=== PATIENT | male | born 1960 | race African-American/Black ===

== ENCOUNTER 2018-03-20 10:19 | Inpatient (IN) | payer OTHER ==
[2018-03-20] VITALS (7 sets, daily range): BP systolic 88–130; BP diastolic 46–95
[~2018-03-20] VITALS: Ht 170.2 cm; Wt 65.3 kg
[2018-03-20] MEDS ORDERED: NS 250 ML IV ONE (10:22)
[2018-03-20] MEDS ORDERED: ALLOPURINOL100 M1 ORAL (10:29)
[2018-03-20] MEDS ORDERED: OMEPRAZOLE10 M1 ORAL (10:29)
[2018-03-20] MEDS ORDERED: LISINOPRIL2.5 MG ORAL (10:29)
[2018-03-20] MEDS ORDERED: NORVASC2.5 MG ORAL (10:29)
[2018-03-20] MEDS ORDERED: TAMSULOSIN HCL0.4 MG ORAL (10:29)
[2018-03-20] MEDS ORDERED: CATAPRES0.1 MG ORAL (10:29)
[2018-03-20] MEDS ORDERED: FOLIC ACID1 MG ORAL (10:29)
[2018-03-20 10:51] LABS: BASOPHILS % (AUTO) 3.2 % (0.0-2.0); EOSINOPHILS % (AUTO) 6.9 % (0.0-3.0); HEMATOCRIT 28.5 % (42.0-52.0); HEMOGLOBIN 9.7 G/DL (14.2-18.0); LYMPHOCYTES % (AUTO) 22.6 % (20.0-45.0); MEAN CORPUSCULAR VOLUME 95 FL (80-99); MONOCYTES % (AUTO) 17.1 % (1.0-10.0); NEUTROPHILS % (AUTO) 50.3 % (45.0-75.0); PLATELET COUNT 391 K/UL (150-450); WHITE BLOOD COUNT 4.8 K/UL (4.8-10.8)
[2018-03-20 10:59] LABS: ANION GAP 12 mmol/L (5-15); BLOOD UREA NITROGEN 14 mg/dL (7-18); CALCIUM 9.1 MG/DL (8.5-10.1); CARBON DIOXIDE 27 MMOL/L (21-32); CHLORIDE 99 MMOL/L (98-107); CREATININE 4.5 MG/DL (0.55-1.30); POTASSIUM 3.4 MMOL/L (3.5-5.1); SODIUM 138 MMOL/L (136-145)
--- NOTE | 2018-03-20 11:02 | Emergency Room Report ---
History of Present Illness General Chief Complaint: Dyspnea/Respdistress Source: Patient Present Illness HPI 57-year-old male presents ED presenting with shortness of breath. Patient coming from dialysis center today. Completed dialysis session and developed shortness of breath. Hypotensive per EMS. Patient has history of ESRD and states he is compliant with his dialysis. States that when he feels short of breath like this is usually because he is anemic and needs a blood transfusion. Denies chest pain. Denies fevers or chills. No other aggravating or relieving factors. Denies any other associated symptoms Allergies: Coded Allergies: No Known Allergies (Unverified , 03/20/18) Patient History Past Medical History: CHF, renal disease, dialysis Past Surgical History: none Pertinent Family History: none Social History: Denies: smoking, alcohol use, drug use Immunizations: UTD Reviewed Nursing Documentation: PMH: Agreed; PSxH: Agreed Nursing Documentation-PMH Past Medical History: No History, Except For Hx Cardiac Problems: Yes - heart failure Hx Hypertension: Yes - low Hgb Hx Dialysis: Yes - last dialysis 03/20/2018 Review of Systems All Other Systems: negative except mentioned in HPI Physical Exam Vital Signs Date Time Temp Pulse Resp B/P (MAP) Pulse Ox O2 Delivery O2 Flow Rate FiO2 03/20/18 10:19 96.1 138 35 89/46 94 Non-Rebreather 96.1 03/20/18 10:33 15.0 Sp02 EP Interpretation: reviewed, normal General Appearance: no apparent distress, alert, GCS 15, non-toxic Head: normocephalic, atraumatic Eyes: bilateral eye normal inspection, bilateral eye PERRL ENT: hearing grossly normal, normal pharynx, no angioedema, normal voice Neck: full range of motion, supple/symm/no masses Respiratory: chest non-tender, normal breath sounds, crackles, speaking full sentences Cardiovascular #1: no edema, tachycardia Cardiovascular #2: 2+ carotid (R), 2+ carotid (L), 2+ radial (R), 2+ radial (L) , 2+ dorsalis pedis (R), 2+ dorsalis pedis (L) Gastrointestinal: normal bowel sounds, non tender, soft, non-distended, no guarding, no rebound Rectal: deferred Genitourinary: normal inspection, no CVA tenderness Musculoskeletal: back normal, gait/station normal, normal range of motion, non- tender Neurologic: alert, oriented x3, responsive, motor strength/tone normal, sensory intact, speech normal Psychiatric: judgement/insight normal, memory normal, mood/affect normal, no suicidal/homicidal ideation Reflexes: 3+ bicep (R), 3+ bicep (L), 3+ tricep (R), 3+ tricep (L), 3+ knee (R) , 3+ knee (L) Skin: normal color, no rash, warm/dry, well hydrated Lymphatic: no adenopathy Procedures Critical Care Time Critical Care Time i. I feel this is a highly complex case requiring extensive working including EKG/Rhythm strip, Xray/CT/US, Blood/urine lab work, repeat exams while in ED, and administration of strong opiates/narcotics for pain control, admission to hospital or close patient follow up. Total time: 30 min bedside evaluation and treatment excludes procedures (EKG). Reason for critical care: Shortness of breath, hypotensive Possible complications: hypotension, hypertension, [place], shock, arrhythmias, metabolic acidosis, end organ damage, respiratory failure. Interventions: Labs, EKG, chest x-ray, IV bolus, antibiotics Course: Patient presenting with shortness of breath after dialysis. Hypotensive after removing 4 L of fluid. Blood pressure slowly improving after IV boluses. Chest x-ray shows pneumonia on the right side. Blood pressure slowly improving with IV hydration. Antibiotics given. Consultations: nursing staff, EMS, family Performed by: Dr Duuqe Tolerated well condition = serious j. because of unstable vital signs this patient had a condition that could potentially threaten life or limb. I feel this is a critical patient who required my full attention while patient was considered critical. Total Critical Care Time excluding procedures was greater than 35 minutes Medical Decision Making Diagnostic Impression: Primary Impression: Respiratory distress Additional Impressions: ESRD (end stage renal disease) on dialysis Pneumonia Qualified Codes: J18.1 - Lobar pneumonia, unspecified organism ER Course Hospital Course 57 yo M presents to ED c/o SOB, hypotensive after dialysis Differential diagnoses include: Pneumonia, CHF exacerbation, sepsis, fluid depletion Clinical course Patient placed on stretcher. On panel monitor with tachycardia, hypotension. After initial history and physical, I ordered labs, IV fluids, EKG, chest x- ray, blood cultures, ABG. Labs -no leukocytosis noted, hemoglobin/hematocrit stable, BUN/Cr elevated, trop negative, BNP elevated CXR - R middle lobe infiltrate, bilateral pulmonary congestion EKG - sinus tachycardia, no acute ischemic changes interpreted by me Blood pressure, tachycardia slowly improving with small fluid boluses. Antibiotics given. Case discussed with Dr. Wilson and he agreed to the patient to his service for further care and support I feel this is a highly complex case requiring extensive working including EKG/ Rhythm strip, Xray/CT/US, Blood/urine lab work, repeat exams while in ED, and administration of strong opiates/narcotics for pain control, admission to hospital or close patient follow up. Diagnosis - pneumonia, respiratory distress, ESRD on dialysis Patient admitted to SDU in serious conditon Labs Test 03/20/18 10:20 03/20/18 10:35 03/20/18 11:44 White Blood Count 4.8 K/UL (4.8-10.8) Red Blood Count 3.00 M/UL (4.70-6.10) Hemoglobin 9.7 G/DL (14.2-18.0) Hematocrit 28.5 % (42.0-52.0) Mean Corpuscular Volume 95 FL (80-99) Mean Corpuscular Hemoglobin 32.2 PG (27.0-31.0) Mean Corpuscular Hemoglobin Concent 33.9 G/DL (32.0-36.0) Red Cell Distribution Width 16.0 % (11.6-14.8) Platelet Count 391 K/UL (150-450) Mean Platelet Volume 5.1 FL (6.5-10.1) Neutrophils (%) (Auto) 50.3 % (45.0-75.0) Lymphocytes (%) (Auto) 22.6 % (20.0-45.0) Monocytes (%) (Auto) 17.1 % (1.0-10.0) Eosinophils (%) (Auto) 6.9 % (0.0-3.0) Basophils (%) (Auto) 3.2 % (0.0-2.0) Prothrombin Time 10.9 SEC (9.30-11.50) Prothromb Time International Ratio 1.0 (0.9-1.1) Activated Partial Thromboplast Time 37 SEC (23-33) Sodium Level 138 MMOL/L (136-145) Potassium Level 3.4 MMOL/L (3.5-5.1) Chloride Level 99 MMOL/L (98-107) Carbon Dioxide Level 27 MMOL/L (21-32) Anion Gap 12 mmol/L (5-15) Blood Urea Nitrogen 14 mg/dL (7-18) Creatinine 4.5 MG/DL (0.55-1.30) Estimat Glomerular Filtration Rate 13.5 mL/min (>60) Glucose Level 121 MG/DL (74-106) Calcium Level 9.1 MG/DL (8.5-10.1) Total Bilirubin 0.4 MG/DL (0.2-1.0) Aspartate Amino Transf (AST/SGOT) 25 U/L (15-37) Alanine Aminotransferase (ALT/SGPT) 11 U/L (12-78) Alkaline Phosphatase 115 U/L (46-116) Total Creatine Kinase 228 U/L (26-308) Creatine Kinase MB 1.3 NG/ML (0.0-3.6) Creatine Kinase MB Relative Index 0.5 Troponin I 0.014 ng/mL (0.000-0.056) Pro-B-Type Natriuretic Peptide > 54651 pg/mL (0-125) Total Protein 8.4 G/DL (6.4-8.2) Albumin 3.0 G/DL (3.4-5.0) Globulin 5.4 g/dL Albumin/Globulin Ratio 0.6 (1.0-2.7) Arterial Blood pH 7.700 (7.350-7.450) Arterial Blood Partial Pressure CO2 20.8 mmHg (35.0-45.0) Arterial Blood Partial Pressure O2 185.7 mmHg (75.0-100.0) Arterial Blood HCO3 25.7 mmol/L (22.0-26.0) Arterial Blood Oxygen Saturation 99.0 % (92.0-98.0) Arterial Blood Base Excess 6.4 Xavier Test Positive Lactic Acid Level 1.40 mmol/L (0.4-2.0) EKG Diagnostic Results Rate: tachycardiac Rhythm: NSR ST Segments: no acute changes ASA given to the pt in ED: No Rhythm Strip Diag. Results EP Interpretation: yes Rhythm: NSR, no PVC's, no ectopy Chest X-Ray Diagnostic Results Chest X-Ray Diagnostic Results : Chest X-Ray Ordered: Yes # of Views/Limited/Complete: 1 View Indication: Shortness of Breath EP Interpretation: Yes Interpretation: no pneumothorax, other - bilateral pulmonary congestion, R sided pneumonia Impression: Other - CHF/PNA Electronically Signed by: Electronically signed by Angus Duque MD Last Vital Signs Date Time Temp Pulse Resp B/P (MAP) Pulse Ox O2 Delivery O2 Flow Rate FiO2 03/20/18 10:33 96.1 35 89/46 94 Non-Rebreather 96.1 03/20/18 10:33 138 15.0 Status: improved Disposition: ADMITTED INPATIENT Condition: Serious Angus Duque MD Mar 20, 2018 11:02
[2018-03-20 11:15] LABS: ALANINE AMINOTRANSFERASE 11 U/L (12-78); ALBUMIN/GLOBULIN RATIO 0.6 (1.0-2.7); ALKALINE PHOSPHATASE 115 U/L (46-116); ASPARTATE AMINO TRANSFERASE 25 U/L (15-37); BILIRUBIN,TOTAL 0.4 MG/DL (0.2-1.0); CKMB 1.3 NG/ML (0.0-3.6); CREATINE KINASE 228 U/L (26-308)
[2018-03-20] MEDS ORDERED: NS 250 ML IVPB ONE (11:15)
--- NOTE | 2018-03-20 11:22 | Diagnostic Imaging Report ---
EXAM: XR Chest, 1 View CLINICAL HISTORY: SOB TECHNIQUE: Frontal view of the chest. COMPARISON: No relevant prior studies available. FINDINGS: Lungs: Vascular and interstitial prominence. Right perihilar opacity. Pleural space: Unremarkable. No pneumothorax. Heart: Cardiomegaly. Mediastinum: Unremarkable. Bones/joints: Unremarkable. IMPRESSION: Vascular and interstitial prominence. Right perihilar opacity. Query congestive heart failure versus pneumonia.
[2018-03-20] MEDS ORDERED: Azithromycin 500 MG in D5W 275 ML IVPB ONE (11:30)
[2018-03-20] MEDS ORDERED: Piperacillin/Tazobactam 3.375 GM in NS 110 ML IVPB ONE (11:30)
[2018-03-20] MEDS ORDERED: LORazepam Inj 2mg/ml 1ml ONE (12:05)
[2018-03-20] MEDS ORDERED: LORazepam Inj 2mg/ml 1ml IV ONE (12:15)
[2018-03-20] MEDS ORDERED: Albuterol/Ipratropium 3ml neb HHN PRN (12:45)
[2018-03-20] MEDS ORDERED: Miralax 17gm pkt ORAL PRN (12:45)
--- NOTE | 2018-03-20 14:40 | Consultation ---
Consult Note Consult Note asked to eval for dialysis management been on HD for 18 years has dialysis access left thigh HPI 57-year-old male presents ED presenting with shortness of breath. Patient coming from dialysis center today. Completed dialysis session and developed shortness of breath. Hypotensive per EMS. Patient has history of ESRD and states he is compliant with his dialysis. States that when he feels short of breath like this is usually because he is anemic and needs a blood transfusion. Denies chest pain. Denies fevers or chills. No other aggravating or relieving factors. Denies any other associated symptoms Past Medical History: CHF, renal disease, dialysis Past Medical History: No History, Except For Hx Cardiac Problems: Yes - heart failure Hx Hypertension: Yes - low Hgb Hx Dialysis: Yes - last dialysis 03/20/2018 Assessment/Plan Respiratory distress- Pneumonia & or CHF ESRD- Anemia Hypotension IV Bollouses- Pulmonary support- antibiotics HD as needed Gastric support Yobany Mohr MD Mar 20, 2018 14:40
--- NOTE | 2018-03-20 14:55 | History & Physical ---
History and Physical History & Physicial Dictated for Int Med-Dr Wilson no. [id number]. Maxim Vinson MD Mar 20, 2018 14:55
--- NOTE | 2018-03-20 15:00 | Consultation ---
History of Present Illness General Date patient seen: Mar 20, 2018 Chief Complaint: Dyspnea/Respdistress Present Illness HPI 57 y/o M with hx of CHF, ESRD on HD, Anemia, HTN presents to ED on 03/20 with SOB. Per EMS, patient hypotensive Denies CP, f/c. Allergies: Coded Allergies: No Known Allergies (Unverified , 03/20/18) Medication History Scheduled Allopurinol* (Allopurinol*), Unknown Dose ORAL DAILY, (Reported) Amlodipine Besylate (Norvasc), Unknown Dose ORAL DAILY, (Reported) Clonidine Hcl* (Catapres*), 0.1 MG ORAL EVERY 6 HOURS, (Reported) Folic Acid* (Folic Acid*), 1 MG ORAL DAILY, (Reported) Lisinopril* (Lisinopril*), 2.5 MG ORAL DAILY, (Reported) Omeprazole (Omeprazole), Unknown Dose ORAL DAILY, (Reported) Tamsulosin Hcl (Tamsulosin Hcl*), Unknown Dose ORAL BEDTIME, (Reported) Patient History Healthcare decision maker Resuscitation status Advanced Directive on File Patient History Narrative Pmhx: as above Shx: Denies: smoking, alcohol use, drug use Fhx: non contributory Review of Systems All Other Systems: negative except mentioned in HPI Physical Exam Physical Exam Narrative General Appearance: no apparent distress, alert, GCS 15, non-toxic Head: normocephalic, atraumatic Eyes: bilateral eye normal inspection, bilateral eye PERRL ENT: hearing grossly normal, normal pharynx, no angioedema, normal voice Neck: full range of motion, supple/symm/no masses Respiratory: chest non-tender, normal breath sounds, crackles, speaking full sentences Cardiovascular #1: no edema, tachycardia Gastrointestinal: normal bowel sounds, non tender, soft, non-distended, no guarding, no rebound Genitourinary: normal inspection, no CVA tenderness Musculoskeletal: back normal, gait/station normal, normal range of motion, non- tender Skin: normal color, no rash, warm/dry, well hydrated Last 24 Hour Vital Signs Date Time Temp Pulse Resp B/P (MAP) Pulse Ox O2 Delivery O2 Flow Rate FiO2 03/20/18 14:15 97.4 87 15 119/62 100 Non-Rebreather 15.0 97.4 03/20/18 13:24 97.4 87 15 119/62 100 Non-Rebreather 15.0 97.4 03/20/18 12:57 97.2 85 15 114/66 100 Non-Rebreather 15.0 97.2 03/20/18 12:46 97.0 88 15 101/66 100 Non-Rebreather 15.0 97.0 03/20/18 12:33 97.0 82 14 97/61 100 Non-Rebreather 15.0 97.0 03/20/18 11:57 96.1 123 23 88/47 100 Non-Rebreather 15.0 96.1 03/20/18 10:33 96.1 35 89/46 94 Non-Rebreather 96.1 03/20/18 10:33 138 35 15.0 03/20/18 10:19 96.1 138 35 89/46 94 Non-Rebreather 96.1 Laboratory Tests Test 03/20/18 10:20 03/20/18 10:35 03/20/18 11:44 White Blood Count 4.8 K/UL (4.8-10.8) Red Blood Count 3.00 M/UL (4.70-6.10) L Hemoglobin 9.7 G/DL (14.2-18.0) L Hematocrit 28.5 % (42.0-52.0) L Mean Corpuscular Volume 95 FL (80-99) Mean Corpuscular Hemoglobin 32.2 PG (27.0-31.0) H Mean Corpuscular Hemoglobin Concent 33.9 G/DL (32.0-36.0) Red Cell Distribution Width 16.0 % (11.6-14.8) H Platelet Count 391 K/UL (150-450) Mean Platelet Volume 5.1 FL (6.5-10.1) L Neutrophils (%) (Auto) 50.3 % (45.0-75.0) Lymphocytes (%) (Auto) 22.6 % (20.0-45.0) Monocytes (%) (Auto) 17.1 % (1.0-10.0) H Eosinophils (%) (Auto) 6.9 % (0.0-3.0) H Basophils (%) (Auto) 3.2 % (0.0-2.0) H Prothrombin Time 10.9 SEC (9.30-11.50) Prothromb Time International Ratio 1.0 (0.9-1.1) Activated Partial Thromboplast Time 37 SEC (23-33) H Sodium Level 138 MMOL/L (136-145) Potassium Level 3.4 MMOL/L (3.5-5.1) L Chloride Level 99 MMOL/L (98-107) Carbon Dioxide Level 27 MMOL/L (21-32) Anion Gap 12 mmol/L (5-15) Blood Urea Nitrogen 14 mg/dL (7-18) Creatinine 4.5 MG/DL (0.55-1.30) H Estimat Glomerular Filtration Rate 13.5 mL/min (>60) Glucose Level 121 MG/DL (74-106) H Calcium Level 9.1 MG/DL (8.5-10.1) Total Bilirubin 0.4 MG/DL (0.2-1.0) Aspartate Amino Transf (AST/SGOT) 25 U/L (15-37) Alanine Aminotransferase (ALT/SGPT) 11 U/L (12-78) L Alkaline Phosphatase 115 U/L (46-116) Total Creatine Kinase 228 U/L (26-308) Creatine Kinase MB 1.3 NG/ML (0.0-3.6) Creatine Kinase MB Relative Index 0.5 Troponin I 0.014 ng/mL (0.000-0.056) C-Reactive Protein, Quantitative Pending Pro-B-Type Natriuretic Peptide > 67996 pg/mL (0-125) H Total Protein 8.4 G/DL (6.4-8.2) H Albumin 3.0 G/DL (3.4-5.0) L Globulin 5.4 g/dL Albumin/Globulin Ratio 0.6 (1.0-2.7) L Arterial Blood pH 7.700 (7.350-7.450) Arterial Blood Partial Pressure CO2 20.8 mmHg (35.0-45.0) *L Arterial Blood Partial Pressure O2 185.7 mmHg (75.0-100.0) H Arterial Blood HCO3 25.7 mmol/L (22.0-26.0) Arterial Blood Oxygen Saturation 99.0 % (92.0-98.0) H Arterial Blood Base Excess 6.4 Xavier Test Positive Lactic Acid Level 1.40 mmol/L (0.4-2.0) Height (Feet): 5 Height (Inches): 7.00 Weight (Pounds): 150 Medications Current Medications Medications (Trade) Dose Ordered Sig/Letty Route PRN Reason Start Time Stop Time Status Last Admin Dose Admin Acetaminophen (Tylenol) 650 mg Q4H PRN ORAL Fever (T>100.5F) 03/20/18 12:45 04/19/18 12:44 Albuterol/ Ipratropium (Albuterol/ Ipratropium) 3 ml Q4H PRN HHN Shortness of Breath 03/20/18 12:45 03/25/18 12:44 Amlodipine Besylate (Norvasc) 2.5 mg BID ORAL 03/21/18 09:00 04/20/18 08:59 Clonidine HCl (Catapres Tab) 0.1 mg Q6H PRN ORAL SBP>160 03/20/18 13:30 04/19/18 13:29 Dextrose (Dextrose 50%) 25 ml STAT PRN IV Hypoglycemia 03/20/18 13:30 04/19/18 13:29 Dextrose (Dextrose 50%) 50 ml STAT PRN IV Hypoglycemia 03/20/18 12:45 04/19/18 12:44 Heparin Sodium (Porcine) (Heparin 5000 units/ml) 5,000 units EVERY 12 HOURS SUBQ 03/20/18 21:00 04/19/18 20:59 Ondansetron HCl (Zofran) 4 mg Q6H PRN IVP Nausea & Vomiting 03/20/18 12:45 04/19/18 12:44 Pantoprazole (Protonix) 40 mg EVERY 12 HOURS ORAL 03/20/18 21:00 04/19/18 20:59 Piperacillin Sod/ Tazobactam Sod 3.375 gm/Sodium Chloride 110 ml @ 27.5 mls/hr EVERY 8 HOURS IVPB 03/20/18 22:00 03/25/18 21:59 UNV Polyethylene Glycol (Miralax) 17 gm DAILYPRN PRN ORAL Constipation 03/20/18 12:45 04/19/18 12:44 Tamsulosin HCl (Flomax) 0.4 mg QHS ORAL 03/20/18 21:00 04/19/18 20:59 Temazepam (Restoril) 15 mg HSPRN PRN ORAL Insomnia 03/20/18 12:45 03/27/18 12:44 Assessment/Plan Assessment/Plan Abx: Azithromycin x1 03/20 Zosyn 03/20- Assessment: Probable PNA vs CHF -CXR: Vascular and interstitial prominence. Right perihilar opacity. Query congestive heart failure versus pneumonia. Afebrile, no leukocytosis CHF ESRD on HD Anemia HTN Plan: -Continue empiric Zosyn and and IV Vancomycin pending sp cx -sp cx -f/u cx -Monitor CBC/CMP, temperatures -aspiration precautions Thank you for this consultation. Will continue to follow along with you. Discussed with RN and Dr Vinson. Jessica Hopper M.D. Mar 20, 2018 14:59
[2018-03-20] MEDS ORDERED: Sodium Chloride 3% 4ml Nebul Soln INH ONE (17:00)
[2018-03-20] MEDS ORDERED: Vancomycin 1250mg/D5W 250ml IVPB ONE (17:00)
--- NOTE | 2018-03-20 20:45 | History and Physical Report ---
DATE OF ADMISSION: 03/20/2018 CHIEF COMPLAINT: The patient is a 57-year-old male, who presents with chief complaint of shortness of breath. HISTORY OF PRESENT ILLNESS: The patient has a history of end-stage renal disease. The patient is currently on dialysis every Thursday, , and Thursday. The patient apparently went to dialysis today, 03/20/2018. The patient then returned home. The patient presented to [place] emergency room stating that he had become increasingly short of breath. The patient denies fevers or chills. The patient denies cough. The patient is admitted with shortness of breath to rule out congestive heart failure versus pneumonia. PAST MEDICAL HISTORY: Significant for 1. End-stage renal disease, on hemodialysis every Thursday, , and Thursday. 2. Hypertension. 3. Congestive heart failure. PAST SURGICAL HISTORY: Significant for 1. Sebaceous cyst, incision and drainage of left buttock in 01/2018. 2. Arteriovenous graft on the right arm. 3. Arteriovenous graft placement in the left arm. 4. Arteriovenous graft placement in the left leg. CURRENT MEDICATIONS: 1. Allopurinol 100 mg p.o. daily. 2. Amlodipine 2.5 mg p.o. daily. 3. Clonidine 0.1 mg p.o. q.6 h. p.r.n. 4. Folic acid 1 mg p.o. daily. 5. Lisinopril 2.5 mg p.o. daily. 6. Omeprazole 20 mg p.o. daily. 7. Flomax 0.4 mg p.o. at bedtime. ALLERGIES: No known drug allergies. SOCIAL HISTORY: The patient is single. The patient lives with his mother. The patient denies tobacco use, having quit in 2016. The patient admits to alcohol use of 2 beers daily. REVIEW OF SYSTEMS: CONSTITUTIONAL: The patient denies weight loss or weight gain. The patient denies fevers or chills. HEENT: The patient denies ear or throat pain. CARDIOVASCULAR: The patient denies palpitations or chest pain. CHEST: The patient denies wheezes. The patient complains of shortness of breath as above. ABDOMEN: The patient denies nausea, vomiting, diarrhea, or constipation. GENITOURINARY: The patient denies dysuria or increased frequency of urination. NEUROMUSCULAR: The patient denies seizures or generalized weakness. PHYSICAL EXAMINATION: GENERAL: The patient is thin-appearing male, in no apparent distress. The patient is currently on a non-rebreather mask. VITAL SIGNS: Temperature 96.1 degrees, respirations 23 to 35, blood pressure 88 to 101/46 to 66. HEENT: Eyes, pupils equal and responsive to light and accommodation. Extraocular movements are intact. NECK: Supple without lymphadenopathy. CHEST: Decreased breath sounds bilateral bases. Otherwise, clear to auscultation without wheezes or rales. CARDIOVASCULAR: Regular rate. S1 and S2 are normal without murmurs, rubs, or gallops. ABDOMEN: Soft, nontender, nondistended. Positive bowel sounds. No evidence of hepatosplenomegaly. Currently, no rebound or guarding noted. EXTREMITIES: Negative for clubbing, cyanosis, or edema. RECTAL: Refused. GENITAL: Refused. NEUROLOGIC: Cranial nerves II through XII are grossly intact without focal deficits. Motor strength is 5/5 bilaterally. Deep tendon reflexes are 2+ plantar. LABORATORY AND DIAGNOSTIC DATA: WBC 4.8, hemoglobin 9.7, hematocrit 28.5 and platelets 391,000. Sodium 138, potassium 3.4, chloride 99, CO2 27, BUN 14, creatinine 4.5, and glucose 121. Troponin 0.014. BNP elevated greater than 35,000. Chest x-ray revealed right perihilar opacity. ASSESSMENT: This is a 57-year-old male 1. Shortness of breath. 2. Pneumonia. 3. Congestive heart failure. 4. End-stage renal disease. 5. Hypertension. TREATMENT: 1. Shortness of breath/pneumonia. A Pulmonary consultation has been obtained with Dr. Maureen Montano. The patient has been started empirically on Zosyn and azithromycin. Continue Zosyn as above. 2. Congestive heart failure. A Cardiology consultation has been obtained with Dr. Nicholson. Congestive heart failure may be secondary to volume overload. Serial troponin levels will be performed. 3. End-stage renal disease. A Nephrology consultation has been obtained with Dr. Mohr. The patient received dialysis today, 03/20/2018. We will follow recommendations of Nephrology. 4. Hypertension. Continue amlodipine and clonidine as above. Maxim Vinson M.D. DR: THAIS JOB#: [id number] CC:
[2018-03-20] MEDS: Heparin 5000 units/ml inj SUBQ SCH (21:00)
[2018-03-20] MEDS: Tamsulosin 0.4mg cap ORAL SCH (21:11)
[2018-03-20] MEDS: Zosyn 2.25 gm in D5W 55ml IV SCH (21:12)
[2018-03-20] MEDS ORDERED: Piperacillin/Tazobactam 3.375 GM in NS 110 ML IVPB SCH (22:00)
[2018-03-21] VITALS (7 sets, daily range): BP systolic 130–176; BP diastolic 63–97
[2018-03-21] MEDS: Zosyn 2.25 gm in D5W 55ml IV SCH ×3 (05:33→22:00)
[2018-03-21 08:51] LABS: HEMATOCRIT 24.4 % (42.0-52.0); HEMOGLOBIN 7.6 G/DL (14.2-18.0); MEAN CORPUSCULAR VOLUME 96 FL (80-99); PLATELET COUNT 286 K/UL (150-450); RED BLOOD COUNT 2.54 M/UL (4.70-6.10); RED CELL DISTRIBUTION WIDTH 16.9 % (11.6-14.8); WHITE BLOOD COUNT 5.4 K/UL (4.8-10.8)
[2018-03-21] MEDS: Heparin 5000 units/ml inj SUBQ SCH ×2 (09:23→21:00)
[2018-03-21 09:31] LABS: ALANINE AMINOTRANSFERASE 9 U/L (12-78); ALBUMIN 2.7 G/DL (3.4-5.0); ALBUMIN/GLOBULIN RATIO 0.6 (1.0-2.7); ALKALINE PHOSPHATASE 94 U/L (46-116); ANION GAP 11 mmol/L (5-15); ASPARTATE AMINO TRANSFERASE 17 U/L (15-37); BILIRUBIN,TOTAL 0.4 MG/DL (0.2-1.0); BLOOD UREA NITROGEN 25 mg/dL (7-18); CALCIUM 8.2 MG/DL (8.5-10.1); CARBON DIOXIDE 27 MMOL/L (21-32); CHLORIDE 100 MMOL/L (98-107); CHOLESTEROL 155 MG/DL (< 200); CREATINE KINASE 119 U/L (26-308); CREATININE 6.8 MG/DL (0.55-1.30); GAMMA GLUTAMYL TRANSPEPTIDASE 42 U/L (5-85); HDL CHOLESTEROL 71 MG/DL (40-60); PHOSPHORUS 4.9 MG/DL (2.5-4.9); POTASSIUM 4.2 MMOL/L (3.5-5.1); SODIUM 138 MMOL/L (136-145); TRIGLYCERIDES 47 MG/DL (30-150)
[2018-03-21 10:00] LABS: % IRON SATURATION 37 % (15-50); IRON 45 ug/dL (50-175); TOTAL IRON BINDING CAPACITY 123 ug/dL (250-450)
[2018-03-21 10:01] LABS: FERRITIN 1215 NG/ML (8-388)
[2018-03-21] MEDS ORDERED: Vancomycin 1gm/D5W 275ml IVPB SCH ×2 (12:45)
--- NOTE | 2018-03-21 12:48 | Nephrology Progress Note ---
Assessment/Plan Problem List: (1) ESRD (end stage renal disease) on dialysis (2) Pneumonia (3) CHF (congestive heart failure) (4) Hypotension Assessment: on presentation (5) Anemia in chronic kidney disease Assessment Respiratory distress- Pneumonia & or CHF ESRD- Anemia Hypotension Plan IV Bollouses as needed Pulmonary support- antibiotics HD in am Gastric support EPO Subjective ROS Limited/Unobtainable: No Constitutional: Reports: malaise Objective Objective Last 24 Hour Vital Signs Date Time Temp Pulse Resp B/P (MAP) Pulse Ox O2 Delivery O2 Flow Rate FiO2 03/21/18 09:30 99 Nasal Cannula 2.0 03/21/18 09:30 Nasal Cannula 2.0 03/21/18 09:17 78 132/65 03/21/18 08:00 82 03/21/18 08:00 Nasal Cannula 3.0 03/21/18 08:00 97.7 78 18 132/65 (87) 99 97.7 03/21/18 04:00 Nasal Cannula 3.0 03/21/18 03:35 80 03/21/18 00:00 98.0 86 20 130/63 (85) 98 98.0 03/21/18 00:00 Nasal Cannula 3.0 03/20/18 23:54 83 03/20/18 20:00 Nasal Cannula 3.0 03/20/18 20:00 97.5 80 20 130/95 (107) 100 97.5 03/20/18 19:55 74 03/20/18 19:30 Nasal Cannula 2.0 03/20/18 19:30 93 Nasal Cannula 2.0 03/20/18 16:00 68 03/20/18 16:00 Nasal Cannula 3.0 03/20/18 14:20 Nasal Cannula 3.0 03/20/18 14:15 97.4 87 15 119/62 100 Non-Rebreather 15.0 97.4 03/20/18 13:24 97.4 87 15 119/62 100 Non-Rebreather 15.0 97.4 03/20/18 12:57 97.2 85 15 114/66 100 Non-Rebreather 15.0 97.2 03/20/18 12:46 97.0 88 15 101/66 100 Non-Rebreather 15.0 97.0 Intake and Output 03/20/18 03/21/18 19:00 07:00 Intake Total 150 ml 160 ml Output Total 0 ml Balance 150 ml 160 ml Intake Oral 150 ml 50 ml IV Total 110 ml Output Urine Total 0 ml Laboratory Tests 03/21/18 07:00: Urine Opiates Screen Negative, Urine Barbiturates Screen Negative, Phencyclidine (PCP) Screen Negative, Urine Amphetamines Screen Negative, Urine Benzodiazepines Screen Negative, Urine Cocaine Screen Negative, Urine Marijuana (THC) Screen Negative 03/21/18 08:30: White Blood Count 5.4, Red Blood Count 2.54L, Hemoglobin 7.6L, Hematocrit 24.4L , Mean Corpuscular Volume 96, Mean Corpuscular Hemoglobin 30.0, Mean Corpuscular Hemoglobin Concent 31.3L, Red Cell Distribution Width 16.9H, Platelet Count 286, Mean Platelet Volume 5.2L, Neutrophils (%) (Auto) , Lymphocytes (%) (Auto) , Monocytes (%) (Auto) , Eosinophils (%) (Auto) , Basophils (%) (Auto) , Differential Total Cells Counted 100, Neutrophils % ( Manual) 80H, Lymphocytes % (Manual) 5L, Monocytes % (Manual) 9, Eosinophils % ( Manual) 6H, Basophils % (Manual) 0, Band Neutrophils 0, Platelet Estimate Adequate, Platelet Morphology Normal, Polychromasia 1+, Hypochromasia 1+, Anisocytosis 1+, Sodium Level 138, Potassium Level 4.2, Chloride Level 100, Carbon Dioxide Level 27, Anion Gap 11, Blood Urea Nitrogen 25H, Creatinine 6.8#H , Estimat Glomerular Filtration Rate 10.2, Glucose Level 129H, Hemoglobin A1c 5.1, Uric Acid 3.5, Calcium Level 8.2L, Phosphorus Level 4.9, Magnesium Level 1.7L, Iron Level 45L, Total Iron Binding Capacity 123L, Percent Iron Saturation 37, Unsaturated Iron Binding 78L, Ferritin 1215H, Total Bilirubin 0.4, Gamma Glutamyl Transpeptidase 42, Aspartate Amino Transf (AST/SGOT) 17, Alanine Aminotransferase (ALT/SGPT) 9L, Alkaline Phosphatase 94, Total Creatine Kinase 119, Troponin I 0.000, C-Reactive Protein, Quantitative 5.5H, Pro-B-Type Natriuretic Peptide 97405E, Total Protein 7.1, Albumin 2.7L, Globulin 4.4, Albumin/Globulin Ratio 0.6L, Triglycerides Level 47, Cholesterol Level 155, LDL Cholesterol 79, HDL Cholesterol 71H, Cholesterol/HDL Ratio 2.2L, Vitamin B12 Level 896, Folate 58.3, Thyroid Stimulating Hormone (TSH) 1.437, Random Vancomycin Level 19.0 Height (Feet): 5 Height (Inches): 7.00 Weight (Pounds): 141 General Appearance: no apparent distress Cardiovascular: normal rate Respiratory/Chest: decreased breath sounds Abdomen: soft Yobany Mohr MD Mar 21, 2018 12:48
[2018-03-21] MEDS: Docusate 100mg cap ORAL SCH ×2 (13:00→18:19)
--- NOTE | 2018-03-21 14:22 | Cardiology Report ---
APPROVED REPORT EXAM: Two-dimensional and M-mode echocardiogram with Doppler and color Doppler. INDICATION LV FUNCTION M-Mode DIMENSIONS IVSd1.0 (0.7-1.1cm)Left Atrium (MM)4.6 (1.6-4.0cm) LVDd5.3 (3.5-5.6cm)Aortic Root4.0 (2.0-3.7cm) PWd1.7 (0.7-1.1cm)Aortic Cusp Exc.1.9 (1.5-2.0cm) IVSs1.4 cm LVDs3.5 (2.5-4.0cm) PWs2.1 cm Technically difficult study due to combative patient . Normal left ventricular chamber size, systolic function and wall motion to extent visualized. Left ventricular ejection fraction estimated to be 55-60 %. Moderate-severe left ventricular hypertrophy by 2-D Moderate anterior and posterio pericardial effusion. Mild bi-atrial enlargements . Right ventricular chamber sizes are within normal limits. Focal aortic valve sclerosis with adequate cusp excursion. Thickened mitral valve leaflets with normal excursion. Mitral annulus and aortic root calcification. Pulmonic valve not well visualized. Normal tricuspid valve structure. IVC dilated at size 2.2 cm without physiologic collapse, suggestive of increased RA pressure. A color flow and spectral Doppler study was performed and revealed: No aortic regurgitation. Moderate mitral regurgitation. Mitral diastolic velocities suggest reduced left ventricular relaxation c/w mild LV diastolic dysfunction (Grade I ). Moderate tricuspid regurgitation. Tricuspid systolic velocities suggests peak right ventricular systolic pressure of 52 mmHg, consistent with moderate pulmonary hypertension.
[2018-03-21] MEDS ORDERED: Vancomycin 1gm/D5W 275ml IVPB ONE ×2 (15:00)
--- NOTE | 2018-03-21 15:22 | Internal Med Progress Note ---
Subjective Date of Service: Mar 21, 2018 Physician Name Maxim Vinson Attending Physician Percy Wilson MD Current Medications Medications (Trade) Dose Ordered Sig/Letty Route PRN Reason Start Time Stop Time Status Last Admin Dose Admin Acetaminophen (Tylenol) 650 mg Q4H PRN ORAL Fever (T>100.5F) 03/20/18 12:45 04/19/18 12:44 Albuterol/ Ipratropium (Albuterol/ Ipratropium) 3 ml Q4H PRN HHN Shortness of Breath 03/20/18 12:45 03/25/18 12:44 Amlodipine Besylate (Norvasc) 2.5 mg BID ORAL 03/21/18 09:00 04/20/18 08:59 03/21/18 09:17 Clonidine HCl (Catapres Tab) 0.1 mg Q6H PRN ORAL SBP>160 03/20/18 13:30 04/19/18 13:29 Docusate Sodium (Colace) 100 mg THREE TIMES A DAY ORAL 03/21/18 13:00 04/20/18 12:59 Epoetin Kimo (Procrit (for ESRD on dialysis)) 10,000 units THU-THU-THU SUBQ 03/22/18 21:00 04/21/18 20:59 Heparin Sodium (Porcine) (Heparin 5000 units/ml) 5,000 units EVERY 12 HOURS SUBQ 03/20/18 21:00 04/19/18 20:59 03/21/18 09:23 Ondansetron HCl (Zofran) 4 mg Q6H PRN IVP Nausea & Vomiting 03/20/18 12:45 04/19/18 12:44 Pantoprazole (Protonix) 40 mg EVERY 12 HOURS ORAL 03/20/18 21:00 04/19/18 20:59 03/21/18 09:17 Piperacillin Sod/ Tazobactam Sod 2.25 gm/Dextrose 55 ml @ 110 mls/hr Q8HR IV 03/20/18 22:00 03/25/18 21:59 03/21/18 13:30 Polyethylene Glycol (Miralax) 17 gm DAILYPRN PRN ORAL Constipation 03/20/18 12:45 04/19/18 12:44 Tamsulosin HCl (Flomax) 0.4 mg QHS ORAL 03/20/18 21:00 04/19/18 20:59 03/20/18 21:11 Temazepam (Restoril) 15 mg HSPRN PRN ORAL Insomnia 03/20/18 12:45 03/27/18 12:44 Vancomycin HCl (Vanco rx to dose) 1 ea DAILY PRN MISC Per rx protocol 03/20/18 15:00 04/19/18 14:59 Vancomycin HCl 1 gm/Dextrose 275 ml @ 183.708 mls/hr ONCE ONCE IVPB 03/21/18 15:00 03/21/18 16:29 Allergies: Coded Allergies: No Known Allergies (Unverified , 03/20/18) ROS Limited/Unobtainable: No Constitutional: Reports: no symptoms HEENT: Reports: no symptoms Cardiovascular: Reports: no symptoms Respiratory: Reports: shortness of breath Gastrointestinal/Abdominal: Reports: no symptoms Genitourinary: Reports: no symptoms Neurologic/Psychiatric: Reports: no symptoms Subjective 57 YO M admitted with shortness of breath, now pneumonia. Cover for Int Med-Dr Wilson. Refused blood draw. Objective Last Vital Signs Date Time Temp Pulse Resp B/P (MAP) Pulse Ox O2 Delivery O2 Flow Rate FiO2 03/21/18 09:30 99 Nasal Cannula 2.0 28 03/21/18 09:17 78 132/65 03/21/18 08:00 97.7 18 97.7 General Appearance: no apparent distress, alert, thin EENT: PERRL/EOMI, normal ENT inspection Neck: non-tender, normal alignment, supple, normal inspection Cardiovascular: normal peripheral pulses, normal rate, regular rhythm, no gallop/murmur, no JVD Respiratory/Chest: chest wall non-tender, decreased breath sounds, crackles/ rales, rhonchi - bilaterally, expiratory wheezing Abdomen: normal bowel sounds, non tender, soft, no organomegaly, no mass Extremities: normal range of motion, non-tender 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 grossly normal, no motor/sensory deficits Skin: normal pigmentation, warm/dry Laboratory Tests Test 03/21/18 07:00 03/21/18 08:30 Urine Opiates Screen Negative (NEGATIVE) Urine Barbiturates Screen Negative (NEGATIVE) Phencyclidine (PCP) Screen Negative (NEGATIVE) Urine Amphetamines Screen Negative (NEGATIVE) Urine Benzodiazepines Screen Negative (NEGATIVE) Urine Cocaine Screen Negative (NEGATIVE) Urine Marijuana (THC) Screen Negative (NEGATIVE) White Blood Count 5.4 K/UL (4.8-10.8) Red Blood Count 2.54 M/UL (4.70-6.10) L Hemoglobin 7.6 G/DL (14.2-18.0) L Hematocrit 24.4 % (42.0-52.0) L Mean Corpuscular Volume 96 FL (80-99) Mean Corpuscular Hemoglobin 30.0 PG (27.0-31.0) Mean Corpuscular Hemoglobin Concent 31.3 G/DL (32.0-36.0) L Red Cell Distribution Width 16.9 % (11.6-14.8) H Platelet Count 286 K/UL (150-450) Mean Platelet Volume 5.2 FL (6.5-10.1) L Neutrophils (%) (Auto) % (45.0-75.0) Lymphocytes (%) (Auto) % (20.0-45.0) Monocytes (%) (Auto) % (1.0-10.0) Eosinophils (%) (Auto) % (0.0-3.0) Basophils (%) (Auto) % (0.0-2.0) Differential Total Cells Counted 100 Neutrophils % (Manual) 80 % (45-75) H Lymphocytes % (Manual) 5 % (20-45) L Monocytes % (Manual) 9 % (1-10) Eosinophils % (Manual) 6 % (0-3) H Basophils % (Manual) 0 % (0-2) Band Neutrophils 0 % (0-8) Platelet Estimate Adequate Platelet Morphology Normal Polychromasia 1+ Hypochromasia 1+ Anisocytosis 1+ Sodium Level 138 MMOL/L (136-145) Potassium Level 4.2 MMOL/L (3.5-5.1) Chloride Level 100 MMOL/L (98-107) Carbon Dioxide Level 27 MMOL/L (21-32) Anion Gap 11 mmol/L (5-15) Blood Urea Nitrogen 25 mg/dL (7-18) H Creatinine 6.8 MG/DL (0.55-1.30) #H Estimat Glomerular Filtration Rate 10.2 mL/min (>60) Glucose Level 129 MG/DL (74-106) H Hemoglobin A1c 5.1 % (4.3-6.0) Uric Acid 3.5 MG/DL (2.6-7.2) Calcium Level 8.2 MG/DL (8.5-10.1) L Phosphorus Level 4.9 MG/DL (2.5-4.9) Magnesium Level 1.7 MG/DL (1.8-2.4) L Iron Level 45 ug/dL (50-175) L Total Iron Binding Capacity 123 ug/dL (250-450) L Percent Iron Saturation 37 % (15-50) Unsaturated Iron Binding 78 ug/dL (112-346) L Ferritin 1215 NG/ML (8-388) H Total Bilirubin 0.4 MG/DL (0.2-1.0) Gamma Glutamyl Transpeptidase 42 U/L (5-85) Aspartate Amino Transf (AST/SGOT) 17 U/L (15-37) Alanine Aminotransferase (ALT/SGPT) 9 U/L (12-78) L Alkaline Phosphatase 94 U/L (46-116) Total Creatine Kinase 119 U/L (26-308) Troponin I 0.000 ng/mL (0.000-0.056) C-Reactive Protein, Quantitative 5.5 mg/dL (0.00-0.90) H Pro-B-Type Natriuretic Peptide 97771 pg/mL (0-125) H Total Protein 7.1 G/DL (6.4-8.2) Albumin 2.7 G/DL (3.4-5.0) L Globulin 4.4 g/dL Albumin/Globulin Ratio 0.6 (1.0-2.7) L Triglycerides Level 47 MG/DL (30-150) Cholesterol Level 155 MG/DL (< 200) LDL Cholesterol 79 mg/dL (<100) HDL Cholesterol 71 MG/DL (40-60) H Cholesterol/HDL Ratio 2.2 (3.3-4.4) L Vitamin B12 Level 896 PG/ML (193-986) Folate 58.3 NG/ML (8.6-58.9) Thyroid Stimulating Hormone (TSH) 1.437 uiU/mL (0.358-3.740) Random Vancomycin Level 19.0 ug/mL Intake and Output 03/20/18 03/21/18 19:00 07:00 Intake Total 150 ml 160 ml Output Total 0 ml Balance 150 ml 160 ml Intake Oral 150 ml 50 ml IV Total 110 ml Output Urine Total 0 ml Assessment/Plan Problem List: (1) Respiratory distress (2) Pneumonia Assessment & Plan: Continue vanco and zosyn per ID (3) Hypotension (4) ESRD (end stage renal disease) on dialysis Assessment & Plan: See nephrology note. Hemodialysis 03/22/18. (5) HTN (hypertension) Assessment & Plan: Continue amlodipine and clonidine (6) Homeless (7) CHF (congestive heart failure) Assessment & Plan: ?volume overload? See cardiology note. Status: not improved Maxim Vinson MD Mar 21, 2018 15:22
[2018-03-21] MEDS ORDERED: NS 275ml ONE (15:58)
[2018-03-21] MEDS ORDERED: Tubing IV Secondary IV ONE (15:58)
--- NOTE | 2018-03-21 18:13 | Consultation ---
History of Present Illness General Date patient seen: Mar 21, 2018 Time patient seen: 18:06 Chief Complaint: Dyspnea/Respdistress Present Illness HPI BIBA to ER with 15L of oxygen via gurney. Pt. seems to be anxious and restless.He has ESRD on HD for 18 years and is compliant. He was hypotensive on arrival. He denies CP and fever or chills. He feels he needs a blood transfusion. Troponin negative, BNP elevated, anemia 7.6 CXR: Vascular and interstitial prominence. Right perihilar opacity. Query congestive heart failure versus pneumonia. visualized. Left ventricular ejection fraction estimated to be 55-60 %. Moderate-severe left ventricular hypertrophy by 2-D Moderate anterior and posterio pericardial effusion. Mild bi-atrial enlargements . Right ventricular chamber sizes are within normal limits. Focal aortic valve sclerosis with adequate cusp excursion. Thickened mitral valve leaflets with normal excursion. Mitral annulus and aortic root calcification. Pulmonic valve not well visualized. Normal tricuspid valve structure. IVC dilated at size 2.2 cm without physiologic collapse, suggestive of increased RA pressure. A color flow and spectral Doppler study was performed and revealed: No aortic regurgitation. Moderate mitral regurgitation. Mitral diastolic velocities suggest reduced left ventricular relaxation c/w mild LV diastolic dysfunction (Grade I ). Moderate tricuspid regurgitation. Tricuspid systolic velocities suggests peak right ventricular systolic pressure of 52 mmHg, consistent with moderate pulmonary hypertension. Allergies: Coded Allergies: No Known Allergies (Unverified , 03/20/18) Medication History Scheduled Allopurinol* (Allopurinol*), Unknown Dose ORAL DAILY, (Reported) Amlodipine Besylate (Norvasc), Unknown Dose ORAL DAILY, (Reported) Clonidine Hcl* (Catapres*), 0.1 MG ORAL EVERY 6 HOURS, (Reported) Folic Acid* (Folic Acid*), 1 MG ORAL DAILY, (Reported) Lisinopril* (Lisinopril*), 2.5 MG ORAL DAILY, (Reported) Omeprazole (Omeprazole), Unknown Dose ORAL DAILY, (Reported) Tamsulosin Hcl (Tamsulosin Hcl*), Unknown Dose ORAL BEDTIME, (Reported) Patient History Healthcare decision maker Resuscitation status Full Code Advanced Directive on File Physical Exam Last 24 Hour Vital Signs Date Time Temp Pulse Resp B/P (MAP) Pulse Ox O2 Delivery O2 Flow Rate FiO2 7/29/18 16:00 100 03/21/18 16:00 Nasal Cannula 3.0 03/21/18 16:00 97.7 71 20 154/76 (102) 99 97.7 03/21/18 12:00 97.8 74 20 147/84 (105) 99 97.8 03/21/18 12:00 Nasal Cannula 3.0 03/21/18 09:30 99 Nasal Cannula 2.0 28 03/21/18 09:30 Nasal Cannula 2.0 28 03/21/18 09:17 78 132/65 03/21/18 08:00 82 03/21/18 08:00 Nasal Cannula 3.0 03/21/18 08:00 97.7 78 18 132/65 (87) 99 97.7 03/21/18 04:00 Nasal Cannula 3.0 03/21/18 03:35 80 03/21/18 00:00 98.0 86 20 130/63 (85) 98 98.0 03/21/18 00:00 Nasal Cannula 3.0 03/20/18 23:54 83 03/20/18 20:00 Nasal Cannula 3.0 03/20/18 20:00 97.5 80 20 130/95 (107) 100 97.5 03/20/18 19:55 74 03/20/18 19:30 Nasal Cannula 2.0 28 03/20/18 19:30 93 Nasal Cannula 2.0 28 Intake and Output 03/20/18 03/21/18 19:00 07:00 Intake Total 150 ml 160 ml Output Total 0 ml Balance 150 ml 160 ml Intake Oral 150 ml 50 ml IV Total 110 ml Output Urine Total 0 ml Laboratory Tests Test 03/21/18 07:00 03/21/18 08:30 Urine Opiates Screen Negative (NEGATIVE) Urine Barbiturates Screen Negative (NEGATIVE) Phencyclidine (PCP) Screen Negative (NEGATIVE) Urine Amphetamines Screen Negative (NEGATIVE) Urine Benzodiazepines Screen Negative (NEGATIVE) Urine Cocaine Screen Negative (NEGATIVE) Urine Marijuana (THC) Screen Negative (NEGATIVE) White Blood Count 5.4 K/UL (4.8-10.8) Red Blood Count 2.54 M/UL (4.70-6.10) L Hemoglobin 7.6 G/DL (14.2-18.0) L Hematocrit 24.4 % (42.0-52.0) L Mean Corpuscular Volume 96 FL (80-99) Mean Corpuscular Hemoglobin 30.0 PG (27.0-31.0) Mean Corpuscular Hemoglobin Concent 31.3 G/DL (32.0-36.0) L Red Cell Distribution Width 16.9 % (11.6-14.8) H Platelet Count 286 K/UL (150-450) Mean Platelet Volume 5.2 FL (6.5-10.1) L Neutrophils (%) (Auto) % (45.0-75.0) Lymphocytes (%) (Auto) % (20.0-45.0) Monocytes (%) (Auto) % (1.0-10.0) Eosinophils (%) (Auto) % (0.0-3.0) Basophils (%) (Auto) % (0.0-2.0) Differential Total Cells Counted 100 Neutrophils % (Manual) 80 % (45-75) H Lymphocytes % (Manual) 5 % (20-45) L Monocytes % (Manual) 9 % (1-10) Eosinophils % (Manual) 6 % (0-3) H Basophils % (Manual) 0 % (0-2) Band Neutrophils 0 % (0-8) Platelet Estimate Adequate Platelet Morphology Normal Polychromasia 1+ Hypochromasia 1+ Anisocytosis 1+ Sodium Level 138 MMOL/L (136-145) Potassium Level 4.2 MMOL/L (3.5-5.1) Chloride Level 100 MMOL/L (98-107) Carbon Dioxide Level 27 MMOL/L (21-32) Anion Gap 11 mmol/L (5-15) Blood Urea Nitrogen 25 mg/dL (7-18) H Creatinine 6.8 MG/DL (0.55-1.30) #H Estimat Glomerular Filtration Rate 10.2 mL/min (>60) Glucose Level 129 MG/DL (74-106) H Hemoglobin A1c 5.1 % (4.3-6.0) Uric Acid 3.5 MG/DL (2.6-7.2) Calcium Level 8.2 MG/DL (8.5-10.1) L Phosphorus Level 4.9 MG/DL (2.5-4.9) Magnesium Level 1.7 MG/DL (1.8-2.4) L Iron Level 45 ug/dL (50-175) L Total Iron Binding Capacity 123 ug/dL (250-450) L Percent Iron Saturation 37 % (15-50) Unsaturated Iron Binding 78 ug/dL (112-346) L Ferritin 1215 NG/ML (8-388) H Total Bilirubin 0.4 MG/DL (0.2-1.0) Gamma Glutamyl Transpeptidase 42 U/L (5-85) Aspartate Amino Transf (AST/SGOT) 17 U/L (15-37) Alanine Aminotransferase (ALT/SGPT) 9 U/L (12-78) L Alkaline Phosphatase 94 U/L (46-116) Total Creatine Kinase 119 U/L (26-308) Troponin I 0.000 ng/mL (0.000-0.056) C-Reactive Protein, Quantitative 5.5 mg/dL (0.00-0.90) H Pro-B-Type Natriuretic Peptide 48735 pg/mL (0-125) H Total Protein 7.1 G/DL (6.4-8.2) Albumin 2.7 G/DL (3.4-5.0) L Globulin 4.4 g/dL Albumin/Globulin Ratio 0.6 (1.0-2.7) L Triglycerides Level 47 MG/DL (30-150) Cholesterol Level 155 MG/DL (< 200) LDL Cholesterol 79 mg/dL (<100) HDL Cholesterol 71 MG/DL (40-60) H Cholesterol/HDL Ratio 2.2 (3.3-4.4) L Vitamin B12 Level 896 PG/ML (193-986) Folate 58.3 NG/ML (8.6-58.9) Thyroid Stimulating Hormone (TSH) 1.437 uiU/mL (0.358-3.740) Random Vancomycin Level 19.0 ug/mL Height (Feet): 5 Height (Inches): 7.00 Weight (Pounds): 141 Medications Current Medications Medications (Trade) Dose Ordered Sig/Letty Route PRN Reason Start Time Stop Time Status Last Admin Dose Admin Acetaminophen (Tylenol) 650 mg Q4H PRN ORAL Fever (T>100.5F) 03/20/18 12:45 04/19/18 12:44 Albuterol/ Ipratropium (Albuterol/ Ipratropium) 3 ml Q4H PRN HHN Shortness of Breath 03/20/18 12:45 03/25/18 12:44 Amlodipine Besylate (Norvasc) 2.5 mg BID ORAL 03/21/18 09:00 04/20/18 08:59 03/21/18 09:17 Clonidine HCl (Catapres Tab) 0.1 mg Q6H PRN ORAL SBP>160 03/20/18 13:30 04/19/18 13:29 Docusate Sodium (Colace) 100 mg THREE TIMES A DAY ORAL 03/21/18 13:00 04/20/18 12:59 Epoetin Kimo (Procrit (for ESRD on dialysis)) 10,000 units THU-THU-THU SUBQ 03/22/18 21:00 04/21/18 20:59 Heparin Sodium (Porcine) (Heparin 5000 units/ml) 5,000 units EVERY 12 HOURS SUBQ 03/20/18 21:00 04/19/18 20:59 03/21/18 09:23 Ondansetron HCl (Zofran) 4 mg Q6H PRN IVP Nausea & Vomiting 03/20/18 12:45 04/19/18 12:44 Pantoprazole (Protonix) 40 mg EVERY 12 HOURS ORAL 03/20/18 21:00 04/19/18 20:59 03/21/18 09:17 Piperacillin Sod/ Tazobactam Sod 2.25 gm/Dextrose 55 ml @ 110 mls/hr Q8HR IV 03/20/18 22:00 03/25/18 21:59 03/21/18 13:30 Polyethylene Glycol (Miralax) 17 gm DAILYPRN PRN ORAL Constipation 03/20/18 12:45 04/19/18 12:44 Tamsulosin HCl (Flomax) 0.4 mg QHS ORAL 03/20/18 21:00 04/19/18 20:59 03/20/18 21:11 Temazepam (Restoril) 15 mg HSPRN PRN ORAL Insomnia 03/20/18 12:45 03/27/18 12:44 Vancomycin HCl (Vanco rx to dose) 1 ea DAILY PRN MISC Per rx protocol 03/20/18 15:00 04/19/18 14:59 Assessment/Plan Status: stable Assessment/Plan Assessment 1. End-stage renal disease, on hemodialysis every Thursday, , and Saturday. 2. Hypertension. 3. Congestive heart failure. 4. Anemia chronic disease 5. Respiratory distress, volume overload Plan Maintain HD Troponin negative Transfuse PRN Epogen Echocardiogram - preserved LV function with LVH, moderate effusion, no tamponade but specificity is reduced with LVH, moderate MR and TR and moderate PAH. Maintain antihypertensive therapy, hold during dialysis Ambulate Phil Nicholson M.D. Mar 21, 2018 18:13
[2018-03-21] MEDS: Tamsulosin 0.4mg cap ORAL SCH (21:11)
[2018-03-22] MEDS: Zosyn 2.25 gm in D5W 55ml IV SCH (05:39)
[2018-03-22 08:00] VITALS: BP 182/85
[2018-03-22 08:27] VITALS: BP 182/85
[2018-03-22] MEDS: Docusate 100mg cap ORAL SCH (08:27)
[2018-03-22] MEDS: Heparin 5000 units/ml inj SUBQ SCH (08:31)
--- NOTE | 2018-03-22 09:04 | Infectious Diseases Prog Note ---
Assessment/Plan Assessment/Plan Assessment/Plan Abx: Azithromycin x1 03/20 Zosyn 03/20--> Assessment: Probable PNA vs CHF -CXR: Vascular and interstitial prominence. Right perihilar opacity. Query congestive heart failure versus pneumonia. Afebrile, no leukocytosis CHF ESRD on HD Anemia HTN Plan: -Continue empiric Zosyn and and IV Vancomycin pending sp cx -sp cx - still pending collection -f/u cx -Monitor CBC/CMP, temperatures -aspiration precautions Thank you for this consultation. Will continue to follow along with you. Subjective Allergies: Coded Allergies: No Known Allergies (Unverified , 03/20/18) Subjective Patient Left AMA Objective Vital Signs Last 24 Hour Vital Signs Date Time Temp Pulse Resp B/P (MAP) Pulse Ox O2 Delivery O2 Flow Rate FiO2 03/22/18 08:27 68 182/85 03/22/18 08:00 98.6 68 21 182/85 (117) 97 98.6 03/22/18 06:20 182/87 03/22/18 00:00 03/22/18 00:00 Nasal Cannula 3.0 03/21/18 21:25 97.9 67 175/79 (111) 97.9 03/21/18 20:00 98.7 75 20 173/80 (111) 97 98.7 03/21/18 20:00 97 Nasal Cannula 2.0 03/21/18 20:00 Nasal Cannula 2.0 03/21/18 20:00 Nasal Cannula 3.0 03/21/18 20:00 77 03/21/18 18:22 68 176/97 03/21/18 18:19 176/97 03/21/18 17:30 98.4 68 21 176/97 (123) 99 98.4 03/21/18 16:00 100 03/21/18 16:00 Nasal Cannula 3.0 03/21/18 16:00 97.7 71 20 154/76 (102) 99 97.7 03/21/18 12:00 97.8 74 20 147/84 (105) 99 97.8 03/21/18 12:00 Nasal Cannula 3.0 03/21/18 09:30 99 Nasal Cannula 2.0 28 03/21/18 09:30 Nasal Cannula 2.0 03/21/18 09:17 78 132/65 Height (Feet): 5 Height (Inches): 7.00 Weight (Pounds): 144 Objective Patient left AMA before being examined Microbiology Date/Time Source Procedure Growth Status 03/20/18 12:25 Blood Blood Culture - Preliminary NO GROWTH AFTER 24 HOURS Resulted 03/20/18 12:15 Blood Blood Culture - Preliminary NO GROWTH AFTER 24 HOURS Resulted 03/20/18 14:19 Nasal Nares MRSA Culture - Final NO METHICILLIN RESISTANT STAPH AUREUS... Complete Current Medications Medications (Trade) Dose Ordered Sig/Letty Route PRN Reason Start Time Stop Time Status Last Admin Dose Admin Acetaminophen (Tylenol) 650 mg Q4H PRN ORAL Fever (T>100.5F) 03/20/18 12:45 04/19/18 12:44 Albuterol/ Ipratropium (Albuterol/ Ipratropium) 3 ml Q4H PRN HHN Shortness of Breath 03/20/18 12:45 03/25/18 12:44 Amlodipine Besylate (Norvasc) 2.5 mg BID ORAL 03/21/18 09:00 04/20/18 08:59 03/22/18 08:27 Clonidine HCl (Catapres Tab) 0.1 mg Q6H PRN ORAL SBP>160 03/20/18 13:30 04/19/18 13:29 03/22/18 06:20 Docusate Sodium (Colace) 100 mg THREE TIMES A DAY ORAL 03/21/18 13:00 04/20/18 12:59 03/22/18 08:27 Epoetin Kimo (Procrit (for ESRD on dialysis)) 10,000 units THU-THU-THU SUBQ 03/22/18 21:00 04/21/18 20:59 Heparin Sodium (Porcine) (Heparin 5000 units/ml) 5,000 units EVERY 12 HOURS SUBQ 03/20/18 21:00 04/19/18 20:59 03/22/18 08:31 Ondansetron HCl (Zofran) 4 mg Q6H PRN IVP Nausea & Vomiting 03/20/18 12:45 04/19/18 12:44 Pantoprazole (Protonix) 40 mg EVERY 12 HOURS ORAL 03/20/18 21:00 04/19/18 20:59 03/22/18 08:27 Piperacillin Sod/ Tazobactam Sod 2.25 gm/Dextrose 55 ml @ 110 mls/hr Q8HR IV 03/20/18 22:00 03/25/18 21:59 03/22/18 05:39 Polyethylene Glycol (Miralax) 17 gm DAILYPRN PRN ORAL Constipation 03/20/18 12:45 04/19/18 12:44 Tamsulosin HCl (Flomax) 0.4 mg QHS ORAL 03/20/18 21:00 04/19/18 20:59 03/21/18 21:11 Temazepam (Restoril) 15 mg HSPRN PRN ORAL Insomnia 03/20/18 12:45 03/27/18 12:44 Vancomycin HCl (Vanco rx to dose) 1 ea DAILY PRN MISC Per rx protocol 03/20/18 15:00 04/19/18 14:59 Phil Glynn M.D. Mar 22, 2018 09:04
--- NOTE | 2018-03-22 09:37 | Nephrology Progress Note ---
Assessment/Plan Problem List: (1) ESRD (end stage renal disease) on dialysis (2) Pneumonia (3) CHF (congestive heart failure) (4) Hypotension Assessment: on presentation (5) Anemia in chronic kidney disease Assessment transfused- refusing blood work today- refusing meds- refusing vital checks wants to leave ! Plan due schedule HD in am- but patient wants to leave AMA he is uncoaporative I explained to the patient the risks of not comliance Subjective ROS Limited/Unobtainable: No Objective Objective Last 24 Hour Vital Signs Date Time Temp Pulse Resp B/P (MAP) Pulse Ox O2 Delivery O2 Flow Rate FiO2 03/22/18 08:27 68 182/85 03/22/18 08:00 98.6 68 21 182/85 (117) 97 98.6 03/22/18 06:20 182/87 03/22/18 00:00 03/22/18 00:00 Nasal Cannula 3.0 03/21/18 21:25 97.9 67 175/79 (111) 97.9 03/21/18 20:00 98.7 75 20 173/80 (111) 97 98.7 03/21/18 20:00 97 Nasal Cannula 2.0 28 03/21/18 20:00 Nasal Cannula 2.0 28 03/21/18 20:00 Nasal Cannula 3.0 03/21/18 20:00 77 03/21/18 18:22 68 176/97 03/21/18 18:19 176/97 03/21/18 17:30 98.4 68 21 176/97 (123) 99 98.4 03/21/18 16:00 100 03/21/18 16:00 Nasal Cannula 3.0 03/21/18 16:00 97.7 71 20 154/76 (102) 99 97.7 03/21/18 12:00 97.8 74 20 147/84 (105) 99 97.8 03/21/18 12:00 Nasal Cannula 3.0 Intake and Output 03/21/18 03/22/18 19:00 07:00 Intake Total 550 ml 665 ml Balance 550 ml 665 ml Intake Oral 550 ml 360 ml IV Total 55 ml Blood Product 250 ml # Voids 3 Height (Feet): 5 Height (Inches): 7.00 Weight (Pounds): 144 General Appearance: no apparent distress, other - uncoaporative Cardiovascular: normal rate Respiratory/Chest: decreased breath sounds Abdomen: soft Yobany Mohr MD Mar 22, 2018 09:36
[2018-03-22] MEDS ORDERED: NS 275ml ONE (10:49)
[2018-03-22] MEDS ORDERED: Tubing IV Blood Pump IV ONE (10:49)
--- NOTE | 2018-03-22 11:08 | Consultation ---
History of Present Illness General Date patient seen: Mar 22, 2018 Chief Complaint: Dyspnea/Respdistress Present Illness Allergies: Coded Allergies: No Known Allergies (Unverified , 03/20/18) Medication History Scheduled Allopurinol* (Allopurinol*), Unknown Dose ORAL DAILY, (Reported) Amlodipine Besylate (Norvasc), Unknown Dose ORAL DAILY, (Reported) Clonidine Hcl* (Catapres*), 0.1 MG ORAL EVERY 6 HOURS, (Reported) Folic Acid* (Folic Acid*), 1 MG ORAL DAILY, (Reported) Lisinopril* (Lisinopril*), 2.5 MG ORAL DAILY, (Reported) Omeprazole (Omeprazole), Unknown Dose ORAL DAILY, (Reported) Tamsulosin Hcl (Tamsulosin Hcl*), Unknown Dose ORAL BEDTIME, (Reported) Patient History Healthcare decision maker Resuscitation status Full Code Advanced Directive on File Physical Exam Last 24 Hour Vital Signs Date Time Temp Pulse Resp B/P (MAP) Pulse Ox O2 Delivery O2 Flow Rate FiO2 03/22/18 09:32 98 Nasal Cannula 2.0 03/22/18 09:32 Nasal Cannula 2.0 28 03/22/18 09:00 Nasal Cannula 3.0 03/22/18 08:27 68 182/85 03/22/18 08:00 98.6 68 21 182/85 (117) 97 98.6 03/22/18 06:20 182/87 03/22/18 00:00 03/22/18 00:00 Nasal Cannula 3.0 03/21/18 21:25 97.9 67 175/79 (111) 97.9 03/21/18 20:00 98.7 75 20 173/80 (111) 97 98.7 03/21/18 20:00 97 Nasal Cannula 2.0 28 03/21/18 20:00 Nasal Cannula 2.0 28 03/21/18 20:00 Nasal Cannula 3.0 03/21/18 20:00 77 03/21/18 18:22 68 176/97 03/21/18 18:19 176/97 03/21/18 17:30 98.4 68 21 176/97 (123) 99 98.4 03/21/18 16:00 100 03/21/18 16:00 Nasal Cannula 3.0 03/21/18 16:00 97.7 71 20 154/76 (102) 99 97.7 03/21/18 12:00 97.8 74 20 147/84 (105) 99 97.8 03/21/18 12:00 Nasal Cannula 3.0 Intake and Output 03/21/18 03/22/18 19:00 07:00 Intake Total 550 ml 665 ml Balance 550 ml 665 ml Intake Oral 550 ml 360 ml IV Total 55 ml Blood Product 250 ml # Voids 3 Height (Feet): 5 Height (Inches): 7.00 Weight (Pounds): 144 Medications Current Medications Medications (Trade) Dose Ordered Sig/Letty Route PRN Reason Start Time Stop Time Status Last Admin Dose Admin Acetaminophen (Tylenol) 650 mg Q4H PRN ORAL Fever (T>100.5F) 03/20/18 12:45 04/19/18 12:44 Albuterol/ Ipratropium (Albuterol/ Ipratropium) 3 ml Q4H PRN HHN Shortness of Breath 03/20/18 12:45 03/25/18 12:44 Amlodipine Besylate (Norvasc) 2.5 mg BID ORAL 03/21/18 09:00 04/20/18 08:59 03/22/18 08:27 Clonidine HCl (Catapres Tab) 0.1 mg Q6H PRN ORAL SBP>160 03/20/18 13:30 04/19/18 13:29 03/22/18 06:20 Docusate Sodium (Colace) 100 mg THREE TIMES A DAY ORAL 03/21/18 13:00 04/20/18 12:59 03/22/18 08:27 Epoetin Kimo (Procrit (for ESRD on dialysis)) 10,000 units THU-THU-THU SUBQ 03/22/18 21:00 04/21/18 20:59 Heparin Sodium (Porcine) (Heparin 5000 units/ml) 5,000 units EVERY 12 HOURS SUBQ 03/20/18 21:00 04/19/18 20:59 03/22/18 08:31 Ondansetron HCl (Zofran) 4 mg Q6H PRN IVP Nausea & Vomiting 03/20/18 12:45 04/19/18 12:44 Pantoprazole (Protonix) 40 mg EVERY 12 HOURS ORAL 7/28/18 21:00 04/19/18 20:59 03/22/18 08:27 Piperacillin Sod/ Tazobactam Sod 2.25 gm/Dextrose 55 ml @ 110 mls/hr Q8HR IV 03/20/18 22:00 03/25/18 21:59 03/22/18 05:39 Polyethylene Glycol (Miralax) 17 gm DAILYPRN PRN ORAL Constipation 03/20/18 12:45 04/19/18 12:44 Tamsulosin HCl (Flomax) 0.4 mg QHS ORAL 03/20/18 21:00 04/19/18 20:59 03/21/18 21:11 Temazepam (Restoril) 15 mg HSPRN PRN ORAL Insomnia 03/20/18 12:45 03/27/18 12:44 Vancomycin HCl (Vanco rx to dose) 1 ea DAILY PRN MISC Per rx protocol 03/20/18 15:00 04/19/18 14:59 Assessment/Plan Assessment/Plan mood d/o nos -the pt left AMA -the pt had capacity to make decisions Fani Albarado MD Mar 22, 2018 11:08
--- NOTE | 2018-03-22 12:19 | Internal Med Progress Note ---
Subjective Date of Service: Mar 22, 2018 Physician Name Maxim Vinson Attending Physician Percy Wilson MD Allergies: Coded Allergies: No Known Allergies (Unverified , 03/20/18) ROS Limited/Unobtainable: No Constitutional: Reports: no symptoms HEENT: Reports: no symptoms Cardiovascular: Reports: no symptoms Respiratory: Reports: no symptoms Gastrointestinal/Abdominal: Reports: no symptoms Genitourinary: Reports: no symptoms Neurologic/Psychiatric: Reports: no symptoms Subjective 57 YO M admitted with shortness of breath, now pneumonia. Cover for Int Med-Dr Wilson. Refused blood draw. Threatening to leave against medical advice. Objective Last Vital Signs Date Time Temp Pulse Resp B/P (MAP) Pulse Ox O2 Delivery O2 Flow Rate FiO2 03/22/18 09:32 98 Nasal Cannula 2.0 03/22/18 08:27 68 182/85 03/22/18 08:00 98.6 21 98.6 Microbiology Date/Time Source Procedure Growth Status 03/20/18 12:25 Blood Blood Culture - Preliminary NO GROWTH AFTER 24 HOURS Resulted 03/20/18 12:15 Blood Blood Culture - Preliminary NO GROWTH AFTER 24 HOURS Resulted 03/20/18 14:19 Nasal Nares MRSA Culture - Final NO METHICILLIN RESISTANT STAPH AUREUS... Complete 03/20/18 14:19 Rectum - Final NO CARBAPENEM-RESISTANT ENTEROBACTERI... Complete 03/20/18 14:19 Rectum VRE Culture - Final NO VANCOMYCIN RESISTANT ENTEROCOCCUS ... Complete Intake and Output 03/21/18 03/22/18 19:00 07:00 Intake Total 550 ml 665 ml Balance 550 ml 665 ml Intake Oral 550 ml 360 ml IV Total 55 ml Blood Product 250 ml # Voids 3 Objective General Appearance: no apparent distress, alert, thin EENT: PERRL/EOMI, normal ENT inspection Neck: non-tender, normal alignment, supple, normal inspection Cardiovascular: normal peripheral pulses, normal rate, regular rhythm, no gallop/murmur, no JVD Respiratory/Chest: chest wall non-tender, decreased breath sounds, crackles/ rales, rhonchi - bilaterally, expiratory wheezing Abdomen: normal bowel sounds, non tender, soft, no organomegaly, no mass Extremities: normal range of motion, non-tender Neurologic: survey technologist II-XII grossly normal, no motor/sensory deficits Skin: normal pigmentation, warm/dry Assessment/Plan Problem List: (1) Respiratory distress (2) Pneumonia Assessment & Plan: Continue vanco and zosyn per ID (3) Hypotension (4) ESRD (end stage renal disease) on dialysis Assessment & Plan: See nephrology note. Hemodialysis 03/22/18. (5) HTN (hypertension) Assessment & Plan: Continue amlodipine and clonidine (6) Homeless (7) CHF (congestive heart failure) Assessment & Plan: ?volume overload? See cardiology note. Assessment/Plan Patient left Maxim Balderrama MD Mar 22, 2018 12:19
--- NOTE | 2018-03-22 19:39 | Cardiology Report ---
APPROVED REPORT EKG Measurement Heart [id number] Most likely atrial tachycardia with rapid ventricular response Septal infarct, age undetermined Inferior infarct, age undetermined T wave abnormality, consider anterolateral ischemia Abnormal ECG
[2018-03-22] MEDS ORDERED: Epogen (for ESRD on dialysis) SUBQ SCH (21:00)
--- NOTE | 2018-03-24 10:01 | Discharge Summary ---
Discharge Summary Discharge Summary _ DATE OF ADMISSION: 03/20/2018 DATE OF DISCHARGE: 03/22/2018. Patient signed AGAINST MEDICAL ADVICE REASON FOR ADMISSION: 57 years old homeless male with past medical history significant for end-stage renal disease, on hemodialysis, congestive heart failure, anemia, presented after hemodialysis with shortness of breath. Upon evaluation patient was found to be tachycardic with heart rate 138, tachypneic with respiratory rate 35, hypotensive with blood pressure 89/46. Patient required initially placement on 100% nonrebreathing mask. Laboratory workup revealed negative troponin, elevated pro BNP over 35,000 EKG revealed atrial tachycardia with T wave abnormality, possible anterolateral ischemia. Chest x-ray showed right perihilar opacity: infiltrate versus CHF. No leukocytosis, hemoglobin 9.7 hematocrit 28.5 . In emergency department patient received small fluid boluses , tachycardia and blood pressure improved. Patient started on empiric antibiotic and transferred to telemetry floor for further management with diagnoses of respiratory distress, pneumonia ,CHF, end- stage renal disease, on hemodialysis, anemia, hypotension. CONSULTANTS: automatic edger ID specialist Dr. Xie air pollution inspector Dr. Mohr psychiatrist [facility]SE: Patient admitted to telemetry floor. Patient started on empiric antibiotics. ID specialist closely followed. Blood culture negative. Sputum culture was not collected. Patient was afebrile, no leukocytosis. Supplemental oxygen provided and titrated to keep pulse oximetry above 92%. Pulmonary toilet provided. Potato Seed Cutter closely followed. Patient was scheduled for hemodialysis on 03/22. Renal parameters and electrolytes were closely monitored , electrolytes corrected as needed , and nephrotoxins were avoided. Hypotension resolved . Nail Mill Worker closely followed. Echocardiogram revealed preserved ejection fraction 55-60%. Moderate to severe left ventricular hypertrophy. Moderate mitral regurgitation. Moderate tricuspid regurgitation. Right ventricular systolic pressure of 52 consistent with a moderate pulmonary hypertension . No wall motion abnormalities. Per automatic edger, respiratory distress was secondary to volume overload versus pneumonia. Hypotension resolved. Patient was instructed to hold antihypertensive medications prior to hemodialysis. Blood pressure stabilized and was managed with calcium channel martin, and Clonidine as needed. No cardiac complaints. Patient was able to be weaned from nonrebreathing mask to oxygen via nasal cannula with pulse oximetry 98% on 2 L via nasal cannula. Tachycardia and tachypnea resolved. Anemia workup was consistent with anemia of chronic disease and high ferritin. Evens was started on Epogen. Next day hemoglobin down to 7.6 hematocrit 24.4 . Patient subsequently was transfused with 1 unit of packed red blood cells. Lipid panel , TSH within normal limits. Hemodialysis was scheduled on that day , 03/22 at the hospital. Patient reported feeling better , no shortness of breath. He wanted to sign AGAINST MEDICAL ADVICE. Per psychiatrist patient ws not holdable. The risks and consequences of signing AGAINST MEDICAL ADVICE were discussed with patient in detail. Patient verbalized understanding, nevertheless signed AMA form and left. FINAL DIAGNOSES: Respiratory distress Probably pneumonia Congestive heart failure End-stage renal disease ,on hemodialysis Hypotension- resolved Hypertension Anemia of chronic kidney disease Mood disorder I have been assigned to dictate discharge summary for this account. I was not involved in the patient's management. Andie Irvin NP Mar 24, 2018 10:01
== END 2018-03-22 10:50 | disposition left against medical advice (07) | DRG 139 ==
LOC: EDBD 10:19 → EDBEDREQ 10:51 → EMR 11:14 → EDBEDREQ 11:21 → 2W 11:24 → EDBEDREQ 12:40 → 2W 13:33 → 2E 03-21 21:52
DX: J18.9 Pneumonia, unspecified organism (principal); I13.2 Hypertensive heart and chronic kidney disease with heart failure and with stage 5 chronic kidney disease, or end stage renal disease; N18.6 End stage renal disease; I95.9 Hypotension, unspecified; I36.1 Nonrheumatic tricuspid (valve) insufficiency; I50.9 Heart failure, unspecified; R06.03 Acute respiratory distress; Z99.2 Dependence on renal dialysis; I34.0 Nonrheumatic mitral (valve) insufficiency; D63.1 Anemia in chronic kidney disease; F39 Unspecified mood [affective] disorder
CPT/HCPCS: 36415; 36600; 71045; 80053; 80061; 80202; 80307; 82550; 82553; 82607; 82728; 82746; 82803; 82977; 83036; 83540; 83550; 83605; 83735; 83880; 84100; 84443; 84484; 84550; 85007; 85025; 85610; 85730; 86140; 86850; 86900; 86901; 86920; 87040; 87081; 93005; 93306; 94760

== ENCOUNTER 2019-03-22 10:14 | Inpatient (IN) | payer OTHER ==
[~2019-03-22] VITALS: Ht 165.1 cm; Wt 64.4 kg
[~2019-03-22 10:14] MED LIST: ALLOPURINOL100 M1 ORAL; CATAPRES0.1 MG ORAL; FOLIC ACID1 MG ORAL; LISINOPRIL2.5 MG ORAL; NORVASC2.5 MG ORAL; OMEPRAZOLE10 M1 ORAL; TAMSULOSIN HCL0.4 MG ORAL
[2019-03-22] MEDS ORDERED: UNOBMED (10:19)
--- NOTE | 2019-03-22 10:25 | Emergency Room Report ---
History of Present Illness General Chief Complaint: Gastrointestinal Bleed Source: Medical Record Present Illness HPI Patient is a 58-year-old male brought in by EMS after increased rectal bleeding. Patient a prior history of end-stage renal disease and is currently on dialysis. He states he is last dialyzed on Thursday and normally gets dialysis Thursday and Thursday. Patient reports having been taking aspirin regularly. He denies any other anticoagulant use. Patient reports having onset of bright red rectal bleeding.Patient states that he had been bleeding for the past 3 days. He reports having rectal hemorrhoids banded approximately 1 week ago at [facility]. Patient reports having a large amount of bright red blood without any stool. He states he thinks is from his hemorrhoids. Patient denies any abdominal pain.Patient received dialysis via left lower extremity dialysis access. Allergies: Coded Allergies: No Known Allergies (Unverified , 03/20/18) Patient History Past Medical History: see triage record Reviewed Nursing Documentation: PMH: Agreed; PSxH: Agreed Nursing Documentation-PMH Past Medical History: No History, Except For Hx Cardiac Problems: Yes - heart failure Hx Hypertension: Yes - low Hgb Hx COPD: Yes Hx Cancer: No Hx Gastrointestinal Problems: No Hx Dialysis: Yes - last dialysis 03/20/2018 Hx Neurological Problems: No Review of Systems All Other Systems: negative except mentioned in HPI Physical Exam Vital Signs Date Time Temp Pulse Resp B/P (MAP) Pulse Ox O2 Delivery O2 Flow Rate FiO2 03/22/19 10:14 98.2 88 16 125/55 (78) 98 Room Air General Appearance: alert, GCS 15, Chronically Ill ENT: other - tongue pallor Neck: normal inspection, full range of motion, supple Respiratory: chest non-tender, lungs clear, normal breath sounds Cardiovascular #1: no edema Gastrointestinal: normal inspection, soft Rectal: hemorrhoids, other - gross blood, no stool Musculoskeletal: normal inspection Neurologic: normal inspection, alert, oriented x3, responsive, associate professor of biblical studies III-XII nml as tested, motor strength/tone normal Psychiatric: normal inspection Skin: pallor Medical Decision Making Diagnostic Impression: Primary Impression: Anemia in chronic kidney disease Additional Impressions: CHF (congestive heart failure) Gastrointestinal hemorrhage ER Course Patient presented for rectal bleeding. Differential diagnosis include was not limited to hemorrhoidal bleeding, diverticulosis, coagulopathy, uremia among others. Because of complexity of patient's case laboratory testing and imaging studies were ordered. Patient was consented for blood transfusion. He states that he has had blood transfusions in the past. Patient was noted to have a recent banding procedure. Rectal exam exam showed some gross blood without any stool. EKG interpreted by me showed normal sinus rhythm with a rate of 84 T wave inversion in the anterior leads.there are no definite ischemic changes noted . there is some evidence of recent procedure to rectal hemorrhoids. Patient appears to be hemodynamically stable initially. Due to bright red blood and history of anemia patient will be hospitalized for further evaluation and treatment. Patient was discussed with Dr. Weber for inpatient management. Dr. Lucas was contacted for GI consult Labs Test 03/22/19 10:45 White Blood Count 5.6 K/UL (4.8-10.8) Red Blood Count 1.74 M/UL (4.70-6.10) Hemoglobin 5.3 G/DL (14.2-18.0) Hematocrit 16.1 % (42.0-52.0) Mean Corpuscular Volume 93 FL (80-99) Mean Corpuscular Hemoglobin 30.3 PG (27.0-31.0) Mean Corpuscular Hemoglobin Concent 32.7 G/DL (32.0-36.0) Red Cell Distribution Width 16.6 % (11.6-14.8) Platelet Count 408 K/UL (150-450) Mean Platelet Volume 5.0 FL (6.5-10.1) Neutrophils (%) (Auto) % (45.0-75.0) Lymphocytes (%) (Auto) % (20.0-45.0) Monocytes (%) (Auto) % (1.0-10.0) Eosinophils (%) (Auto) % (0.0-3.0) Basophils (%) (Auto) % (0.0-2.0) Differential Total Cells Counted 100 Neutrophils % (Manual) 65 % (45-75) Lymphocytes % (Manual) 24 % (20-45) Monocytes % (Manual) 8 % (1-10) Eosinophils % (Manual) 2 % (0-3) Basophils % (Manual) 1 % (0-2) Band Neutrophils 0 % (0-8) Platelet Estimate Adequate Platelet Morphology Normal Anisocytosis 1+ Prothrombin Time 12.5 SEC (9.30-11.50) Prothromb Time International Ratio 1.2 (0.9-1.1) Activated Partial Thromboplast Time 37 SEC (23-33) Sodium Level 132 MMOL/L (136-145) Potassium Level 4.6 MMOL/L (3.5-5.1) Chloride Level 95 MMOL/L (98-107) Carbon Dioxide Level 24 MMOL/L (21-32) Anion Gap 13 mmol/L (5-15) Blood Urea Nitrogen 39 mg/dL (7-18) Creatinine 10.8 MG/DL (0.55-1.30) Estimat Glomerular Filtration Rate 5.9 mL/min (>60) Glucose Level 86 MG/DL (74-106) Calcium Level 8.2 MG/DL (8.5-10.1) Total Bilirubin 0.3 MG/DL (0.2-1.0) Aspartate Amino Transf (AST/SGOT) 21 U/L (15-37) Alanine Aminotransferase (ALT/SGPT) < 6 U/L (12-78) Alkaline Phosphatase 84 U/L (46-116) Troponin I 0.011 ng/mL (0.000-0.056) Total Protein 6.5 G/DL (6.4-8.2) Albumin 2.3 G/DL (3.4-5.0) Globulin 4.2 g/dL Albumin/Globulin Ratio 0.5 (1.0-2.7) Lipase 74 U/L (73-393) Last Vital Signs Date Time Temp Pulse Resp B/P (MAP) Pulse Ox O2 Delivery O2 Flow Rate FiO2 03/22/19 10:14 98.2 88 16 125/55 (78) 98 Room Air Status: improved Disposition: HOME, SELF-CARE Condition: Stable Vinayak Gutierrez MD Mar 22, 2019 10:25
[2019-03-22 10:30] VITALS: BP 125/55
[2019-03-22] MEDS ORDERED: Pantoprazole Inj IV ONE (10:30)
--- NOTE | 2019-03-22 10:30 | NUR ---
ED Nurse Note: pt was brought in by ambulance c/o bloody stool x 3 days, pt denies pian. pt stated he has hemorrhoid in the past, pt hs dialysis shunt on the left thigh and was going to the dialysis every thu,,sat. pt is seen by ermbreanne. iv stablished on the right hand. pt unable to give urine sample as of the moment. will continue to monitor.
--- NOTE | 2019-03-22 10:45 | NUR ---
ED Nurse Note: pt went to bedside commode and passed a bloody stool. pt denies pain, denies dizziness. pt stated he feels weak, pt able to go back to the gurney.
--- NOTE | 2019-03-22 10:54 | NUR ---
ED Nurse Note: pt medicated as ordered, pt able to tolerate. will continue to monitor.
[2019-03-22 11:21] LABS: HEMATOCRIT 16.1 % (42.0-52.0); MEAN CORPUSCULAR VOLUME 93 FL (80-99); PLATELET COUNT 408 K/UL (150-450); RED BLOOD COUNT 1.74 M/UL (4.70-6.10); RED CELL DISTRIBUTION WIDTH 16.6 % (11.6-14.8); WHITE BLOOD COUNT 5.6 K/UL (4.8-10.8)
[2019-03-22 11:23] LABS: ANION GAP 13 mmol/L (5-15); BLOOD UREA NITROGEN 39 mg/dL (7-18); CALCIUM 8.2 MG/DL (8.5-10.1); CARBON DIOXIDE 24 MMOL/L (21-32); CHLORIDE 95 MMOL/L (98-107); CREATININE 10.8 MG/DL (0.55-1.30); HEMOGLOBIN 5.3 G/DL (14.2-18.0); POTASSIUM 4.6 MMOL/L (3.5-5.1); SODIUM 132 MMOL/L (136-145)
[2019-03-22 11:24] LABS: INR 1.2 (0.9-1.1)
[2019-03-22 11:27] LABS: ALANINE AMINOTRANSFERASE < 6 U/L (12-78); ALBUMIN 2.3 G/DL (3.4-5.0); ALBUMIN/GLOBULIN RATIO 0.5 (1.0-2.7); ALKALINE PHOSPHATASE 84 U/L (46-116); ASPARTATE AMINO TRANSFERASE 21 U/L (15-37); BILIRUBIN,TOTAL 0.3 MG/DL (0.2-1.0)
[2019-03-22 12:25] VITALS: BP 115/65
--- NOTE | 2019-03-22 12:25 | NUR ---
ED Nurse Note: blood transfusion started. pt vss. will continue to monitor.
--- NOTE | 2019-03-22 12:31 | NUR ---
ED Nurse Note: VERIFIED W/ ERMD PT CAN EAT AFTER TRANFUSING BLOOD. ORDERED TRAY, WILL WAIT TO GIVE AFTER BLOOD TRANSFUSION IS DONE.
--- NOTE | 2019-03-22 14:10 | NUR ---
ED Nurse Note: first bag of prbc finished, pt hs no blood transfusion reaction noted. vss. pt has no complaint. will continue to monitor.
[2019-03-22 14:20] VITALS: BP 134/66
--- NOTE | 2019-03-22 14:20 | NUR ---
ED Nurse Note: second bag of prbc started, properly identified and matched. vss. will continue to monitor
--- NOTE | 2019-03-22 14:40 | NUR ---
NURSE NOTES: RECEIVED TELEPHONE REPORT FROM BRENNAN CONCEPTOR OF ED DPT.PT ADMITTED WITH DX OF LOWER G.I BLEED. A WAITING FOR THE PT COME TO [facility] IN ROOM 237.PLACED A TELEPHONE CALL TO DR MARTINES FOR ADMISSION ORDERS. WILL CONT TO MONITOR.
--- NOTE | 2019-03-22 14:48 | Consultation ---
History of Present Illness General Date patient seen: Mar 22, 2019 Reason for Hospitalization: Gastrointestinal Bleed Present Illness HPI 58 year old male with multiple medical comorbidities presented to [facility] ED complaining of BRBPR. states has had issues for years but 3 days ago began to note severe bloody stools. no n/v/f/c. ESRD on HD via left femoral graft. has been feeling week. in ED noted to have significant anemia. surgery called to evaluate. states history of hemorrhoids and had banding 2 weeks ago at [facility]. states has colonoscopy every 6 months Allergies: Coded Allergies: No Known Allergies (Unverified , 03/20/18) Medication History Scheduled Allopurinol* (Allopurinol*), Unknown Dose ORAL DAILY, (Reported) Amlodipine Besylate (Norvasc), Unknown Dose ORAL DAILY, (Reported) Clonidine Hcl* (Catapres*), 0.1 MG ORAL EVERY 6 HOURS, (Reported) Folic Acid* (Folic Acid*), 1 MG ORAL DAILY, (Reported) Lisinopril* (Lisinopril*), 2.5 MG ORAL DAILY, (Reported) Omeprazole (Omeprazole), Unknown Dose ORAL DAILY, (Reported) Tamsulosin Hcl (Tamsulosin Hcl*), Unknown Dose ORAL BEDTIME, (Reported) Miscellaneous Medications Unable to Obtain Medications (Unable To Obtain Meds), (Reported) Patient History History Provided By: Patient, Medical Record, PMD Healthcare decision maker N Resuscitation status Advanced Directive on File Past Medical/Surgical History Past Medical/Surgical History: (1) Hypotension (2) HTN (hypertension) (3) Gastrointestinal hemorrhage (4) CHF (congestive heart failure) (5) Anemia in chronic kidney disease Review of Systems Review of Symptoms General ROS: no weight loss or fever Psychological ROS: no depression or mood changes, no memory loss Ophthalmic ROS: no visual changes or eye irritation ENT ROS: no nasal congestion, hearing loss, dizziness Allergy and Immunology ROS: no allergic symptoms or urticaria Hematological and Lymphatic ROS: no swollen glands, unusual bleeding or bruising Endocrine ROS: no polyuria, polydipsia, weight changes, temperature intolerance Respiratory ROS: no cough, shortness of breath, or wheezing Cardiovascular ROS: no chest pain or dyspnea on exertion Gastrointestinal ROS: denies abdominal pain, bright red blood in stool. Musculoskeletal ROS: no myalgias or arthralgias Neurological ROS: no TIA or stroke symptoms Dermatological ROS: no new or changing skin lesions, rashes or pruritis Physical Exam Physical Exam General appearance: alert, cooperative, no distress, appears stated age Head: Normocephalic, without obvious abnormality, atraumatic Eyes: conjunctivae/corneas clear. PERRL, EOM's intact. Fundi benign Throat: Lips, mucosa, and tongue normal. Teeth and gums normal Neck: supple, symmetrical, trachea midline, no adenopathy, thyroid: not enlarged, symmetric, no tenderness/mass/nodules, no carotid bruit and no JVD Lungs: clear to auscultation bilaterally Heart: regular rate and rhythm, S1, S2 normal, no murmur, click, rub or gallop Abdomen: soft, non-tender. Bowel sounds normal. No masses, no organomegaly Extremities: extremities normal, atraumatic, no cyanosis or edema Pulses: 2+ and symmetric Skin: Skin color, texture, turgor normal. No rashes or lesions Neurologic: Grossly normal Last 24 Hour Vital Signs Date Time Temp Pulse Resp B/P (MAP) Pulse Ox O2 Delivery O2 Flow Rate FiO2 03/22/19 14:20 97.1 78 16 134/66 97 03/22/19 12:25 97.2 81 16 115/65 99 Room Air 03/22/19 10:30 98.2 88 16 125/55 98 Room Air 03/22/19 10:30 88 16 Room Air 03/22/19 10:14 98.2 88 16 125/55 (78) 98 Room Air Laboratory Tests Test 03/22/19 10:45 White Blood Count 5.6 K/UL (4.8-10.8) Red Blood Count 1.74 M/UL (4.70-6.10) L Hemoglobin 5.3 G/DL (14.2-18.0) *L Hematocrit 16.1 % (42.0-52.0) L Mean Corpuscular Volume 93 FL (80-99) Mean Corpuscular Hemoglobin 30.3 PG (27.0-31.0) Mean Corpuscular Hemoglobin Concent 32.7 G/DL (32.0-36.0) Red Cell Distribution Width 16.6 % (11.6-14.8) H Platelet Count 408 K/UL (150-450) Mean Platelet Volume 5.0 FL (6.5-10.1) L Neutrophils (%) (Auto) % (45.0-75.0) Lymphocytes (%) (Auto) % (20.0-45.0) Monocytes (%) (Auto) % (1.0-10.0) Eosinophils (%) (Auto) % (0.0-3.0) Basophils (%) (Auto) % (0.0-2.0) Differential Total Cells Counted 100 Neutrophils % (Manual) 65 % (45-75) Lymphocytes % (Manual) 24 % (20-45) Monocytes % (Manual) 8 % (1-10) Eosinophils % (Manual) 2 % (0-3) Basophils % (Manual) 1 % (0-2) Band Neutrophils 0 % (0-8) Platelet Estimate Adequate Platelet Morphology Normal Anisocytosis 1+ Prothrombin Time 12.5 SEC (9.30-11.50) H Prothromb Time International Ratio 1.2 (0.9-1.1) H Activated Partial Thromboplast Time 37 SEC (23-33) H Sodium Level 132 MMOL/L (136-145) L Potassium Level 4.6 MMOL/L (3.5-5.1) Chloride Level 95 MMOL/L (98-107) L Carbon Dioxide Level 24 MMOL/L (21-32) Anion Gap 13 mmol/L (5-15) Blood Urea Nitrogen 39 mg/dL (7-18) H Creatinine 10.8 MG/DL (0.55-1.30) H Estimat Glomerular Filtration Rate 5.9 mL/min (>60) Glucose Level 86 MG/DL (74-106) Calcium Level 8.2 MG/DL (8.5-10.1) L Total Bilirubin 0.3 MG/DL (0.2-1.0) Aspartate Amino Transf (AST/SGOT) 21 U/L (15-37) Alanine Aminotransferase (ALT/SGPT) < 6 U/L (12-78) L Alkaline Phosphatase 84 U/L (46-116) Troponin I 0.011 ng/mL (0.000-0.056) Total Protein 6.5 G/DL (6.4-8.2) Albumin 2.3 G/DL (3.4-5.0) L Globulin 4.2 g/dL Albumin/Globulin Ratio 0.5 (1.0-2.7) L Lipase 74 U/L (73-393) Height (Feet): 5 Height (Inches): 7.00 Weight (Pounds): 125 Assessment/Plan Problem List: (1) Gastrointestinal hemorrhage Assessment & Plan: acute GI bleed etiology colonic or anal physical exam difficult given loose stool and blood and patient comfort needs admission transfusions trend labs GI eval for scop soon may require surgery if cannot control via scope thank rivka lima follow with recs ICD Codes: K92.2 - Gastrointestinal hemorrhage, unspecified SNOMED: [id number] Devonte Hinds Mar 22, 2019 14:48
--- NOTE | 2019-03-22 14:50 | NUR ---
ED Nurse Note: pt is admitted to the hospital. report given to dariel herrera, pt was transfered to sdu 237-1 with stable vs and with all belongings.
[2019-03-22 15:00] VITALS: BP 130/67
--- NOTE | 2019-03-22 15:00 | NUR ---
NURSE NOTES: RECEIVED PT VIA GURNEY ESCORTED BY [employer] GROUNDSKEEPER FROM E.D DPT. PT RECEIVING 2ND UNIT OF P-RBC CONNECTED ON RT HAND H.L G# 20 INFUSSING WELL.FULL BODY ASSESSMENT DONE.WILL CONT TO MONITOR.
--- NOTE | 2019-03-22 17:00 | NUR ---
NURSE NOTES:SECOND UNIT OF PRBC COMPLETED.PT TOLERATED WELL BLOOD TRANSFUSION,V/S STABLE ,NO EVIDENCE OF ANY ADVERSE REACTION NOTED.WILL CONT TO MONITOR.
--- NOTE | 2019-03-22 19:00 | NUR ---
HAND-OFF: Report given to .MACK BLACK.
--- NOTE | 2019-03-22 19:01 | NUR ---
NURSE NOTES: Received patient from Axel RN. Patient is awake and oriented x4, receiving oxygen via nasal cannula at 2L/min, patient tolerating well, showing no signs of respiratory distress. AV shunt is on patients left thigh, thrill and bruit present. IV site is right hand 20g and right AC 20g, both patent and intact. Bed is locked, placed in lowest position, side rails up x2, call light within reach. Will continue to monitor.
[2019-03-22 20:00] VITALS: BP 107/56
--- NOTE | 2019-03-22 20:06 | NUR ---
NURSE NOTES: Pre-Transfusion: Temp 96.8, HR 83, BP 119/56. Blood transfusion initiated.
--- NOTE | 2019-03-22 20:21 | NUR ---
NURSE NOTES: 15 minutes after start of transfusion, no adverse reaction, Temp 96.8, HR 79, BP 124/62.
--- NOTE | 2019-03-22 20:22 | NUR ---
NURSE NOTES: Patient is threatening to leave AMA. Does not want to be bothered for vital signs. Will continue to monitor.
[2019-03-22] MEDS: Tamsulosin 0.4mg cap ORAL SCH (21:05)
[2019-03-22] MEDS: Pantoprazole Inj IVP SCH (21:06)
[2019-03-22 21:18] LABS: HEMATOCRIT 16.1 % (42.0-52.0); MEAN CORPUSCULAR VOLUME 87 FL (80-99); PLATELET COUNT 299 K/UL (150-450); RED BLOOD COUNT 1.84 M/UL (4.70-6.10); WHITE BLOOD COUNT 4.9 K/UL (4.8-10.8)
[2019-03-22 21:19] LABS: HEMOGLOBIN 5.5 G/DL (14.2-18.0)
--- NOTE | 2019-03-22 23:08 | NUR ---
NURSE NOTES: Primary physician notified of patient refusing care and threatening to go AMA.
--- NOTE | 2019-03-22 23:58 | General Progress Note ---
Assessment/Plan Assessment/Plan: GI CONSULT Dictated Patient with recurrent LGIB Had recent negative EGD/Colon, per patient report, at [facility] about 2 weeks ago. Subsequently underwent hemorrhoidal banding by a technology integration specialist. Bleeding stopped, and now restarted Suspect recurrent hemorrhoidal bleeding, superimposed on anemia of renal failure Will d/w surgery and will try to obtain outside records Thank you Aga Lucas MD Subjective Allergies: Coded Allergies: No Known Allergies (Unverified , 03/20/18) Objective Last 24 Hour Vital Signs Date Time Temp Pulse Resp B/P (MAP) Pulse Ox O2 Delivery O2 Flow Rate FiO2 03/22/19 20:00 98.1 77 20 107/56 (73) 100 03/22/19 20:00 Nasal Cannula 2.0 03/22/19 19:37 88 03/22/19 16:00 Nasal Cannula 2.0 03/22/19 16:00 76 03/22/19 15:22 Nasal Cannula 2.0 03/22/19 15:19 97.1 78 16 03/22/19 15:00 97.7 100 20 130/67 (88) 98 03/22/19 14:50 97.1 78 16 134/66 97 Room Air 03/22/19 14:20 97.1 78 16 134/66 97 03/22/19 12:28 97.2 81 16 03/22/19 12:25 97.2 81 16 115/65 99 Room Air 03/22/19 10:30 98.2 88 16 125/55 98 Room Air 03/22/19 10:30 88 16 Room Air 03/22/19 10:14 98.2 88 16 125/55 (78) 98 Room Air Laboratory Tests 03/22/19 10:45: White Blood Count 5.6, Red Blood Count 1.74L, Hemoglobin 5.3*L, Hematocrit 16.1L , Mean Corpuscular Volume 93, Mean Corpuscular Hemoglobin 30.3, Mean Corpuscular Hemoglobin Concent 32.7, Red Cell Distribution Width 16.6H, Platelet Count 408, Mean Platelet Volume 5.0L, Neutrophils (%) (Auto) , Lymphocytes (%) (Auto) , Monocytes (%) (Auto) , Eosinophils (%) (Auto) , Basophils (%) (Auto) , Differential Total Cells Counted 100, Neutrophils % ( Manual) 65, Lymphocytes % (Manual) 24, Monocytes % (Manual) 8, Eosinophils % ( Manual) 2, Basophils % (Manual) 1, Band Neutrophils 0, Platelet Estimate Adequate, Platelet Morphology Normal, Anisocytosis 1+, Prothrombin Time 12.5H, Prothromb Time International Ratio 1.2H, Activated Partial Thromboplast Time 37H , Sodium Level 132L, Potassium Level 4.6, Chloride Level 95L, Carbon Dioxide Level 24, Anion Gap 13, Blood Urea Nitrogen 39H, Creatinine 10.8H, Estimat Glomerular Filtration Rate 5.9, Glucose Level 86, Calcium Level 8.2L, Total Bilirubin 0.3, Aspartate Amino Transf (AST/SGOT) 21, Alanine Aminotransferase ( ALT/SGPT) < 6L, Alkaline Phosphatase 84, Troponin I 0.011, Total Protein 6.5, Albumin 2.3L, Globulin 4.2, Albumin/Globulin Ratio 0.5L, Lipase 74 03/22/19 21:00: White Blood Count 4.9, Red Blood Count 1.84L, Hemoglobin 5.5*L, Hematocrit 16.1L , Mean Corpuscular Volume 87, Mean Corpuscular Hemoglobin 30.1, Mean Corpuscular Hemoglobin Concent 34.6, Red Cell Distribution Width 14.0, Platelet Count 299, Mean Platelet Volume 4.8L, Neutrophils (%) (Auto) , Lymphocytes (%) ( Auto) , Monocytes (%) (Auto) , Eosinophils (%) (Auto) , Basophils (%) (Auto) , Differential Total Cells Counted 100, Neutrophils % (Manual) 71, Lymphocytes % ( Manual) 21, Monocytes % (Manual) 6, Eosinophils % (Manual) 2, Basophils % ( Manual) 0, Band Neutrophils 0, Platelet Estimate Adequate, Platelet Morphology Normal, Anisocytosis 1+, Polychromasia 1+ Height (Feet): 5 Height (Inches): 7.00 Weight (Pounds): 125 Aga Lucas MD Mar 22, 2019 23:58
[2019-03-23] VITALS (10 sets, daily range): BP systolic 97–143; BP diastolic 56–78
--- NOTE | 2019-03-23 00:05 | NUR ---
NURSE NOTES: Patient refused vital signs to be taken, would not take catapres, attempted to explain benefits of taking medication and the consequences of not taking medication, patient stated "go do your job somewhere else." Will continue to monitor.
--- NOTE | 2019-03-23 00:17 | NUR ---
NURSE NOTES: When asked if patient will give consent for release of records from [facility] for Dr. Lucas, patient verbalized in an angry tone, "He can do whatever he wants!"
--- NOTE | 2019-03-23 01:15 | NUR ---
NURSE NOTES: Patient is refusing care. Will not let nurse or SUPERVISOR PERSONNEL CLERKS take vital signs, refusing medications, and does not want to be bothered for 4th PRBC infusion. [address] Weber made aware.
--- NOTE | 2019-03-23 03:35 | NUR ---
NURSE NOTES: Patient refused AM labs, Dr. Weber made aware.
--- NOTE | 2019-03-23 07:15 | NUR ---
NURSE NOTES: RECEIVED BED SIDE REPORT FROM OMAR MEEHAN JUVENILE [employer]OBATION OFFICER OF NOC SHIFT . PT IS NPO ON SCHEDULE FOR SIGMOIDOSCOPY THIS AM ,DR CARABALLO CAME TO SEE THE PT AND EXPLAINED REGARDING SIGMOIDOSCOPY PROCEDURE. WILL CONT TO MONITOR.
--- NOTE | 2019-03-23 07:37 | NUR ---
HAND-OFF: Report given to Axel BLACK.
[2019-03-23 08:10] LABS: HEMATOCRIT 19.1 % (42.0-52.0); MEAN CORPUSCULAR VOLUME 88 FL (80-99); PLATELET COUNT 301 K/UL (150-450); RED BLOOD COUNT 2.16 M/UL (4.70-6.10); RED CELL DISTRIBUTION WIDTH 14.6 % (11.6-14.8); WHITE BLOOD COUNT 4.7 K/UL (4.8-10.8)
--- NOTE | 2019-03-23 08:12 | History & Physical ---
History and Physical History & Physicial History and Physical HPI Patient is a 58 year old male with multiple medical comorbidities presented to complaining of BRBPR for 3 days, weakness, noted to have significant anemia. Has had recurrent lower GI bleeding for years. Denies n/v/f/c. Has past history of Hypertension, Gout, GERD, CHF, ESRD on HD via left femoral graft, has history of hemorrhoids and had banding 2 weeks ago at [facility]. Allergies: No Known Allergies Medications Allopurinol* (Allopurinol*), Unknown Dose ORAL DAILY, (Reported) Amlodipine Besylate (Norvasc), Unknown Dose ORAL DAILY, (Reported) Clonidine Hcl* (Catapres*), 0.1 MG ORAL EVERY 6 HOURS, (Reported) Folic Acid* (Folic Acid*), 1 MG ORAL DAILY, (Reported) Lisinopril* (Lisinopril*), 2.5 MG ORAL DAILY, (Reported) Omeprazole (Omeprazole), Unknown Dose ORAL DAILY, (Reported) Tamsulosin Hcl (Tamsulosin Hcl*), Unknown Dose ORAL BEDTIME, (Reported) Past Medical/Surgical History: (1) Hypotension (2) HTN (hypertension) (3) Gastrointestinal hemorrhage (4) CHF (congestive heart failure) (5) Anemia in chronic kidney disease Review of Symptoms General ROS: no weight loss or fever Psychological ROS: no depression or mood changes, no memory loss Ophthalmic ROS: no visual changes or eye irritation ENT ROS: no nasal congestion, hearing loss, dizziness Allergy and Immunology ROS: no allergic symptoms or urticaria Hematological and Lymphatic ROS: no swollen glands, unusual bleeding or bruising Endocrine ROS: no polyuria, polydipsia, weight changes, temperature intolerance Respiratory ROS: no cough, shortness of breath, or wheezing Cardiovascular ROS: no chest pain or dyspnea on exertion Gastrointestinal ROS: denies abdominal pain, bright red blood in stool. Musculoskeletal ROS: no myalgias or arthralgias Neurological ROS: no TIA or stroke symptoms Dermatological ROS: no new or changing skin lesions, rashes or pruritis Physical Exam Vital signs noted General appearance: alert, cooperative, no distress, appears stated age Head: Normocephalic, without obvious abnormality, atraumatic Eyes: conjunctivae/corneas clear. PERRL, EOM's intact. Fundi benign Throat: Lips, mucosa, and tongue normal. Teeth and gums normal Neck: supple, symmetrical, trachea midline, no adenopathy, thyroid: not enlarged, symmetric, no tenderness/mass/nodules, no carotid bruit and no JVD Lungs: clear to auscultation bilaterally Heart: regular rate and rhythm, S1, S2 normal, no murmur, click, rub or gallop Abdomen: soft, non-tender. Bowel sounds normal. No masses, no organomegaly Extremities: extremities normal, atraumatic, no cyanosis or edema Pulses: 2+ and symmetric Skin: Skin color, texture, turgor normal. No rashes or lesions Neurologic: Grossly normal Laboratory Tests Test 03/22/19 10:45 White Blood Count 5.6 K/UL (4.8-10.8) Red Blood Count 1.74 M/UL (4.70-6.10) L Hemoglobin 5.3 G/DL (14.2-18.0) *L Hematocrit 16.1 % (42.0-52.0) L Mean Corpuscular Volume 93 FL (80-99) Mean Corpuscular Hemoglobin 30.3 PG (27.0-31.0) Mean Corpuscular Hemoglobin Concent 32.7 G/DL (32.0-36.0) Red Cell Distribution Width 16.6 % (11.6-14.8) H Platelet Count 408 K/UL (150-450) Mean Platelet Volume 5.0 FL (6.5-10.1) L Neutrophils (%) (Auto) % (45.0-75.0) Lymphocytes (%) (Auto) % (20.0-45.0) Monocytes (%) (Auto) % (1.0-10.0) Eosinophils (%) (Auto) % (0.0-3.0) Basophils (%) (Auto) % (0.0-2.0) Differential Total Cells Counted 100 Neutrophils % (Manual) 65 % (45-75) Lymphocytes % (Manual) 24 % (20-45) Monocytes % (Manual) 8 % (1-10) Eosinophils % (Manual) 2 % (0-3) Basophils % (Manual) 1 % (0-2) Band Neutrophils 0 % (0-8) Platelet Estimate Adequate Platelet Morphology Normal Anisocytosis 1+ Prothrombin Time 12.5 SEC (9.30-11.50) H Prothromb Time International Ratio 1.2 (0.9-1.1) H Activated Partial Thromboplast Time 37 SEC (23-33) H Sodium Level 132 MMOL/L (136-145) L Potassium Level 4.6 MMOL/L (3.5-5.1) Chloride Level 95 MMOL/L (98-107) L Carbon Dioxide Level 24 MMOL/L (21-32) Anion Gap 13 mmol/L (5-15) Blood Urea Nitrogen 39 mg/dL (7-18) H Creatinine 10.8 MG/DL (0.55-1.30) H Estimat Glomerular Filtration Rate 5.9 mL/min (>60) Glucose Level 86 MG/DL (74-106) Calcium Level 8.2 MG/DL (8.5-10.1) L Total Bilirubin 0.3 MG/DL (0.2-1.0) Aspartate Amino Transf (AST/SGOT) 21 U/L (15-37) Alanine Aminotransferase (ALT/SGPT) < 6 U/L (12-78) L Alkaline Phosphatase 84 U/L (46-116) Troponin I 0.011 ng/mL (0.000-0.056) Total Protein 6.5 G/DL (6.4-8.2) Albumin 2.3 G/DL (3.4-5.0) L Globulin 4.2 g/dL Albumin/Globulin Ratio 0.5 (1.0-2.7) L Lipase 74 U/L (73-393) Assessment: Acute GI bleed, fuentes history of hemorrhoids Hypertension Gout GERD CHF, ESRD on HD via left femoral graft Plan: Transfusions PRN Protonix IVF PRN PPX Trend labs GI evaluation Surgery following Renal Consult Phil Sneed MD Mar 23, 2019 08:12
[2019-03-23 08:17] LABS: HEMOGLOBIN 6.7 G/DL (14.2-18.0)
[2019-03-23 08:31] LABS: ANION GAP 11 mmol/L (5-15); BLOOD UREA NITROGEN 50 mg/dL (7-18); CARBON DIOXIDE 24 MMOL/L (21-32); CHLORIDE 98 MMOL/L (98-107); CREATININE 12.3 MG/DL (0.55-1.30); POTASSIUM 4.7 MMOL/L (3.5-5.1); SODIUM 132 MMOL/L (136-145)
--- NOTE | 2019-03-23 08:40 | NUR ---
NURSE NOTES: PT STARTED ON THE #4 UNIT OF P-RBC PER M.D ORDERS. BLOOD TRANSFUSING WELL ,NO S/S OF ANY ADVERSE REACTION NOTED AT THIS TIME. WILL CONT TO MONITOR.
[2019-03-23] MEDS: Lisinopril 2.5mg tab ORAL SCH (09:00)
[2019-03-23] MEDS ORDERED: Gelfoam Size TOPIC ONE (09:35)
[2019-03-23] MEDS ORDERED: Lidocaine HCl 2% Jelly 6ml Tube TOPIC ONE (09:35)
[2019-03-23] MEDS ORDERED: Bacitracin 50000 Units Vial ONE (09:36)
[2019-03-23] MEDS ORDERED: Bupivacaine w/Epi 0.5% 30ml Vial INJ ONE (09:36)
[2019-03-23] MEDS ORDERED: Midazolam 2mg/2ml Inj ONE (09:39)
[2019-03-23] MEDS ORDERED: fentaNYL 100 mcg/2 mL IV ONE (09:39)
[2019-03-23] MEDS ORDERED: Zemuron 50mg/5ml Inj IV ONE (09:41)
--- NOTE | 2019-03-23 09:50 | NUR ---
NURSE NOTES:ESCORTED PT VIA BED ON STABLE CONDITION ASSISTED WITH HOSP TRANSPORTER STAFF ISABEL PINEDO.PT RECEIVING BLOOD TRANSFUSION , INFUSING WELL UNIT #4 AND IS CONNECTED ON RT HAND H.L G#20.REPORT GIVEN TO THELMA BLACK AND KADE BLACK STAFF OF OR DPT.
--- NOTE | 2019-03-23 10:57 | Nephrology Progress Note ---
Assessment/Plan Plan Notes reviewed. Patient in OR. HD ordered. Objective Objective Last 24 Hour Vital Signs Date Time Temp Pulse Resp B/P (MAP) Pulse Ox O2 Delivery O2 Flow Rate FiO2 03/23/19 08:00 77 03/23/19 08:00 Nasal Cannula 2.0 03/23/19 08:00 98.3 74 20 131/78 (95) 100 03/23/19 04:00 Nasal Cannula 2.0 03/23/19 03:53 74 03/23/19 00:00 Nasal Cannula 2.0 03/22/19 23:25 78 03/22/19 20:00 98.1 77 20 107/56 (73) 100 03/22/19 20:00 Nasal Cannula 2.0 03/22/19 19:37 88 03/22/19 16:00 Nasal Cannula 2.0 03/22/19 16:00 76 03/22/19 15:22 Nasal Cannula 2.0 03/22/19 15:19 97.1 78 16 03/22/19 15:00 97.7 100 20 130/67 (88) 98 03/22/19 14:50 97.1 78 16 134/66 97 Room Air 03/22/19 14:20 97.1 78 16 134/66 97 03/22/19 12:28 97.2 81 16 03/22/19 12:25 97.2 81 16 115/65 99 Room Air Intake and Output 03/22/19 03/23/19 19:00 07:00 Intake Total 1020 ml Balance 1020 ml Intake Oral 220 ml IV Total 300 ml Blood Product 500 ml # Bowel Movements 10 2 Laboratory Tests 03/22/19 21:00: White Blood Count 4.9, Red Blood Count 1.84L, Hemoglobin 5.5*L, Hematocrit 16.1L , Mean Corpuscular Volume 87, Mean Corpuscular Hemoglobin 30.1, Mean Corpuscular Hemoglobin Concent 34.6, Red Cell Distribution Width 14.0, Platelet Count 299, Mean Platelet Volume 4.8L, Neutrophils (%) (Auto) , Lymphocytes (%) ( Auto) , Monocytes (%) (Auto) , Eosinophils (%) (Auto) , Basophils (%) (Auto) , Differential Total Cells Counted 100, Neutrophils % (Manual) 71, Lymphocytes % ( Manual) 21, Monocytes % (Manual) 6, Eosinophils % (Manual) 2, Basophils % ( Manual) 0, Band Neutrophils 0, Platelet Estimate Adequate, Platelet Morphology Normal, Polychromasia 1+, Anisocytosis 1+ 03/23/19 07:35: White Blood Count 4.7L, Red Blood Count 2.16L, Hemoglobin 6.7*L, Hematocrit 19.1L, Mean Corpuscular Volume 88, Mean Corpuscular Hemoglobin 30.8, Mean Corpuscular Hemoglobin Concent 34.9, Red Cell Distribution Width 14.6, Platelet Count 301, Mean Platelet Volume 4.9L, Neutrophils (%) (Auto) , Lymphocytes (%) ( Auto) , Monocytes (%) (Auto) , Eosinophils (%) (Auto) , Basophils (%) (Auto) , Differential Total Cells Counted 100, Neutrophils % (Manual) 68, Lymphocytes % ( Manual) 20, Monocytes % (Manual) 9, Eosinophils % (Manual) 2, Basophils % ( Manual) 1, Band Neutrophils 0, Platelet Estimate Adequate, Platelet Morphology Normal, Polychromasia 1+, Anisocytosis 1+, Hypochromasia 4+, Sodium Level 132L, Potassium Level 4.7, Chloride Level 98, Carbon Dioxide Level 24, Anion Gap 11, Blood Urea Nitrogen 50H, Creatinine 12.3H, Estimat Glomerular Filtration Rate 5.1, Glucose Level 100, Calcium Level 8.0L Height (Feet): 5 Height (Inches): 7.00 Weight (Pounds): 135 Bhargav Madden MD Mar 23, 2019 10:57
--- NOTE | 2019-03-23 11:28 | Anethesia Preoperative Eval ---
Anesthesia Pre-op PMH/ROS General Date of Evaluation: Mar 23, 2019 Time of Evaluation: 11:21 Anesthesiologist: Jr ASA Score: ASA 3 Mallampati Score Class I : Soft palate, uvula, fauces, pillars visible Class II: Soft palate, uvula, fauces visible Class III: Soft palate, base of uvula visible Class IV: Only hard plate visible Mallampati Classification: Class II Surgeon: Bart Diagnosis: Gi bleed anemia Surgical Procedure: Sigmoidoscopy Anesthesia History: none Social History: smoking - h/o Family History: no anesthesia problems Allergies: Coded Allergies: No Known Allergies (Unverified , 03/20/18) Medications: see eMAR Patient NPO?: Yes NPO Date: Mar 23, 2019 NPO Time: 0000 Past Medical History Cardiovascular: Reports: HTN, other - CHF; Denies: CAD, AR, valve dz, arrhythmia Pulmonary: Denies: asthma, COPD, NILAY, other Gastrointestinal/Genitourinary: Reports: GERD, ESRD - on HD; Denies: CRI, other Neurologic/Psychiatric: Reports: depression/anxiety; Denies: dementia, CVA, TIA, other Endocrine: Denies: DM, hypothyroidism, steroids, other HEENT: Denies: cataract (L), cataract (R), glaucoma, KAW (L), KAW (R), other Hematology/Immune: Reports: anemia - severe poshemorrhagic aemia; Denies: DVT, bleeding disorder, other Musculoskeletal/Integumentary: Denies: OA, RA, DJD, DDD, edema, other Other: other - malnourished PMH Narrative: admitted with acute rectal bleeding, Hb 5.7 PSxH Narrative: Dialysis access all 4 extremities, hemorrhoids banding Anesthesia Pre-op Phys. Exam Physician Exam Last Vital Signs Date Time Temp Pulse Resp B/P (MAP) Pulse Ox O2 Delivery O2 Flow Rate FiO2 03/23/19 08:00 77 03/23/19 08:00 Nasal Cannula 2.0 03/23/19 08:00 98.3 20 131/78 (95) 100 Constitutional: NAD Neurologic: CN 2-12 intact Cardiovascular: RRR, no M/R/G Respiratory: other - some wheezing Gastrointestinal: S/NT/ND Airway Exam Mallampati Score: Class II MO: limited Neck: stiff ROM: limited Teeth: missing Dentures: no upper, no lower Anesthesia Pre-op A/P Labs Hematology Test 03/22/19 21:00 03/23/19 07:35 White Blood Count 4.9 K/UL (4.8-10.8) 4.7 K/UL (4.8-10.8) L Red Blood Count 1.84 M/UL (4.70-6.10) L 2.16 M/UL (4.70-6.10) L Hemoglobin 5.5 G/DL (14.2-18.0) *L 6.7 G/DL (14.2-18.0) *L Hematocrit 16.1 % (42.0-52.0) L 19.1 % (42.0-52.0) L Mean Corpuscular Volume 87 FL (80-99) 88 FL (80-99) Mean Corpuscular Hemoglobin 30.1 PG (27.0-31.0) 30.8 PG (27.0-31.0) Mean Corpuscular Hemoglobin Concent 34.6 G/DL (32.0-36.0) 34.9 G/DL (32.0-36.0) Red Cell Distribution Width 14.0 % (11.6-14.8) 14.6 % (11.6-14.8) Platelet Count 299 K/UL (150-450) 301 K/UL (150-450) Mean Platelet Volume 4.8 FL (6.5-10.1) L 4.9 FL (6.5-10.1) L Neutrophils (%) (Auto) % (45.0-75.0) % (45.0-75.0) Lymphocytes (%) (Auto) % (20.0-45.0) % (20.0-45.0) Monocytes (%) (Auto) % (1.0-10.0) % (1.0-10.0) Eosinophils (%) (Auto) % (0.0-3.0) % (0.0-3.0) Basophils (%) (Auto) % (0.0-2.0) % (0.0-2.0) Differential Total Cells Counted 100 100 Neutrophils % (Manual) 71 % (45-75) 68 % (45-75) Lymphocytes % (Manual) 21 % (20-45) 20 % (20-45) Monocytes % (Manual) 6 % (1-10) 9 % (1-10) Eosinophils % (Manual) 2 % (0-3) 2 % (0-3) Basophils % (Manual) 0 % (0-2) 1 % (0-2) Band Neutrophils 0 % (0-8) 0 % (0-8) Platelet Estimate Adequate Adequate Platelet Morphology Normal Normal Polychromasia 1+ 1+ Anisocytosis 1+ 1+ Hypochromasia 4+ Chemistry Test 03/23/19 07:35 Sodium Level 132 MMOL/L (136-145) L Potassium Level 4.7 MMOL/L (3.5-5.1) Chloride Level 98 MMOL/L (98-107) Carbon Dioxide Level 24 MMOL/L (21-32) Anion Gap 11 mmol/L (5-15) Blood Urea Nitrogen 50 mg/dL (7-18) H Creatinine 12.3 MG/DL (0.55-1.30) H Estimat Glomerular Filtration Rate 5.1 mL/min (>60) Glucose Level 100 MG/DL (74-106) Calcium Level 8.0 MG/DL (8.5-10.1) L Risk Assessment & Plan Assessment: ASA 3 E Plan: GA with ETT prone position,possible ICU care postop with respiratory support Status Change Before Surgery: No Pre-Antibiotics Drug: as scheduled Kadeem Norris MD Mar 23, 2019 11:28
[2019-03-23] MEDS ORDERED: Propofol 200mg/20ml IV ONE (12:00)
[2019-03-23] MEDS ORDERED: Glycopyrrolate 0.2mg/ml 1ml Vial ONE (12:00)
[2019-03-23] MEDS ORDERED: NS Irrig 1000ml ONE (12:00)
[2019-03-23] MEDS ORDERED: Sterile Water Irrig 1000ml IRRIG ONE (12:00)
[2019-03-23] MEDS ORDERED: Neostigmine 1mg/ml 10ml Inj ONE (12:00)
--- NOTE | 2019-03-23 12:23 | General Progress Note ---
Assessment/Plan Assessment/Plan: Assessment Recurrent lower GI bleed - presumed hemorrhoidal ESRD anemia, partly due to renal failure HTN COPD Recommendations - Given two negative colonoscopies this year, and recent banding, agree with proceeding with treatment of hemorrhoids by surgical team first - If operative evaluation suggests rectal varicies (doubful, based on labs) or non-hemorrhoidal source, then further GI w/u may be necessary - monitor CBC - transfuse PRN Subjective Allergies: Coded Allergies: No Known Allergies (Unverified , 03/20/18) Subjective Seen earlier today no further rectal bleeding this am patient signed release of information form to get prior recs from [place] d/w surgery at length patient had a colonoscopy in August for GI bleed - no source found had an endoscopy and colonoscopy in Mid January for GI bleed - no source found In Mid February had hemorrhoidal banding s/p 3 unit PRBC, to get another this am Objective Last 24 Hour Vital Signs Date Time Temp Pulse Resp B/P (MAP) Pulse Ox O2 Delivery O2 Flow Rate FiO2 03/23/19 12:00 Nasal Cannula 2.0 03/23/19 08:00 77 03/23/19 08:00 Nasal Cannula 2.0 03/23/19 08:00 98.3 74 20 131/78 (95) 100 03/23/19 04:00 Nasal Cannula 2.0 03/23/19 03:53 74 03/23/19 00:00 Nasal Cannula 2.0 03/22/19 23:25 78 03/22/19 20:00 98.1 77 20 107/56 (73) 100 03/22/19 20:00 Nasal Cannula 2.0 03/22/19 19:37 88 03/22/19 16:00 Nasal Cannula 2.0 03/22/19 16:00 76 03/22/19 15:22 Nasal Cannula 2.0 03/22/19 15:19 97.1 78 16 03/22/19 15:00 97.7 100 20 130/67 (88) 98 03/22/19 14:50 97.1 78 16 134/66 97 Room Air 03/22/19 14:20 97.1 78 16 134/66 97 03/22/19 12:28 97.2 81 16 03/22/19 12:25 97.2 81 16 115/65 99 Room Air Intake and Output 03/22/19 03/23/19 19:00 07:00 Intake Total 1020 ml Balance 1020 ml Intake Oral 220 ml IV Total 300 ml Blood Product 500 ml # Bowel Movements 10 2 Laboratory Tests 03/22/19 21:00: White Blood Count 4.9, Red Blood Count 1.84L, Hemoglobin 5.5*L, Hematocrit 16.1L , Mean Corpuscular Volume 87, Mean Corpuscular Hemoglobin 30.1, Mean Corpuscular Hemoglobin Concent 34.6, Red Cell Distribution Width 14.0, Platelet Count 299, Mean Platelet Volume 4.8L, Neutrophils (%) (Auto) , Lymphocytes (%) ( Auto) , Monocytes (%) (Auto) , Eosinophils (%) (Auto) , Basophils (%) (Auto) , Differential Total Cells Counted 100, Neutrophils % (Manual) 71, Lymphocytes % ( Manual) 21, Monocytes % (Manual) 6, Eosinophils % (Manual) 2, Basophils % ( Manual) 0, Band Neutrophils 0, Platelet Estimate Adequate, Platelet Morphology Normal, Polychromasia 1+, Anisocytosis 1+ 03/23/19 07:35: White Blood Count 4.7L, Red Blood Count 2.16L, Hemoglobin 6.7*L, Hematocrit 19.1L, Mean Corpuscular Volume 88, Mean Corpuscular Hemoglobin 30.8, Mean Corpuscular Hemoglobin Concent 34.9, Red Cell Distribution Width 14.6, Platelet Count 301, Mean Platelet Volume 4.9L, Neutrophils (%) (Auto) , Lymphocytes (%) ( Auto) , Monocytes (%) (Auto) , Eosinophils (%) (Auto) , Basophils (%) (Auto) , Differential Total Cells Counted 100, Neutrophils % (Manual) 68, Lymphocytes % ( Manual) 20, Monocytes % (Manual) 9, Eosinophils % (Manual) 2, Basophils % ( Manual) 1, Band Neutrophils 0, Platelet Estimate Adequate, Platelet Morphology Normal, Polychromasia 1+, Anisocytosis 1+, Hypochromasia 4+, Sodium Level 132L, Potassium Level 4.7, Chloride Level 98, Carbon Dioxide Level 24, Anion Gap 11, Blood Urea Nitrogen 50H, Creatinine 12.3H, Estimat Glomerular Filtration Rate 5.1, Glucose Level 100, Calcium Level 8.0L Height (Feet): 5 Height (Inches): 7.00 Weight (Pounds): 135 Objective WDWN NCAT CTA RR abd soft ND no edema- Aga Lucas MD Mar 23, 2019 12:23
--- NOTE | 2019-03-23 12:31 | Pre-Procedure Note/Attestation ---
Pre-Procedure Note/Attestation Complete Prior to Procedure Planned Procedure: not applicable Procedure Narrative: examination under anesthesia EUA possible hemorrhoidectomy possible hemostasis of ano-rectal hemorrhage Indications for Procedure Pre-Operative Diagnosis: anorectal hemorrhage Attestation I attest that I discussed the nature of the procedure; its benefits; risks and complications; and alternatives (and the risks and benefits of such alternatives ), prior to the procedure, with the patient (or the patient's legal electroplating sales representative). I attest that, if there was a reasonable possibility of needing a blood transfusion, the patient (or the patient's legal electroplating sales representative) was given the [place] Department [employer] Services standardized written summary, pursuant to the Braulio Rehan Blood Safety Act ([place] Health and Safety Code # 1645, as amended). I attest that I re-evaluated the patient just prior to the surgery and that there has been no change in the patient's H&P, except as documented below: Devonte Hinds Mar 23, 2019 12:30
[2019-03-23] MEDS ORDERED: Betadine 4oz Bottle TOPIC ONE (12:55)
--- NOTE | 2019-03-23 13:24 | Brief Operative Note ---
Immediate Post Operative Note Operative Note Pre-op Diagnosis: anorectal hemorrhage Procedure: 1. examination under anesthesia 2. rigid sigmoidoscopy Post-op Diagnosis: same as pre-op Surgeon: josé manuel Anesthesiologist: loc Anesthesia: general, local Specimen: none Complications: none Condition: stable Fluids: see records Estimated Blood Loss: none Drains: none Implant(s) used?: Devonte Altamirano Mar 23, 2019 13:24
[2019-03-23] MEDS ORDERED: DiphenhydrAMINE 50mg/ml Inj IVP PRN (13:30)
[2019-03-23] MEDS ORDERED: fentaNYL 100 mcg/2 mL IV PRN (13:45)
--- NOTE | 2019-03-23 13:45 | Immediate Post-Op Evaluation ---
Immediate Post-Op Evalulation Immediate Post-Op Evalulation Procedure: EUA, sigmoidoscopy, evacuationof clotts Date of Evaluation: Mar 23, 2019 Time of Evaluation: 13:43 IV Fluids: 200 Blood Products: 1unit of PRBC, 1 unit of FFP Estimated Blood Loss: 25 Urinary Output: none Blood Pressure Systolic: 105 Blood Pressure Diastolic: 56 Pulse Rate: 64 Respiratory Rate: 20 O2 Sat by Pulse Oximetry: 98 Temperature (Fahrenheit): 97.6 Pain Score (1-10): 2 Nausea: No Vomiting: No Complications none Patient Status: reacts, patent, extubated, none Hydration Status: adequate Kadeem Norris MD Mar 23, 2019 13:45
--- NOTE | 2019-03-23 13:49 | NUR ---
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 98.2 HR 88 RR 16 B/P 125/55 H/H 5.3/16.1 RBC 1.74 NA 133 PT 12.5 INR 1.2 PTT 37 IS: PROTONIX IV TYPE AND CROSS 4 UNITS RBC'S ADMITTED TO STEP DOWN @ 1450 STEP DOWN STATUS SURGICAL CONSULT DCP PENDING ON HOSPITAL STAY
[2019-03-23] MEDS ORDERED: Piperacillin/Tazobactam 2.25 GM in D5W 55 ML IVPB SCH (14:00)
--- NOTE | 2019-03-23 14:45 | NUR ---
NURSE NOTES: RECEIVE PT VIA BED FROM ,ESCORTED BY EDILIA JORDAN RN. PT S/P SIGMOIDOSCOPY ,DONE BY DR CARABALLO.PT AWAKE AND ALERT ORIENTED X4,V/S STABLE. 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 WILL CONT TO MONITOR.
[2019-03-23] MEDS ORDERED: Zosyn 3.375gm in NS 110ml IVPB SCH (15:00)
[2019-03-23] MEDS: Pantoprazole Inj IVP SCH ×2 (15:08→21:00)
--- NOTE | 2019-03-23 16:05 | NUR ---
*-* INSURANCE *-* ALL CLINICALS AND REVIEWS HAVE BEEN FAXED TO: [employer] LE[employer]ITT: ANABEL P- [phone] F- [phone]...........REVIEW/CLINICAL
--- NOTE | 2019-03-23 16:10 | NUR ---
NURSE NOTES: PT STARTED ON THE #5 UNIT OF P-RBC PER M.D ORDERS .PT TOLERATING WELL BLOOD TRANSFUSION NO EVIDENCE OF ANY S/S OF ADVERSE REACTION NOTED AT THIS TIME. WILL CONT TO MONITOR.
--- NOTE | 2019-03-23 17:20 | NUR ---
RESPIRATORY NOTE: Attempted to instruct pt how to use incentive spirometer per MD's order. Pt refused, stated " I don't need it". Explained to pt the reason for this exercise. Pt let me instruct him how to use it, but refuse to do it. Incentive spirometer is at bedside. WAYNE Reyna made aware
--- NOTE | 2019-03-23 18:16 | NUR ---
NURSE NOTES:BLOOD TRANSFUSION COMPLETED ,V/S STABLE.NO EVIDENCE OF ANY ADVERSE REACTION FROM BLOOD TRANSFUSION NOTED. WILL CONT TO MONITOR.
--- NOTE | 2019-03-23 19:00 | NUR ---
NURSE NOTES:HAND-OFF: Report given to .OMAR MEEHAN RN.
--- NOTE | 2019-03-23 19:38 | NUR ---
NURSE NOTES: Contacted IR, spoke to Kathy to schedule hemodialysis on March 24, 2019 as early as possible in the morning before procedure.
--- NOTE | 2019-03-23 19:45 | Operative Note - Dictated ---
DATE OF OPERATION: 03/23/2019 PREOPERATIVE DIAGNOSIS: Anorectal hemorrhage. POSTOPERATIVE DIAGNOSIS: Colonic diverticulosis bleeding. OPERATION PERFORMED: 1. Examination under anesthesia. 2. Rigid sigmoidoscopy. ATTENDING SURGEON: Devonte Hinds M.D. PRACTICE MANAGEMENT CONSULTANT: None. ANESTHESIOLOGIST: Kadeem Norris M.D. ANESTHESIA: General SAW MAKER plus local. ESTIMATED BLOOD LOSS: Minimal. IV FLUIDS: Please see anesthesia records. COMPLICATIONS: None. DRAINS: None. COUNTS: Sponge and needle count correct x2. WOUND CLASSIFICATION: Class III. ANTIBIOTICS: Zosyn IV given. INDICATIONS FOR PROCEDURE: This is a 58-year-old male with complicated medical and surgical history. The patient states that over the past year plus, he has had GI bleed intermittently and has had a workup and management, but no definitive management since. The patient states that approximately a year ago, he had a colonoscopy at outside hospital, which did not identify any abnormal findings except hemorrhoids followed by repeat colonoscopy for GI bleed a few months ago with similar findings. Finally, he continued to have GI bleeding that was significant and approximately 2 weeks ago, was taken to the operating room by a colorectal surgeon at [facility] for a hemorrhoid banding. He was well postoperatively and discharged in stable condition and doing well, but approximately 3 days ago began to have acute severe GI bleeding. He felt weak and deteriorating condition, came to [facility] emergency department for evaluation. Surgery was called to evaluate at which time the patient was seen in the emergency department, identified to have a toilet bowl full of bright red blood clots. The patient was severely anemic with a hemoglobin of 5 and states he has been bleeding for 3 days straight. Given these findings, the patient was admitted for care and management and urgently transfused PRBCs. The patient was seen by Gastroenterology and discussion was had with Gastroenterology, Surgery, and multidisciplinary team about the patient's care plan. The patient had had 2 recent colonoscopies within the past year, neither which identified any acute bleeding other than potential hemorrhoids at which time 2 weeks ago, he had hemorrhoid banding and has the potential etiology of the bleeding again. Given these findings, decision made not to perform another colonoscopy and take the patient to the operating room for examination under anesthesia and hemostasis and potentially hemorrhoidectomy if necessary. Risks, benefits, and alternatives to surgery were discussed with the patient in detail, who expressed understanding and consented to surgery. At the time of surgery, the patient received 4 units PRBCs and hemoglobin had gone from 5 to 6.7 in the emergency department. OPERATIVE NOTE: The patient was taken to the operating room and made comfortable. Preoperative time-out was taken identifying the patient, procedure, operative staff, and surgical staff. General anesthesia was induced and the patient was intubated. The patient was then placed in the prone jerald-knife position on the operating table with all bony prominences well padded. The buttocks were taped laterally. Further exposure was obtained. The anus was prepped and draped in standard surgical fashion. We began by providing a local block with 1% lidocaine and epinephrine. Following this, the anal dilators were used and the anus was evaluated. In the rectal vault and the anus, there was no active bleeding identified. The two prior left lateral and posterior areas of hemorrhoid banding were noted and noted to be healing without any signs of active bleeding. The remainder of the rectum was inspected and no active bleeding was identified. There was some dark clotted stool blood identified. At this time, rigid sigmoidoscopy was performed to approximate 18 centimeters where there were red blood clots identified and diverticulosis. There was no significant active bleeding was identified, but it was noted that the likely etiology of the patient's bleed could be diverticulosis. Following this, we concluded our procedure. The patient was extubated and taken to postanesthetic care unit where operative findings were discussed with the patient. PLAN: To return the patient to the [facility] for further monitoring, evaluation. If the patient continues to bleed and does not respond to blood products, discussion had with the patient for potential surgical intervention as necessary. Devonte Hinds M.D. DR: MINERVA JOB#: [id number] CC:
--- NOTE | 2019-03-23 19:48 | NUR ---
NURSE NOTES: Patient refused Labs to be drawn, Dr. Hinds made aware.
[2019-03-23] MEDS: Epoetin Alfa-EPBX(ESRD on dialysis)10,000 unit/ml vial SUBQ SCH (21:00)
[2019-03-23] MEDS: Tamsulosin 0.4mg cap ORAL SCH (21:00)
--- NOTE | 2019-03-23 21:23 | NUR ---
NURSE NOTES: Patient refused Protonix, Flomax, and Epoetin Kimo scheduled at 2100. Patient stated, "don't bother me with that." When attempting to explain the benefits and consequences of taking or refusing medications, he stated in an angry tone, "I said don't bother me!" Dr. Weber made aware.
[2019-03-23] MEDS: Zosyn 2.25 gm in D5W 55ml IV SCH (21:46)
[2019-03-23 23:10] LABS: HEMATOCRIT 21.2 % (42.0-52.0); HEMOGLOBIN 7.5 G/DL (14.2-18.0); MEAN CORPUSCULAR VOLUME 87 FL (80-99); PLATELET COUNT 271 K/UL (150-450); RED BLOOD COUNT 2.43 M/UL (4.70-6.10); RED CELL DISTRIBUTION WIDTH 13.2 % (11.6-14.8)
[2019-03-23 23:12] LABS: BASOPHILS % (AUTO) 0.8 % (0.0-2.0); LYMPHOCYTES % (AUTO) 4.4 % (20.0-45.0); MONOCYTES % (AUTO) 4.6 % (1.0-10.0); NEUTROPHILS % (AUTO) 89.2 % (45.0-75.0)
--- NOTE | 2019-03-23 23:26 | NUR ---
NURSE NOTES: Dr. Hinds made aware of HGB results of 7.5 G/DL. No new orders, will check labs again at 0400 03/24/19.
[2019-03-24] VITALS (8 sets, daily range): BP systolic 120–161; BP diastolic 52–77
[2019-03-24] MEDS: Zosyn 2.25 gm in D5W 55ml IV SCH ×3 (06:00→21:22)
--- NOTE | 2019-03-24 06:12 | NUR ---
NURSE NOTES: Patient refused 0600 medication, Dr. Hinds made aware.
--- NOTE | 2019-03-24 07:25 | NUR ---
NURSE NOTES: Report received from WAYNE Way. Pt. AOx4. In 2L NC. Denies SOB, denies pain. About to get hemodialysis. IV RH20g flushed and SL. Bed on lowest position, side rails upx2, brakes engaged. Call light within easy reach.
--- NOTE | 2019-03-24 07:42 | NUR ---
HAND-OFF: Report given to Marcos BLACK. Patient in stable condition.
[2019-03-24] MEDS ORDERED: Heparin Sod 1000 units/ml 10ml IV SCH (08:00)
--- NOTE | 2019-03-24 08:33 | General Progress Note ---
Assessment/Plan Assessment/Plan: Recurrent lower GI bleed - diverticular ESRD anemia, partly due to renal failure s/p transfusion HTN COPD PLAN GI and GS clearance HD per renal monitor HH transfuse dc once stable and cleared impression, plan, and exam edited and reviewed in detail care discussed with RN Subjective Allergies: Coded Allergies: No Known Allergies (Unverified , 03/20/18) Subjective care noted refusing care Objective Last 24 Hour Vital Signs Date Time Temp Pulse Resp B/P (MAP) Pulse Ox O2 Delivery O2 Flow Rate FiO2 03/24/19 04:00 Nasal Cannula 2.0 03/24/19 03:25 71 03/24/19 00:00 Nasal Cannula 2.0 03/23/19 23:27 76 03/23/19 20:00 Nasal Cannula 2.0 03/23/19 19:01 70 03/23/19 18:48 143/68 03/23/19 17:19 60 03/23/19 16:00 Nasal Cannula 2.0 03/23/19 16:00 97.7 55 19 143/68 (93) 98 03/23/19 14:50 96.8 64 20 101/56 (71) 100 03/23/19 14:35 97.9 61 15 110/70 97 Nasal Cannula 3 03/23/19 14:20 60 14 97/59 100 Nasal Cannula 3 03/23/19 14:05 62 15 108/63 100 Nasal Cannula 3 03/23/19 13:55 62 19 106/72 100 Nasal Cannula 3 03/23/19 13:50 76 14 98/62 100 Nasal Cannula 3 03/23/19 13:45 63 15 100/63 100 Nasal Cannula 3 03/23/19 13:45 64 20 98 03/23/19 13:40 97.9 64 20 125/70 98 Simple Mask 6 03/23/19 12:00 Nasal Cannula 2.0 03/23/19 12:00 131/78 03/23/19 09:00 131/78 03/23/19 09:00 77 131/78 Intake and Output 03/23/19 03/24/19 19:00 07:00 Intake Total 1700 ml 55 ml Output Total 25 ml Balance 1675 ml 55 ml Intake Oral 600 ml IV Total 300 ml 55 ml Blood Product 800 ml Output Estimated Blood Loss 25 ml Laboratory Tests 03/23/19 23:00: White Blood Count 9.0#, Red Blood Count 2.43L, Hemoglobin 7.5L, Hematocrit 21.2L , Mean Corpuscular Volume 87, Mean Corpuscular Hemoglobin 30.9, Mean Corpuscular Hemoglobin Concent 35.4, Red Cell Distribution Width 13.2, Platelet Count 271, Mean Platelet Volume 5.0L, Neutrophils (%) (Auto) 89.2H, Lymphocytes (%) (Auto) 4.4L, Monocytes (%) (Auto) 4.6, Eosinophils (%) (Auto) 1.0, Basophils (%) (Auto) 0.8 Height (Feet): 5 Height (Inches): 5.00 Weight (Pounds): 135 Objective WDWN NAD clear breath sounds bilaterally without rhonchi or wheeze [id number] without MRG NABS nontender no HSM no CCE nonfocal Reyes Weber MD Mar 24, 2019 08:33
[2019-03-24] MEDS: Morphine Sulfate 2mg/ml Inj(IV/IM USE ONLY) IVP PRN ×2 (09:05→23:13)
[2019-03-24] MEDS: Lisinopril 2.5mg tab ORAL SCH (09:52)
[2019-03-24] MEDS: Pantoprazole Inj IVP SCH ×2 (09:52→21:22)
--- NOTE | 2019-03-24 09:56 | Surgery Progress Note ---
Surgery Progress Note Subjective Procedure Performed 1. examination under anesthesia 2. rigid sigmoidoscopy Additional Comments EUA yesterday without significant rectal findings. rigid sig demonstrated pooling of blood in the sigmoid colon with clots around diverticulosis. patient received 5 units prbc and h/h from 5 to 7 not appropriately responded. discussed findings with patient recommend exploration. likely etiology sigmoid colon. will need resection planned for this afternoon Objective Last 24 Hour Vital Signs Date Time Temp Pulse Resp B/P (MAP) Pulse Ox O2 Delivery O2 Flow Rate FiO2 03/24/19 09:52 140/67 03/24/19 09:51 62 140/67 03/24/19 08:00 72 03/24/19 04:00 Nasal Cannula 2.0 03/24/19 03:25 71 03/24/19 00:00 Nasal Cannula 2.0 03/23/19 23:27 76 03/23/19 20:00 Nasal Cannula 2.0 03/23/19 19:01 70 03/23/19 18:48 143/68 03/23/19 17:19 60 03/23/19 16:00 Nasal Cannula 2.0 03/23/19 16:00 97.7 55 19 143/68 (93) 98 03/23/19 14:50 96.8 64 20 101/56 (71) 100 03/23/19 14:35 97.9 61 15 110/70 97 Nasal Cannula 3 03/23/19 14:20 60 14 97/59 100 Nasal Cannula 3 03/23/19 14:05 62 15 108/63 100 Nasal Cannula 3 03/23/19 13:55 62 19 106/72 100 Nasal Cannula 3 03/23/19 13:50 76 14 98/62 100 Nasal Cannula 3 03/23/19 13:45 63 15 100/63 100 Nasal Cannula 3 03/23/19 13:45 64 20 98 03/23/19 13:40 97.9 64 20 125/70 98 Simple Mask 6 03/23/19 12:00 Nasal Cannula 2.0 03/23/19 12:00 131/78 I&O Intake and Output 03/23/19 03/24/19 19:00 07:00 Intake Total 1700 ml 55 ml Output Total 25 ml Balance 1675 ml 55 ml Intake Oral 600 ml IV Total 300 ml 55 ml Blood Product 800 ml Output Estimated Blood Loss 25 ml Cardiovascular: RSR Respiratory: clear Abdomen: soft, present bowel sounds, non-distended Extremities: no cyanosis Laboratory Tests Test 03/23/19 23:00 White Blood Count 9.0 K/UL (4.8-10.8) # Red Blood Count 2.43 M/UL (4.70-6.10) L Hemoglobin 7.5 G/DL (14.2-18.0) L Hematocrit 21.2 % (42.0-52.0) L Mean Corpuscular Volume 87 FL (80-99) Mean Corpuscular Hemoglobin 30.9 PG (27.0-31.0) Mean Corpuscular Hemoglobin Concent 35.4 G/DL (32.0-36.0) Red Cell Distribution Width 13.2 % (11.6-14.8) Platelet Count 271 K/UL (150-450) Mean Platelet Volume 5.0 FL (6.5-10.1) L Neutrophils (%) (Auto) 89.2 % (45.0-75.0) H Lymphocytes (%) (Auto) 4.4 % (20.0-45.0) L Monocytes (%) (Auto) 4.6 % (1.0-10.0) Eosinophils (%) (Auto) 1.0 % (0.0-3.0) Basophils (%) (Auto) 0.8 % (0.0-2.0) Plan Problems: (1) Gastrointestinal hemorrhage Assessment & Plan: acute GI bleed etiology colonic or anal physical exam difficult given loose stool and blood and patient comfort as above will follow with recs to or today Devonte Hinds Mar 24, 2019 09:56
[2019-03-24 10:13] LABS: HEMATOCRIT 20.6 % (42.0-52.0); MEAN CORPUSCULAR VOLUME 90 FL (80-99); PLATELET COUNT 299 K/UL (150-450); RED CELL DISTRIBUTION WIDTH 13.5 % (11.6-14.8); WHITE BLOOD COUNT 9.8 K/UL (4.8-10.8)
[2019-03-24 10:28] LABS: ANION GAP 5 mmol/L (5-15); BLOOD UREA NITROGEN 32 mg/dL (7-18); CALCIUM 8.5 MG/DL (8.5-10.1); CARBON DIOXIDE 32 MMOL/L (21-32); CHLORIDE 101 MMOL/L (98-107); CREATININE 7.2 MG/DL (0.55-1.30); POTASSIUM 3.1 MMOL/L (3.5-5.1); SODIUM 138 MMOL/L (136-145)
[2019-03-24] MEDS ORDERED: Lidocaine 1% 10mg/ml/Epi 0.005mg/ml 30ml vial INJ ONE (10:48)
[2019-03-24] MEDS ORDERED: Bacitracin 50000 Units Vial ONE (10:48)
[2019-03-24] MEDS ORDERED: NS 275ml ONE (10:56)
[2019-03-24] MEDS ORDERED: Tubing Blood Filter IV ONE (10:56)
--- NOTE | 2019-03-24 11:28 | 48 Hour Post Anesthesia Eval ---
Post Anesthesia Evaluation Procedure: EUA, sigmoidoscopy, evacuation of clotts Date of Evaluation: Mar 24, 2019 Time of Evaluation: 09:40 Blood Pressure Systolic: 142 0: 76 Pulse Rate: 68 Respiratory Rate: 20 Temperature (Fahrenheit): 97.4 O2 Sat by Pulse Oximetry: 98 Airway: patent Nausea: No Vomiting: No Pain Intensity: 2 Hydration Status: adequate Cardiopulmonary Status: stable Mental Status/LOC: patient returned to baseline Follow-up Care/Observations: n/a Post-Anesthesia Complications: none Follow-up care needed: N/A Kadeem Norris MD Mar 24, 2019 11:28
--- NOTE | 2019-03-24 12:01 | NUR ---
NURSE NOTES: Report given to WAYNE Kline. Patient in surgical floor.
[2019-03-24] MEDS ORDERED: NS Irrig 1000ml ONE (13:00)
[2019-03-24] MEDS ORDERED: LR 1000ml ONE (13:00)
[2019-03-24] MEDS ORDERED: Sterile Water Irrig 1000ml IRRIG ONE (13:00)
[2019-03-24] MEDS ORDERED: Zemuron 50mg/5ml Inj IV ONE (13:00)
[2019-03-24] MEDS ORDERED: Propofol 200mg/20ml IV ONE (13:00)
[2019-03-24] MEDS ORDERED: Lidocaine 1% MPF 10mg/ml 5ml ONE ×2 (13:12→13:21)
[2019-03-24] MEDS ORDERED: Sodium Chloride 10ml vial INJ ONE (13:12)
--- NOTE | 2019-03-24 13:13 | Pre-Procedure Note/Attestation ---
Pre-Procedure Note/Attestation Complete Prior to Procedure Planned Procedure: not applicable Procedure Narrative: exploratory laparotomy, possible bowel resection Indications for Procedure Pre-Operative Diagnosis: acute GI hemorrhage Attestation I attest that I discussed the nature of the procedure; its benefits; risks and complications; and alternatives (and the risks and benefits of such alternatives ), prior to the procedure, with the patient (or the patient's legal field representative). I attest that, if there was a reasonable possibility of needing a blood transfusion, the patient (or the patient's legal field representative) was given the [facility] standardized written summary, pursuant to the Braulio Rehan Blood Safety Act ([place] Health and Safety Code # 1645, as amended). I attest that I re-evaluated the patient just prior to the surgery and that there has been no change in the patient's H&P, except as documented below: Devonte Hinds Mar 24, 2019 13:13
[2019-03-24] MEDS ORDERED: Lidocaine 1% Plain 30 ml INJ ONE ×2 (13:14→14:09)
[2019-03-24] MEDS ORDERED: fentaNYL 100 mcg/2 mL IV ONE (13:18)
[2019-03-24] MEDS ORDERED: Midazolam 2mg/2ml Inj ONE (13:19)
[2019-03-24] MEDS ORDERED: NS Irrig 1000ml IRRIG ONE ×2 (13:34→14:53)
--- NOTE | 2019-03-24 13:39 | NUR ---
[employer] ARCHITECT SI: LOWER GI BLEED, S/P EXP LAP T. 97.6 HR 62 RR 20 B/P 140/62 2L NC O2 SAT @ 98% H/H 7.0/20.6 K 3.1 BUN 32 CR 7.2 IS: ZOSYN IV PROTONIX IV ANCEF IV X 1 STEP DOWN STATUS
--- NOTE | 2019-03-24 13:48 | Immediate Post-Op Evaluation ---
Immediate Post-Op Evalulation Immediate Post-Op Evalulation Procedure: Exploratory Laparotomy, Sigmoid Colectomy Date of Evaluation: Mar 24, 2019 Time of Evaluation: 15:57 IV Fluids: 500 LR Blood Products: 0 Estimated Blood Loss: 50 Urinary Output: 0 Blood Pressure Systolic: 162 Blood Pressure Diastolic: 75 Pulse Rate: 65 Respiratory Rate: 16 O2 Sat by Pulse Oximetry: 100 Temperature (Fahrenheit): 97.7 Pain Score (1-10): 2 Nausea: No Vomiting: No Complications 0 Patient Status: awake, reacts, patent, extubated, none Hydration Status: adequate Dru Gram Ancef IV Given Within 1 Hr of Incision: Yes Time Given: 13:26 Stevenson Alvarenga MD Mar 24, 2019 13:48
--- NOTE | 2019-03-24 14:03 | NUR ---
NURSE NOTES: Report given to WAYNE Maddox. Pt. still in OR.
--- NOTE | 2019-03-24 14:19 | CDS Physician Query ---
Clarification is required for compliance, coding accuracy, and to reflect severity of illness for this patient Dear Dr. 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 patient received 5 units prbc and h/h from 5 to 7 not appropriately responded. 03/24 progress note: Recurrent lower GI bleed - diverticular...anemia, partly due to renal failure Please clarify the specific type of anemia below: Acuity [x]Acute []Acute on Chronic []Chronic Etiology [] Blood loss [] ESRD [] Neoplastic disease [] Iron deficiency [x] GI Bleeding [] Anemia of chronic disease [] Dilutional [] Postoperative [] Unable to determine [] Other: Present on Admission: [x] Yes [] No [] Clinically Undetermined Physician signature Date Please also document in your Progress Notes and/or Discharge Summary and indicate if the condition was present on admission. JADON
--- NOTE | 2019-03-24 14:47 | NUR ---
*-* INSURANCE *-* ALL CLINICALS AND REVIEWS HAVE BEEN FAXED TO: [employer] LE[employer]ITT: ANA[employer]EL P- [phone] F- [phone]...........REVIEW/CLINICAL
[2019-03-24] MEDS ORDERED: Glycopyrrolate 0.2mg/ml 1ml Vial ONE (15:20)
[2019-03-24] MEDS ORDERED: Neostigmine 1mg/ml 10ml Inj ONE (15:20)
--- NOTE | 2019-03-24 15:37 | GI Progress Note ---
Assessment/Plan Problems: (1) Anemia in chronic kidney disease ICD Codes: N18.9 - Chronic kidney disease, unspecified; D63.1 - Anemia in chronic kidney disease SNOMED: 438938541, 735560813 (2) HTN (hypertension) ICD Codes: I10 - Essential (primary) hypertension SNOMED: 61366132 (3) Hypotension ICD Codes: I95.9 - Hypotension, unspecified SNOMED: 44615275 (4) Gastrointestinal hemorrhage ICD Codes: K92.2 - Gastrointestinal hemorrhage, unspecified SNOMED: 95744316 (5) CHF (congestive heart failure) ICD Codes: I50.9 - Heart failure, unspecified SNOMED: 30094636 Status: stable Status Narrative Discussed with Dr. Powell. Assessment/Plan Assessment Recurrent lower GI bleed - presumed hemorrhoidal vs diverticular ESRD anemia, partly due to renal failure HTN COPD patient scheduled for surgery Recommendations - Given two negative colonoscopies this year, and recent banding, agree with proceeding with treatment of hemorrhoids by surgical team first - f/u post operative N/V - monitor CBC - transfuse PRN The patient was seen and examined at bedside and all new and available data was reviewed in the patients chart. I agree with the above findings, impression and plan. (Patient seen earlier today. Signature stamp does not reflect patient encounter time.). - Drew Powell MD Subjective Gastrointestinal/Abdominal: Reports: no symptoms Objective Last 24 Hour Vital Signs Date Time Temp Pulse Resp B/P (MAP) Pulse Ox O2 Delivery O2 Flow Rate FiO2 03/24/19 12:46 68 03/24/19 12:00 Nasal Cannula 2.0 03/24/19 11:28 68 20 98 03/24/19 09:52 140/67 03/24/19 09:51 62 140/67 03/24/19 08:00 Nasal Cannula 2.0 03/24/19 08:00 97.6 62 20 140/62 (88) 100 03/24/19 08:00 72 03/24/19 04:00 Nasal Cannula 2.0 03/24/19 03:25 71 03/24/19 00:00 Nasal Cannula 2.0 03/23/19 23:27 76 03/23/19 20:00 Nasal Cannula 2.0 03/23/19 19:01 70 03/23/19 18:48 143/68 03/23/19 17:19 60 03/23/19 16:00 Nasal Cannula 2.0 03/23/19 16:00 97.7 55 19 143/ (93) 98 Intake and Output 03/23/19 03/24/19 19:00 07:00 Intake Total 1700 ml 55 ml Output Total 25 ml Balance 1675 ml 55 ml Intake Oral 600 ml IV Total 300 ml 55 ml Blood Product 800 ml Output Estimated Blood Loss 25 ml Laboratory Tests Test 03/23/19 23:00 03/24/19 10:00 White Blood Count 9.0 K/UL (4.8-10.8) # 9.8 K/UL (4.8-10.8) Red Blood Count 2.43 M/UL (4.70-6.10) L 2.30 M/UL (4.70-6.10) L Hemoglobin 7.5 G/DL (14.2-18.0) L 7.0 G/DL (14.2-18.0) L Hematocrit 21.2 % (42.0-52.0) L 20.6 % (42.0-52.0) L Mean Corpuscular Volume 87 FL (80-99) 90 FL (80-99) Mean Corpuscular Hemoglobin 30.9 PG (27.0-31.0) 30.7 PG (27.0-31.0) Mean Corpuscular Hemoglobin Concent 35.4 G/DL (32.0-36.0) 34.2 G/DL (32.0-36.0) Red Cell Distribution Width 13.2 % (11.6-14.8) 13.5 % (11.6-14.8) Platelet Count 271 K/UL (150-450) 299 K/UL (150-450) Mean Platelet Volume 5.0 FL (6.5-10.1) L 4.8 FL (6.5-10.1) L Neutrophils (%) (Auto) 89.2 % (45.0-75.0) H % (45.0-75.0) Lymphocytes (%) (Auto) 4.4 % (20.0-45.0) L % (20.0-45.0) Monocytes (%) (Auto) 4.6 % (1.0-10.0) % (1.0-10.0) Eosinophils (%) (Auto) 1.0 % (0.0-3.0) % (0.0-3.0) Basophils (%) (Auto) 0.8 % (0.0-2.0) % (0.0-2.0) Differential Total Cells Counted 100 Neutrophils % (Manual) 88 % (45-75) H Lymphocytes % (Manual) 6 % (20-45) L Monocytes % (Manual) 6 % (1-10) Eosinophils % (Manual) 0 % (0-3) Basophils % (Manual) 0 % (0-2) Band Neutrophils 0 % (0-8) Platelet Estimate Adequate Platelet Morphology Normal Hypochromasia 3+ Anisocytosis 1+ Spherocytes 2+ Sodium Level 138 MMOL/L (136-145) Potassium Level 3.1 MMOL/L (3.5-5.1) L Chloride Level 101 MMOL/L (98-107) Carbon Dioxide Level 32 MMOL/L (21-32) Anion Gap 5 mmol/L (5-15) Blood Urea Nitrogen 32 mg/dL (7-18) H Creatinine 7.2 MG/DL (0.55-1.30) H Estimat Glomerular Filtration Rate 9.5 mL/min (>60) Glucose Level 96 MG/DL (74-106) Calcium Level 8.5 MG/DL (8.5-10.1) Height (Feet): 5 Height (Inches): 5.00 Weight (Pounds): 135 General Appearance: WD/WN, no apparent distress, alert Cardiovascular: normal rate Respiratory/Chest: normal breath sounds, no respiratory distress Abdominal Exam: normal bowel sounds, non tender, soft Extremities: normal range of motion, non-tender Porter Gaston NP Mar 24, 2019 15:37
--- NOTE | 2019-03-24 15:42 | Brief Operative Note ---
Immediate Post Operative Note Operative Note Pre-op Diagnosis: acute GI hemorrhage Procedure: exploratory laparotomy low anterior resection mobilization of splenic flexure Post-op Diagnosis: same as pre-op Surgeon: josé manuel Anesthesiologist: arnol Anesthesia: general Specimen: yes Complications: none Condition: stable Fluids: see records Estimated Blood Loss: minimal Drains: none Implant(s) used?: No Devonte Hinds Mar 24, 2019 15:42
[2019-03-24] MEDS ORDERED: Milk of Magnesia 30ml Ud ORAL PRN (15:45)
[2019-03-24] MEDS ORDERED: DiphenhydrAMINE 50mg/ml Inj IVP PRN ×2 (15:45→16:30)
[2019-03-24] MEDS ORDERED: LR 1000ml 1,000 ML IVLG SCH (16:25)
[2019-03-24] MEDS ORDERED: LORazepam Inj 2mg/ml 1ml IV PRN (16:30)
[2019-03-24] MEDS ORDERED: oxyCODONE HCL/Acetaminophen 5/325mg ORAL PRN (16:30)
[2019-03-24] MEDS ORDERED: Ketorolac 30mg Inj IV PRN ×2 (16:30)
[2019-03-24] MEDS ORDERED: Metoclopramide 10mg/2ml Inj IVP PRN (16:30)
[2019-03-24] MEDS ORDERED: HYDROcodone/Acetamin 7.5/325 tab ORAL PRN (16:30)
[2019-03-24] MEDS ORDERED: Atropine Sulfate 0.4mg/ml inj IVP PRN (16:30)
[2019-03-24] MEDS ORDERED: HYDROcodone/Acetamin 5/325 tab ORAL PRN (16:30)
[2019-03-24] MEDS ORDERED: Midazolam 2mg/2ml Inj IVP PRN (16:30)
[2019-03-24] MEDS ORDERED: Hydromorphone 0.5mg/0.5ml inj IVP PRN (16:30)
[2019-03-24] MEDS ORDERED: Meperidine 50mg/ml Inj(FOR RIGORS ONLY) IVP PRN (16:30)
[2019-03-24] MEDS ORDERED: fentaNYL 100 mcg/2 mL IV PRN (16:30)
[2019-03-24] MEDS: D5NS 1,000 ML IV SCH (16:55)
--- NOTE | 2019-03-24 19:15 | Consultation ---
DATE OF CONSULTATION: 03/24/2019 NEPHROLOGY CONSULTATION CONSULTING PHYSICIAN: Bhargav Madden M.D. ATTENDING PHYSICIAN: Reyes Weber M.D. REASON FOR CONSULTATION: Dialysis patient. HISTORY OF PRESENT ILLNESS: This is a 58-year-old male, who is on dialysis. The patient was admitted due to rectal bleeding for 3 days prior to admission. I am asked to see the patient for his dialysis-related issues. PAST MEDICAL HISTORY: 1. End-stage renal failure. 2. Hypertensive cardiovascular disease. 3. Congestive heart failure. 4. History of hemorrhoids. 5. Anemia of chronic kidney disease. HOME MEDICATIONS: Allopurinol, amlodipine, clonidine, folic acid, lisinopril, omeprazole, and tamsulosin. ALLERGIES: No known drug allergies. FAMILY HISTORY: Unremarkable. SOCIAL HISTORY: He lives at home. HABITS: He is nonsmoker and nondrinker. There is no history of illicit drug abuse. REVIEW OF SYSTEMS: HEENT: Hearing and eyesight are normal. ENDOCRINE: No history of diabetes, thyroid, or adrenal problems. RESPIRATORY: He denies shortness of breath, cough, or hemoptysis. CARDIOVASCULAR: Denies chest pain or palpitations. GASTROINTESTINAL: Significant for hematochezia. NEUROLOGIC: No history of stroke, syncope, or Parkinson disease. PHYSICAL EXAMINATION: GENERAL: This is an elderly male, who is in no acute distress. VITAL SIGNS: Blood pressure 140/67, pulse 62 and regular, respirations 20, and temperature 97.6 oral. HEENT: The head is normocephalic and atraumatic. Pupils are equal, round, and reactive to light and accommodation consensually. NECK: Supple. Trachea midline. There is no lymphadenopathy or thyromegaly. LUNGS: Clear to auscultation and percussion. HEART: Regular rate and rhythm without rubs, murmurs, or gallops. ABDOMEN: Soft and nontender. Bowel sounds were active. EXTREMITIES: No clubbing, cyanosis, or edema. SKIN: He has a left groin graft with thrill and bruit. LABORATORY AND ANCILLARY DATA: On admission, his hematocrit was 16.1, today 20.6. Chemistry, on admission, sodium 132, potassium 4.6, BUN 39, and creatinine 10.8. ASSESSMENT: 1. Rectal bleeding. 2. End-stage renal failure. 3. Hypertensive cardiovascular disease. 4. Congestive heart failure. 5. History of hemorrhoids. 6. Anemia of chronic kidney disease. PLAN: Dr. Hinds, general surgeon, is on board and going to perform a workup for this patient. Hemodialysis will be provided on the patient's schedule, which is Thursday, , and Thursday. Thank you, Dr. Sneed and Dr. Weber, for letting me participate in the care of this patient. Bhargav Madden M.D. DR: LORIN JOB#: [id number] CC:
--- NOTE | 2019-03-24 19:25 | NUR ---
HAND-OFF: Report given to Rodriguez RN.
--- NOTE | 2019-03-24 19:26 | NUR ---
NURSE NOTES: Received patient from WAYNE Maddox. Will continue plan of care.
[2019-03-24 19:50] LABS: ANION GAP 8 mmol/L (5-15); BLOOD UREA NITROGEN 42 mg/dL (7-18); CALCIUM 7.8 MG/DL (8.5-10.1); CARBON DIOXIDE 28 MMOL/L (21-32); CHLORIDE 100 MMOL/L (98-107); CREATININE 10.3 MG/DL (0.55-1.30); POTASSIUM 4.1 MMOL/L (3.5-5.1); SODIUM 136 MMOL/L (136-145)
[2019-03-24 19:58] LABS: MEAN CORPUSCULAR VOLUME 89 FL (80-99); PLATELET COUNT 276 K/UL (150-450); RED BLOOD COUNT 2.24 M/UL (4.70-6.10); RED CELL DISTRIBUTION WIDTH 14.1 % (11.6-14.8); WHITE BLOOD COUNT 8.9 K/UL (4.8-10.8)
[2019-03-24 20:00] LABS: HEMOGLOBIN 6.9 G/DL (14.2-18.0)
[2019-03-24] MEDS: Tamsulosin 0.4mg cap ORAL SCH (21:22)
[2019-03-24] MEDS ORDERED: Heparin Sod 1000 units/ml 10ml IV ONE (23:00)
[2019-03-25] VITALS: BP 120/58
--- NOTE | 2019-03-25 01:30 | Operative Note - Dictated ---
DATE OF OPERATION: 03/24/2019 PREOPERATIVE DIAGNOSIS: Acute GI hemorrhage. POSTOPERATIVE DIAGNOSES: 1. Acute GI hemorrhage, etiology in the distal colon proximal rectum on the right lateral side from abnormal lesion. 2. Acute GI hemorrhage. OPERATION PERFORMED: 1. Exploratory laparotomy. 2. Low anterior resection. 3. Mobilization of splenic flexure. 4. Primary colorectal anastomosis. ATTENDING SURGEON: Devonte Hinds M.D. URBAN FORESTER: None. ANESTHESIOLOGIST: Stevenson Alvarenga M.D. ANESTHESIA: General PROCESS INSPECTOR. ESTIMATED BLOOD LOSS: 25 mL. IV FLUIDS: Please see anesthesia records. COMPLICATIONS: None. DRAINS: None. SPECIMENS: 1. Low anterior resection. 2. Proximal donut intact with anvil. 3. Distal donut intact. COUNTS: Sponge and needle count correct x2. WOUND CLASSIFICATION: Class III. ANTIBIOTICS: The patient is on scheduled IV Zosyn. INDICATIONS FOR PROCEDURE: This is a 58-year-old male, who presented to [facility] emergency department complaining of acute massive GI bleed. The patient states that over the course of three days, he has had significant blood clots and bright red blood per rectum, and in the emergency department had a large bowel movement that was pure clots and blood. The patient on laboratory data was identified to have a hemoglobin of 5.3 and was severely anemic. The patient stated a history of having prior episodes of acute GI bleed and had been admitted to prior institutions for evaluation. Over the past year, he has been admitted multiple times to [facility], at which time he has had 2 colonoscopies that have both been negative. A blood scan could not identify the etiology and location of bleeding as well as upper endoscopy and finally most recently, approximately 2 weeks ago, examination under anesthesia and hemorrhoidectomy as the only potential etiology that could be identified and during their workup over the last year has been potential rectal hemorrhoids. The patient was admitted for evaluation and management. The patient was transfused multiple units of PRBCs and resuscitated. The patient was taken to the operating room initially by myself for examination under anesthesia and rigid sigmoidoscopy. On examination under anesthesia, the prior rectal banding that was done approximately 2 weeks ago was identified and noted to be hemostatic, intact, and in the healing process. There was no active bleeding in the rectum. There was no significantly large hemorrhoids. There was no dilated veins or hemorrhoids or hemorrhoidal bundles that were of any concern. There were no ulcers or abnormalities within the rectal vault. There was no significant blood pooling in the rectal vault. Rigid sigmoidoscopy was performed and at approximately 10 to 15 +/- centimeters, there was identified a large blood clot with surrounding red blood. The blood clot was evacuated and in that area there was some abnormal mucosa noted. Given these findings, the likely etiology was this area and given the patient's very extensive prior workup, I believe that the likelihood is that there is a lesion, potentially AV malformation or bleeding diverticula in this area, but unfortunately it is difficult to evaluate. At this time, the discussion was had with the patient given these findings and the results of the procedure once he was awake and cognizant. Over the course of 24 hours, the patient had 5 units of PRBCs transfused. Initial hemoglobin on admission was 5.3, and after a total of 5 units of PRBCs, his hemoglobin resulted at 7.5 and the subsequent morning dropped again to 7 despite the active resuscitation. Given these findings, surgery was strongly indicated and recommended for exploration and evaluation. I explained to the patient that I would run the entirety of the bowel and the small bowel as well given that this is the only area that has not been evaluated prior and see if I can find the etiology of the lesion or he will continue to actively bleed. Furthermore, I explained to the patient that I did not have the findings of the prior examination under anesthesia and rigid sigmoidoscopy. I explained to him that the likelihood of the etiologies in the colorectal area and resection will be possible, and if possible anastomosis, if not ostomy. Risks, benefits, and alternatives were discussed with the patient in detail, who expressed understanding and after explaining all the above, consented to surgery. OPERATIVE NOTE: The patient was taken to the operating room and placed on the operating table in supine position with bilateral arms out. All bony prominences were well padded. SCDs were placed. Preoperative time-out taken in identifying the patient, procedure, operative staff, and surgical staff. General anesthesia was induced and the patient was intubated. The patient is already on scheduled IV antibiotics. The patient is on a hemodialysis and no have urine so no pepper placed. The patient was placed in a lithotomy position. All bony prominences were well padded. Following this, the abdomen was clipped, prepped, and draped in standard surgical fashion. An infraumbilical midline incision was made using a fresh #10 scalpel and carried down to the fascia, which was incised. Entry into the abdomen was obtained without complication. A Bookwalter retractor was placed and the abdomen was inspected. An OG tube was placed by the anesthesiologist and palpated in the stomach. No bloody or bilious output was identified on the OG tube. The stomach was palpated from the crura down to the pylorus and no abnormalities were identified. The omentum was noted and otherwise stable. The spleen was without complication. The left lobe of the liver was without abnormality. The right lobe of the liver was without abnormality and the gallbladder as well. No stones palpated within the gallbladder. The portions of the duodenum that could be palpated where and no abnormalities were identified. Then the ligament of Treitz was identified and the small bowel was run from the ligament of Treitz to the ileocecal valve. There were no identifiable lesions or masses in palpating the small bowel or evaluating from outside. Furthermore, there was no significant blood identified within the small bowel that could be noted through elimination. The appendix was noted and otherwise normal. The cecum was distended with some fluid. It had a some air in it and no significant blood could be identified and evaluated in the cecum. The ascending colon, hepatic flexure, transverse colon, splenic flexure, and descending colon were evaluated and no significant other abnormalities were identified. there was no blood in these portions of the colon that could be identified. there was solid stool formed in the descending colon. In the sigmoid colon, following towards the peritoneal reflection avobe the rectum, there was an area of abnormality. On the right lateral aspect abutting/distal to the peritoneal reflection, there was an area of almost potentially some type of lesion or malformation identified. At this time, decision was made to proceed with partial colectomy and likely low anterior resection given the location of what was identified. I cannot tell if this was a bleeding diverticulum or other AVM lesion. The white line of Toldt was divided and the sigmoid colon was mobilized down to the peritoneal reflection. The peritoneal reflection was divided and the proximal rectum was mobilized past this area of lesion. A linear 30 mm TA stapler was then used and the distal aspect of the lower anterior resection was divided. The bowel was cut. The staple line was noted to be hemostatic and intact. Using the Saneraerbeat energy device, the mesentery of the bowel was then divided proximally until the area of proximal transection was identified. A window was made in the mesentery and a AILYN 55 mm stapler was used and the proximal aspect divided. At this time, the specimen was opened and no significant mass was identified. Specimen was sent to pathology for review. The glove and gowns were changed and the abdomen was irrigated and inspected. At this time, hemostasis was noted. Of note, the patient does have a left femoral AV graft and there was significant pressure identified in the venous system. There was a thrill identified in the iliac. Following this, a decision was made to proceed with bowel anastomosis. A 29 mm EEA stapler was brought to the operative field. The proximal staple line was excised and the bowel was evaluated and bowel mucosa was otherwise healthy with good backbleeding. Formed stool identified in the proximal aspect of the colon and the remaining colon was normal brown stool with no signs of bleeding, blood, or clots. The anvil was placed and 2-0 silk pursestring sutures were placed for the anvil. Following this, I went below and a 29 mm EEA stapler was placed and the area of anastomosis was identified on the anterior surface of the remaining rectum. The anvil and the stapler were connected and the mesentery was identified to be in appropriate positioning without any twisting. Of note, for appropriate tension-free anastomosis, the white line of Toldt was divided towards the splenic flexure and the splenic flexure was gently mobilized down until the appropriate amount of remaining colon was identified so that a good anastomosis could be performed without any tension. Following this, the anvil and stapler were brought together and the stapler was fired. The anvil and stapler were then removed from the rectum. The anvil was identified to have an intact proximal donut, which was sent to pathology for review. The stapler was identified to have intact distal donut, which was sent to pathology for review as well. Following this, an leak test was performed and no leak was noted. Fluid was placed into the pelvis and a rigid sig was used and the proximal bowel was clamped off with fingers while the air was insufflated. No leak was identified and the bowel was noted to be slowly distending. At this time, the rigid sig was removed and the bowel was desufflated. The anastomosis was checked and noted to be intact and hemostatic. The remaining bowel and mesentery were identified to be hemostatic as well. At this time, we began the conclusion of our procedure. A sponge and needle count was performed and noted to be correct. Gloves and gowns were changed. The bowel was placed in its anatomic position. No other abnormalities were noted. The fascia was reapproximated using a #0 PDS looped suture. The subcutaneous tissue and skin incisions were cleansed and the skin was reapproximated using surgical griselda. Dressings were applied. The patient tolerated the procedure well and was taken to postanesthetic care in stable condition. Devonte Hinds M.D. DR: HEAVEN JOB#: [id number] CC: JADON
[2019-03-25] MEDS: Morphine Sulfate 2mg/ml Inj(IV/IM USE ONLY) IVP PRN ×5 (03:32→20:33)
[2019-03-25 04:00] VITALS: BP 131/59
[2019-03-25 04:51] LABS: HEMATOCRIT 27.2 % (42.0-52.0); HEMOGLOBIN 9.1 G/DL (14.2-18.0); MEAN CORPUSCULAR VOLUME 90 FL (80-99); PLATELET COUNT 304 K/UL (150-450); RED BLOOD COUNT 3.03 M/UL (4.70-6.10); RED CELL DISTRIBUTION WIDTH 14.3 % (11.6-14.8)
[2019-03-25] MEDS: Zosyn 2.25 gm in D5W 55ml IV SCH ×3 (05:36→22:08)
--- NOTE | 2019-03-25 07:10 | NUR ---
HAND-OFF: Report given to WAYNE Maddox.
[2019-03-25 07:57] VITALS: BP 139/65
[2019-03-25] MEDS: Lisinopril 2.5mg tab ORAL SCH (08:36)
[2019-03-25] MEDS: Pantoprazole Inj IVP SCH ×2 (08:36→20:32)
--- NOTE | 2019-03-25 09:35 | NUR ---
PT EVALUATION NOTE Patient seen for initial evaluation, see complete evaluation for details. Patient presents with generalized weakness, impaired functional mobility and pain s/p abdominal surgery. Patient required mod assist for bed mobility tasks; declined transfers OOB due to pain. Patient will benefit from skilled inpatient PT intervention to address strength, balance, safety and functional mobility. Recommend discharge to SNF for further rehab to maximize level of mobility once medically cleared by MD. Further DME needs to bed determined based on patient's progress. Addendum: 03/25/19 at 1235 by KATHARINA DUARTE PT Amended: Links added.
--- NOTE | 2019-03-25 10:45 | GI Progress Note ---
Assessment/Plan Problems: (1) Anemia in chronic kidney disease ICD Codes: N18.9 - Chronic kidney disease, unspecified; D63.1 - Anemia in chronic kidney disease SNOMED: 441812579, 924962697 (2) HTN (hypertension) ICD Codes: I10 - Essential (primary) hypertension SNOMED: 32747471 (3) Hypotension ICD Codes: I95.9 - Hypotension, unspecified SNOMED: 34816502 (4) Gastrointestinal hemorrhage ICD Codes: K92.2 - Gastrointestinal hemorrhage, unspecified SNOMED: 40677442 (5) CHF (congestive heart failure) ICD Codes: I50.9 - Heart failure, unspecified SNOMED: 76001802 Status: unchanged Status Narrative Discussed with Dr. Powell. Assessment/Plan Assessment Recurrent lower GI bleed - presumed hemorrhoidal vs diverticular ESRD anemia, partly due to renal failure HTN COPD patient scheduled for colon resection Recommendations - fu surgical recommendations - f/u post operative N/V - monitor CBC - transfuse PRN The patient was seen and examined at bedside and all new and available data was reviewed in the patients chart. I agree with the above findings, impression and plan. (Patient seen earlier today. Signature stamp does not reflect patient encounter time.). - Drew Powell MD Subjective Gastrointestinal/Abdominal: Reports: no symptoms Objective Last 24 Hour Vital Signs Date Time Temp Pulse Resp B/P (MAP) Pulse Ox O2 Delivery O2 Flow Rate FiO2 03/25/19 08:36 139/65 03/25/19 08:35 61 139/65 03/25/19 08:00 Nasal Cannula 2.0 03/25/19 07:57 98.1 61 24 139/65 (89) 99 03/25/19 07:46 61 03/25/19 05:49 131/59 03/25/19 04:00 98.1 61 20 131/59 (83) 100 03/25/19 04:00 Nasal Cannula 2.0 03/25/19 03:54 61 03/25/19 00:00 97.3 61 22 120/58 (78) 100 03/25/19 00:00 Nasal Cannula 2.0 03/24/19 23:57 60 03/24/19 23:41 120/58 03/24/19 20:00 Nasal Cannula 2.0 03/24/19 20:00 97.5 58 16 137/60 (85) 100 03/24/19 19:31 60 03/24/19 17:03 55 03/24/19 16:50 97.5 56 17 132/52 (78) 100 03/24/19 16:30 97.8 56 17 134/65 100 Nasal Cannula 03/24/19 16:15 56 16 120/57 100 Nasal Cannula 03/24/19 16:00 65 16 157/69 100 Nasal Cannula 03/24/19 15:50 65 18 161/77 100 Simple Mask 6 03/24/19 15:44 65 16 100 03/24/19 15:43 97.3 65 16 161/77 100 Simple Mask 6 03/24/19 12:46 68 03/24/19 12:00 Nasal Cannula 2.0 03/24/19 11:28 68 20 98 Intake and Output 03/24/19 03/25/19 19:00 07:00 Intake Total 125 ml 765 ml Balance 125 ml 765 ml Intake Oral 0 ml IV Total 125 ml 765 ml Laboratory Tests Test 03/24/19 19:21 03/25/19 03:30 White Blood Count 8.9 K/UL (4.8-10.8) 9.0 K/UL (4.8-10.8) Red Blood Count 2.24 M/UL (4.70-6.10) L 3.03 M/UL (4.70-6.10) L Hemoglobin 6.9 G/DL (14.2-18.0) *L 9.1 G/DL (14.2-18.0) #L Hematocrit 20.0 % (42.0-52.0) L 27.2 % (42.0-52.0) #L Mean Corpuscular Volume 89 FL (80-99) 90 FL (80-99) Mean Corpuscular Hemoglobin 30.9 PG (27.0-31.0) 30.1 PG (27.0-31.0) Mean Corpuscular Hemoglobin Concent 34.7 G/DL (32.0-36.0) 33.5 G/DL (32.0-36.0) Red Cell Distribution Width 14.1 % (11.6-14.8) 14.3 % (11.6-14.8) Platelet Count 276 K/UL (150-450) 304 K/UL (150-450) Mean Platelet Volume 4.7 FL (6.5-10.1) L 4.8 FL (6.5-10.1) L Neutrophils (%) (Auto) % (45.0-75.0) % (45.0-75.0) Lymphocytes (%) (Auto) % (20.0-45.0) % (20.0-45.0) Monocytes (%) (Auto) % (1.0-10.0) % (1.0-10.0) Eosinophils (%) (Auto) % (0.0-3.0) % (0.0-3.0) Basophils (%) (Auto) % (0.0-2.0) % (0.0-2.0) Differential Total Cells Counted 100 Neutrophils % (Manual) 91 % (45-75) H Lymphocytes % (Manual) 5 % (20-45) L Monocytes % (Manual) 4 % (1-10) Eosinophils % (Manual) 0 % (0-3) Basophils % (Manual) 0 % (0-2) Band Neutrophils 0 % (0-8) Platelet Estimate Adequate Platelet Morphology Normal Polychromasia 1+ Anisocytosis 1+ Sodium Level 136 MMOL/L (136-145) Potassium Level 4.1 MMOL/L (3.5-5.1) Chloride Level 100 MMOL/L (98-107) Carbon Dioxide Level 28 MMOL/L (21-32) Anion Gap 8 mmol/L (5-15) Blood Urea Nitrogen 42 mg/dL (7-18) H Creatinine 10.3 MG/DL (0.55-1.30) H Estimat Glomerular Filtration Rate 6.3 mL/min (>60) Glucose Level 101 MG/DL (74-106) Calcium Level 7.8 MG/DL (8.5-10.1) L Height (Feet): 5 Height (Inches): 5.00 Weight (Pounds): 135 General Appearance: WD/WN, no apparent distress, alert Cardiovascular: normal rate Respiratory/Chest: normal breath sounds, no respiratory distress Abdominal Exam: normal bowel sounds, non tender, soft Extremities: normal range of motion, non-tender Porter Gaston BUILDING PERFORMANCE CONSULTANT Mar 25, 2019 10:45
[2019-03-25 12:00] VITALS: BP 135/65
--- NOTE | 2019-03-25 12:25 | Pulmonology Progress Note ---
Assessment/Plan Assessment/Plan Pulmonary Progress Note HPI Patient is a 58 year old male with multiple medical comorbidities presented to complaining of BRBPR for 3 days, weakness, noted to have significant anemia. Has had recurrent lower GI bleeding for years. Denies n/v/f/c. Has past history of Hypertension, Gout, GERD, CHF, ESRD on HD via left femoral graft, has history of hemorrhoids and had banding 2 weeks ago at [facility]. Noted to have Diverticular bleed - s/p Exlap Pain controlled Allergies: No Known Allergies Medications Allopurinol* (Allopurinol*), Unknown Dose ORAL DAILY, (Reported) Amlodipine Besylate (Norvasc), Unknown Dose ORAL DAILY, (Reported) Clonidine Hcl* (Catapres*), 0.1 MG ORAL EVERY 6 HOURS, (Reported) Folic Acid* (Folic Acid*), 1 MG ORAL DAILY, (Reported) Lisinopril* (Lisinopril*), 2.5 MG ORAL DAILY, (Reported) Omeprazole (Omeprazole), Unknown Dose ORAL DAILY, (Reported) Tamsulosin Hcl (Tamsulosin Hcl*), Unknown Dose ORAL BEDTIME, (Reported) Past Medical/Surgical History: (1) Hypotension (2) HTN (hypertension) (3) Gastrointestinal hemorrhage (4) CHF (congestive heart failure) (5) Anemia in chronic kidney disease Review of Symptoms General ROS: no weight loss or fever Psychological ROS: no depression or mood changes, no memory loss Ophthalmic ROS: no visual changes or eye irritation ENT ROS: no nasal congestion, hearing loss, dizziness Allergy and Immunology ROS: no allergic symptoms or urticaria Hematological and Lymphatic ROS: no swollen glands, unusual bleeding or bruising Endocrine ROS: no polyuria, polydipsia, weight changes, temperature intolerance Respiratory ROS: no cough, shortness of breath, or wheezing Cardiovascular ROS: no chest pain or dyspnea on exertion Gastrointestinal ROS: denies abdominal pain, bright red blood in stool. Musculoskeletal ROS: no myalgias or arthralgias Neurological ROS: no TIA or stroke symptoms Dermatological ROS: no new or changing skin lesions, rashes or pruritis Physical Exam Vital signs noted General appearance: alert, cooperative, no distress, appears stated age Head: Normocephalic, without obvious abnormality, atraumatic Eyes: conjunctivae/corneas clear. PERRL, EOM's intact. Fundi benign Throat: Lips, mucosa, and tongue normal. Teeth and gums normal Neck: supple, symmetrical, trachea midline, no adenopathy, thyroid: not enlarged, symmetric, no tenderness/mass/nodules, no carotid bruit and no JVD Lungs: clear to auscultation bilaterally Heart: regular rate and rhythm, S1, S2 normal, no murmur, click, rub or gallop Abdomen: soft, mild tenderness. No masses, no organomegaly Extremities: extremities normal, atraumatic, no cyanosis or edema Pulses: 2+ and symmetric Skin: Skin color, texture, turgor normal. No rashes or lesions Neurologic: Grossly normal Laboratory Tests Noted Assessment: Acute GI bleed, Diverticular, s/p ExLap Hypertension Gout GERD CHF, ESRD on HD via left femoral graft Plan: Transfusions PRN Protonix IVF PRN PPX Trend labs Post Surgery care Renal following Subjective ROS Limited/Unobtainable: No Allergies: Coded Allergies: No Known Allergies (Unverified , 03/20/18) Objective Last 24 Hour Vital Signs Date Time Temp Pulse Resp B/P (MAP) Pulse Ox O2 Delivery O2 Flow Rate FiO2 03/25/19 08:36 139/65 03/25/19 08:35 61 139/65 03/25/19 08:00 Nasal Cannula 2.0 03/25/19 07:57 98.1 61 24 139/65 (89) 99 03/25/19 07:46 61 03/25/19 05:49 131/59 03/25/19 04:00 98.1 61 20 131/59 (83) 100 03/25/19 04:00 Nasal Cannula 2.0 03/25/19 03:54 61 03/25/19 00:00 97.3 61 22 120/58 (78) 100 03/25/19 00:00 Nasal Cannula 2.0 03/24/19 23:57 60 03/24/19 23:41 120/58 03/24/19 20:00 Nasal Cannula 2.0 03/24/19 20:00 97.5 58 16 137/60 (85) 100 03/24/19 19:31 60 03/24/19 17:03 55 03/24/19 16:50 97.5 56 17 132/52 (78) 100 03/24/19 16:30 97.8 56 17 134/65 100 Nasal Cannula 03/24/19 16:15 56 16 120/57 100 Nasal Cannula 03/24/19 16:00 65 16 157/69 100 Nasal Cannula 03/24/19 15:50 65 18 161/77 100 Simple Mask 6 03/24/19 15:44 65 16 100 03/24/19 15:43 97.3 65 16 161/77 100 Simple Mask 6 03/24/19 12:46 68 Intake and Output 03/24/19 03/25/19 19:00 07:00 Intake Total 125 ml 765 ml Balance 125 ml 765 ml Intake Oral 0 ml IV Total 125 ml 765 ml Laboratory Tests 03/24/19 19:21: White Blood Count 8.9, Red Blood Count 2.24L, Hemoglobin 6.9*L, Hematocrit 20.0L , Mean Corpuscular Volume 89, Mean Corpuscular Hemoglobin 30.9, Mean Corpuscular Hemoglobin Concent 34.7, Red Cell Distribution Width 14.1, Platelet Count 276, Mean Platelet Volume 4.7L, Neutrophils (%) (Auto) , Lymphocytes (%) ( Auto) , Monocytes (%) (Auto) , Eosinophils (%) (Auto) , Basophils (%) (Auto) , Differential Total Cells Counted 100, Neutrophils % (Manual) 91H, Lymphocytes % (Manual) 5L, Monocytes % (Manual) 4, Eosinophils % (Manual) 0, Basophils % ( Manual) 0, Band Neutrophils 0, Platelet Estimate Adequate, Platelet Morphology Normal, Polychromasia 1+, Anisocytosis 1+, Sodium Level 136, Potassium Level 4.1 , Chloride Level 100, Carbon Dioxide Level 28, Anion Gap 8, Blood Urea Nitrogen 42H, Creatinine 10.3H, Estimat Glomerular Filtration Rate 6.3, Glucose Level 101 , Calcium Level 7.8L 03/25/19 03:30: White Blood Count 9.0, Red Blood Count 3.03L, Hemoglobin 9.1#L, Hematocrit 27.2# L, Mean Corpuscular Volume 90, Mean Corpuscular Hemoglobin 30.1, Mean Corpuscular Hemoglobin Concent 33.5, Red Cell Distribution Width 14.3, Platelet Count 304, Mean Platelet Volume 4.8L, Neutrophils (%) (Auto) , Lymphocytes (%) ( Auto) , Monocytes (%) (Auto) , Eosinophils (%) (Auto) , Basophils (%) (Auto) Current Medications Medications (Trade) Dose Ordered Sig/Letty Route PRN Reason Start Time Stop Time Status Last Admin Dose Admin Acetaminophen (Tylenol) 650 mg Q4H PRN ORAL FEVER 03/23/19 13:30 04/22/19 13:29 Al Hydroxide/Mg Hydroxide (Mylanta) 15 ml Q6H PRN ORAL DYSPEPSIA 03/24/19 15:45 04/23/19 15:44 Amlodipine Besylate (Norvasc) 2.5 mg DAILY ORAL 03/23/19 09:00 04/22/19 08:59 03/25/19 08:35 Clonidine HCl (Catapres Tab) 0.1 mg EVERY 6 HOURS ORAL 03/23/19 00:00 04/22/19 00:00 03/23/19 18:48 Dextrose/Sodium Chloride 1,000 ml @ 50 mls/hr Q20H IV 03/24/19 16:00 04/23/19 15:59 03/24/19 16:55 Diphenhydramine HCl (Benadryl) 12.5 mg Q6H PRN IVP Itching/Pruritis 03/23/19 13:30 04/22/19 13:29 Diphenhydramine HCl (Benadryl) 12.5 mg Q6H PRN IVP Itching/Pruritis 03/24/19 15:45 04/23/19 15:44 Epoetin Kimo (Epoetin Kimo(ESRD on dialysis)) 10,000 unit THU-THU-THU SUBQ 03/23/19 21:00 04/22/19 20:59 Folic Acid (Folate) 1 mg DAILY ORAL 03/23/19 09:00 04/22/19 08:59 03/25/19 08:35 Lisinopril (Zestril) 2.5 mg DAILY ORAL 03/23/19 09:00 04/22/19 08:59 03/25/19 08:36 Magnesium Hydroxide (Mom) 30 ml BIDPRN PRN ORAL Constipation 03/24/19 15:45 04/23/19 15:44 Morphine Sulfate (Morphine Sulfate) 2 mg Q4H PRN IVP pain scale 4-6 03/23/19 13:30 03/30/19 13:29 03/25/19 12:12 Morphine Sulfate (Morphine Sulfate) 2 mg Q4H PRN IVP pain scale 4-6 03/24/19 15:45 03/31/19 15:44 Morphine Sulfate (Morphine Sulfate) 4 mg Q4H PRN IVP pain score 7-10 03/24/19 15:45 03/31/19 15:44 Ondansetron HCl (Zofran) 4 mg Q6H PRN IVP Nausea & Vomiting 03/23/19 13:30 04/22/19 13:29 03/23/19 21:45 Pantoprazole (Protonix) 40 mg EVERY 12 HOURS IVP 03/22/19 21:00 04/21/19 20:59 03/25/19 08:36 Piperacillin Sod/ Tazobactam Sod 2.25 gm/Dextrose 55 ml @ 110 mls/hr Q8HR IV 03/23/19 22:00 03/28/19 21:59 03/25/19 05:36 Sodium Chloride 1,000 ml @ 500 mls/hr Q2H PRN IVLG sbp<90 during hd 03/24/19 07:55 04/23/19 07:54 Tamsulosin HCl (Flomax) 0.4 mg BEDTIME ORAL 03/22/19 21:00 04/21/19 20:59 03/24/19 21:22 Temazepam (Restoril) 7.5 mg DAILYPRN PRN ORAL Insomnia 03/24/19 15:45 03/31/19 15:44 Phil Sneed MD Mar 25, 2019 12:25
--- NOTE | 2019-03-25 13:08 | NUR ---
BUSINESS SERVICES DIRECTORRUG CLEANER HELPER SI: POD#2 S/P EXP LAP T. 98.1 HR 61 RR 24 B/P 134/65 H/H 9.1/27.2 IS: IVF D5NS @ 50ML/HR ZOSYN IV PT EVAL STEP DOWN STATUS
[2019-03-25] MEDS: D5NS 1,000 ML IV SCH (13:30)
--- NOTE | 2019-03-25 14:02 | NUR ---
RD ASSESSMENT & RECOMMENDATIONS SEE CARE ACTIVITY FOR COMPLETE ASSESSMENT DAILY ESTIMATED NEEDS: Needs based on ESRD on HD, surgery 61kg 30-35 kcals/kg 2588-6128 total kcals 1.2-1.8 g protein/kg 73-110 g total protein fluid per MD, on HD mL/kg total fluid mLs NUTRITION DIAGNOSIS: Increased kcal and protein needs r/t renal dysfunction and surgery as evidenced by pt w/ ESRD on HD, s/p ex lap, lower anterior resection, NPO. CURRENT DIET:NPO PO DIET RECOMMENDATIONS: DIET PER MD -> RENAL, double proptein portions/ texture as tolerated ADDITIONAL RECOMMENDATIONS: 1) Obtain calibrated dry wt post HD 2) Add Nephrovite x1 daily 3) Monitor NPO status 4) Monitor renal fxn, lytes 5) Pt is edentulous- texture as tolerated
--- NOTE | 2019-03-25 14:36 | NUR ---
*-* INSURANCE *-* ALL CLINICALS AND REVIEWS HAVE BEEN FAXED TO: HUBERT LEAVITT: ANABEL P- [phone] X [phone] F- [phone]...........REVIEW/CLINICAL
--- NOTE | 2019-03-25 15:46 | Surgery Progress Note ---
Surgery Progress Note Subjective Procedure Performed exploratory laparotomy low anterior resection mobilization of splenic flexure Additional Comments doing well incisional pain no bleedig labs improved Objective Last 24 Hour Vital Signs Date Time Temp Pulse Resp B/P (MAP) Pulse Ox O2 Delivery O2 Flow Rate FiO2 03/25/19 12:00 98.0 60 20 135/65 (88) 100 03/25/19 12:00 Nasal Cannula 2.0 03/25/19 11:48 61 03/25/19 08:36 139/65 03/25/19 08:35 61 139/65 03/25/19 08:00 Nasal Cannula 2.0 03/25/19 07:57 98.1 61 24 139/65 (89) 99 03/25/19 07:46 61 03/25/19 05:49 131/59 03/25/19 04:00 98.1 61 20 131/59 (83) 100 03/25/19 04:00 Nasal Cannula 2.0 03/25/19 03:54 61 03/25/19 00:00 97.3 61 22 120/58 (78) 100 03/25/19 00:00 Nasal Cannula 2.0 03/24/19 23:57 60 03/24/19 23:41 120/58 03/24/19 20:00 Nasal Cannula 2.0 03/24/19 20:00 97.5 58 16 137/60 (85) 100 03/24/19 19:31 60 03/24/19 17:03 55 03/24/19 16:50 97.5 56 17 132/52 (78) 100 03/24/19 16:30 97.8 56 17 134/65 100 Nasal Cannula 03/24/19 16:15 56 16 120/57 100 Nasal Cannula 03/24/19 16:00 65 16 157/69 100 Nasal Cannula 03/24/19 15:50 65 18 161/77 100 Simple Mask 6 I&O Intake and Output 03/24/19 03/25/19 19:00 07:00 Intake Total 125 ml 765 ml Balance 125 ml 765 ml Intake Oral 0 ml IV Total 125 ml 765 ml Dressing: dry Wound: clean Cardiovascular: RSR Respiratory: clear Abdomen: soft, tenderness, non-distended, decreased bowel sounds Extremities: no tenderness, no cyanosis Laboratory Tests Test 03/24/19 19:21 03/25/19 03:30 White Blood Count 8.9 K/UL (4.8-10.8) 9.0 K/UL (4.8-10.8) Red Blood Count 2.24 M/UL (4.70-6.10) L 3.03 M/UL (4.70-6.10) L Hemoglobin 6.9 G/DL (14.2-18.0) *L 9.1 G/DL (14.2-18.0) #L Hematocrit 20.0 % (42.0-52.0) L 27.2 % (42.0-52.0) #L Mean Corpuscular Volume 89 FL (80-99) 90 FL (80-99) Mean Corpuscular Hemoglobin 30.9 PG (27.0-31.0) 30.1 PG (27.0-31.0) Mean Corpuscular Hemoglobin Concent 34.7 G/DL (32.0-36.0) 33.5 G/DL (32.0-36.0) Red Cell Distribution Width 14.1 % (11.6-14.8) 14.3 % (11.6-14.8) Platelet Count 276 K/UL (150-450) 304 K/UL (150-450) Mean Platelet Volume 4.7 FL (6.5-10.1) L 4.8 FL (6.5-10.1) L Neutrophils (%) (Auto) % (45.0-75.0) % (45.0-75.0) Lymphocytes (%) (Auto) % (20.0-45.0) % (20.0-45.0) Monocytes (%) (Auto) % (1.0-10.0) % (1.0-10.0) Eosinophils (%) (Auto) % (0.0-3.0) % (0.0-3.0) Basophils (%) (Auto) % (0.0-2.0) % (0.0-2.0) Differential Total Cells Counted 100 Neutrophils % (Manual) 91 % (45-75) H Lymphocytes % (Manual) 5 % (20-45) L Monocytes % (Manual) 4 % (1-10) Eosinophils % (Manual) 0 % (0-3) Basophils % (Manual) 0 % (0-2) Band Neutrophils 0 % (0-8) Platelet Estimate Adequate Platelet Morphology Normal Polychromasia 1+ Anisocytosis 1+ Sodium Level 136 MMOL/L (136-145) Potassium Level 4.1 MMOL/L (3.5-5.1) Chloride Level 100 MMOL/L (98-107) Carbon Dioxide Level 28 MMOL/L (21-32) Anion Gap 8 mmol/L (5-15) Blood Urea Nitrogen 42 mg/dL (7-18) H Creatinine 10.3 MG/DL (0.55-1.30) H Estimat Glomerular Filtration Rate 6.3 mL/min (>60) Glucose Level 101 MG/DL (74-106) Calcium Level 7.8 MG/DL (8.5-10.1) L Plan Problems: (1) Gastrointestinal hemorrhage Assessment & Plan: acute GI bleed s/p ex lap with LAR no longer bleeding improvig responded to prbc now npo ice chips activity as tolerated AM labs rx as written Devonte Hinds Mar 25, 2019 15:46
[2019-03-25 16:28] VITALS: BP 142/70
[2019-03-25 16:34] LABS: BASOPHILS % (AUTO) 0.8 % (0.0-2.0); EOSINOPHILS % (AUTO) 1.5 % (0.0-3.0); HEMATOCRIT 26.2 % (42.0-52.0); HEMOGLOBIN 8.9 G/DL (14.2-18.0); LYMPHOCYTES % (AUTO) 7.4 % (20.0-45.0); MEAN CORPUSCULAR VOLUME 91 FL (80-99); MONOCYTES % (AUTO) 7.1 % (1.0-10.0); NEUTROPHILS % (AUTO) 83.1 % (45.0-75.0); PLATELET COUNT 306 K/UL (150-450); RED BLOOD COUNT 2.89 M/UL (4.70-6.10); RED CELL DISTRIBUTION WIDTH 13.6 % (11.6-14.8); WHITE BLOOD COUNT 8.7 K/UL (4.8-10.8)
--- NOTE | 2019-03-25 16:41 | Nephrology Progress Note ---
Assessment/Plan Plan s/p Ant. Colon resection + exp. Lap. ESRD - HD TTS Subjective Subjective No new c/o Objective Objective Last 24 Hour Vital Signs Date Time Temp Pulse Resp B/P (MAP) Pulse Ox O2 Delivery O2 Flow Rate FiO2 03/25/19 16:28 98.5 61 22 142/70 (94) 100 03/25/19 12:00 98.0 60 20 135/65 (88) 100 03/25/19 12:00 Nasal Cannula 2.0 03/25/19 11:48 61 03/25/19 08:36 139/65 03/25/19 08:35 61 139/65 03/25/19 08:00 Nasal Cannula 2.0 03/25/19 07:57 98.1 61 24 139/65 (89) 99 03/25/19 07:46 61 03/25/19 05:49 131/59 03/25/19 04:00 98.1 61 20 131/59 (83) 100 03/25/19 04:00 Nasal Cannula 2.0 03/25/19 03:54 61 03/25/19 00:00 97.3 61 22 120/58 (78) 100 03/25/19 00:00 Nasal Cannula 2.0 03/24/19 23:57 60 03/24/19 23:41 120/58 03/24/19 20:00 Nasal Cannula 2.0 03/24/19 20:00 97.5 58 16 137/60 (85) 100 03/24/19 19:31 60 03/24/19 17:03 55 03/24/19 16:50 97.5 56 17 132/52 (78) 100 Intake and Output 03/24/19 03/25/19 19:00 07:00 Intake Total 125 ml 765 ml Balance 125 ml 765 ml Intake Oral 0 ml IV Total 125 ml 765 ml Laboratory Tests 03/24/19 19:21: White Blood Count 8.9, Red Blood Count 2.24L, Hemoglobin 6.9*L, Hematocrit 20.0L , Mean Corpuscular Volume 89, Mean Corpuscular Hemoglobin 30.9, Mean Corpuscular Hemoglobin Concent 34.7, Red Cell Distribution Width 14.1, Platelet Count 276, Mean Platelet Volume 4.7L, Neutrophils (%) (Auto) , Lymphocytes (%) ( Auto) , Monocytes (%) (Auto) , Eosinophils (%) (Auto) , Basophils (%) (Auto) , Differential Total Cells Counted 100, Neutrophils % (Manual) 91H, Lymphocytes % (Manual) 5L, Monocytes % (Manual) 4, Eosinophils % (Manual) 0, Basophils % ( Manual) 0, Band Neutrophils 0, Platelet Estimate Adequate, Platelet Morphology Normal, Polychromasia 1+, Anisocytosis 1+, Sodium Level 136, Potassium Level 4.1 , Chloride Level 100, Carbon Dioxide Level 28, Anion Gap 8, Blood Urea Nitrogen 42H, Creatinine 10.3H, Estimat Glomerular Filtration Rate 6.3, Glucose Level 101 , Calcium Level 7.8L 03/25/19 03:30: White Blood Count 9.0, Red Blood Count 3.03L, Hemoglobin 9.1#L, Hematocrit 27.2# L, Mean Corpuscular Volume 90, Mean Corpuscular Hemoglobin 30.1, Mean Corpuscular Hemoglobin Concent 33.5, Red Cell Distribution Width 14.3, Platelet Count 304, Mean Platelet Volume 4.8L, Neutrophils (%) (Auto) , Lymphocytes (%) ( Auto) , Monocytes (%) (Auto) , Eosinophils (%) (Auto) , Basophils (%) (Auto) 03/25/19 16:00: White Blood Count 8.7, Red Blood Count 2.89L, Hemoglobin 8.9L, Hematocrit 26.2L , Mean Corpuscular Volume 91, Mean Corpuscular Hemoglobin 30.7, Mean Corpuscular Hemoglobin Concent 33.9, Red Cell Distribution Width 13.6, Platelet Count 306, Mean Platelet Volume 4.7L, Neutrophils (%) (Auto) 83.1H, Lymphocytes (%) (Auto) 7.4L, Monocytes (%) (Auto) 7.1, Eosinophils (%) (Auto) 1.5, Basophils (%) (Auto) 0.8 Height (Feet): 5 Height (Inches): 5.00 Weight (Pounds): 135 Objective CV RR Lungs CTA Abd SNT. BS + dressed. E No CCE. L leg AVG. Bhargav Madden MD Mar 25, 2019 16:41
--- NOTE | 2019-03-25 19:20 | NUR ---
NURSE NOTES: Received patient from WAYNE Maddox. Will continue plan of care.
[2019-03-25 20:00] VITALS: BP 132/68
[2019-03-25] MEDS: Tamsulosin 0.4mg cap ORAL SCH (20:33)
[2019-03-25] MEDS: Epoetin Alfa-EPBX(ESRD on dialysis)10,000 unit/ml vial SUBQ SCH (20:33)
--- NOTE | 2019-03-25 21:07 | NUR ---
NURSE NOTES: Transferred patient to 209-1. Report given to WAYNE Louis. Belongings accounted for at bedside. Patient is stable.
--- NOTE | 2019-03-25 21:10 | NUR ---
NURSE NOTES: Received pt/report from WAYNE Baxter. Patient in bed awake HOB 45 deg. showing no signs of acute distress. Respiration even and non labored on 2L NC O2. No sob noted. IV on right EJ patent and intact on D5NS @ 50cc/hr, and IV on right hand 20g SL patent and intact. Abd. dressing intact, no bleeding or any discharge noted. Call light within reach, bed in lowest position, wheels locked and alarm on. All needs attended and met. Will continue plan of care.
[2019-03-26] VITALS (7 sets, daily range): BP systolic 109–151; BP diastolic 62–81
[2019-03-26] MEDS: Morphine Sulfate 2mg/ml Inj(IV/IM USE ONLY) IVP PRN ×4 (00:34→15:19)
[2019-03-26] MEDS: Zosyn 2.25 gm in D5W 55ml IV SCH ×3 (05:47→23:15)
[2019-03-26] MEDS ORDERED: Heparin Sod 1000 units/ml 10ml IV PRN (06:00)
--- NOTE | 2019-03-26 07:10 | NUR ---
NURSE NOTES: report given by Julianna. Patient's sleeping in bed, no s/s of acute distress or SOB. Bed at lowest position, break engaged and call light within reach. IVs are running fluid, asymptomatic and patent. Left EV shunt for dialysis is present, no sign of bleeding. Will continue to monitor.
--- NOTE | 2019-03-26 07:23 | NUR ---
HAND-OFF: Report given to WAYNE Vega.
[2019-03-26 07:42] LABS: BASOPHILS % (AUTO) 0.7 % (0.0-2.0); EOSINOPHILS % (AUTO) 2.9 % (0.0-3.0); HEMATOCRIT 26.5 % (42.0-52.0); HEMOGLOBIN 8.8 G/DL (14.2-18.0); LYMPHOCYTES % (AUTO) 6.2 % (20.0-45.0); MEAN CORPUSCULAR VOLUME 92 FL (80-99); MONOCYTES % (AUTO) 8.2 % (1.0-10.0); PLATELET COUNT 347 K/UL (150-450); RED BLOOD COUNT 2.87 M/UL (4.70-6.10); RED CELL DISTRIBUTION WIDTH 13.9 % (11.6-14.8); WHITE BLOOD COUNT 7.7 K/UL (4.8-10.8)
[2019-03-26 07:52] LABS: ANION GAP 11 mmol/L (5-15); BLOOD UREA NITROGEN 51 mg/dL (7-18); CARBON DIOXIDE 25 MMOL/L (21-32); CHLORIDE 96 MMOL/L (98-107); CREATININE 12.6 MG/DL (0.55-1.30); POTASSIUM 4.5 MMOL/L (3.5-5.1); SODIUM 132 MMOL/L (136-145)
[2019-03-26] MEDS: Lisinopril 2.5mg tab ORAL SCH (08:46)
[2019-03-26] MEDS: Pantoprazole Inj IVP SCH ×2 (08:46→21:19)
[2019-03-26] MEDS: D5NS 1,000 ML IV SCH (08:48)
--- NOTE | 2019-03-26 09:41 | General Progress Note ---
Assessment/Plan Status: unchanged Assessment/Plan: Problems: (1) Anemia in chronic kidney disease ICD Codes: N18.9 - Chronic kidney disease, unspecified; D63.1 - Anemia in chronic kidney disease SNOMED: 650662781, 708988506 (2) HTN (hypertension) ICD Codes: I10 - Essential (primary) hypertension SNOMED: 25588365 (3) Hypotension ICD Codes: I95.9 - Hypotension, unspecified SNOMED: 55959954 (4) Gastrointestinal hemorrhage ICD Codes: K92.2 - Gastrointestinal hemorrhage, unspecified SNOMED: 18507020 (5) CHF (congestive heart failure) ICD Codes: I50.9 - Heart failure, unspecified SNOMED: 05227071 Status: unchanged Status Narrative Discussed with Dr. Powell. Assessment/Plan Assessment GIB s/p surg ESRD anemia, partly due to renal failure HTN COPD Recommendations - fu surgical recommendations - f/u post operative N/V - monitor CBC - transfuse PRN Subjective ROS Limited/Unobtainable: Yes Allergies: Coded Allergies: No Known Allergies (Unverified , 03/20/18) Objective Last 24 Hour Vital Signs Date Time Temp Pulse Resp B/P (MAP) Pulse Ox O2 Delivery O2 Flow Rate FiO2 03/26/19 08:46 143/72 03/26/19 08:46 60 143/72 03/26/19 08:04 Nasal Cannula 2.0 03/26/19 08:00 63 03/26/19 07:56 97.7 60 20 143/72 (95) 97 03/26/19 07:38 60 03/26/19 05:47 131/81 03/26/19 05:05 97.7 03/26/19 04:00 97.7 69 18 131/81 (98) 97 03/26/19 04:00 62 03/26/19 00:00 97.4 61 18 133/64 (87) 97 03/26/19 00:00 60 03/26/19 00:00 Nasal Cannula 2.0 03/25/19 23:58 133/64 03/25/19 20:05 124 03/25/19 20:00 98.4 60 16 132/68 (89) 100 03/25/19 20:00 Nasal Cannula 2.0 03/25/19 17:13 142/70 8/2/19 16:28 98.5 61 22 142/70 (94) 100 03/25/19 16:00 Nasal Cannula 2.0 03/25/19 16:00 63 03/25/19 12:00 98.0 60 20 135/65 (88) 100 03/25/19 12:00 Nasal Cannula 2.0 03/25/19 11:48 61 Intake and Output 03/25/19 03/26/19 19:00 07:00 Intake Total 700 ml Balance 700 ml Intake Oral 120 ml IV Total 580 ml # Voids 2 Laboratory Tests 03/25/19 16:00: White Blood Count 8.7, Red Blood Count 2.89L, Hemoglobin 8.9L, Hematocrit 26.2L , Mean Corpuscular Volume 91, Mean Corpuscular Hemoglobin 30.7, Mean Corpuscular Hemoglobin Concent 33.9, Red Cell Distribution Width 13.6, Platelet Count 306, Mean Platelet Volume 4.7L, Neutrophils (%) (Auto) 83.1H, Lymphocytes (%) (Auto) 7.4L, Monocytes (%) (Auto) 7.1, Eosinophils (%) (Auto) 1.5, Basophils (%) (Auto) 0.8 03/26/19 06:32: White Blood Count 7.7, Red Blood Count 2.87L, Hemoglobin 8.8L, Hematocrit 26.5L , Mean Corpuscular Volume 92, Mean Corpuscular Hemoglobin 30.7, Mean Corpuscular Hemoglobin Concent 33.2, Red Cell Distribution Width 13.9, Platelet Count 347, Mean Platelet Volume 4.6L, Neutrophils (%) (Auto) 82.0H, Lymphocytes (%) (Auto) 6.2L, Monocytes (%) (Auto) 8.2, Eosinophils (%) (Auto) 2.9, Basophils (%) (Auto) 0.7, Sodium Level 132L, Potassium Level 4.5, Chloride Level 96L, Carbon Dioxide Level 25, Anion Gap 11, Blood Urea Nitrogen 51H, Creatinine 12.6H, Estimat Glomerular Filtration Rate 5.0, Glucose Level 90, Calcium Level 8.0L Height (Feet): 5 Height (Inches): 5.00 Weight (Pounds): 135 General Appearance: no apparent distress EENT: normal ENT inspection Neck: supple Cardiovascular: normal rate Respiratory/Chest: decreased breath sounds Abdomen: soft, other - post surgical Extremities: non-tender Drew Powell MD Mar 26, 2019 09:41
[2019-03-26] MEDS: Morphine Sulfate 4mg/ml Inj (IV USE ONLY) IVP PRN ×3 (11:09→20:41)
--- NOTE | 2019-03-26 11:15 | NUR ---
NURSE NOTES: Contacted Dr. Weber regarding about patient's lab results: Na 132, Cl 96 and Ca 8.0. Awaiting for MD response.
--- NOTE | 2019-03-26 12:06 | Surgery Progress Note ---
Surgery Progress Note Subjective Procedure Performed exploratory laparotomy low anterior resection mobilization of splenic flexure Symptoms: improved, voiding well, pain decreased Objective Last 24 Hour Vital Signs Date Time Temp Pulse Resp B/P (MAP) Pulse Ox O2 Delivery O2 Flow Rate FiO2 03/26/19 12:00 132/64 03/26/19 08:46 143/72 03/26/19 08:46 60 143/72 03/26/19 08:04 Nasal Cannula 2.0 03/26/19 08:00 63 03/26/19 07:56 97.7 60 20 143/72 (95) 97 03/26/19 07:38 60 03/26/19 05:47 131/81 03/26/19 05:05 97.7 03/26/19 04:00 97.7 69 18 131/81 (98) 97 03/26/19 04:00 62 03/26/19 00:00 97.4 61 18 133/64 (87) 97 03/26/19 00:00 60 03/26/19 00:00 Nasal Cannula 2.0 03/25/19 23:58 133/64 03/25/19 20:05 124 03/25/19 20:00 98.4 60 16 132/68 (89) 100 03/25/19 20:00 Nasal Cannula 2.0 03/25/19 17:13 142/70 03/25/19 16:28 98.5 61 22 142/70 (94) 100 03/25/19 16:00 Nasal Cannula 2.0 03/25/19 16:00 63 I&O Intake and Output 03/25/19 03/26/19 19:00 07:00 Intake Total 700 ml Balance 700 ml Intake Oral 120 ml IV Total 580 ml # Voids 2 Dressing: dry Wound: clean Cardiovascular: RSR Respiratory: clear Abdomen: soft, non-tender, non-distended, decreased bowel sounds Extremities: no edema, no tenderness, no cyanosis Laboratory Tests Test 03/25/19 16:00 03/26/19 06:32 White Blood Count 8.7 K/UL (4.8-10.8) 7.7 K/UL (4.8-10.8) Red Blood Count 2.89 M/UL (4.70-6.10) L 2.87 M/UL (4.70-6.10) L Hemoglobin 8.9 G/DL (14.2-18.0) L 8.8 G/DL (14.2-18.0) L Hematocrit 26.2 % (42.0-52.0) L 26.5 % (42.0-52.0) L Mean Corpuscular Volume 91 FL (80-99) 92 FL (80-99) Mean Corpuscular Hemoglobin 30.7 PG (27.0-31.0) 30.7 PG (27.0-31.0) Mean Corpuscular Hemoglobin Concent 33.9 G/DL (32.0-36.0) 33.2 G/DL (32.0-36.0) Red Cell Distribution Width 13.6 % (11.6-14.8) 13.9 % (11.6-14.8) Platelet Count 306 K/UL (150-450) 347 K/UL (150-450) Mean Platelet Volume 4.7 FL (6.5-10.1) L 4.6 FL (6.5-10.1) L Neutrophils (%) (Auto) 83.1 % (45.0-75.0) H 82.0 % (45.0-75.0) H Lymphocytes (%) (Auto) 7.4 % (20.0-45.0) L 6.2 % (20.0-45.0) L Monocytes (%) (Auto) 7.1 % (1.0-10.0) 8.2 % (1.0-10.0) Eosinophils (%) (Auto) 1.5 % (0.0-3.0) 2.9 % (0.0-3.0) Basophils (%) (Auto) 0.8 % (0.0-2.0) 0.7 % (0.0-2.0) Sodium Level 132 MMOL/L (136-145) L Potassium Level 4.5 MMOL/L (3.5-5.1) Chloride Level 96 MMOL/L (98-107) L Carbon Dioxide Level 25 MMOL/L (21-32) Anion Gap 11 mmol/L (5-15) Blood Urea Nitrogen 51 mg/dL (7-18) H Creatinine 12.6 MG/DL (0.55-1.30) H Estimat Glomerular Filtration Rate 5.0 mL/min (>60) Glucose Level 90 MG/DL (74-106) Calcium Level 8.0 MG/DL (8.5-10.1) L Plan Problems: (1) Gastrointestinal hemorrhage Assessment & Plan: acute GI bleed s/p ex lap with LAR no longer bleeding improvig responded to prbc now npo ice chips activity as tolerated AM labs rx as written Devonte Hinds Mar 26, 2019 12:06
--- NOTE | 2019-03-26 12:30 | NUR ---
NURSE NOTES: Contacted [facility] and spoke with Jennifer regarding the time of arrival for dialysis for this patient. Spoke to Jennifer at 0930 and she said she would pass the message to dialysis nurse. Spoke to Jennifer again at 1230 and she repeated she'd pass the message to the dialysis nurse one more time for me. Awaiting for response.
--- NOTE | 2019-03-26 12:35 | NUR ---
NURSE NOTES: Spoke to dialysis nurse WAYNE Womack. He said he already arrived and he would come to see Manny Godfrey next after his current patient at this time. Tele Nurse acknowledged and noted.
--- NOTE | 2019-03-26 14:06 | Nephrology Progress Note ---
Assessment/Plan Problem List: (1) History of colectomy (2) Status post colectomy (3) End-stage renal disease (4) Gastrointestinal hemorrhage (5) Anemia in chronic kidney disease (6) HTN (hypertension) Plan seen [facility], stable, still npo Subjective Constitutional: Reports: weakness HEENT: Reports: no symptoms Genitourinary: Reports: no symptoms Neurologic/Psychiatric: Reports: no symptoms Objective Objective Last 24 Hour Vital Signs Date Time Temp Pulse Resp B/P (MAP) Pulse Ox O2 Delivery O2 Flow Rate FiO2 03/26/19 12:00 132/64 03/26/19 12:00 63 03/26/19 12:00 98.1 66 20 132/64 (86) 97 03/26/19 08:46 143/72 03/26/19 08:46 60 143/72 03/26/19 08:04 Nasal Cannula 2.0 03/26/19 08:00 63 03/26/19 07:56 97.7 60 20 143/72 (95) 97 03/26/19 07:38 60 03/26/19 05:47 131/81 03/26/19 05:05 97.7 03/26/19 04:00 97.7 69 18 131/81 (98) 97 03/26/19 04:00 62 03/26/19 00:00 97.4 61 18 133/64 (87) 97 03/26/19 00:00 60 03/26/19 00:00 Nasal Cannula 2.0 03/25/19 23:58 133/64 03/25/19 20:05 124 03/25/19 20:00 98.4 60 16 132/68 (89) 100 03/25/19 20:00 Nasal Cannula 2.0 03/25/19 17:13 142/70 03/25/19 16:28 98.5 61 22 142/70 (94) 100 03/25/19 16:00 Nasal Cannula 2.0 03/25/19 16:00 63 Intake and Output 03/25/19 03/26/19 19:00 07:00 Intake Total 700 ml Balance 700 ml Intake Oral 120 ml IV Total 580 ml # Voids 2 Laboratory Tests 03/25/19 16:00: White Blood Count 8.7, Red Blood Count 2.89L, Hemoglobin 8.9L, Hematocrit 26.2L , Mean Corpuscular Volume 91, Mean Corpuscular Hemoglobin 30.7, Mean Corpuscular Hemoglobin Concent 33.9, Red Cell Distribution Width 13.6, Platelet Count 306, Mean Platelet Volume 4.7L, Neutrophils (%) (Auto) 83.1H, Lymphocytes (%) (Auto) 7.4L, Monocytes (%) (Auto) 7.1, Eosinophils (%) (Auto) 1.5, Basophils (%) (Auto) 0.8 03/26/19 06:32: White Blood Count 7.7, Red Blood Count 2.87L, Hemoglobin 8.8L, Hematocrit 26.5L , Mean Corpuscular Volume 92, Mean Corpuscular Hemoglobin 30.7, Mean Corpuscular Hemoglobin Concent 33.2, Red Cell Distribution Width 13.9, Platelet Count 347, Mean Platelet Volume 4.6L, Neutrophils (%) (Auto) 82.0H, Lymphocytes (%) (Auto) 6.2L, Monocytes (%) (Auto) 8.2, Eosinophils (%) (Auto) 2.9, Basophils (%) (Auto) 0.7, Sodium Level 132L, Potassium Level 4.5, Chloride Level 96L, Carbon Dioxide Level 25, Anion Gap 11, Blood Urea Nitrogen 51H, Creatinine 12.6H, Estimat Glomerular Filtration Rate 5.0, Glucose Level 90, Calcium Level 8.0L Height (Feet): 5 Height (Inches): 5.00 Weight (Pounds): 135 General Appearance: no apparent distress, alert EENT: normal ENT inspection Neck: normal alignment, supple Cardiovascular: normal rate, regular rhythm Respiratory/Chest: lungs clear Abdomen: tender Extremities: other - no edema Neurologic: acquisitions analyst II-XII grossly normal Saroj Vanegas MD Mar 26, 2019 14:06
--- NOTE | 2019-03-26 14:51 | Pulmonology Progress Note ---
Assessment/Plan Assessment/Plan Pulmonary Progress Note HPI Patient is a 58 year old male with multiple medical comorbidities presented to complaining of BRBPR for 3 days, weakness, noted to have significant anemia. Has had recurrent lower GI bleeding for years. Denies n/v/f/c. Has past history of Hypertension, Gout, GERD, CHF, ESRD on HD via left femoral graft, has history of hemorrhoids and had banding 2 weeks ago at [facility]. Noted to have Diverticular bleed - s/p Exlap, no new complaints Pain controlled Allergies: No Known Allergies Medications Allopurinol* (Allopurinol*), Unknown Dose ORAL DAILY, (Reported) Amlodipine Besylate (Norvasc), Unknown Dose ORAL DAILY, (Reported) Clonidine Hcl* (Catapres*), 0.1 MG ORAL EVERY 6 HOURS, (Reported) Folic Acid* (Folic Acid*), 1 MG ORAL DAILY, (Reported) Lisinopril* (Lisinopril*), 2.5 MG ORAL DAILY, (Reported) Omeprazole (Omeprazole), Unknown Dose ORAL DAILY, (Reported) Tamsulosin Hcl (Tamsulosin Hcl*), Unknown Dose ORAL BEDTIME, (Reported) Past Medical/Surgical History: (1) Hypotension (2) HTN (hypertension) (3) Gastrointestinal hemorrhage (4) CHF (congestive heart failure) (5) Anemia in chronic kidney disease Review of Symptoms General ROS: no weight loss or fever Psychological ROS: no depression or mood changes, no memory loss Ophthalmic ROS: no visual changes or eye irritation ENT ROS: no nasal congestion, hearing loss, dizziness Allergy and Immunology ROS: no allergic symptoms or urticaria Hematological and Lymphatic ROS: no swollen glands, unusual bleeding or bruising Endocrine ROS: no polyuria, polydipsia, weight changes, temperature intolerance Respiratory ROS: no cough, shortness of breath, or wheezing Cardiovascular ROS: no chest pain or dyspnea on exertion Gastrointestinal ROS: denies abdominal pain, bright red blood in stool. Musculoskeletal ROS: no myalgias or arthralgias Neurological ROS: no TIA or stroke symptoms Dermatological ROS: no new or changing skin lesions, rashes or pruritis Physical Exam Vital signs noted General appearance: alert, cooperative, no distress, appears stated age Head: Normocephalic, without obvious abnormality, atraumatic Eyes: conjunctivae/corneas clear. PERRL, EOM's intact. Fundi benign Throat: Lips, mucosa, and tongue normal. Teeth and gums normal Neck: supple, symmetrical, trachea midline, no adenopathy, thyroid: not enlarged, symmetric, no tenderness/mass/nodules, no carotid bruit and no JVD Lungs: clear to auscultation bilaterally Heart: regular rate and rhythm, S1, S2 normal, no murmur, click, rub or gallop Abdomen: soft, mild tenderness. No masses, no organomegaly Extremities: extremities normal, atraumatic, no cyanosis or edema Pulses: 2+ and symmetric Skin: Skin color, texture, turgor normal. No rashes or lesions Neurologic: Grossly normal Laboratory Tests Noted Assessment: Acute GI bleed, Diverticular, s/p ExLap Hypertension Gout GERD CHF, ESRD on HD via left femoral graft Plan: Transfusions PRN Protonix IVF PRN PPX Trend labs Post Surgery care Renal following Subjective ROS Limited/Unobtainable: No Allergies: Coded Allergies: No Known Allergies (Unverified , 03/20/18) Objective Last 24 Hour Vital Signs Date Time Temp Pulse Resp B/P (MAP) Pulse Ox O2 Delivery O2 Flow Rate FiO2 03/26/19 12:00 132/64 03/26/19 12:00 63 03/26/19 12:00 98.1 66 20 132/64 (86) 97 03/26/19 08:46 143/72 03/26/19 08:46 60 143/72 03/26/19 08:04 Nasal Cannula 2.0 03/26/19 08:00 63 03/26/19 07:56 97.7 60 20 143/72 (95) 97 03/26/19 07:38 60 03/26/19 05:47 131/81 03/26/19 05:05 97.7 03/26/19 04:00 97.7 69 18 131/81 (98) 97 03/26/19 04:00 62 03/26/19 00:00 97.4 61 18 133/64 (87) 97 03/26/19 00:00 60 03/26/19 00:00 Nasal Cannula 2.0 03/25/19 23:58 133/64 03/25/19 20:05 124 03/25/19 20:00 98.4 60 16 132/68 (89) 100 03/25/19 20:00 Nasal Cannula 2.0 03/25/19 17:13 142/70 03/25/19 16:28 98.5 61 22 142/70 (94) 100 03/25/19 16:00 Nasal Cannula 2.0 03/25/19 16:00 63 Intake and Output 03/25/19 03/26/19 19:00 07:00 Intake Total 700 ml Balance 700 ml Intake Oral 120 ml IV Total 580 ml # Voids 2 Laboratory Tests 03/25/19 16:00: White Blood Count 8.7, Red Blood Count 2.89L, Hemoglobin 8.9L, Hematocrit 26.2L , Mean Corpuscular Volume 91, Mean Corpuscular Hemoglobin 30.7, Mean Corpuscular Hemoglobin Concent 33.9, Red Cell Distribution Width 13.6, Platelet Count 306, Mean Platelet Volume 4.7L, Neutrophils (%) (Auto) 83.1H, Lymphocytes (%) (Auto) 7.4L, Monocytes (%) (Auto) 7.1, Eosinophils (%) (Auto) 1.5, Basophils (%) (Auto) 0.8 03/26/19 06:32: White Blood Count 7.7, Red Blood Count 2.87L, Hemoglobin 8.8L, Hematocrit 26.5L , Mean Corpuscular Volume 92, Mean Corpuscular Hemoglobin 30.7, Mean Corpuscular Hemoglobin Concent 33.2, Red Cell Distribution Width 13.9, Platelet Count 347, Mean Platelet Volume 4.6L, Neutrophils (%) (Auto) 82.0H, Lymphocytes (%) (Auto) 6.2L, Monocytes (%) (Auto) 8.2, Eosinophils (%) (Auto) 2.9, Basophils (%) (Auto) 0.7, Sodium Level 132L, Potassium Level 4.5, Chloride Level 96L, Carbon Dioxide Level 25, Anion Gap 11, Blood Urea Nitrogen 51H, Creatinine 12.6H, Estimat Glomerular Filtration Rate 5.0, Glucose Level 90, Calcium Level 8.0L Current Medications Medications (Trade) Dose Ordered Sig/Letty Route PRN Reason Start Time Stop Time Status Last Admin Dose Admin Acetaminophen (Tylenol) 650 mg Q4H PRN ORAL FEVER 03/23/19 13:30 04/22/19 13:29 Al Hydroxide/Mg Hydroxide (Mylanta) 15 ml Q6H PRN ORAL DYSPEPSIA 03/24/19 15:45 04/23/19 15:44 Amlodipine Besylate (Norvasc) 2.5 mg DAILY ORAL 03/23/19 09:00 04/22/19 08:59 03/26/19 08:46 Clonidine HCl (Catapres Tab) 0.1 mg EVERY 6 HOURS ORAL 03/23/19 00:00 04/22/19 00:00 03/25/19 17:13 Diphenhydramine HCl (Benadryl) 12.5 mg Q6H PRN IVP Itching/Pruritis 03/23/19 13:30 04/22/19 13:29 Diphenhydramine HCl (Benadryl) 12.5 mg Q6H PRN IVP Itching/Pruritis 03/24/19 15:45 04/23/19 15:44 Epoetin Kimo (Epoetin Kimo(ESRD on dialysis)) 10,000 unit SUBQ 03/23/19 21:00 04/22/19 20:59 03/25/19 20:33 Folic Acid (Folate) 1 mg DAILY ORAL 03/23/19 09:00 04/22/19 08:59 03/26/19 08:46 Lisinopril (Zestril) 2.5 mg DAILY ORAL 03/23/19 09:00 04/22/19 08:59 03/26/19 08:46 Magnesium Hydroxide (Mom) 30 ml BIDPRN PRN ORAL Constipation 03/24/19 15:45 04/23/19 15:44 Morphine Sulfate (Morphine Sulfate) 2 mg Q4H PRN IVP pain scale 4-6 03/24/19 15:45 03/31/19 15:44 Morphine Sulfate (Morphine Sulfate) 4 mg Q4H PRN IVP pain score 7-10 03/24/19 15:45 03/31/19 15:44 03/26/19 11:09 Ondansetron HCl (Zofran) 4 mg Q6H PRN IVP Nausea & Vomiting 03/23/19 13:30 04/22/19 13:29 03/23/19 21:45 Pantoprazole (Protonix) 40 mg EVERY 12 HOURS IVP 03/22/19 21:00 04/21/19 20:59 03/26/19 08:46 Piperacillin Sod/ Tazobactam Sod 2.25 gm/Dextrose 55 ml @ 110 mls/hr Q8HR IV 03/23/19 22:00 03/28/19 21:59 03/26/19 05:47 Sodium Chloride 1,000 ml @ 500 mls/hr Q2H PRN IVLG sbp<90 during hd 03/26/19 06:00 03/26/19 23:59 Tamsulosin HCl (Flomax) 0.4 mg BEDTIME ORAL 03/22/19 21:00 04/21/19 20:59 03/25/19 20:33 Temazepam (Restoril) 7.5 mg DAILYPRN PRN ORAL Insomnia 03/24/19 15:45 03/31/19 15:44 Phil Sneed MD Mar 26, 2019 14:51
--- NOTE | 2019-03-26 14:59 | Cardiology Report ---
APPROVED REPORT EKG Measurement Heart [id number] AL [id number] Normal sinus rhythm Possible Left atrial enlargement Rightward axis Left ventricular hypertrophy ST elevation, consider early repolarization, pericarditis, or injury T wave abnormality, consider anterior ischemia Prolonged QT Abnormal ECG
--- NOTE | 2019-03-26 15:22 | NUR ---
CASE MANAGEMENT: REVIEW SI: GI BLEED . ANEMIA . ANORECTAL HEMORRHAGE EX-LAPAROTOMY 03/26 SIGMOIDOSCOPY 03/23 T 97.7 HR 60 RR 20 BP 143/72 SAT 97% NC/2L H/H 8.8/26.5 NA 132 BUN 51 CR 12.6 IS: ZOSYN IV Q8HR EPOETIN MWF SUBQ FOLIC ACID PO QD TELE UNIT STATUS DCP: PATIENT IS FROM HOME
--- NOTE | 2019-03-26 16:00 | NUR ---
NURSE NOTES: Patient reported he's having pain, 10/10, aggravating factor is when he's coughing. I administered morphine 2mg at 1519. He stated: "There's something in his throat and I can't cough it out because it's going to hurt my stomach surgical site." Patient was grabbing stomach and screaming out that it hurts. Nurse gave patient another morphine dose 4mg at 1600. Nurse also called respiratory therapist Pam to assess the patient. Patient stated he's able to cough out sputum. The sputums appeared to be blood clot-like. Nurse assessed patient and noted he's having some nose bleed. Nurse put ice pack on patient and decrease nasal cannula oxygen to 1L. Nurse reteaching patient not to use finger to poke nose d/t risk for more bleeding. Reassessed patient after 20 mins, patient's no longer having nosebleed but able to clear his throat again, productive cough with clear out another occult blood sputum. Will continue to monitor closely.
--- NOTE | 2019-03-26 16:30 | NUR ---
NURSE NOTES: Patient refused 1600 lab drawn. Rebekah paving and surfacing labourer notified nurse.
[2019-03-26] MEDS ORDERED: Albuterol/Ipratropium 3ml neb HHN PRN (17:30)
--- NOTE | 2019-03-26 17:30 | NUR ---
NURSE NOTES: Patient's able to clear out sputum with productive cough. His sputum's not longer bloody but yellow and thick. Will continue to monitor.
--- NOTE | 2019-03-26 20:04 | NUR ---
HAND-OFF: Report given to WAYNE Chavez. Patient's comfortable, no s/s of acute distress or SOB. Plan of care endorsed.
--- NOTE | 2019-03-26 20:30 | NUR ---
NURSE NOTES: RECEIVED PATIENT LYING IN BED, AWAKE, ALERT/ORIENTED X4, VERBALLY RESPONSIVE, IRRITABLE, COMPLAINT OF CONSTANT PAIN 04/02, PAIN MANAGEMENT REVIEWED WITH PATIENT, VERBALIZED UNDERSTANDING. NO SIGNS AND SYMPTOMS OF ACUTE CARDIO RESPIRATORY DISTRESS/SHORTNESS OF BREATH, DENIES CHEST PAIN, TOLERATING 02 2L VIA NASAL CANULA, SP02 96%. S/P EXP LAP, DRESSING DRY AND INTACT TO ABDOMEN, NO STAINS NOTED. AV SHUNT INTACT TO LEFT FEMORAL, BRUIT AUDIBLE/THRILL PALPABLE, DRESSING DRY AND INTACT, NO ILL EFFECTS NOTED FROM HD TODAY. SIDE RAILS UP X3/BED IN LOWEST POSITION FOR SAFETY, ENCOURAGED PATIENT TO UTILIZE CALL LIGHT FOR ASSISTANCE, VERBALIZED UNDERSTANDING. NAD.
[2019-03-26] MEDS: Tamsulosin 0.4mg cap ORAL SCH (21:19)
--- NOTE | 2019-03-26 23:00 | NUR ---
NURSE NOTES: Received pt awake, alert and oriented x4, sitting up in bed semi fowlers position. No s/s of acute distress or SOB. Bed at lowest position, locked, call side rails x2, bed alarm on. Fall precautions in place. Call light within reach. IV R hand asymptomatic and patent. Left femoral shunt for dialysis, no signs of bleeding at site. Pt is complaining of pain however pt cannot receive pain med again until 00:40. Explained pain management plan and reinforced that pt is NPO except pain meds and ice chips. Will continue to monitor pt.
[2019-03-27] MEDS: Morphine Sulfate 4mg/ml Inj (IV USE ONLY) IVP PRN ×3 (00:40→20:49)
[2019-03-27 04:00] VITALS: BP 148/71
[2019-03-27] MEDS: Zosyn 2.25 gm in D5W 55ml IV SCH ×3 (05:51→21:16)
--- NOTE | 2019-03-27 06:17 | General Progress Note ---
Assessment/Plan Status: unchanged Assessment/Plan: Problems: (1) Anemia in chronic kidney disease ICD Codes: N18.9 - Chronic kidney disease, unspecified; D63.1 - Anemia in chronic kidney disease SNOMED: 936218996, 697419062 (2) HTN (hypertension) ICD Codes: I10 - Essential (primary) hypertension SNOMED: 31305959 (3) Hypotension ICD Codes: I95.9 - Hypotension, unspecified SNOMED: 03543465 (4) Gastrointestinal hemorrhage ICD Codes: K92.2 - Gastrointestinal hemorrhage, unspecified SNOMED: 16299333 (5) CHF (congestive heart failure) ICD Codes: I50.9 - Heart failure, unspecified SNOMED: 85354896 Status: unchanged Status Narrative Discussed with Dr. Powell. Assessment/Plan Assessment GIB s/p surg ESRD anemia, partly due to renal failure HTN COPD Recommendations - fu surgical recommendations - f/u post operative N/V - monitor CBC - transfuse PRN Subjective Allergies: Coded Allergies: No Known Allergies (Unverified , 03/20/18) Objective Last 24 Hour Vital Signs Date Time Temp Pulse Resp B/P (MAP) Pulse Ox O2 Delivery O2 Flow Rate FiO2 03/27/19 05:51 148/71 03/27/19 04:00 61 03/27/19 04:00 97.7 98 18 148/71 (96) 98 03/27/19 00:00 84 03/26/19 23:37 99.0 92 18 109/68 (82) 97 03/26/19 23:21 109/68 03/26/19 21:11 98.9 03/26/19 21:00 Nasal Cannula 2.0 03/26/19 20:00 98.9 92 18 149/71 (97) 96 03/26/19 20:00 92 03/26/19 17:50 151/62 03/26/19 16:00 62 03/26/19 15:54 98.3 61 20 151/62 (91) 100 03/26/19 12:00 132/64 03/26/19 12:00 63 03/26/19 12:00 98.1 66 20 132/64 (86) 97 03/26/19 08:46 143/72 03/26/19 08:46 60 143/72 03/26/19 08:04 Nasal Cannula 2.0 03/26/19 08:00 63 03/26/19 07:56 97.7 60 20 143/72 (95) 97 03/26/19 07:38 60 Intake and Output 03/26/19 03/27/19 18:59 06:59 Intake Total 110 ml 55 ml Balance 110 ml 55 ml IV Total 110 ml 55 ml Laboratory Tests 03/26/19 06:32: White Blood Count 7.7, Red Blood Count 2.87L, Hemoglobin 8.8L, Hematocrit 26.5L , Mean Corpuscular Volume 92, Mean Corpuscular Hemoglobin 30.7, Mean Corpuscular Hemoglobin Concent 33.2, Red Cell Distribution Width 13.9, Platelet Count 347, Mean Platelet Volume 4.6L, Neutrophils (%) (Auto) 82.0H, Lymphocytes (%) (Auto) 6.2L, Monocytes (%) (Auto) 8.2, Eosinophils (%) (Auto) 2.9, Basophils (%) (Auto) 0.7, Sodium Level 132L, Potassium Level 4.5, Chloride Level 96L, Carbon Dioxide Level 25, Anion Gap 11, Blood Urea Nitrogen 51H, Creatinine 12.6H, Estimat Glomerular Filtration Rate 5.0, Glucose Level 90, Calcium Level 8.0L Height (Feet): 5 Height (Inches): 5.00 Weight (Pounds): 135 General Appearance: no apparent distress EENT: normal ENT inspection Neck: supple Cardiovascular: normal rate Respiratory/Chest: decreased breath sounds Abdomen: other - post surg, soft Extremities: non-tender Drew Powell MD Mar 27, 2019 06:16
--- NOTE | 2019-03-27 07:55 | NUR ---
NURSE NOTES: Received patient from Ilana Jacome. Patient awake and alert, resting comfortably in bed. Oxygen at 2L/min via NC. Denies pain or discomfort. Abdominal Clean dry and intact. safety precautions in place. will continue to monitor.
[2019-03-27 08:00] VITALS: BP 151/78
[2019-03-27] MEDS: Pantoprazole Inj IVP SCH ×2 (08:59→20:49)
[2019-03-27] MEDS: Lisinopril 2.5mg tab ORAL SCH (09:00)
[2019-03-27 12:00] VITALS: BP 155/77
--- NOTE | 2019-03-27 12:20 | Nephrology Progress Note ---
Assessment/Plan Problem List: (1) History of colectomy (2) Status post colectomy (3) End-stage renal disease (4) Gastrointestinal hemorrhage (5) Anemia in chronic kidney disease (6) HTN (hypertension) Plan dialysis,TTS stable, still npo Subjective Constitutional: Reports: weakness HEENT: Reports: no symptoms Genitourinary: Reports: no symptoms Neurologic/Psychiatric: Reports: pre-existing deficit Objective Objective Last 24 Hour Vital Signs Date Time Temp Pulse Resp B/P (MAP) Pulse Ox O2 Delivery O2 Flow Rate FiO2 03/27/19 09:00 151/78 03/27/19 09:00 Nasal Cannula 2.0 03/27/19 08:56 63 151/78 03/27/19 08:00 97.7 63 18 151/78 (102) 98 03/27/19 08:00 71 03/27/19 05:51 148/71 03/27/19 04:00 61 03/27/19 04:00 97.7 98 18 148/71 (96) 98 03/27/19 00:00 84 03/26/19 23:37 99.0 92 18 109/68 (82) 97 03/26/19 23:21 109/68 03/26/19 21:11 98.9 03/26/19 21:00 Nasal Cannula 2.0 03/26/19 20:00 98.9 92 18 149/71 (97) 96 03/26/19 20:00 92 03/26/19 17:50 151/62 03/26/19 16:00 62 03/26/19 15:54 98.3 61 20 151/62 (91) 100 Intake and Output 03/26/19 03/27/19 18:59 06:59 Intake Total 110 ml 55 ml Balance 110 ml 55 ml IV Total 110 ml 55 ml Height (Feet): 5 Height (Inches): 5.00 Weight (Pounds): 135 General Appearance: no apparent distress, alert EENT: normal ENT inspection Neck: normal alignment Cardiovascular: normal rate, regular rhythm Respiratory/Chest: lungs clear Abdomen: tender Extremities: other - no edema Saroj Vanegas MD Mar 27, 2019 12:20
[2019-03-27] MEDS: Morphine Sulfate 2mg/ml Inj(IV/IM USE ONLY) IVP PRN (13:21)
--- NOTE | 2019-03-27 14:25 | Pulmonology Progress Note ---
Assessment/Plan Assessment/Plan Pulmonary Progress Note HPI Patient is a 58 year old male with multiple medical comorbidities presented to complaining of BRBPR for 3 days, weakness, noted to have significant anemia. Has had recurrent lower GI bleeding for years. Denies n/v/f/c. Has past history of Hypertension, Gout, GERD, CHF, ESRD on HD via left femoral graft, has history of hemorrhoids and had banding 2 weeks ago at [facility]. Noted to have Diverticular bleed - s/p Exlap, no new complaints Pain controlled Allergies: No Known Allergies Medications Allopurinol* (Allopurinol*), Unknown Dose ORAL DAILY, (Reported) Amlodipine Besylate (Norvasc), Unknown Dose ORAL DAILY, (Reported) Clonidine Hcl* (Catapres*), 0.1 MG ORAL EVERY 6 HOURS, (Reported) Folic Acid* (Folic Acid*), 1 MG ORAL DAILY, (Reported) Lisinopril* (Lisinopril*), 2.5 MG ORAL DAILY, (Reported) Omeprazole (Omeprazole), Unknown Dose ORAL DAILY, (Reported) Tamsulosin Hcl (Tamsulosin Hcl*), Unknown Dose ORAL BEDTIME, (Reported) Past Medical/Surgical History: (1) Hypotension (2) HTN (hypertension) (3) Gastrointestinal hemorrhage (4) CHF (congestive heart failure) (5) Anemia in chronic kidney disease Review of Symptoms General ROS: no weight loss or fever Psychological ROS: no depression or mood changes, no memory loss Ophthalmic ROS: no visual changes or eye irritation ENT ROS: no nasal congestion, hearing loss, dizziness Allergy and Immunology ROS: no allergic symptoms or urticaria Hematological and Lymphatic ROS: no swollen glands, unusual bleeding or bruising Endocrine ROS: no polyuria, polydipsia, weight changes, temperature intolerance Respiratory ROS: no cough, shortness of breath, or wheezing Cardiovascular ROS: no chest pain or dyspnea on exertion Gastrointestinal ROS: denies abdominal pain, bright red blood in stool. Musculoskeletal ROS: no myalgias or arthralgias Neurological ROS: no TIA or stroke symptoms Dermatological ROS: no new or changing skin lesions, rashes or pruritis Physical Exam Vital signs noted General appearance: alert, cooperative, no distress, appears stated age Head: Normocephalic, without obvious abnormality, atraumatic Eyes: conjunctivae/corneas clear. PERRL, EOM's intact. Fundi benign Throat: Lips, mucosa, and tongue normal. Teeth and gums normal Neck: supple, symmetrical, trachea midline, no adenopathy, thyroid: not enlarged, symmetric, no tenderness/mass/nodules, no carotid bruit and no JVD Lungs: clear to auscultation bilaterally Heart: regular rate and rhythm, S1, S2 normal, no murmur, click, rub or gallop Abdomen: soft, mild tenderness. No masses, no organomegaly Extremities: extremities normal, atraumatic, no cyanosis or edema Pulses: 2+ and symmetric Skin: Skin color, texture, turgor normal. No rashes or lesions Neurologic: Grossly normal Laboratory Tests Noted Assessment: Acute GI bleed, Diverticular, s/p ExLap Hypertension Gout GERD CHF, ESRD on HD via left femoral graft Plan: Transfusions PRN Protonix IVF PRN PPX Trend labs Post Surgery care Renal following Subjective ROS Limited/Unobtainable: No Allergies: Coded Allergies: No Known Allergies (Unverified , 03/20/18) Objective Last 24 Hour Vital Signs Date Time Temp Pulse Resp B/P (MAP) Pulse Ox O2 Delivery O2 Flow Rate FiO2 03/27/19 12:29 155/77 03/27/19 12:00 97.2 66 18 155/77 (103) 98 03/27/19 12:00 62 03/27/19 09:00 151/78 03/27/19 09:00 Nasal Cannula 2.0 03/27/19 08:56 63 151/78 03/27/19 08:00 97.7 63 18 151/78 (102) 98 03/27/19 08:00 71 03/27/19 05:51 148/71 03/27/19 04:00 61 03/27/19 04:00 97.7 98 18 148/71 (96) 98 03/27/19 00:00 84 03/26/19 23:37 99.0 92 18 109/68 (82) 97 03/26/19 23:21 109/68 03/26/19 21:11 98.9 03/26/19 21:00 Nasal Cannula 2.0 03/26/19 20:00 98.9 92 18 149/71 (97) 96 03/26/19 20:00 92 03/26/19 17:50 151/62 03/26/19 16:00 62 03/26/19 15:54 98.3 61 20 151/62 (91) 100 Intake and Output 03/26/19 03/27/19 19:00 07:00 Intake Total 110 ml 55 ml Balance 110 ml 55 ml IV Total 110 ml 55 ml Current Medications Medications (Trade) Dose Ordered Sig/Letty Route PRN Reason Start Time Stop Time Status Last Admin Dose Admin Acetaminophen (Tylenol) 650 mg Q4H PRN ORAL FEVER 03/23/19 13:30 04/22/19 13:29 Al Hydroxide/Mg Hydroxide (Mylanta) 15 ml Q6H PRN ORAL DYSPEPSIA 03/24/19 15:45 04/23/19 15:44 Albuterol/ Ipratropium (Albuterol/ Ipratropium) 3 ml Q4H PRN HHN Shortness of Breath 03/26/19 17:30 03/31/19 17:29 Amlodipine Besylate (Norvasc) 2.5 mg DAILY ORAL 03/23/19 09:00 04/22/19 08:59 03/27/19 08:56 Clonidine HCl (Catapres Tab) 0.1 mg EVERY 6 HOURS ORAL 03/23/19 00:00 04/22/19 00:00 03/27/19 12:29 Diphenhydramine HCl (Benadryl) 12.5 mg Q6H PRN IVP Itching/Pruritis 03/23/19 13:30 04/22/19 13:29 Diphenhydramine HCl (Benadryl) 12.5 mg Q6H PRN IVP Itching/Pruritis 03/24/19 15:45 04/23/19 15:44 Epoetin Kimo (Epoetin Kimo(ESRD on dialysis)) 10,000 unit [id number] SUBQ 03/23/19 21:00 04/22/19 20:59 03/25/19 20:33 Folic Acid (Folate) 1 mg DAILY ORAL 03/23/19 09:00 04/22/19 08:59 03/27/19 08:56 Lisinopril (Zestril) 2.5 mg DAILY ORAL 03/23/19 09:00 04/22/19 08:59 03/27/19 09:00 Magnesium Hydroxide (Mom) 30 ml BIDPRN PRN ORAL Constipation 03/24/19 15:45 04/23/19 15:44 Morphine Sulfate (Morphine Sulfate) 2 mg Q4H PRN IVP pain scale 4-6 03/24/19 15:45 03/31/19 15:44 03/27/19 13:21 Morphine Sulfate (Morphine Sulfate) 4 mg Q4H PRN IVP pain score 7-10 03/24/19 15:45 03/31/19 15:44 03/27/19 05:51 Ondansetron HCl (Zofran) 4 mg Q6H PRN IVP Nausea & Vomiting 03/23/19 13:30 04/22/19 13:29 03/23/19 21:45 Pantoprazole (Protonix) 40 mg EVERY 12 HOURS IVP 03/22/19 21:00 04/21/19 20:59 03/27/19 08:59 Piperacillin Sod/ Tazobactam Sod 2.25 gm/Dextrose 55 ml @ 110 mls/hr Q8HR IV 03/23/19 22:00 03/28/19 21:59 03/27/19 13:22 Tamsulosin HCl (Flomax) 0.4 mg BEDTIME ORAL 03/22/19 21:00 04/21/19 20:59 03/26/19 21:19 Temazepam (Restoril) 7.5 mg DAILYPRN PRN ORAL Insomnia 03/24/19 15:45 03/31/19 15:44 Phil Sneed MD Mar 27, 2019 14:25
[2019-03-27] MEDS ORDERED: D5NS 1000ml IV ONE ×2 (15:34→15:45)
[2019-03-27] MEDS ORDERED: Tubing IV Secondary IV ONE (15:45)
[2019-03-27] MEDS ORDERED: Tubing Blood Filter IV ONE (15:45)
[2019-03-27] MEDS ORDERED: NS 500ML ONE (15:45)
[2019-03-27 16:00] VITALS: BP 138/72
--- NOTE | 2019-03-27 16:06 | NUR ---
CASE MANAGEMENT: REVIEW SI: GI BLEED . ANEMIA . ANORECTAL HEMORRHAGE EX-LAPAROTOMY 03/26 SIGMOIDOSCOPY 03/23 T 97.2 HR 66 RR 18 BP 155/77 SAT 98% NC/2L IS: ZOSYN IV Q8HR EPOETIN MWF SUBQ FOLIC ACID PO QD CLEAR LIQUID DIET TELE UNIT STATUS DCP: PATIENT IS FROM HOME
--- NOTE | 2019-03-27 19:27 | NUR ---
HAND-OFF: Report given to Ilana Garza. Patient stable at bedside. Plan of care endorsed
--- NOTE | 2019-03-27 19:50 | NUR ---
NURSE NOTES: Pt received from WAYNE Reyes alert and oriented x4 with no acute s/s of acute distress noted. IV site asymptomatic and patent on R hand 20g, R IJ 18g, saline lock. Bed in lowest position, bed alarm on, call light and belongings within reach.
[2019-03-27 20:00] VITALS: BP 133/81
--- NOTE | 2019-03-27 20:25 | Surgery Progress Note ---
Surgery Progress Note Subjective Procedure Performed exploratory laparotomy low anterior resection mobilization of splenic flexure Additional Comments late entry as patient seen earlier today. feels like he needs to pass flatus. no bm yet. labs okay. exam stabl.e Objective Last 24 Hour Vital Signs Date Time Temp Pulse Resp B/P (MAP) Pulse Ox O2 Delivery O2 Flow Rate FiO2 03/27/19 17:32 138/72 03/27/19 16:00 76 03/27/19 16:00 97.6 55 18 138/72 (94) 100 03/27/19 13:27 97.2 03/27/19 12:29 155/77 03/27/19 12:00 97.2 66 18 155/77 (103) 98 03/27/19 12:00 62 03/27/19 09:00 151/78 03/27/19 09:00 Nasal Cannula 2.0 03/27/19 08:56 63 151/78 03/27/19 08:00 97.7 63 18 151/78 (102) 98 03/27/19 08:00 71 03/27/19 05:51 148/71 03/27/19 04:00 61 03/27/19 04:00 97.7 98 18 148/71 (96) 98 03/27/19 00:00 84 03/26/19 23:37 99.0 92 18 109/68 (82) 97 03/26/19 23:21 109/68 03/26/19 21:11 98.9 03/26/19 21:00 Nasal Cannula 2.0 I&O Intake and Output 03/26/19 03/27/19 19:00 07:00 Intake Total 110 ml 55 ml Balance 110 ml 55 ml IV Total 110 ml 55 ml Dressing: dry Wound: clean Cardiovascular: RSR Respiratory: clear Abdomen: soft, flat, non-tender, present bowel sounds Extremities: no edema, no tenderness, no cyanosis Plan Problems: (1) Gastrointestinal hemorrhage Assessment & Plan: acute GI bleed s/p ex lap with LAR no longer bleeding improvig responded to prbc post op clear liquids activity as tolerated AM labs rx as written Devonte Hinds Mar 27, 2019 20:25
[2019-03-27] MEDS: Tamsulosin 0.4mg cap ORAL SCH (20:49)
[2019-03-28] VITALS: BP 167/73
[2019-03-28 04:00] VITALS: BP 139/82
[2019-03-28] MEDS: Zosyn 2.25 gm in D5W 55ml IV SCH ×2 (05:47→14:57)
--- NOTE | 2019-03-28 07:15 | NUR ---
NURSE NOTES: Nurse report given by WAYNE Garza. Patient's awake and eating in bed, clear liquid, no s/s of acute distress or SOB. AOx4. Bed at lowest position, breaks engaged, call light within reach. IV L Hand and L IJ are patent and asymptomatic. Patient refused morning lab drawn, contact Dr. Weber about the situation, awaiting for response. Will continue to monitor.
--- NOTE | 2019-03-28 07:29 | NUR ---
HAND-OFF: Report given to WAYNE Vega. No acute s/s of distress noted.
[2019-03-28 08:00] VITALS: BP_SYST 127; BP_SYST 149; BP_DIAS 53; BP_DIAS 74
--- NOTE | 2019-03-28 08:14 | General Progress Note ---
Assessment/Plan Status: unchanged Assessment/Plan: Recurrent lower GI bleed - diverticular ESRD anemia, partly due to renal failure s/p transfusion HTN COPD post op resection for bleed PLAN GI and GS clearance HD per renal monitor HH transfuse as needed dc once stable and cleared by gi and gs impression, plan, and exam edited and reviewed in detail care discussed with RN Subjective Allergies: Coded Allergies: No Known Allergies (Unverified , 03/20/18) Subjective care noted refusing care and labs post op Objective Last 24 Hour Vital Signs Date Time Temp Pulse Resp B/P (MAP) Pulse Ox O2 Delivery O2 Flow Rate FiO2 03/28/19 08:11 Nasal Cannula 2.0 03/28/19 05:50 139/82 03/28/19 04:00 97.3 66 18 139/82 (101) 94 03/28/19 04:00 74 03/28/19 00:30 167/73 03/28/19 00:00 63 03/28/19 00:00 97.0 62 19 167/73 (104) 97 03/27/19 21:14 76 20 96 Room Air 21 03/27/19 21:00 Nasal Cannula 2.0 03/27/19 20:00 98.8 74 19 133/81 (98) 95 03/27/19 20:00 83 03/27/19 17:32 138/72 03/27/19 16:00 76 03/27/19 16:00 97.6 55 18 138/72 (94) 100 03/27/19 13:27 97.2 03/27/19 12:29 155/77 03/27/19 12:00 97.2 66 18 155/77 (103) 98 03/27/19 12:00 62 03/27/19 09:00 151/78 03/27/19 09:00 Nasal Cannula 2.0 03/27/19 08:56 63 151/78 Intake and Output 03/27/19 03/28/19 18:59 06:59 Intake Total 480 ml 250 ml Balance 480 ml 250 ml Intake Oral 480 ml 250 ml Height (Feet): 5 Height (Inches): 5.00 Weight (Pounds): 135 Objective WDWN NAD clear breath sounds bilaterally without rhonchi or wheeze [id number] without MRG mild abdominal tenderness no CCE nonfocal Reyes Weber MD Mar 28, 2019 08:14
[2019-03-28] MEDS: Lisinopril 2.5mg tab ORAL SCH (08:40)
[2019-03-28] MEDS: Pantoprazole Inj IVP SCH (08:40)
[2019-03-28] MEDS: Morphine Sulfate 4mg/ml Inj (IV USE ONLY) IVP PRN (08:43)
--- NOTE | 2019-03-28 09:11 | Nephrology Progress Note ---
Assessment/Plan Plan s/p Ant. Colon resection + exp. Lap. ESRD - HD TTS Subjective Subjective No new c/o Objective Objective Last 24 Hour Vital Signs Date Time Temp Pulse Resp B/P (MAP) Pulse Ox O2 Delivery O2 Flow Rate FiO2 03/28/19 08:40 127/53 03/28/19 08:40 74 127/53 03/28/19 08:11 Nasal Cannula 2.0 03/28/19 05:50 139/82 03/28/19 04:00 97.3 66 18 139/82 (101) 94 03/28/19 04:00 74 03/28/19 00:30 167/73 03/28/19 00:00 63 03/28/19 00:00 97.0 62 19 167/73 (104) 97 03/27/19 21:14 76 20 96 Room Air 21 03/27/19 21:00 Nasal Cannula 2.0 03/27/19 20:00 98.8 74 19 133/81 (98) 95 03/27/19 20:00 83 03/27/19 17:32 138/72 03/27/19 16:00 76 03/27/19 16:00 97.6 55 18 138/72 (94) 100 03/27/19 13:27 97.2 03/27/19 12:29 155/77 03/27/19 12:00 97.2 66 18 155/77 (103) 98 03/27/19 12:00 62 Intake and Output 03/27/19 03/28/19 19:00 07:00 Intake Total 480 ml 250 ml Balance 480 ml 250 ml Intake Oral 480 ml 250 ml Height (Feet): 5 Height (Inches): 5.00 Weight (Pounds): 135 Objective CV RR Lungs CTA Abd SNT. BS + dressed. E No CCE. L leg AVG. Bhargav Madden MD Mar 28, 2019 09:11
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
--- NOTE | 2019-03-28 10:45 | General Progress Note ---
Assessment/Plan Status: unchanged Assessment/Plan: Problems: (1) Anemia in chronic kidney disease ICD Codes: N18.9 - Chronic kidney disease, unspecified; D63.1 - Anemia in chronic kidney disease SNOMED: 174955139, 736632190 (2) HTN (hypertension) ICD Codes: I10 - Essential (primary) hypertension SNOMED: 92787565 (3) Hypotension ICD Codes: I95.9 - Hypotension, unspecified SNOMED: 55216411 (4) Gastrointestinal hemorrhage ICD Codes: K92.2 - Gastrointestinal hemorrhage, unspecified SNOMED: 66471914 (5) CHF (congestive heart failure) ICD Codes: I50.9 - Heart failure, unspecified SNOMED: 98047880 Status: unchanged Status Narrative Discussed with Dr. Powell. Assessment/Plan Assessment GIB s/p surg ESRD anemia, partly due to renal failure HTN COPD Recommendations - fu surgical recommendations - f/u post operative N/V - monitor CBC - transfuse PRN - on clears per surg Subjective ROS Limited/Unobtainable: Yes Allergies: Coded Allergies: No Known Allergies (Unverified , 03/20/18) Objective Last 24 Hour Vital Signs Date Time Temp Pulse Resp B/P (MAP) Pulse Ox O2 Delivery O2 Flow Rate FiO2 03/28/19 08:40 127/53 03/28/19 08:40 74 127/53 03/28/19 08:11 Nasal Cannula 2.0 03/28/19 08:00 97.8 74 19 127/53 (77) 95 03/28/19 05:50 139/82 03/28/19 04:00 97.3 66 18 139/82 (101) 94 03/28/19 04:00 74 03/28/19 00:30 167/73 03/28/19 00:00 63 03/28/19 00:00 97.0 62 19 167/73 (104) 97 03/27/19 21:14 76 20 96 Room Air 21 03/27/19 21:00 Nasal Cannula 2.0 03/27/19 20:00 98.8 74 19 133/81 (98) 95 03/27/19 20:00 83 03/27/19 17:32 138/72 03/27/19 16:00 76 03/27/19 16:00 97.6 55 18 138/72 (94) 100 03/27/19 13:27 97.2 03/27/19 12:29 155/77 03/27/19 12:00 97.2 66 18 155/77 (103) 98 03/27/19 12:00 62 Intake and Output 03/27/19 03/28/19 18:59 06:59 Intake Total 480 ml 250 ml Balance 480 ml 250 ml Intake Oral 480 ml 250 ml Height (Feet): 5 Height (Inches): 5.00 Weight (Pounds): 135 General Appearance: no apparent distress EENT: normal ENT inspection Neck: supple Cardiovascular: normal rate Respiratory/Chest: decreased breath sounds Abdomen: soft, hypoactive bowel sounds Extremities: non-tender Drew Powell MD Mar 28, 2019 10:45
[2019-03-28 11:56] VITALS: BP 150/83
--- NOTE | 2019-03-28 14:00 | NUR ---
[employer]S SI: LOWER GI BLEED T. 97.7 HR 59 RR 22 B/P 127/53 2L NC O2 SAT @ 98% NA 132 IS: ZOSYN IV TELE STATUS
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
[2019-03-28] MEDS: Morphine Sulfate 2mg/ml Inj(IV/IM USE ONLY) IVP PRN (14:58)
[2019-03-28] MEDS ORDERED: Ondansetron ODT 8mg tab ORAL PRN (15:00)
[2019-03-28] MEDS ORDERED: DiphenhydrAMINE 50mg/ml Inj IVP PRN (15:01)
[2019-03-28] MEDS ORDERED: Tubing IV Secondary IV ONE (15:58)
[2019-03-28] MEDS ORDERED: NS 275ml ONE (15:58)
[2019-03-28 16:00] VITALS: BP 154/72
--- NOTE | 2019-03-28 16:37 | NUR ---
*-* INSURANCE *-* ALL CLINICALS AND REVIEWS HAVE BEEN FAXED TO: [facility]: ANA[place]EL P- [phone] X [phone] F- [phone]...........REVIEW/CLINICAL
--- NOTE | 2019-03-28 19:50 | NUR ---
HAND-OFF: Report given to WAYNE Riggins. Patient shows no s/s of acute distress or SOB. Plan of care endorsed.
--- NOTE | 2019-03-28 19:51 | NUR ---
NURSE NOTES: Received report from WAYNE Vega. Pt is awake and resting in bed. In no acute distress. Bed in lowest position, call light within reach. Will continue plan of care.
[2019-03-28 20:00] VITALS: BP 127/76
[2019-03-28] MEDS: Tamsulosin 0.4mg cap ORAL SCH (20:50)
[2019-03-28] MEDS: Epoetin Alfa-EPBX(ESRD on dialysis)10,000 unit/ml vial SUBQ SCH (20:50)
[2019-03-28] MEDS: HYDROcodone/Acetamin 5/325 tab ORAL PRN (20:58)
[2019-03-29] VITALS: BP 149/77
[2019-03-29] MEDS: HYDROcodone/Acetamin 5/325 tab ORAL PRN ×5 (00:58→20:06)
[2019-03-29 04:00] VITALS: BP 155/78
--- NOTE | 2019-03-29 07:00 | NUR ---
NURSE NOTES: Nurse report given by WAYNE Riggins. Patient's sleeping in bed, no s/s of acute distress or SOB. Bed at lowest position, break engaged and call light within reach. Will continue to monitor.
[2019-03-29 07:04] LABS: ANION GAP 13 mmol/L (5-15); BLOOD UREA NITROGEN 53 mg/dL (7-18); CALCIUM 8.3 MG/DL (8.5-10.1); CARBON DIOXIDE 24 MMOL/L (21-32); CHLORIDE 92 MMOL/L (98-107); POTASSIUM 4.5 MMOL/L (3.5-5.1); SODIUM 129 MMOL/L (136-145)
[2019-03-29 07:09] LABS: BASOPHILS % (AUTO) 1.8 % (0.0-2.0); HEMATOCRIT 26.9 % (42.0-52.0); HEMOGLOBIN 8.9 G/DL (14.2-18.0); MEAN CORPUSCULAR VOLUME 92 FL (80-99); MONOCYTES % (AUTO) 8.5 % (1.0-10.0); NEUTROPHILS % (AUTO) 72.7 % (45.0-75.0); PLATELET COUNT 506 K/UL (150-450); RED BLOOD COUNT 2.93 M/UL (4.70-6.10); RED CELL DISTRIBUTION WIDTH 13.9 % (11.6-14.8)
--- NOTE | 2019-03-29 07:26 | NUR ---
HAND-OFF: Report given to WAYNE Vega.
[2019-03-29 08:00] VITALS: BP 145/59
--- NOTE | 2019-03-29 08:40 | General Progress Note ---
Assessment/Plan Status: unchanged Assessment/Plan: Recurrent lower GI bleed - diverticular ESRD anemia, partly due to renal failure s/p transfusion HTN COPD post op resection for bleed PLAN GI and GS clearance HD per renal monitor HH transfuse as needed dc once stable and cleared by gi and gs; initiate dc planning impression, plan, and exam edited and reviewed in detail care discussed with RN Subjective Allergies: Coded Allergies: No Known Allergies (Unverified , 03/20/18) Subjective care noted refusing care and labs post op Objective Last 24 Hour Vital Signs Date Time Temp Pulse Resp B/P (MAP) Pulse Ox O2 Delivery O2 Flow Rate FiO2 03/29/19 08:00 97.6 63 20 145/59 (87) 99 03/29/19 05:20 140/71 03/29/19 04:00 97.3 66 18 155/78 (103) 98 03/29/19 04:00 66 03/29/19 00:53 149/77 03/29/19 00:00 97.5 66 18 149/77 (101) 99 03/29/19 00:00 66 03/28/19 21:00 Nasal Cannula 2.0 03/28/19 20:19 78 18 97 Room Air 21 03/28/19 20:00 85 03/28/19 20:00 97.5 85 19 127/76 (93) 97 03/28/19 18:00 154/72 03/28/19 16:00 97.5 60 21 154/72 (99) 99 03/28/19 16:00 58 03/28/19 12:09 150/83 03/28/19 12:00 59 03/28/19 11:56 97.7 66 22 150/83 (105) 98 Intake and Output 03/28/19 03/29/19 19:00 07:00 Intake Total 500 ml 720 ml Balance 500 ml 720 ml Intake Oral 500 ml 720 ml Laboratory Tests 03/29/19 06:00: White Blood Count 6.0, Red Blood Count 2.93L, Hemoglobin 8.9L, Hematocrit 26.9L , Mean Corpuscular Volume 92, Mean Corpuscular Hemoglobin 30.4, Mean Corpuscular Hemoglobin Concent 33.1, Red Cell Distribution Width 13.9, Platelet Count 506H, Mean Platelet Volume 4.5L, Neutrophils (%) (Auto) 72.7, Lymphocytes (%) (Auto) 12.0L, Monocytes (%) (Auto) 8.5, Eosinophils (%) (Auto) 5.0H, Basophils (%) (Auto) 1.8, Sodium Level 129L, Potassium Level 4.5, Chloride Level 92L, Carbon Dioxide Level 24, Anion Gap 13, Blood Urea Nitrogen 53H, Creatinine 14.0H, Estimat Glomerular Filtration Rate 4.4, Glucose Level 65L, Calcium Level 8.3L Height (Feet): 5 Height (Inches): 5.00 Weight (Pounds): 135 Objective WDWN NAD clear breath sounds bilaterally without rhonchi or wheeze [id number] without MRG mild abdominal tenderness no CCE nonfocal Reyes Weber MD Mar 29, 2019 08:40
[2019-03-29] MEDS: Lisinopril 2.5mg tab ORAL SCH (09:00)
[2019-03-29] MEDS ORDERED: Heparin Sod 1000 units/ml 10ml IV PRN (09:15)
--- NOTE | 2019-03-29 09:36 | Nephrology Progress Note ---
Assessment/Plan Plan s/p Ant. Colon resection + exp. Lap. ESRD - HD TTS Subjective Subjective No new c/o Objective Objective Last 24 Hour Vital Signs Date Time Temp Pulse Resp B/P (MAP) Pulse Ox O2 Delivery O2 Flow Rate FiO2 03/29/19 09:00 145/59 03/29/19 09:00 63 145/59 03/29/19 08:00 97.6 63 20 145/59 (87) 99 03/29/19 05:20 140/71 03/29/19 04:00 97.3 66 18 155/78 (103) 98 03/29/19 04:00 66 03/29/19 00:53 149/77 03/29/19 00:00 97.5 66 18 149/77 (101) 99 03/29/19 00:00 66 03/28/19 21:00 Nasal Cannula 2.0 03/28/19 20:19 78 18 97 Room Air 21 03/28/19 20:00 85 03/28/19 20:00 97.5 85 19 127/76 (93) 97 03/28/19 18:00 154/72 03/28/19 16:00 97.5 60 21 154/72 (99) 99 03/28/19 16:00 58 03/28/19 12:09 150/83 03/28/19 12:00 59 03/28/19 11:56 97.7 66 22 150/83 (105) 98 Intake and Output 03/28/19 03/29/19 19:00 07:00 Intake Total 500 ml 720 ml Balance 500 ml 720 ml Intake Oral 500 ml 720 ml Laboratory Tests 03/29/19 06:00: White Blood Count 6.0, Red Blood Count 2.93L, Hemoglobin 8.9L, Hematocrit 26.9L , Mean Corpuscular Volume 92, Mean Corpuscular Hemoglobin 30.4, Mean Corpuscular Hemoglobin Concent 33.1, Red Cell Distribution Width 13.9, Platelet Count 506H, Mean Platelet Volume 4.5L, Neutrophils (%) (Auto) 72.7, Lymphocytes (%) (Auto) 12.0L, Monocytes (%) (Auto) 8.5, Eosinophils (%) (Auto) 5.0H, Basophils (%) (Auto) 1.8, Sodium Level 129L, Potassium Level 4.5, Chloride Level 92L, Carbon Dioxide Level 24, Anion Gap 13, Blood Urea Nitrogen 53H, Creatinine 14.0H, Estimat Glomerular Filtration Rate 4.4, Glucose Level 65L, Calcium Level 8.3L Height (Feet): 5 Height (Inches): 5.00 Weight (Pounds): 135 Objective CV RR Lungs CTA Abd SNT. BS + dressed. E No CCE. L leg AVG. Bhargav Madden MD Mar 29, 2019 09:36
--- NOTE | 2019-03-29 10:30 | GI Progress Note ---
Assessment/Plan Problems: (1) Anemia in chronic kidney disease ICD Codes: N18.9 - Chronic kidney disease, unspecified; D63.1 - Anemia in chronic kidney disease SNOMED: 292840739, 283402717 (2) HTN (hypertension) ICD Codes: I10 - Essential (primary) hypertension SNOMED: 82195382 (3) Hypotension ICD Codes: I95.9 - Hypotension, unspecified SNOMED: 16576011 (4) Gastrointestinal hemorrhage ICD Codes: K92.2 - Gastrointestinal hemorrhage, unspecified SNOMED: 40942342 (5) CHF (congestive heart failure) ICD Codes: I50.9 - Heart failure, unspecified SNOMED: 52208793 Status: progressing Status Narrative Discussed with Dr. Powell. Assessment/Plan GIB s/p surg ESRD anemia, partly due to renal failure HTN COPD The patient was seen and examined at bedside and all new and available data was reviewed in the patients chart. I agree with the above findings, impression and plan. (Patient seen earlier today. Signature stamp does not reflect patient encounter time.). - Drew Powell MD Subjective Gastrointestinal/Abdominal: Reports: no symptoms Objective Last 24 Hour Vital Signs Date Time Temp Pulse Resp B/P (MAP) Pulse Ox O2 Delivery O2 Flow Rate FiO2 03/29/19 09:00 145/59 03/29/19 09:00 63 145/59 03/29/19 09:00 Nasal Cannula 2.0 03/29/19 08:00 97.6 63 20 145/59 (87) 99 03/29/19 05:20 140/71 03/29/19 04:00 97.3 66 18 155/78 (103) 98 03/29/19 04:00 66 03/29/19 00:53 149/77 03/29/19 00:00 97.5 66 18 149/77 (101) 99 03/29/19 00:00 66 03/28/19 21:00 Nasal Cannula 2.0 03/28/19 20:19 78 18 97 Room Air 21 03/28/19 20:00 85 03/28/19 20:00 97.5 85 19 127/76 (93) 97 03/28/19 18:00 154/72 03/28/19 16:00 97.5 60 21 154/72 (99) 99 03/28/19 16:00 58 03/28/19 12:09 150/83 03/28/19 12:00 59 03/28/19 11:56 97.7 66 22 150/83 (105) 98 Intake and Output 03/28/19 03/29/19 19:00 07:00 Intake Total 500 ml 720 ml Balance 500 ml 720 ml Intake Oral 500 ml 720 ml Laboratory Tests Test 03/29/19 06:00 White Blood Count 6.0 K/UL (4.8-10.8) Red Blood Count 2.93 M/UL (4.70-6.10) L Hemoglobin 8.9 G/DL (14.2-18.0) L Hematocrit 26.9 % (42.0-52.0) L Mean Corpuscular Volume 92 FL (80-99) Mean Corpuscular Hemoglobin 30.4 PG (27.0-31.0) Mean Corpuscular Hemoglobin Concent 33.1 G/DL (32.0-36.0) Red Cell Distribution Width 13.9 % (11.6-14.8) Platelet Count 506 K/UL (150-450) H Mean Platelet Volume 4.5 FL (6.5-10.1) L Neutrophils (%) (Auto) 72.7 % (45.0-75.0) Lymphocytes (%) (Auto) 12.0 % (20.0-45.0) L Monocytes (%) (Auto) 8.5 % (1.0-10.0) Eosinophils (%) (Auto) 5.0 % (0.0-3.0) H Basophils (%) (Auto) 1.8 % (0.0-2.0) Sodium Level 129 MMOL/L (136-145) L Potassium Level 4.5 MMOL/L (3.5-5.1) Chloride Level 92 MMOL/L (98-107) L Carbon Dioxide Level 24 MMOL/L (21-32) Anion Gap 13 mmol/L (5-15) Blood Urea Nitrogen 53 mg/dL (7-18) H Creatinine 14.0 MG/DL (0.55-1.30) H Estimat Glomerular Filtration Rate 4.4 mL/min (>60) Glucose Level 65 MG/DL (74-106) L Calcium Level 8.3 MG/DL (8.5-10.1) L Height (Feet): 5 Height (Inches): 5.00 Weight (Pounds): 135 General Appearance: WD/WN, no apparent distress, alert Cardiovascular: normal rate Respiratory/Chest: normal breath sounds, no respiratory distress Abdominal Exam: normal bowel sounds, non tender, soft Extremities: normal range of motion, non-tender Porter Gaston NP Mar 29, 2019 10:30
--- NOTE | 2019-03-29 10:36 | Surgery Progress Note ---
Surgery Progress Note Subjective Procedure Performed exploratory laparotomy low anterior resection mobilization of splenic flexure Symptoms: improved, tolerating diet, passing flatus, pain decreased Objective Last 24 Hour Vital Signs Date Time Temp Pulse Resp B/P (MAP) Pulse Ox O2 Delivery O2 Flow Rate FiO2 03/29/19 09:00 145/59 03/29/19 09:00 63 145/59 03/29/19 09:00 Nasal Cannula 2.0 03/29/19 08:00 97.6 63 20 145/59 (87) 99 03/29/19 05:20 140/71 03/29/19 04:00 97.3 66 18 155/78 (103) 98 03/29/19 04:00 66 03/29/19 00:53 149/77 03/29/19 00:00 97.5 66 18 149/77 (101) 99 03/29/19 00:00 66 03/28/19 21:00 Nasal Cannula 2.0 03/28/19 20:19 78 18 97 Room Air 21 03/28/19 20:00 85 03/28/19 20:00 97.5 85 19 127/76 (93) 97 03/28/19 18:00 154/72 03/28/19 16:00 97.5 60 21 154/72 (99) 99 03/28/19 16:00 58 03/28/19 12:09 150/83 03/28/19 12:00 59 03/28/19 11:56 97.7 66 22 150/83 (105) 98 I&O Intake and Output 03/28/19 03/29/19 19:00 07:00 Intake Total 500 ml 720 ml Balance 500 ml 720 ml Intake Oral 500 ml 720 ml Dressing: dry Wound: clean Cardiovascular: RSR Respiratory: clear Abdomen: soft, flat, non-tender, present bowel sounds Extremities: no edema, no tenderness, no cyanosis Laboratory Tests Test 03/29/19 06:00 White Blood Count 6.0 K/UL (4.8-10.8) Red Blood Count 2.93 M/UL (4.70-6.10) L Hemoglobin 8.9 G/DL (14.2-18.0) L Hematocrit 26.9 % (42.0-52.0) L Mean Corpuscular Volume 92 FL (80-99) Mean Corpuscular Hemoglobin 30.4 PG (27.0-31.0) Mean Corpuscular Hemoglobin Concent 33.1 G/DL (32.0-36.0) Red Cell Distribution Width 13.9 % (11.6-14.8) Platelet Count 506 K/UL (150-450) H Mean Platelet Volume 4.5 FL (6.5-10.1) L Neutrophils (%) (Auto) 72.7 % (45.0-75.0) Lymphocytes (%) (Auto) 12.0 % (20.0-45.0) L Monocytes (%) (Auto) 8.5 % (1.0-10.0) Eosinophils (%) (Auto) 5.0 % (0.0-3.0) H Basophils (%) (Auto) 1.8 % (0.0-2.0) Sodium Level 129 MMOL/L (136-145) L Potassium Level 4.5 MMOL/L (3.5-5.1) Chloride Level 92 MMOL/L (98-107) L Carbon Dioxide Level 24 MMOL/L (21-32) Anion Gap 13 mmol/L (5-15) Blood Urea Nitrogen 53 mg/dL (7-18) H Creatinine 14.0 MG/DL (0.55-1.30) H Estimat Glomerular Filtration Rate 4.4 mL/min (>60) Glucose Level 65 MG/DL (74-106) L Calcium Level 8.3 MG/DL (8.5-10.1) L Plan Problems: (1) Gastrointestinal hemorrhage Assessment & Plan: acute GI bleed s/p ex lap with LAR no longer bleeding improving responded to prbc post op Of note patient has a small laceration on his left buttock. This morning noted to have a little bit of oozing from it. Discussed with patient states that a few months back he was sitting on his bicycle seat that is metal and caused a deep laceration which is been slowly healing since. Continue to keep wound site clean. Foam dressing. Overall wound looks fairly healed regular diet activity as tolerated AM labs rx as written Devonte Hinds Mar 29, 2019 10:36
--- NOTE | 2019-03-29 11:18 | NUR ---
RD ASSESSMENT & RECOMMENDATIONS SEE CARE ACTIVITY FOR COMPLETE ASSESSMENT DAILY ESTIMATED NEEDS: Needs based on ESRD on HD, surgery 61kg 30-35 kcals/kg [id number] total kcals 1.2-1.8 g protein/kg 73-110 g total protein fluid per MD, on HD NUTRITION DIAGNOSIS: Increased kcal and protein needs r/t renal dysfunction and surgery as evidenced by pt w/ ESRD on HD, s/p ex lap, lower anterior resection, was CLD-> full liquid, now cleared for Regular diet. CURRENT DIET: Full liquid, now Regular PO DIET RECOMMENDATIONS: RENAL/ SOFT, double protein portions/ texture as tolerated ADDITIONAL RECOMMENDATIONS: 1) Obtain calibrated dry wt post HD-> standing preferred 2) Add Nephrovite x1 daily 3) Add NEPRO daily w/ diet 4) Monitor renal fxn, lytes 5) Pt is edentulous- texture as tolerated
[2019-03-29 12:00] VITALS: BP 172/83
--- NOTE | 2019-03-29 13:56 | NUR ---
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 98.3 HR 77 RR 11 B/P 172/83 2L NC O2 SAT @ 98% NA 129 IS: COLACE PO EPOETIN SUBC ADVANCE DIET DCP TELE STATUS
--- NOTE | 2019-03-29 15:29 | NUR ---
*-* INSURANCE *-* ALL CLINICALS AND REVIEWS HAVE BEEN FAXED TO: [facility] LEAVITT: ANABEL P- [phone] [id number] [phone] F- [phone]...........REVIEW/CLINICAL
[2019-03-29 16:00] VITALS: BP 155/82
--- NOTE | 2019-03-29 19:00 | NUR ---
HAND-OFF: Report given to WAYNE Garza. Patient's in stable condition, no s/s of distress or SOB. Plan of care endorse.
--- NOTE | 2019-03-29 19:20 | NUR ---
NURSE NOTES: Pt received from WAYNE Vega alert and oriented x4 with no acute s/s of distress noted. IV site asymptomatic and patent. Midline incision on abdomen open to air, with griselda. Bed in lowest position, call light and belongings within reach.
[2019-03-29] MEDS: Docusate 100mg cap ORAL SCH (19:31)
[2019-03-29 20:00] VITALS: BP 140/77
[2019-03-29] MEDS: Tamsulosin 0.4mg cap ORAL SCH (20:06)
[2019-03-30] VITALS: BP 162/86
[2019-03-30] MEDS: HYDROcodone/Acetamin 5/325 tab ORAL PRN ×4 (00:08→22:39)
[2019-03-30 04:00] VITALS: BP 150/72
[2019-03-30 06:27] LABS: BASOPHILS % (AUTO) 0.8 % (0.0-2.0); EOSINOPHILS % (AUTO) 5.6 % (0.0-3.0); HEMATOCRIT 26.8 % (42.0-52.0); HEMOGLOBIN 8.7 G/DL (14.2-18.0); LYMPHOCYTES % (AUTO) 12.8 % (20.0-45.0); MEAN CORPUSCULAR VOLUME 93 FL (80-99); MONOCYTES % (AUTO) 8.8 % (1.0-10.0); PLATELET COUNT 572 K/UL (150-450); RED BLOOD COUNT 2.88 M/UL (4.70-6.10); RED CELL DISTRIBUTION WIDTH 13.9 % (11.6-14.8); WHITE BLOOD COUNT 5.8 K/UL (4.8-10.8)
[2019-03-30 07:02] LABS: ANION GAP 11 mmol/L (5-15); BLOOD UREA NITROGEN 36 mg/dL (7-18); CALCIUM 8.6 MG/DL (8.5-10.1); CARBON DIOXIDE 28 MMOL/L (21-32); CHLORIDE 93 MMOL/L (98-107); POTASSIUM 4.4 MMOL/L (3.5-5.1); SODIUM 132 MMOL/L (136-145)
--- NOTE | 2019-03-30 07:18 | NUR ---
NURSE NOTES: Received report from WAYNE Garza. The patient is sleeping on the bed without acute distress or shortness of breath. The patient's bed in the lowest position, call light in reach, and fall and aspiration precaution reinforced. Right EJ 18G IV is intact and patent. The patient is on 2L NC and no s/s of shortness of breath. Will continue plan of care.
--- NOTE | 2019-03-30 07:48 | NUR ---
HAND-OFF: Report given to WAYNE Spence.
[2019-03-30 08:00] VITALS: BP 131/64
--- NOTE | 2019-03-30 08:25 | NUR ---
NURSE NOTES: Notified Dr. Weber and Dr. Madden regarding abnormal labs including hemoglobin of 8.7, Magnesium of 1.7, Phosphorus of 7.0, PT 12.5, INR 1.2, and PTT of 37. Will continue to monitor the patient. Will carry out the order as soon as receives it.
--- NOTE | 2019-03-30 08:54 | Pulmonology Progress Note ---
Assessment/Plan Assessment/Plan Pulmonary Progress Note HPI Patient is a 58 year old male with multiple medical comorbidities presented to complaining of BRBPR for 3 days, weakness, noted to have significant anemia. Has had recurrent lower GI bleeding for years. Denies n/v/f/c. Has past history of Hypertension, Gout, GERD, CHF, ESRD on HD via left femoral graft, has history of hemorrhoids and had banding 2 weeks ago at [facility]. Noted to have Diverticular bleed - s/p Exlap, no new complaints Assessment/Plan: Recurrent lower GI bleed - diverticular ESRD anemia, partly due to renal failure s/p transfusion HTN COPD post op resection for bleed PLAN GI and GS clearance HD per renal monitor HH transfuse as needed dc once stable and cleared by gi and gs; initiate dc planning impression, plan, and exam edited and reviewed in detail care discussed with RN Subjective Allergies: Coded Allergies: No Known Allergies Subjective care noted refusing care and labs post op Objective Vital Signs Noted Laboratory Tests Noted 03/29/19 06:00: White Blood Count 6.0, Red Blood Count 2.93L, Hemoglobin 8.9L, Hematocrit 26.9L , Mean Corpuscular Volume 92, Mean Corpuscular Hemoglobin 30.4, Mean Corpuscular Hemoglobin Concent 33.1, Red Cell Distribution Width 13.9, Platelet Count 506H, Mean Platelet Volume 4.5L, Neutrophils (%) (Auto) 72.7, Lymphocytes (%) (Auto) 12.0L, Monocytes (%) (Auto) 8.5, Eosinophils (%) (Auto) 5.0H, Basophils (%) (Auto) 1.8, Sodium Level 129L, Potassium Level 4.5, Chloride Level 92L, Carbon Dioxide Level 24, Anion Gap 13, Blood Urea Nitrogen 53H, Creatinine 14.0H, Estimat Glomerular Filtration Rate 4.4, Glucose Level 65L, Calcium Level 8.3L Height (Feet): 5 Height (Inches): 5.00 Weight (Pounds): 135 Objective WDWN NAD clear breath sounds bilaterally without rhonchi or wheeze [id number] without MRG mild abdominal tenderness no CCE nonfocal Subjective ROS Limited/Unobtainable: No Allergies: Coded Allergies: No Known Allergies (Unverified , 03/20/18) Objective Last 24 Hour Vital Signs Date Time Temp Pulse Resp B/P (MAP) Pulse Ox O2 Delivery O2 Flow Rate FiO2 03/30/19 08:00 98.8 58 18 131/64 (86) 100 03/30/19 05:34 150/72 03/30/19 04:00 53 03/30/19 04:00 97.1 54 18 150/72 (98) 100 03/30/19 00:08 140/77 03/30/19 00:00 97.5 63 18 162/86 (111) 100 03/30/19 00:00 56 03/29/19 21:00 Nasal Cannula 2.0 03/29/19 20:00 60 03/29/19 20:00 97.1 64 18 140/77 (98) 100 03/29/19 19:41 68 20 95 Room Air 21 03/29/19 19:31 155/82 03/29/19 16:00 97.6 68 20 155/82 (106) 98 03/29/19 16:00 65 03/29/19 13:45 73 18 96 Room Air 21 03/29/19 12:00 172/83 03/29/19 12:00 98.3 77 18 172/83 (112) 96 03/29/19 12:00 65 03/29/19 09:00 145/59 03/29/19 09:00 63 145/59 03/29/19 09:00 Nasal Cannula 2.0 Intake and Output 03/29/19 03/30/19 19:00 07:00 Intake Total 340 ml 450 ml Balance 340 ml 450 ml Intake Oral 340 ml 450 ml # Bowel Movements 2 3 Laboratory Tests 03/30/19 05:51: White Blood Count 5.8, Red Blood Count 2.88L, Hemoglobin 8.7L, Hematocrit 26.8L , Mean Corpuscular Volume 93, Mean Corpuscular Hemoglobin 30.3, Mean Corpuscular Hemoglobin Concent 32.6, Red Cell Distribution Width 13.9, Platelet Count 572H, Mean Platelet Volume 4.6L, Neutrophils (%) (Auto) 72.0, Lymphocytes (%) (Auto) 12.8L, Monocytes (%) (Auto) 8.8, Eosinophils (%) (Auto) 5.6H, Basophils (%) (Auto) 0.8, Sodium Level 132L, Potassium Level 4.4, Chloride Level 93L, Carbon Dioxide Level 28, Anion Gap 11, Blood Urea Nitrogen 36H, Creatinine 11.0H, Estimat Glomerular Filtration Rate 5.8, Glucose Level 69L, Calcium Level 8.6, Phosphorus Level 7.0H, Magnesium Level 1.7L Current Medications Medications (Trade) Dose Ordered Sig/Letty Route PRN Reason Start Time Stop Time Status Last Admin Dose Admin Acetaminophen (Tylenol) 650 mg Q4H PRN ORAL FEVER 03/23/19 13:30 04/22/19 13:29 Acetaminophen/ Hydrocodone Bitart ([place] 5/325) 1 tab Q4H PRN ORAL Moderate Pain (Pain Scale 4-6) 03/28/19 20:15 04/04/19 20:14 03/30/19 00:08 Al Hydroxide/Mg Hydroxide (Mylanta) 15 ml Q6H PRN ORAL DYSPEPSIA 03/24/19 15:45 04/23/19 15:44 Albuterol/ Ipratropium (Albuterol/ Ipratropium) 3 ml Q4H PRN HHN Shortness of Breath 03/26/19 17:30 03/31/19 17:29 Amlodipine Besylate (Norvasc) 2.5 mg DAILY ORAL 03/23/19 09:00 04/22/19 08:59 03/28/19 08:40 Clonidine HCl (Catapres Tab) 0.1 mg EVERY 6 HOURS ORAL 03/23/19 00:00 04/22/19 00:00 03/30/19 00:08 Diphenhydramine HCl (Benadryl) 25 mg Q6H PRN IVP Itching 03/28/19 15:01 04/27/19 15:00 Docusate Sodium (Colace) 100 mg BID ORAL 03/29/19 18:00 04/28/19 17:59 03/29/19 19:31 Epoetin Kimo (Epoetin Kimo(ESRD on dialysis)) 10,000 unit [id number]-[id number]-THU SUBQ 03/23/19 21:00 04/22/19 20:59 03/28/19 20:50 Folic Acid (Folate) 1 mg DAILY ORAL 03/23/19 09:00 04/22/19 08:59 03/29/19 09:15 Lisinopril (Zestril) 2.5 mg DAILY ORAL 03/23/19 09:00 04/22/19 08:59 03/28/19 08:40 Magnesium Hydroxide (Mom) 30 ml BIDPRN PRN ORAL Constipation 03/24/19 15:45 04/23/19 15:44 Ondansetron HCl (Zofran ODT) 8 mg Q6H PRN ORAL Nausea & Vomiting 03/28/19 15:00 04/27/19 14:59 Sevelamer Carbonate (Renvela) 800 mg THREE TIMES A DAY ORAL 03/29/19 13:00 04/28/19 12:59 03/29/19 19:31 Tamsulosin HCl (Flomax) 0.4 mg BEDTIME ORAL 03/22/19 21:00 04/21/19 20:59 03/29/19 20:06 Temazepam (Restoril) 7.5 mg DAILYPRN PRN ORAL Insomnia 03/24/19 15:45 03/31/19 15:44 Phil Sneed MD Mar 30, 2019 08:54
[2019-03-30] MEDS: Docusate 100mg cap ORAL SCH ×3 (08:57→17:18)
[2019-03-30] MEDS: Lisinopril 2.5mg tab ORAL SCH ×2 (08:58→09:00)
--- NOTE | 2019-03-30 09:00 | Nephrology Progress Note ---
Assessment/Plan Plan s/p Ant. Colon resection + exp. Lap. Severely anemic. Increased ALF + placed on Venofer. Low Mg - replete. ESRD - HD TTS Subjective Subjective No new c/o Objective Objective Last 24 Hour Vital Signs Date Time Temp Pulse Resp B/P (MAP) Pulse Ox O2 Delivery O2 Flow Rate FiO2 03/30/19 08:00 98.8 58 18 131/64 (86) 100 03/30/19 05:34 150/72 03/30/19 04:00 53 03/30/19 04:00 97.1 54 18 150/72 (98) 100 03/30/19 00:08 140/77 03/30/19 00:00 97.5 63 18 162/86 (111) 100 03/30/19 00:00 56 03/29/19 21:00 Nasal Cannula 2.0 03/29/19 20:00 60 03/29/19 20:00 97.1 64 18 140/77 (98) 100 03/29/19 19:41 68 20 95 Room Air 21 03/29/19 19:31 155/82 03/29/19 16:00 97.6 68 20 155/82 (106) 98 03/29/19 16:00 65 03/29/19 13:45 73 18 96 Room Air 21 03/29/19 12:00 172/83 03/29/19 12:00 98.3 77 18 172/83 (112) 96 03/29/19 12:00 65 03/29/19 09:00 145/59 03/29/19 09:00 63 145/59 03/29/19 09:00 Nasal Cannula 2.0 Intake and Output 03/29/19 03/30/19 19:00 07:00 Intake Total 340 ml 450 ml Balance 340 ml 450 ml Intake Oral 340 ml 450 ml # Bowel Movements 2 3 Laboratory Tests 03/30/19 05:51: White Blood Count 5.8, Red Blood Count 2.88L, Hemoglobin 8.7L, Hematocrit 26.8L , Mean Corpuscular Volume 93, Mean Corpuscular Hemoglobin 30.3, Mean Corpuscular Hemoglobin Concent 32.6, Red Cell Distribution Width 13.9, Platelet Count 572H, Mean Platelet Volume 4.6L, Neutrophils (%) (Auto) 72.0, Lymphocytes (%) (Auto) 12.8L, Monocytes (%) (Auto) 8.8, Eosinophils (%) (Auto) 5.6H, Basophils (%) (Auto) 0.8, Sodium Level 132L, Potassium Level 4.4, Chloride Level 93L, Carbon Dioxide Level 28, Anion Gap 11, Blood Urea Nitrogen 36H, Creatinine 11.0H, Estimat Glomerular Filtration Rate 5.8, Glucose Level 69L, Calcium Level 8.6, Phosphorus Level 7.0H, Magnesium Level 1.7L Height (Feet): 5 Height (Inches): 5.00 Weight (Pounds): 142 Objective CV RR Lungs CTA Abd SNT. BS + dressed. E No CCE. L leg AVG. Bhargav Madden MD Mar 30, 2019 08:59
--- NOTE | 2019-03-30 09:30 | NUR ---
NURSE NOTES: The patient is combative and resistant to care. The patient refused to take all medication except folic acid in the morning. Will continue to monitor the patient.
--- NOTE | 2019-03-30 10:30 | GI Progress Note ---
Assessment/Plan Problems: (1) Anemia in chronic kidney disease ICD Codes: N18.9 - Chronic kidney disease, unspecified; D63.1 - Anemia in chronic kidney disease SNOMED: 687055299, 797105709 (2) HTN (hypertension) ICD Codes: I10 - Essential (primary) hypertension SNOMED: 05022021 (3) Hypotension ICD Codes: I95.9 - Hypotension, unspecified SNOMED: 22973344 (4) Gastrointestinal hemorrhage ICD Codes: K92.2 - Gastrointestinal hemorrhage, unspecified SNOMED: 14580649 (5) CHF (congestive heart failure) ICD Codes: I50.9 - Heart failure, unspecified SNOMED: 80727285 Status: doing well, progressing Status Narrative Discussed with Dr. Powell. Assessment/Plan GIB s/p surg ESRD anemia, partly due to renal failure HTN COPD PT evaluation advance diet as tolerated zofran prn prn transfusions ppi follow labs, surgical recs The patient was seen and examined at bedside and all new and available data was reviewed in the patients chart. I agree with the above findings, impression and plan. (Patient seen earlier today. Signature stamp does not reflect patient encounter time.). - Drew Powell MD Subjective Gastrointestinal/Abdominal: Reports: no symptoms Objective Last 24 Hour Vital Signs Date Time Temp Pulse Resp B/P (MAP) Pulse Ox O2 Delivery O2 Flow Rate FiO2 03/30/19 09:00 131/64 03/30/19 09:00 58 131/64 03/30/19 08:00 98.8 58 18 131/64 (86) 100 03/30/19 05:34 150/72 03/30/19 04:00 53 03/30/19 04:00 97.1 54 18 150/72 (98) 100 03/30/19 00:08 140/77 03/30/19 00:00 97.5 63 18 162/86 (111) 100 03/30/19 00:00 56 03/29/19 21:00 Nasal Cannula 2.0 03/29/19 20:00 60 03/29/19 20:00 97.1 64 18 140/77 (98) 100 03/29/19 19:41 68 20 95 Room Air 21 03/29/19 19:31 155/82 03/29/19 16:00 97.6 68 20 155/82 (106) 98 8/6/19 16:00 65 03/29/19 13:45 73 18 96 Room Air 21 03/29/19 12:00 172/83 03/29/19 12:00 98.3 77 18 172/83 (112) 96 03/29/19 12:00 65 Intake and Output 03/29/19 03/30/19 19:00 07:00 Intake Total 340 ml 450 ml Balance 340 ml 450 ml Intake Oral 340 ml 450 ml # Bowel Movements 2 3 Laboratory Tests Test 03/30/19 05:51 White Blood Count 5.8 K/UL (4.8-10.8) Red Blood Count 2.88 M/UL (4.70-6.10) L Hemoglobin 8.7 G/DL (14.2-18.0) L Hematocrit 26.8 % (42.0-52.0) L Mean Corpuscular Volume 93 FL (80-99) Mean Corpuscular Hemoglobin 30.3 PG (27.0-31.0) Mean Corpuscular Hemoglobin Concent 32.6 G/DL (32.0-36.0) Red Cell Distribution Width 13.9 % (11.6-14.8) Platelet Count 572 K/UL (150-450) H Mean Platelet Volume 4.6 FL (6.5-10.1) L Neutrophils (%) (Auto) 72.0 % (45.0-75.0) Lymphocytes (%) (Auto) 12.8 % (20.0-45.0) L Monocytes (%) (Auto) 8.8 % (1.0-10.0) Eosinophils (%) (Auto) 5.6 % (0.0-3.0) H Basophils (%) (Auto) 0.8 % (0.0-2.0) Sodium Level 132 MMOL/L (136-145) L Potassium Level 4.4 MMOL/L (3.5-5.1) Chloride Level 93 MMOL/L (98-107) L Carbon Dioxide Level 28 MMOL/L (21-32) Anion Gap 11 mmol/L (5-15) Blood Urea Nitrogen 36 mg/dL (7-18) H Creatinine 11.0 MG/DL (0.55-1.30) H Estimat Glomerular Filtration Rate 5.8 mL/min (>60) Glucose Level 69 MG/DL (74-106) L Calcium Level 8.6 MG/DL (8.5-10.1) Phosphorus Level 7.0 MG/DL (2.5-4.9) H Magnesium Level 1.7 MG/DL (1.8-2.4) L Height (Feet): 5 Height (Inches): 5.00 Weight (Pounds): 142 General Appearance: WD/WN, no apparent distress, alert Cardiovascular: normal rate Respiratory/Chest: normal breath sounds, no respiratory distress Abdominal Exam: normal bowel sounds, non tender, soft Extremities: normal range of motion, non-tender Porter Gaston NP Mar 30, 2019 10:30
--- NOTE | 2019-03-30 11:54 | Surgery Progress Note ---
Surgery Progress Note Subjective Procedure Performed exploratory laparotomy low anterior resection mobilization of splenic flexure Additional Comments doing much better tolerating diet no n/v//fc +BM Objective Last 24 Hour Vital Signs Date Time Temp Pulse Resp B/P (MAP) Pulse Ox O2 Delivery O2 Flow Rate FiO2 03/30/19 09:00 131/64 03/30/19 09:00 58 131/64 03/30/19 08:00 98.8 58 18 131/64 (86) 100 03/30/19 05:34 150/72 03/30/19 04:00 53 03/30/19 04:00 97.1 54 18 150/72 (98) 100 03/30/19 00:08 140/77 03/30/19 00:00 97.5 63 18 162/86 (111) 100 03/30/19 00:00 56 03/29/19 21:00 Nasal Cannula 2.0 03/29/19 20:00 60 03/29/19 20:00 97.1 64 18 140/77 (98) 100 03/29/19 19:41 68 20 95 Room Air 21 03/29/19 19:31 155/82 03/29/19 16:00 97.6 68 20 155/82 (106) 98 03/29/19 16:00 65 03/29/19 13:45 73 18 96 Room Air 21 03/29/19 12:00 172/83 03/29/19 12:00 98.3 77 18 172/83 (112) 96 03/29/19 12:00 65 I&O Intake and Output 03/29/19 03/30/19 19:00 07:00 Intake Total 340 ml 450 ml Balance 340 ml 450 ml Intake Oral 340 ml 450 ml # Bowel Movements 2 3 Dressing: dry Wound: clean Cardiovascular: RSR Respiratory: clear Abdomen: soft, flat, non-tender, present bowel sounds Extremities: no edema, no tenderness, no cyanosis Laboratory Tests Test 03/30/19 05:51 White Blood Count 5.8 K/UL (4.8-10.8) Red Blood Count 2.88 M/UL (4.70-6.10) L Hemoglobin 8.7 G/DL (14.2-18.0) L Hematocrit 26.8 % (42.0-52.0) L Mean Corpuscular Volume 93 FL (80-99) Mean Corpuscular Hemoglobin 30.3 PG (27.0-31.0) Mean Corpuscular Hemoglobin Concent 32.6 G/DL (32.0-36.0) Red Cell Distribution Width 13.9 % (11.6-14.8) Platelet Count 572 K/UL (150-450) H Mean Platelet Volume 4.6 FL (6.5-10.1) L Neutrophils (%) (Auto) 72.0 % (45.0-75.0) Lymphocytes (%) (Auto) 12.8 % (20.0-45.0) L Monocytes (%) (Auto) 8.8 % (1.0-10.0) Eosinophils (%) (Auto) 5.6 % (0.0-3.0) H Basophils (%) (Auto) 0.8 % (0.0-2.0) Sodium Level 132 MMOL/L (136-145) L Potassium Level 4.4 MMOL/L (3.5-5.1) Chloride Level 93 MMOL/L (98-107) L Carbon Dioxide Level 28 MMOL/L (21-32) Anion Gap 11 mmol/L (5-15) Blood Urea Nitrogen 36 mg/dL (7-18) H Creatinine 11.0 MG/DL (0.55-1.30) H Estimat Glomerular Filtration Rate 5.8 mL/min (>60) Glucose Level 69 MG/DL (74-106) L Calcium Level 8.6 MG/DL (8.5-10.1) Phosphorus Level 7.0 MG/DL (2.5-4.9) H Magnesium Level 1.7 MG/DL (1.8-2.4) L Plan Problems: (1) Gastrointestinal hemorrhage Assessment & Plan: acute GI bleed s/p ex lap with LAR no longer bleeding improving responded to prbc post op Of note patient has a small laceration on his left buttock. This morning noted to have a little bit of oozing from it. Discussed with patient states that a few months back he was sitting on his bicycle seat that is metal and caused a deep laceration which is been slowly healing since. Continue to keep wound site clean. Foam dressing. Overall wound looks fairly healed regular diet activity as tolerated AM labs rx as written griselda removed steri strips placed Okay to d/c from surgical standpoint Rx written for d/c Devonte Hinds Mar 30, 2019 11:54
[2019-03-30 12:00] VITALS: BP 157/72
--- NOTE | 2019-03-30 12:00 | NUR ---
NURSE NOTES: Dr. Madden ordered Magnesium 1g x2 total of 2g IVPB for Magnesium level of 1.7. Carried out the order. Will continue to monitor the patient.
--- NOTE | 2019-03-30 14:11 | NUR ---
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 98.5 HR 55 RR 18 B/P 157/72 NA 132 IS: IRON IV EPOETIN SUBC RENAL DIET TELE STATUS
[2019-03-30 14:25] LABS: % IRON SATURATION 44 % (15-50); IRON 37 ug/dL (50-175); TOTAL IRON BINDING CAPACITY 85 ug/dL (250-450)
--- NOTE | 2019-03-30 14:49 | NUR ---
NURSE NOTES: Spoke with Divya @ [facility] regarding hemodialysis schedule that will be done on 03/31/2019. Per Divya, on-call nurse will call back for confirmation.
[2019-03-30 16:00] VITALS: BP 171/77
--- NOTE | 2019-03-30 18:58 | NUR ---
NURSE NOTES: Spoke with Divya @ [facility] again regarding HD schedule on 03/31/2019 since no call back from bail bond agent nurse. Will wait for confirmation call. Will continue to monitor the patient.
--- NOTE | 2019-03-30 19:30 | NUR ---
NURSE NOTES: RECEIVED PATIENT SITTING ON BED, AWAKE, ALERT/ORIENTED X4, VERBALLY RESPONSIVE, IRRITABLE. NO SIGNS AND SYMPTOMS OF ACUTE CARDIO RESPIRATORY DISTRESS/SHORTNESS OF BREATH, DENIES CHEST PAIN, TOLERATING 02 2L VIA NASAL CANULA. S/P EXP LAP, DRESSING DRY AND INTACT TO ABDOMEN, NO STAINS NOTED. AV SHUNT INTACT TO LEFT FEMORAL, BRUIT AUDIBLE/THRILL PALPABLE, DRESSING DRY AND INTACT. SIDE RAILS UP X3/BED IN LOWEST POSITION FOR SAFETY, BRAKES ON, ENCOURAGED PATIENT TO UTILIZE CALL LIGHT FOR ASSISTANCE, VERBALIZED UNDERSTANDING.
--- NOTE | 2019-03-30 19:36 | NUR ---
HAND-OFF: Report given to WAYNE Garza. The patient is resting on the bed without acute distress or shortness of breath. The patient's bed in the lowest position, call light in reach, and fall and aspiration precaution reinforced. Endorsed plan of care.
[2019-03-30 20:00] VITALS: BP 171/89
[2019-03-30] MEDS ORDERED: Epoetin Alfa-EPBX(ESRD on dialysis)10,000 unit/ml vial SUBQ SCH (21:00)
[2019-03-30] MEDS ORDERED: Epoetin Alfa-EPBX(ESRD on dialysis)2000 units/ml vial SUBQ SCH (21:00)
[2019-03-30] MEDS ORDERED: Iron Sucrose 100 MG in NS 55 ML IV SCH (21:00)
[2019-03-30] MEDS: Tamsulosin 0.4mg cap ORAL SCH (22:23)
--- NOTE | 2019-03-30 23:01 | NUR ---
NURSE NOTES: Pt became irate stating "That thing's black, iron isn't black!" 3 RNs and Charge Nurse entered room, and verified and read the medication stated on the vial "Iron Sucrose 100 mg". RN educated pt on medication administration, medication use, risks and benefits. RN stated that it is still his right to refuse the medication if he chooses to. Pt stated, "Fine. I know I need my iron so I'll take it."
[2019-03-31] VITALS (7 sets, daily range): BP systolic 138–166; BP diastolic 60–82
--- NOTE | 2019-03-31 07:20 | NUR ---
NURSE NOTES: Received report from WAYNE Garza. Patient is resting in bed, in stable condition, eating breakfast. No s/sx of SOB, breathing is even and unlabored. Denies any presence of pain or discomfort at this time. bed is in lowest position, brakes engaged. Call light is kept within easy reach. Will continue to monitor patient.
--- NOTE | 2019-03-31 07:21 | NUR ---
HAND-OFF: Report given to WAYNE Thomson. Plan of care endorsed. No acute of cardio-respiratory distress noted.
--- NOTE | 2019-03-31 08:25 | General Progress Note ---
Assessment/Plan Status: doing well, progressing Assessment/Plan: Recurrent lower GI bleed - diverticular ESRD anemia, partly due to renal failure s/p transfusion HTN COPD post op resection for bleed PLAN GI and GS clearance noted HD per renal dc home refuses snf impression, plan, and exam edited and reviewed in detail care discussed with RN Subjective Allergies: Coded Allergies: No Known Allergies (Unverified , 03/20/18) Subjective care noted overall stable post op Objective Last 24 Hour Vital Signs Date Time Temp Pulse Resp B/P (MAP) Pulse Ox O2 Delivery O2 Flow Rate FiO2 03/31/19 06:00 150/71 03/31/19 04:00 98.0 65 18 150/71 (97) 96 03/31/19 04:00 68 03/31/19 00:00 153/77 03/31/19 00:00 59 03/31/19 00:00 97.9 61 18 153/77 (102) 98 03/30/19 22:00 53 03/30/19 21:00 Nasal Cannula 2.0 03/30/19 20:14 60 20 96 Room Air 21 03/30/19 20:00 98.3 66 18 171/89 (116) 96 03/30/19 17:16 171/77 03/30/19 16:00 97.6 57 18 171/77 (108) 100 03/30/19 16:00 53 03/30/19 12:34 157/72 03/30/19 12:00 98.5 55 18 157/72 (100) 100 03/30/19 12:00 55 03/30/19 09:00 Nasal Cannula 2.0 03/30/19 09:00 131/64 03/30/19 09:00 58 131/64 Intake and Output 03/30/19 03/31/19 19:00 07:00 Intake Total 540 ml Balance 540 ml Intake Oral 340 ml IV Total 200 ml # Voids 2 # Bowel Movements 3 1 Height (Feet): 5 Height (Inches): 5.00 Weight (Pounds): 142 Objective WDWN NAD clear breath sounds bilaterally without rhonchi or wheeze [id number] without MRG mild abdominal tenderness no CCE nonfocal Reyes Weber MD Mar 31, 2019 08:25
--- NOTE | 2019-03-31 08:39 | NUR ---
NURSE NOTES: Called and spoke with [facility] hemodialysis regarding ordered dialysis for today. Personnel confirmed and informed this nurse that HD nurse medium cycle salesperson will be notified. Noted. Will continue to monitor patient.
[2019-03-31] MEDS: Lisinopril 2.5mg tab ORAL SCH (08:58)
[2019-03-31] MEDS: Docusate 100mg cap ORAL SCH (08:58)
[2019-03-31] MEDS: HYDROcodone/Acetamin 5/325 tab ORAL PRN (09:00)
[2019-03-31] MEDS ORDERED: Heparin Sod 1000 units/ml 10ml IV PRN (09:00)
--- NOTE | 2019-03-31 12:05 | NUR ---
*-* INSURANCE *-* ALL CLINICALS AND REVIEWS HAVE BEEN FAXED TO: [facility] LE[facility]ITT: ANABEL P- [phone] F- [phone]...........REVIEW/CLINICAL
--- NOTE | 2019-03-31 13:46 | NUR ---
BEST SECOND JOBSINSOLE AND OUTSOLE SPLITTER PLACED A CALL TO [facility] [address], SPOKE WITH HANNA VERIFIED PT HD DAYS THURSDAY, THURSDAY AND THURSDAY AT 0400.PT WILL RETURN TO OUTPATIENT ON THURSDAY. [facility] [address] [place] [address]
--- NOTE | 2019-03-31 15:00 | NUR ---
NURSE NOTES: Per [facility], patient has no co-pay for medications. Informed patient. Patient acknowledged. Medications will be delivered to patient's room by [facility].
--- NOTE | 2019-03-31 15:04 | Surgery Progress Note ---
Surgery Progress Note Subjective Procedure Performed exploratory laparotomy low anterior resection mobilization of splenic flexure Symptoms: improved, tolerating diet, voiding well, passing flatus, BM, pain decreased Additional Comments doing well no acute events comfortable ambulatory HD today d/c planning Objective Last 24 Hour Vital Signs Date Time Temp Pulse Resp B/P (MAP) Pulse Ox O2 Delivery O2 Flow Rate FiO2 03/31/19 14:59 145/72 (96) 03/31/19 12:33 93 Nasal Cannula 2.0 28 03/31/19 12:00 97.1 63 18 166/76 (106) 96 03/31/19 12:00 68 03/31/19 09:00 89 20 93 Nasal Cannula 2.0 28 03/31/19 09:00 Nasal Cannula 2.0 03/31/19 08:00 97.4 62 18 163/82 (109) 97 03/31/19 08:00 56 03/31/19 06:00 150/71 03/31/19 04:00 98.0 65 18 150/71 (97) 96 03/31/19 04:00 68 03/31/19 00:00 153/77 03/31/19 00:00 59 03/31/19 00:00 97.9 61 18 153/77 (102) 98 03/30/19 22:00 53 03/30/19 21:00 Nasal Cannula 2.0 03/30/19 20:14 60 20 96 Room Air 21 03/30/19 20:00 98.3 66 18 171/89 (116) 96 03/30/19 17:16 171/77 03/30/19 16:00 97.6 57 18 171/77 (108) 100 03/30/19 16:00 53 I&O Intake and Output 03/30/19 03/31/19 18:59 06:59 Intake Total 680 ml Balance 680 ml Intake Oral 480 ml IV Total 200 ml # Voids 2 # Bowel Movements 3 1 Dressing: dry Wound: clean Cardiovascular: RSR Respiratory: clear Abdomen: soft, flat, non-tender, present bowel sounds Extremities: no edema Plan Problems: (1) Gastrointestinal hemorrhage Assessment & Plan: acute GI bleed s/p ex lap with LAR no longer bleeding improving responded to prbc post op Of note patient has a small laceration on his left buttock. This morning noted to have a little bit of oozing from it. Discussed with patient states that a few months back he was sitting on his bicycle seat that is metal and caused a deep laceration which is been slowly healing since. Continue to keep wound site clean. Foam dressing. Overall wound looks fairly healed regular diet activity as tolerated AM labs rx as written griselda removed steri strips placed Okay to d/c from surgical standpoint Rx written for d/c f/u 1 week outpatient Devonte Hinds Mar 31, 2019 15:04
--- NOTE | 2019-03-31 15:33 | Nephrology Progress Note ---
Assessment/Plan Plan s/p Ant. Colon resection + exp. Lap. Severely anemic. Increased ALF + placed on Venofer. Low Mg - replete. ESRD - HD TTS Subjective Subjective No new c/o Objective Objective Last 24 Hour Vital Signs Date Time Temp Pulse Resp B/P (MAP) Pulse Ox O2 Delivery O2 Flow Rate FiO2 03/31/19 14:59 145/72 (96) 03/31/19 12:33 93 Nasal Cannula 2.0 28 03/31/19 12:00 97.1 63 18 166/76 (106) 96 03/31/19 12:00 68 03/31/19 09:00 89 20 93 Nasal Cannula 2.0 28 03/31/19 09:00 Nasal Cannula 2.0 03/31/19 08:00 97.4 62 18 163/82 (109) 97 03/31/19 08:00 56 03/31/19 06:00 150/71 03/31/19 04:00 98.0 65 18 150/71 (97) 96 03/31/19 04:00 68 03/31/19 00:00 153/77 03/31/19 00:00 59 03/31/19 00:00 97.9 61 18 153/77 (102) 98 03/30/19 22:00 53 03/30/19 21:00 Nasal Cannula 2.0 03/30/19 20:14 60 20 96 Room Air 21 03/30/19 20:00 98.3 66 18 171/89 (116) 96 03/30/19 17:16 171/77 03/30/19 16:00 97.6 57 18 171/77 (108) 100 03/30/19 16:00 53 Intake and Output 03/30/19 03/31/19 19:00 07:00 Intake Total 540 ml Balance 540 ml Intake Oral 340 ml IV Total 200 ml # Voids 2 # Bowel Movements 3 1 Height (Feet): 5 Height (Inches): 5.00 Weight (Pounds): 142 Objective CV RR Lungs CTA Abd SNT. BS + dressed. E No CCE. L leg AVG. Bhargav Madden MD Mar 31, 2019 15:33
--- NOTE | 2019-03-31 18:07 | NUR ---
NURSE NOTES: Patient discharged to home self-care per Dr. Weber. Patient given all discharge instructions, patient verbalized understanding. All prescriptions given to patient including Hydrocodone. IV access removed, no active bleeding noted; heart monitor removed and returned to desk monitor, ID band removed and placed in shredder. Patient finished hemodialysis, noted with 3 liters removed. Patient left in in private vehicle, with all belongings, in stable condition. Addendum: 03/31/19 at 1813 by RAMSES JOSHI RN NURSE NOTES: Patient left with brother in private vehicle.
--- NOTE | 2019-03-31 23:01 | General Progress Note ---
Assessment/Plan Status: doing well, progressing Assessment/Plan: Assessment GIB s/p ex lap ESRD anemia, HTN COPD Recommendations - post op care - renal diet - monitor labs - d/c planning Subjective Allergies: Coded Allergies: No Known Allergies (Unverified , 03/20/18) Subjective Feels OK tolerating PO for d/c today Objective Last 24 Hour Vital Signs Date Time Temp Pulse Resp B/P (MAP) Pulse Ox O2 Delivery O2 Flow Rate FiO2 03/31/19 16:00 75 03/31/19 15:44 97.3 68 18 138/60 (86) 96 03/31/19 14:59 145/72 (96) 03/31/19 12:33 93 Nasal Cannula 2.0 28 03/31/19 12:00 97.1 63 18 166/76 (106) 96 03/31/19 12:00 68 03/31/19 09:00 89 20 93 Nasal Cannula 2.0 28 03/31/19 09:00 Nasal Cannula 2.0 03/31/19 08:00 97.4 62 18 163/82 (109) 97 03/31/19 08:00 56 03/31/19 06:00 150/71 03/31/19 04:00 98.0 65 18 150/71 (97) 96 03/31/19 04:00 68 03/31/19 00:00 153/77 03/31/19 00:00 59 03/31/19 00:00 97.9 61 18 153/77 (102) 98 Intake and Output 03/30/19 03/31/19 18:59 06:59 Intake Total 680 ml Balance 680 ml Intake Oral 480 ml IV Total 200 ml # Voids 2 # Bowel Movements 3 1 Height (Feet): 5 Height (Inches): 5.00 Weight (Pounds): 142 Objective WDWN NCAT CTA RR abd soft ND, (+) wound no edema- Aga Lucas MD Mar 31, 2019 23:01
--- NOTE | 2019-04-01 13:21 | Discharge Summary ---
Discharge Summary Discharge Summary _ DATE OF ADMISSION: 03/22/2019 DATE OF DISCHARGE: 03/31/2019 DISCHARGED BY: Dr. Weber REASON FOR ADMISSION: 58 years old male with past medical history of COPD, congestive heart failure, anemia, end-stage renal disease , on hemodialysis, hemorrhoids, presented with rectal bleeding. Upon evaluation vital signs were stable. Laboratory work-up revealed no leukocytosis , hemoglobin 5.3 ,hematocrit 16.1. Platelet count 408. INR 1.2. Sodium 132 . BUN 39, creatinine 10.8. Glucose 86. Stable LFT and bilirubin. Lipase within normal limits. Troponin 0.011. EKG revealed normal sinus rhythm , no acute ischemic changes , T wave inversion in anterior leads. No definite ischemic changes. Albumin 2.3. Patient subsequently admitted for gastrointestinal hemorrhage, anemia , congestive heart failure. CONSULTANTS: GI specialist Dr. Lucas release engineer Dr. Costello surgery Dr. Hinds [facility] COURSE: Patient admitted to telemetry floor. Patient was transfused with multiple units of packed red blood cells. Hemoglobin and hematocrit were closely monitored with goal to keep hemoglobin above 7 . Patient started on GI prophylaxis. Patient was provided with empiric antibiotic. GI specialist and surgeon closely followed. Surgeon seen patient initially in the emergency department and recommended admission. Patient undergone on 03/23 rigid sigmoidoscopy with examination under anesthesia due to anorectal bleeding. Rigid sigmoidoscopy demonstrated pooling of blood in the sigmoid colon with clots around diverticulosis. Pathology after rigid sigmoidoscopy with rectal blood clot removal revealed focally organized blood clot. Patient at that time already received 5 units of packed red blood cells , but did not appropriately responded to multiple blood transfusion. The above was discussed with patient , and surgeon was recommended to have exploration surgery, possible resection of sigmoid colon . Patient consented to surgery and subsequently undergone on 03/24 exploratory laparotomy, low anterior resection, mobilization of splenic flexure and primary colorectal anastomosis due to acute GI hemorrhage. Etiology of acute GI hemorrhage was in the distal colon proximal rectum on the right lateral side from abnormal lesion . Postoperatively pain management was addressed . Surgical wound care provided. Incentive spirometry was at bedside as needed. Patient initially was kept n.p.o. until bowel function returned. When bowel function returned , patient slowly started on diet and was advanced as tolerated. Patient received total of 7 units of packed red blood cells and 1 unit of fresh frozen plasma. Patient received EPO and Venofer. Prior to discharge hemoglobin 8.7 , hematocrit 26.8. Hemodialysis was arranged as per release engineer with close monitoring of volumes , electrolytes and renal parameters. Renvela continued. Magnesium was replaced Diet was advanced to renal diet as tolerated. Antiemetic were on board as needed. Patient was able to tolerate diet. Dietary supplements implemented in plan of care as per critical care registered nurse recommendation. Blood pressure was managed with calcium channel martin , KELLY inhibitor and clonidine ; and remained stable. Supportive care provided. Bowel regimen instituted. Prior to discharge griselda were removed, steri strip placed. Pathology of low anterior resection showed perforated diverticulitis with associated hemorrhage and marked acute serositis /peritonitis , no evidence of malignancy. Proximal sigmoid margin biopsy revealed colonic tissue with no significant diagnostic abnormality. Patient completed empiric antibiotic while in the hospital. Patient clinically stabilized and was ready for discharge home FINAL DIAGNOSES: Acute GI bleeding /hemorrhage, s/p multiply blood transfusion Status post rigid sigmoidoscopy and examination under anesthesia Colonic diverticulosis bleeding Status exploratory laparotomy, low anterior resection, mobilization of splenic flexure, primary colorectal anastomosis Perforated colonic diverticulitis with associated hemorrhage and marked acute serositis/peritonitis - per pathology report History of hemorrhoids Hypertension GERD CHF End-stage renal disease , on hemodialysis Gout Anemia of chronic kidney disease DISCHARGE MEDICATIONS: List of medication was sent with patient DISCHARGE INSTRUCTIONS: Patient was discharged home . Follow up with primary care provider in one week. I have been assigned to dictate discharge summary for this account. I was not involved in the patient's management. Andie Irvin NP Apr 01, 2019 13:21
--- NOTE | 2019-04-04 15:41 | NUR ---
*-* INSURANCE *-* DISCHARGE SUMMARY HAVE BEEN FAXED TO: [facility] LE[facility]ITT: ANABEL P- [phone] [id number] X [id number] F- [phone]...........REVIEW/CLINICAL
== END 2019-03-31 17:44 | disposition home or self-care (01) | DRG 231 ==
LOC: EDBD 10:14 → EMR 10:25 → EDBEDREQSVC 12:33 → EDBEDREQ 13:38 → 2W 14:09 → 2E 03-25 20:50
PROC: 0DJD8ZZ Inspection of Lower Intestinal Tract, Via Natural or Artificial Opening Endoscopic (ICD-10-PCS; 2019-03-23)
PROC: 5A1D70Z Performance of Urinary Filtration, Intermittent, Less than 6 Hours Per Day (ICD-10-PCS; 2019-03-23)
PROC: 0DBN0ZZ Excision of Sigmoid Colon, Open Approach (ICD-10-PCS; principal; 2019-03-24 13:00)
PROC: 0DTP0ZZ Resection of Rectum, Open Approach (ICD-10-PCS; principal; 2019-03-24 13:00)
DX: K57.21 Diverticulitis of large intestine with perforation and abscess with bleeding (principal); I13.2 Hypertensive heart and chronic kidney disease with heart failure and with stage 5 chronic kidney disease, or end stage renal disease; N18.6 End stage renal disease; I50.9 Heart failure, unspecified; D63.1 Anemia in chronic kidney disease; D62 Acute posthemorrhagic anemia; I95.9 Hypotension, unspecified; J44.9 Chronic obstructive pulmonary disease, unspecified; K21.9 Gastro-esophageal reflux disease without esophagitis; M10.9 Gout, unspecified
CPT/HCPCS: 36415; 80048; 80053; 82728; 83540; 83550; 83690; 83735; 84100; 84484; 85007; 85025; 85610; 85730; 86850; 86900; 86901; 86920; 86927; 87081; 93005; 94003; 94150; 94664; 96374; 99285; A4246; J2250; J2405; J2710

== ENCOUNTER 2019-04-02 13:15 | Inpatient (IN) | payer OTHER ==
[~2019-04-02] VITALS: Ht 170.2 cm; Wt 62.1 kg
[~2019-04-02 13:15] MED LIST changes: +UNOBMED
--- NOTE | 2019-04-02 13:40 | NUR ---
ED Nurse Note: PT WALKED IN TO ER TODAY FROM HOME. AOX4. PT C/O RECTAL BLEEDING. PT STATES HE WAS DISCHARGED YESTERDAY FROM THE HOSPITAL AND THAT RECTAL BLEEDING NEVER STOPPED. SELVIN BLOOD NOTED. PT DENIES DIZZINESS, NAUSEA, OR VOMITING. GAIT STEADY WITH ASSISTIVE DEVICE. OF NOTE, PT IS A DIALYSIS PT - THURSDAY, THURSDAY, THURSDAY. PT STATES LAST DIALYSIS WAS YESTERDAY BEFORE DISCHARGE FROM HOSPITAL. PT PRESENTS WITH SHUNT TO LEFT LEG.
--- NOTE | 2019-04-02 13:43 | Emergency Room Report ---
History of Present Illness General Chief Complaint: Dyspnea/Respdistress Source: Patient Present Illness HPI 58-year-old male history of diverticulosis, recent resection presents with acute GI bleeding greater than 5 episodes patient is unable to describe how much she says there is a gobs of blood leaking from his rectum, he feels lightheaded no chest pain or shortness of breath patient was just discharged, he denies no nausea vomiting, no abdominal pain. Patient with history of diverticulosis no aggravating or relieving factors, onset was just prior to arrival, severity is severe. Allergies: Coded Allergies: No Known Allergies (Unverified , 03/20/18) Patient History Past Medical History: see triage record Reviewed Nursing Documentation: PMH: Agreed; PSxH: Agreed Nursing Documentation-PMH Hx Cardiac Problems: Yes - heart failure Hx Hypertension: Yes - low Hgb Hx COPD: Yes Hx Cancer: No Hx Gastrointestinal Problems: Yes Hx Dialysis: Yes - 03/20/2019 Hx Neurological Problems: No Review of Systems All Other Systems: negative except mentioned in HPI Physical Exam Last 24 Hour Vital Signs Date Time Temp Pulse Resp B/P (MAP) Pulse Ox O2 Delivery O2 Flow Rate FiO2 04/02/19 14:06 92 12 Room Air 04/02/19 14:06 98.4 92 12 102/59 100 Nasal Cannula 04/02/19 13:32 98.6 7 12 101/36 (57) 97 Nasal Cannula 2.0 Sp02 EP Interpretation: reviewed, normal General Appearance: well appearing, no apparent distress, alert Head: normocephalic, atraumatic Eyes: bilateral eye PERRL, bilateral eye EOMI ENT: uvula midline, moist mucus membranes Neck: supple, thyroid normal, supple/symm/no masses Respiratory: lungs clear, no respiratory distress, no retraction, no accessory muscle use Cardiovascular #1: normal peripheral pulses, regular rate, rhythm, no edema, no gallop, no murmur Gastrointestinal: non tender, soft, no guarding, no rebound, other - wound c/d/ i, griselda in place Rectal: other - Rodriguez BLACK diaphragm builder, bright red blood per rectum Musculoskeletal: normal inspection Neurologic: alert, oriented x3 Psychiatric: mood/affect normal Skin: no rash, warm/dry Medical Decision Making ER Course 58-year-old male presents with lower GI bleed, patient was discharged, he had a hemoglobin drop of 7.7 from 8.7, patient is symptomatic, will transfuse blood, patient type and screen, patient is currently stable for admission to telemetry. Patient admitted to Dr. Bright at 3:30pm Laboratory Tests Test 04/02/19 13:52 White Blood Count 6.5 K/UL (4.8-10.8) Red Blood Count 2.51 M/UL (4.70-6.10) L Hemoglobin 7.7 G/DL (14.2-18.0) L Hematocrit 23.8 % (42.0-52.0) L Mean Corpuscular Volume 95 FL (80-99) Mean Corpuscular Hemoglobin 30.8 PG (27.0-31.0) Mean Corpuscular Hemoglobin Concent 32.5 G/DL (32.0-36.0) Red Cell Distribution Width 14.6 % (11.6-14.8) Platelet Count 470 K/UL (150-450) H Mean Platelet Volume 4.6 FL (6.5-10.1) L Neutrophils (%) (Auto) % (45.0-75.0) Lymphocytes (%) (Auto) % (20.0-45.0) Monocytes (%) (Auto) % (1.0-10.0) Eosinophils (%) (Auto) % (0.0-3.0) Basophils (%) (Auto) % (0.0-2.0) Differential Total Cells Counted 100 Neutrophils % (Manual) 72 % (45-75) Lymphocytes % (Manual) 17 % (20-45) L Monocytes % (Manual) 8 % (1-10) Eosinophils % (Manual) 2 % (0-3) Basophils % (Manual) 1 % (0-2) Band Neutrophils 0 % (0-8) Platelet Estimate Increased H Platelet Morphology Normal Anisocytosis 1+ Prothrombin Time 13.4 SEC (9.30-11.50) H Prothrombin Time INR 1.3 (0.9-1.1) H PTT 39 SEC (23-33) H Sodium Level 131 MMOL/L (136-145) L Potassium Level 4.9 MMOL/L (3.5-5.1) Chloride Level 94 MMOL/L (98-107) L Carbon Dioxide Level 24 MMOL/L (21-32) Anion Gap 13 mmol/L (5-15) Blood Urea Nitrogen 37 mg/dL (7-18) H Creatinine 12.4 MG/DL (0.55-1.30) H Estimate Glomerular Filtration Rate 5.1 mL/min (>60) Glucose Level 72 MG/DL (74-106) L Calcium Level 7.9 MG/DL (8.5-10.1) L EKG Diagnostic Results EKG Time: 13:40 EP Interpretation: NSR, rate 91, QTc 560, no acute ST elevations, normal axis Rate: normal Rhythm: NSR ST Segments: no acute changes Rhythm Strip Diag. Results Rhythm Strip Time: 13:44 EP Interpretation: yes Rate: 92 Rhythm: NSR, no PVC's, no ectopy Chest X-Ray Diagnostic Results Chest X-Ray Diagnostic Results : Chest X-Ray Ordered: Yes # of Views/Limited/Complete: 1 View Indication: Other - preop EP Interpretation: Yes Interpretation: no consolidation, no effusion, no pneumothorax, no acute cardiopulmonary disease Impression: No acute disease Electronically Signed by: Mj Miller MD Last Vital Signs Date Time Temp Pulse Resp B/P (MAP) Pulse Ox O2 Delivery O2 Flow Rate FiO2 04/02/19 13:32 98.6 7 12 101/36 (57) 97 Nasal Cannula 2.0 Disposition: ADMITTED INPATIENT Condition: Stable Referrals: [facility],REFERR[facility] (PCP) Mj Miller MD Apr 02, 2019 13:43
--- NOTE | 2019-04-02 13:55 | NUR ---
ED Nurse Note: XRAY AT BEDSIDE.
[2019-04-02 14:06] VITALS: BP 102/59
--- NOTE | 2019-04-02 14:10 | NUR ---
ED Nurse Note: PT REFUSED CRE/VRE SWAB. MRSA SWAB SENT TO LAB.
[2019-04-02 14:15] LABS: HEMATOCRIT 23.8 % (42.0-52.0); HEMOGLOBIN 7.7 G/DL (14.2-18.0); MEAN CORPUSCULAR VOLUME 95 FL (80-99); PLATELET COUNT 470 K/UL (150-450); RED BLOOD COUNT 2.51 M/UL (4.70-6.10); RED CELL DISTRIBUTION WIDTH 14.6 % (11.6-14.8); WHITE BLOOD COUNT 6.5 K/UL (4.8-10.8)
[2019-04-02 14:21] LABS: INR 1.3 (0.9-1.1)
[2019-04-02 14:27] LABS: ANION GAP 13 mmol/L (5-15); BLOOD UREA NITROGEN 37 mg/dL (7-18); CALCIUM 7.9 MG/DL (8.5-10.1); CARBON DIOXIDE 24 MMOL/L (21-32); CHLORIDE 94 MMOL/L (98-107); CREATININE 12.4 MG/DL (0.55-1.30); POTASSIUM 4.9 MMOL/L (3.5-5.1); SODIUM 131 MMOL/L (136-145)
[2019-04-02] MEDS ORDERED: Milk of Magnesia 30ml Ud ORAL PRN (15:30)
[2019-04-02] MEDS ORDERED: Mylanta II UD 30ml ORAL PRN (15:30)
[2019-04-02] MEDS ORDERED: Metoclopramide 10mg/2ml Inj IVP PRN (15:30)
[2019-04-02] MEDS ORDERED: Miralax 17gm pkt ORAL PRN (15:30)
[2019-04-02] MEDS ORDERED: LORazepam Inj 2mg/ml 1ml IV PRN (15:30)
--- NOTE | 2019-04-02 15:30 | Diagnostic Imaging Report ---
EXAM: XR Chest, 1 View CLINICAL HISTORY: PREOP TECHNIQUE: Frontal view of the chest. COMPARISON: Prior chest x-ray report 03/20/18, images not available FINDINGS: Lungs: See below. Pleural space: Small right pleural effusion. No pneumothorax. Heart: Cardiomegaly. Mediastinum: Unremarkable. Bones/joints: Unremarkable. Vasculature: Vascular and interstitial prominence, predominantly right perihilar region. IMPRESSION: Cardiomegaly. Vascular and interstitial prominence, predominantly right perihilar region. Tiny right pleural effusion. May be mild CHF.
[2019-04-02] MEDS ORDERED: HydrALAZINE 25mg tab ORAL PRN (15:45)
--- NOTE | 2019-04-02 15:58 | NUR ---
HAND-OFF: REPORT GIVEN TO WAYNE IRBY.
[2019-04-02 16:06] VITALS: BP 110/51
--- NOTE | 2019-04-02 16:35 | NUR ---
ED Nurse Note: Blood transfusion started at 16:35; V/S: Temp 97.7, HR 91; B/P 109/58, RR 13.
--- NOTE | 2019-04-02 16:50 | NUR ---
ED Nurse Note: 15 min after blood transfusion start; V/S; Temp 97.6; HR 81; B/P 108/51; SPo2 100%; RR 16
--- NOTE | 2019-04-02 17:30 | NUR ---
ER DISCHARGE NOTE: Pt was transferred to SDU in a gurney connected to the satellite project site monitor. Pt is A&O x4, V/S stable with no s/s of acute distress noted at this time. Pt all belongings sent up with the pt.
--- NOTE | 2019-04-02 17:45 | NUR ---
NURSE NOTES: received patient report from marva BLACK from ER. patient came in via gurney. gambling monitor initiated. VS taken and recorded. patient is stable. not in acute distress.patient is noted to AOX4. able to verbalize needs. on 2 LI NC.on going 1 PRBC transfusion. no signs of allergy so far. belongings checked and signed by the transferring nurse and me. all accounted for. under the care of dr huber/ franklyn.reported bowel movement twice in ER, bloody & red. patient had another bowel movement on the floor, bright red, 1 big clot. will continue to monitor.
[2019-04-02 18:21] VITALS: BP 110/66
--- NOTE | 2019-04-02 18:45 | NUR ---
NURSE NOTES: spoke with praveena of [facility], reported that this patient is for dialysis on 04/04/19 under the care of dr mcclendon.
--- NOTE | 2019-04-02 19:25 | NUR ---
HAND-OFF: Report given to conrad herrera.
--- NOTE | 2019-04-02 19:26 | NUR ---
NURSE NOTES: Endorsement received from WAYNE Serrato. Patient alert, oriented x 4. On 2 LPM oxygen per nasal cannula. IV heplock g20 at left arm. With left leg shunt. Call light within reach. Reminded patient to use call light, verbalized understanding. Bed locked and in low position.
[2019-04-02 20:00] VITALS: BP 93/60
[2019-04-02 20:37] LABS: HEMATOCRIT 22.7 % (42.0-52.0); HEMOGLOBIN 7.6 G/DL (14.2-18.0); MEAN CORPUSCULAR VOLUME 88 FL (80-99); PLATELET COUNT 364 K/UL (150-450); RED BLOOD COUNT 2.57 M/UL (4.70-6.10); RED CELL DISTRIBUTION WIDTH 14.2 % (11.6-14.8); WHITE BLOOD COUNT 5.2 K/UL (4.8-10.8)
[2019-04-02 20:42] LABS: BASOPHILS % (AUTO) 1.4 % (0.0-2.0); EOSINOPHILS % (AUTO) 1.4 % (0.0-3.0); LYMPHOCYTES % (AUTO) 15.9 % (20.0-45.0); MONOCYTES % (AUTO) 7.5 % (1.0-10.0); NEUTROPHILS % (AUTO) 73.8 % (45.0-75.0)
[2019-04-02] MEDS: Tamsulosin 0.4mg cap ORAL SCH (20:43)
[2019-04-02] MEDS: Pantoprazole Inj IVP SCH (20:43)
--- NOTE | 2019-04-02 20:53 | NUR ---
NURSE NOTES: Called Dr. Almendarez's emergency exchange, left a message regarding H & H result, and patient still passing fresh blood.
--- NOTE | 2019-04-02 21:00 | NUR ---
NURSE NOTES: Received return call from Dr. Bright, updated her of patient;s current H&H, fresh blood stool. With new orders for transfusion of 2 PRBC to transfuse 3 hours each, CBC in am.
[2019-04-02 23:10] VITALS: BP 88/54
--- NOTE | 2019-04-02 23:10 | NUR ---
NURSE NOTES: first unit of blood verified with another RN at bedside. ID band checked. First unit staredt
--- NOTE | 2019-04-02 23:25 | NUR ---
NURSE NOTES: No transfusion reaction, increased the rate to consume in 3 hours as ordered.
--- NOTE | 2019-04-02 23:30 | NUR ---
NURSE NOTES: BP 85mmHg. Rechecked, 88mmHg. Called Dr. Bright, received new order of 1 L NS bolus.
[2019-04-03] VITALS (7 sets, daily range): BP systolic 99–138; BP diastolic 56–68
--- NOTE | 2019-04-03 00:40 | NUR ---
NURSE NOTES: 1 L bolus not given at this time due to BP at 106mmHg.
--- NOTE | 2019-04-03 02:10 | NUR ---
NURSE NOTES: First unit of blood consumed. No transfusion reaction noted. 2nd unit of blood rechecked with another RN at bedside, verified with the ID band.
--- NOTE | 2019-04-03 02:25 | NUR ---
NURSE NOTES: No transfusion reaction, increased the rate to consume in 3 hours as ordered.
--- NOTE | 2019-04-03 04:55 | NUR ---
NURSE NOTES: 2nd unit of blood consumed. No transfusion reaction noted.
--- NOTE | 2019-04-03 05:31 | NUR ---
NURSE NOTES: Coal Mine Inspector at bedside, patient refused to be drawn blood at this time.
[2019-04-03] MEDS ORDERED: Heparin Sod 1000 units/ml 10ml IV PRN (06:00)
--- NOTE | 2019-04-03 07:20 | NUR ---
NURSE NOTES: Received bedside report from Amaya BLACK.
--- NOTE | 2019-04-03 07:21 | NUR ---
NURSE NOTES: Transferred to room 211 with belongings. Patient has his cellphone with him. $25 counted with the patient and preferred to be kept in his pocket, wallet in the belongings bag. Endorsed to WAYNE Dueñas. Also informed of pending lab draw.
--- NOTE | 2019-04-03 07:55 | NUR ---
NURSE NOTES: Transferred pt. back to SDU in room 236-1 from room 211-1 due to incompatibility with his room mate. Gave report to Kinza Lawson RN.
--- NOTE | 2019-04-03 08:05 | NUR ---
NURSE NOTES: Received pt,a transfer from Telemetry per bed awake,alert in no resp distress,denies any c/o abd pain or discomfort,SR on the monitor, IV site to SURYA heplock intact, Hemodialysis pt,with FRANK leg AV shunt ,kept NPO,SR up x2 HOB elevated,call carney within reach at bedside,bed lock in lowest position,will continue to monitor pt.
[2019-04-03 08:17] LABS: BASOPHILS % (AUTO) 1.2 % (0.0-2.0); EOSINOPHILS % (AUTO) 1.8 % (0.0-3.0); HEMOGLOBIN 9.1 G/DL (14.2-18.0); LYMPHOCYTES % (AUTO) 14.3 % (20.0-45.0); MEAN CORPUSCULAR VOLUME 90 FL (80-99); MONOCYTES % (AUTO) 9.1 % (1.0-10.0); NEUTROPHILS % (AUTO) 73.6 % (45.0-75.0); PLATELET COUNT 300 K/UL (150-450); RED BLOOD COUNT 3.01 M/UL (4.70-6.10); RED CELL DISTRIBUTION WIDTH 14.3 % (11.6-14.8)
[2019-04-03 08:38] LABS: ANION GAP 11 mmol/L (5-15); BLOOD UREA NITROGEN 39 mg/dL (7-18); CALCIUM 7.1 MG/DL (8.5-10.1); CARBON DIOXIDE 24 MMOL/L (21-32); CHLORIDE 97 MMOL/L (98-107); CREATININE 12.8 MG/DL (0.55-1.30); POTASSIUM 5.4 MMOL/L (3.5-5.1); SODIUM 132 MMOL/L (136-145)
[2019-04-03] MEDS: Allopurinol 100mg Tab ORAL SCH (09:59)
[2019-04-03] MEDS: Pantoprazole Inj IVP SCH ×2 (09:59→20:45)
--- NOTE | 2019-04-03 10:00 | History and Physical ---
History of Present Illness General Date patient seen: Apr 03, 2019 Time patient seen: 11:30 Reason for Hospitalization: Dyspnea/Respdistress Present Illness HPI 58-year-old male history of diverticulosis, recent resection presents with acute GI bleeding greater than 5 episodes patient is unable to describe how much she says there is a gobs of blood leaking from his rectum, he feels lightheaded no chest pain or shortness of breath patient was just discharged, he denies no nausea vomiting, no abdominal pain. Patient with history of diverticulosis no aggravating or relieving factors, onset was just prior to arrival, severity is severe. This AM patient complains of having lost a lot of blood from rectum. Describes it as bright red. Denies dizziness, chest pain, sob, n/v/abd pain. Allergies: Coded Allergies: No Known Allergies (Unverified , 03/20/18) Medication History Scheduled Allopurinol* (Allopurinol*), Unknown Dose ORAL DAILY, (Reported) Amlodipine Besylate (Norvasc), Unknown Dose ORAL DAILY, (Reported) Clonidine Hcl* (Catapres*), 0.1 MG ORAL EVERY 6 HOURS, (Reported) Folic Acid* (Folic Acid*), 1 MG ORAL DAILY, (Reported) Lisinopril* (Lisinopril*), 2.5 MG ORAL DAILY, (Reported) Omeprazole (Omeprazole), Unknown Dose ORAL DAILY, (Reported) Tamsulosin Hcl (Tamsulosin Hcl*), Unknown Dose ORAL BEDTIME, (Reported) Miscellaneous Medications Unable to Obtain Medications (Unable To Obtain Meds), (Reported) Patient History History Provided By: Patient, EMS Healthcare decision maker Resuscitation status Full Code Advanced Directive on File Past Medical/Surgical History Past Medical/Surgical History: (1) History of colectomy (2) Status post colectomy (3) HTN (hypertension) (4) GI bleed (5) End-stage renal disease (6) Anemia in chronic kidney disease (7) CHF (congestive heart failure) Review of Systems All Other Systems: negative except mentioned in HPI Physical Exam General Appearance: WD/WN, no apparent distress, alert Lines, tubes and drains: peripheral HEENT: normocephalic, atraumatic, PERRL Neck: non-tender, normal alignment, supple, normal inspection Respiratory/Chest: lungs clear, normal breath sounds, no respiratory distress Cardiovascular/Chest: normal peripheral pulses, normal rate, regular rhythm, no JVD Abdomen: normal bowel sounds, non tender, soft, no mass Extremities: normal range of motion, non-tender, normal inspection 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, oriented x 3, responsive Last 24 Hour Vital Signs Date Time Temp Pulse Resp B/P (MAP) Pulse Ox O2 Delivery O2 Flow Rate FiO2 04/03/19 08:00 71 04/03/19 04:00 97.7 69 23 116/61 (79) 100 04/03/19 03:42 66 04/03/19 02:00 97.1 74 21 99/64 (76) 97 04/03/19 00:00 97.5 90 21 106/56 (73) 97 04/02/19 23:49 85 04/02/19 23:10 97.5 88 20 88/54 (65) 97 04/02/19 20:33 91 04/02/19 20:00 97.5 96 20 93/60 (71) 97 04/02/19 19:54 Nasal Cannula 2.0 04/02/19 18:21 96.4 82 20 110/66 (81) 96 04/02/19 17:36 Nasal Cannula 2.0 04/02/19 17:30 97.6 81 16 110/51 100 Nasal Cannula 2.0 04/02/19 16:35 97.7 91 13 04/02/19 16:06 98.2 81 16 110/51 100 Nasal Cannula 2.0 04/02/19 14:06 92 12 Room Air 04/02/19 14:06 98.4 92 12 102/59 100 Nasal Cannula 04/02/19 13:32 98.6 7 12 101/36 (57) 97 Nasal Cannula 2.0 Intake and Output 04/02/19 04/03/19 19:00 07:00 Intake Total 250 ml 750 ml Balance 250 ml 750 ml Blood Product 250 ml 750 ml # Voids 2 # Bowel Movements 3 9 Laboratory Tests Test 04/02/19 13:52 04/02/19 20:25 04/03/19 07:45 White Blood Count 6.5 K/UL (4.8-10.8) 5.2 K/UL (4.8-10.8) 5.0 K/UL (4.8-10.8) Red Blood Count 2.51 M/UL (4.70-6.10) L 2.57 M/UL (4.70-6.10) L 3.01 M/UL (4.70-6.10) L Hemoglobin 7.7 G/DL (14.2-18.0) L 7.6 G/DL (14.2-18.0) L 9.1 G/DL (14.2-18.0) L Hematocrit 23.8 % (42.0-52.0) L 22.7 % (42.0-52.0) L 27.0 % (42.0-52.0) L Mean Corpuscular Volume 95 FL (80-99) 88 FL (80-99) 90 FL (80-99) Mean Corpuscular Hemoglobin 30.8 PG (27.0-31.0) 29.4 PG (27.0-31.0) 30.1 PG (27.0-31.0) Mean Corpuscular Hemoglobin Concent 32.5 G/DL (32.0-36.0) 33.3 G/DL (32.0-36.0) 33.5 G/DL (32.0-36.0) Red Cell Distribution Width 14.6 % (11.6-14.8) 14.2 % (11.6-14.8) 14.3 % (11.6-14.8) Platelet Count 470 K/UL (150-450) H 364 K/UL (150-450) 300 K/UL (150-450) Mean Platelet Volume 4.6 FL (6.5-10.1) L 4.3 FL (6.5-10.1) L 4.8 FL (6.5-10.1) L Neutrophils (%) (Auto) % (45.0-75.0) 73.8 % (45.0-75.0) 73.6 % (45.0-75.0) Lymphocytes (%) (Auto) % (20.0-45.0) 15.9 % (20.0-45.0) L 14.3 % (20.0-45.0) L Monocytes (%) (Auto) % (1.0-10.0) 7.5 % (1.0-10.0) 9.1 % (1.0-10.0) Eosinophils (%) (Auto) % (0.0-3.0) 1.4 % (0.0-3.0) 1.8 % (0.0-3.0) Basophils (%) (Auto) % (0.0-2.0) 1.4 % (0.0-2.0) 1.2 % (0.0-2.0) Differential Total Cells Counted 100 Neutrophils % (Manual) 72 % (45-75) Lymphocytes % (Manual) 17 % (20-45) L Monocytes % (Manual) 8 % (1-10) Eosinophils % (Manual) 2 % (0-3) Basophils % (Manual) 1 % (0-2) Band Neutrophils 0 % (0-8) Platelet Estimate Increased H Platelet Morphology Normal Anisocytosis 1+ Prothrombin Time 13.4 SEC (9.30-11.50) H Prothromb Time International Ratio 1.3 (0.9-1.1) H Activated Partial Thromboplast Time 39 SEC (23-33) H Sodium Level 131 MMOL/L (136-145) L 132 MMOL/L (136-145) L Potassium Level 4.9 MMOL/L (3.5-5.1) 5.4 MMOL/L (3.5-5.1) H Chloride Level 94 MMOL/L (98-107) L 97 MMOL/L (98-107) L Carbon Dioxide Level 24 MMOL/L (21-32) 24 MMOL/L (21-32) Anion Gap 13 mmol/L (5-15) 11 mmol/L (5-15) Blood Urea Nitrogen 37 mg/dL (7-18) H 39 mg/dL (7-18) H Creatinine 12.4 MG/DL (0.55-1.30) H 12.8 MG/DL (0.55-1.30) H Estimat Glomerular Filtration Rate 5.1 mL/min (>60) 4.8 mL/min (>60) Glucose Level 72 MG/DL (74-106) L 83 MG/DL (74-106) Calcium Level 7.9 MG/DL (8.5-10.1) L 7.1 MG/DL (8.5-10.1) L Height (Feet): 5 Height (Inches): 7.00 Weight (Pounds): 130 Medications Current Medications Medications (Trade) Dose Ordered Sig/Letty Route PRN Reason Start Time Stop Time Status Last Admin Dose Admin Acetaminophen (Tylenol) 650 mg Q4H PRN ORAL Mild Pain (Pain Scale 1-3) 04/02/19 15:30 05/02/19 15:29 Acetaminophen (Tylenol) 650 mg Q4H PRN ORAL fever 04/02/19 15:30 05/02/19 15:29 Al Hydroxide/Mg Hydroxide (Mylanta II) 30 ml Q6H PRN ORAL dyspepsia 04/02/19 15:30 05/02/19 15:29 Allopurinol (Zyloprim) 100 mg DAILY ORAL 04/03/19 09:00 05/03/19 08:59 04/03/19 09:59 Bisacodyl (Dulcolax) 10 mg DAILYPRN PRN RECTAL Constipation 04/02/19 15:30 05/02/19 15:29 Dextrose (Dextrose 50%) 25 ml Q30M PRN IV Hypoglycemia 04/02/19 15:30 05/02/19 15:29 Dextrose (Dextrose 50%) 50 ml Q30M PRN IV Hypoglycemia 04/02/19 15:30 05/02/19 15:29 Diphenhydramine HCl (Benadryl) 25 mg Q6H PRN ORAL Itching/Pruritis 04/02/19 15:30 05/02/19 15:29 Epoetin Kimo (Epoetin Kimo(ESRD on dialysis)) 10,000 unit THU-THU-THU SUBQ 04/04/19 21:00 05/04/19 20:59 Folic Acid (Folate) 1 mg DAILY ORAL 04/03/19 09:00 05/03/19 08:59 04/03/19 09:59 Heparin Sodium (Porcine) (Heparin Sod 1000 units/ml 10ml) 2,000 unit ONCE PRN IV HD 04/03/19 06:00 04/03/19 23:59 Hydralazine HCl (Apresoline) 25 mg TIDPRN PRN ORAL SBP >170, hold for HR >90 04/02/19 15:45 05/02/19 15:44 Hydromorphone HCl (Dilaudid) 0.5 mg Q6H PRN IVP severe pain 04/02/19 15:30 04/09/19 15:29 Lorazepam (Ativan 2mg/ml 1ml) 0.5 mg Q4H PRN IV For Anxiety 04/02/19 15:30 04/09/19 15:29 Magnesium Hydroxide (Mom) 30 ml HSPRN PRN ORAL Constipation 04/02/19 15:30 05/02/19 15:29 Metoclopramide HCl (Reglan) 10 mg Q6H PRN IVP Nausea & Vomiting 04/02/19 15:30 05/02/19 15:29 Ondansetron HCl (Zofran) 4 mg Q6H PRN IVP Nausea & Vomiting 04/02/19 15:30 05/02/19 15:29 Pantoprazole (Protonix) 40 mg Q12HR IVP 04/02/19 21:00 05/02/19 20:59 04/03/19 09:59 Polyethylene Glycol (Miralax) 17 gm DAILYPRN PRN ORAL Constipation 04/02/19 15:30 05/02/19 15:29 Prochlorperazine (Compazine) 10 mg Q6H PRN IVP Nausea & Vomiting 04/02/19 15:30 05/02/19 15:29 Sodium Chloride 1,000 ml @ 500 mls/hr Q2H PRN IVLG sbp<90 during hd 04/03/19 06:00 04/03/19 23:59 Tamsulosin HCl (Flomax) 0.4 mg BEDTIME ORAL 04/02/19 21:00 05/02/19 20:59 04/02/19 20:43 Temazepam (Restoril) 15 mg DAILYPRN PRN ORAL Insomnia 04/02/19 15:30 04/09/19 15:29 Assessment/Plan Diagnosis [place] I: 58-year-old male history of diverticulosis, recent resection presents with acute GI bleeding # GIB - recent colectomy for perforated diverticulitis - Gsx consult - GI Consult - monitor cbc and vitals - transfuse prn hgb <7 or active bleeding # Iron Deficiency Anemia - iron replacement # ESRD - HD by Nephrology # Hypomagnesemia - HD # Hypokalemia - HD # Hypophosphatemia - HD # H/O exlap from perforated diverticulosis - as above # Hypotension - PRBC and gentle IVF in setting of ESRD # Full Code # Dispo- home less? Meg Bright DO Apr 03, 2019 10:00
[2019-04-03 10:40] LABS: PHOSPHORUS 6.7 MG/DL (2.5-4.9)
--- NOTE | 2019-04-03 11:00 | NUR ---
NURSE NOTES: Dr Bright at bedside,discussed with pt re plans of care.ordered renal diet but pt will be NPO post MN.
--- NOTE | 2019-04-03 14:06 | Nephrology Progress Note ---
Assessment/Plan Assessment HTN CHF GI bleed (lower) ESRD- T, Sa (will have HD on 04/04) Post surgical colectomy w/ steri strips in place (unsaturated): No sign of infectious process at sight of incision Plan CBC CMP HD on 04/04/19 Subjective ROS Limited/Unobtainable: No Constitutional: Reports: no symptoms HEENT: Reports: no symptoms Genitourinary: Reports: no symptoms Neurologic/Psychiatric: Reports: no symptoms Subjective The patient reports abdominal pain at the surgical incision. He denies having any recent BM's or episodes of diarrhea since his arrival in the ED. However, he states there was "a lot of clotted blood." He denies SOB, light headedness, N /V or change in appetite. Reports he is a T, , dialysis and is aware his dialysis will be tomorrow. Objective Objective Last 24 Hour Vital Signs Date Time Temp Pulse Resp B/P (MAP) Pulse Ox O2 Delivery O2 Flow Rate FiO2 04/03/19 12:00 84 04/03/19 09:00 Nasal Cannula 2.0 04/03/19 08:00 71 04/03/19 08:00 96.6 73 20 120/65 (83) 100 04/03/19 04:00 97.7 69 23 116/61 (79) 100 04/03/19 03:42 66 04/03/19 02:00 97.1 74 21 99/64 (76) 97 04/03/19 00:00 97.5 90 21 106/56 (73) 97 04/02/19 23:49 85 04/02/19 23:10 97.5 88 20 88/54 (65) 97 04/02/19 20:33 91 04/02/19 20:00 97.5 96 20 93/60 (71) 97 04/02/19 19:54 Nasal Cannula 2.0 04/02/19 18:21 96.4 82 20 110/66 (81) 96 04/02/19 17:36 Nasal Cannula 2.0 04/02/19 17:30 97.6 81 16 110/51 100 Nasal Cannula 2.0 04/02/19 16:35 97.7 91 13 04/02/19 16:06 98.2 81 16 110/51 100 Nasal Cannula 2.0 8/10/19 14:06 92 12 Room Air 04/02/19 14:06 98.4 92 12 102/59 100 Nasal Cannula Intake and Output 04/02/19 04/03/19 18:59 06:59 Intake Total 250 ml 750 ml Balance 250 ml 750 ml Blood Product 250 ml 750 ml # Voids 2 # Bowel Movements 3 9 Laboratory Tests 04/02/19 20:25: White Blood Count 5.2, Red Blood Count 2.57L, Hemoglobin 7.6L, Hematocrit 22.7L , Mean Corpuscular Volume 88, Mean Corpuscular Hemoglobin 29.4, Mean Corpuscular Hemoglobin Concent 33.3, Red Cell Distribution Width 14.2, Platelet Count 364, Mean Platelet Volume 4.3L, Neutrophils (%) (Auto) 73.8, Lymphocytes ( %) (Auto) 15.9L, Monocytes (%) (Auto) 7.5, Eosinophils (%) (Auto) 1.4, Basophils (%) (Auto) 1.4 04/03/19 07:45: White Blood Count 5.0, Red Blood Count 3.01L, Hemoglobin 9.1L, Hematocrit 27.0L , Mean Corpuscular Volume 90, Mean Corpuscular Hemoglobin 30.1, Mean Corpuscular Hemoglobin Concent 33.5, Red Cell Distribution Width 14.3, Platelet Count 300, Mean Platelet Volume 4.8L, Neutrophils (%) (Auto) 73.6, Lymphocytes ( %) (Auto) 14.3L, Monocytes (%) (Auto) 9.1, Eosinophils (%) (Auto) 1.8, Basophils (%) (Auto) 1.2, Sodium Level 132L, Potassium Level 5.4H, Chloride Level 97L, Carbon Dioxide Level 24, Anion Gap 11, Blood Urea Nitrogen 39H, Creatinine 12.8H, Estimat Glomerular Filtration Rate 4.8, Glucose Level 83, Calcium Level 7.1L, Phosphorus Level 6.7H, Magnesium Level 1.9 Height (Feet): 5 Height (Inches): 7.00 Weight (Pounds): 130 General Appearance: no apparent distress, alert EENT: PERRL/EOMI Neck: non-tender, supple Cardiovascular: normal peripheral pulses, normal rate, regular rhythm Respiratory/Chest: chest wall non-tender, lungs clear, normal breath sounds, no respiratory distress Abdomen: normal bowel sounds, tender Extremities: normal range of motion, non-tender, non-pitting 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 Apr 03, 2019 14:06
--- NOTE | 2019-04-03 15:18 | NUR ---
PT note PT dudley completed, treatment initiated. Patient has muscle weakness and decreased postural stability, requiring assist in mobility and gait.Patient needs PT to increase his muscle strength and balance to improve his safety in mobility and gait. Addendum: 04/03/19 at 1520 by BRIAN DELGADO PT Amended: Links added.
--- NOTE | 2019-04-03 16:00 | NUR ---
NURSE NOTES: With ongoing Hemodialysis,HD RN at bedside.,no distress presented stable.
[2019-04-03] MEDS ORDERED: Lidocaine 1% 10mg/ml/Epi 0.005mg/ml 30ml vial INJ SCH (17:00)
--- NOTE | 2019-04-03 18:50 | NUR ---
NURSE NOTES: Hemodialysis done removed 2 L of fluid.pt resting in bed no distress presented,stable.
--- NOTE | 2019-04-03 19:14 | NUR ---
HAND-OFF: Report given to Vee Paulino RN.
--- NOTE | 2019-04-03 19:15 | NUR ---
NURSE NOTES: Received patient from Kinza Hui RN. Will continue plan of care.
--- NOTE | 2019-04-03 19:45 | NUR ---
NURSE NOTES: Spoke with Merry at [facility] for HD appt ordered for tomorrow 04/04/[address] Gee
--- NOTE | 2019-04-03 19:50 | NUR ---
NURSE NOTES: Recvd.quiet in Bed AAO denies any abd'l pain nor recent active bleeding.Resp.unlabored.P.Ox-99% on RA.Instructed NPO after MN as per MD order.HD patient AVF (L) leg pos.Thrill and Bruit.S/P Hemodialyzed today.Letty.for another HD in am.Made aware.See V/S.Scope SR.Denies CP
--- NOTE | 2019-04-03 20:03 | General Progress Note ---
Progress Note Progress Note 58M well know to me from recent admission and surgery. He presented prior with acute lower GI bleed. In toilet noted to have lots of blood clots. I personally saw a toilet full of blood and clots during last admission. At that time he was taken for EUA and no rectal etiology noted. History from outside hospital notes he has had this for some time now and prior had multiple colonoscopy and bleeding scans all which do not demonstrate etiology. He has prior hemorrhoidal banding as well. During EUA hemorrhoids looked okay and no rectal bleeding. did not some distal colonic proximal rectal abnormality with large blood clot. Seemed like AVM or large diverticulum. taken to OR for exploration and colectomy. Had LAR and recovered well. His H/H stabilized and he was tolerating diet, having nml bm, and discharged safely. presents again with similar compliant. states morning after discharge he began to have blood with BM and states has had 17BM in one day with only blood. he was noted to have normal bm without any blood the night before. on this admission his h/h is 7 as compared to 7-8 prior admission before stable discharged. he was given 3 units prbc and now hb 9. had gross blood on GABRIEL but no active bleeding since. unfortunately given recent surgery do not recommend colonoscopy at this time. plan for upper endoscopy by GI soon. monitor h/h. trend labs. thank you Devonte Hinds Apr 03, 2019 20:03
[2019-04-03] MEDS: Tamsulosin 0.4mg cap ORAL SCH (20:46)
--- NOTE | 2019-04-03 22:30 | NUR ---
NURSE NOTES: HS Care prov.Due meds admin.Had one time episodes of SVT asymptomatic.Stated ever since he's had that abd'l surgery it happens too and goes away.Denies any discomfort.No visible active bleeding noted.Closely monitored.
[2019-04-04] VITALS: BP 109/58
--- NOTE | 2019-04-04 00:10 | NUR ---
NURSE NOTES: V/S taken.Fully instructed R/T NPO after MN.as order.Cont.Plan of care.
[2019-04-04 04:00] VITALS: BP 122/59
--- NOTE | 2019-04-04 04:00 | NUR ---
NURSE NOTES: Blood drawn for cbc/bmp spec.to lab.No active bleeding noted.Maintain NPO as ordered. to see Patient this am.
[2019-04-04 04:43] LABS: BASOPHILS % (AUTO) 1.4 % (0.0-2.0); EOSINOPHILS % (AUTO) 1.4 % (0.0-3.0); HEMATOCRIT 24.6 % (42.0-52.0); HEMOGLOBIN 8.4 G/DL (14.2-18.0); LYMPHOCYTES % (AUTO) 12.4 % (20.0-45.0); MEAN CORPUSCULAR VOLUME 88 FL (80-99); MONOCYTES % (AUTO) 10.2 % (1.0-10.0); NEUTROPHILS % (AUTO) 74.6 % (45.0-75.0); PLATELET COUNT 321 K/UL (150-450); RED BLOOD COUNT 2.79 M/UL (4.70-6.10); RED CELL DISTRIBUTION WIDTH 14.4 % (11.6-14.8); WHITE BLOOD COUNT 5.2 K/UL (4.8-10.8)
[2019-04-04 05:01] LABS: ANION GAP 8 mmol/L (5-15); BLOOD UREA NITROGEN 26 mg/dL (7-18); CALCIUM 7.8 MG/DL (8.5-10.1); CARBON DIOXIDE 28 MMOL/L (21-32); CHLORIDE 100 MMOL/L (98-107); CREATININE 9.4 MG/DL (0.55-1.30); PHOSPHORUS 5.1 MG/DL (2.5-4.9); POTASSIUM 4.2 MMOL/L (3.5-5.1); SODIUM 136 MMOL/L (136-145)
--- NOTE | 2019-04-04 07:10 | NUR ---
NURSE NOTES: Received pt from WAYNE Stallworth. Patient is asleep. A/Ox4, able to make needs known. Breathing even and unlabored, on RA. Bilateral breath sounds are diminished. Patient had HD yesterday, 2L output. Patient is to have HD again today but adamantly refused. Risks and benefits explained x3 but still refused. Will notify Dr. Bradley. Left leg AV shunt positive for bruit and thrill. IV on LAC 20G patent and asymptomatic; TKO. NPO since midnight as per ordered for possible procedure by Dr. Hinds. Patient is anuric. Bed locked, alarmed and in lowest position.
--- NOTE | 2019-04-04 07:16 | NUR ---
HAND-OFF: Report given to WAYNE ALAMO.
[2019-04-04 08:00] VITALS: BP 116/62
[2019-04-04] MEDS: Pantoprazole Inj IVP SCH ×2 (08:39→21:48)
[2019-04-04] MEDS: Allopurinol 100mg Tab ORAL SCH (08:39)
--- NOTE | 2019-04-04 11:22 | NUR ---
NURSE NOTES: Dr. Hinds at bedside making rounds. Dr. Lucas will come assess patient for possible EGD, no orders yet. OK to resume diet.
--- NOTE | 2019-04-04 11:26 | NUR ---
*-* NO INSURANCE INFORMATION IN THE BAR UNABLE TO SEND CLINICALS OR REVIEWS *-*
--- NOTE | 2019-04-04 11:45 | Surgery Progress Note ---
Surgery Progress Note Subjective Additional Comments no acute events. exam stable had nml dark brown BM since yesterday as per patient no blood seen recently h/h noted Objective Last 24 Hour Vital Signs Date Time Temp Pulse Resp B/P (MAP) Pulse Ox O2 Delivery O2 Flow Rate FiO2 04/04/19 09:00 Nasal Cannula 2.0 04/04/19 08:00 73 04/04/19 08:00 97.8 83 20 116/62 (80) 100 04/04/19 04:00 97.0 85 22 122/59 (80) 99 04/04/19 04:00 85 04/04/19 00:00 79 04/04/19 00:00 97.2 79 21 109/58 (75) 98 04/03/19 21:00 Nasal Cannula 2.0 04/03/19 20:00 97.7 80 20 114/61 (78) 97 04/03/19 20:00 83 04/03/19 19:48 90 04/03/19 16:00 71 04/03/19 16:00 96.0 71 20 138/68 (91) 99 04/03/19 12:00 96.3 74 20 124/60 (81) 99 04/03/19 12:00 84 I&O Intake and Output 04/03/19 04/04/19 19:00 07:00 Intake Total 2840 ml 220 ml Balance 2840 ml 220 ml Intake Oral 840 ml 220 ml Hemodialysis 2000 ml Cardiovascular: RSR Respiratory: clear Abdomen: soft, flat, non-tender, present bowel sounds Extremities: no cyanosis Laboratory Tests Test 04/04/19 03:40 White Blood Count 5.2 K/UL (4.8-10.8) Red Blood Count 2.79 M/UL (4.70-6.10) L Hemoglobin 8.4 G/DL (14.2-18.0) L Hematocrit 24.6 % (42.0-52.0) L Mean Corpuscular Volume 88 FL (80-99) Mean Corpuscular Hemoglobin 30.2 PG (27.0-31.0) Mean Corpuscular Hemoglobin Concent 34.1 G/DL (32.0-36.0) Red Cell Distribution Width 14.4 % (11.6-14.8) Platelet Count 321 K/UL (150-450) Mean Platelet Volume 4.8 FL (6.5-10.1) L Neutrophils (%) (Auto) 74.6 % (45.0-75.0) Lymphocytes (%) (Auto) 12.4 % (20.0-45.0) L Monocytes (%) (Auto) 10.2 % (1.0-10.0) H Eosinophils (%) (Auto) 1.4 % (0.0-3.0) Basophils (%) (Auto) 1.4 % (0.0-2.0) Sodium Level 136 MMOL/L (136-145) Potassium Level 4.2 MMOL/L (3.5-5.1) Chloride Level 100 MMOL/L (98-107) Carbon Dioxide Level 28 MMOL/L (21-32) Anion Gap 8 mmol/L (5-15) Blood Urea Nitrogen 26 mg/dL (7-18) H Creatinine 9.4 MG/DL (0.55-1.30) H Estimat Glomerular Filtration Rate 7.0 mL/min (>60) Glucose Level 112 MG/DL (74-106) H Calcium Level 7.8 MG/DL (8.5-10.1) L Phosphorus Level 5.1 MG/DL (2.5-4.9) H Magnesium Level 1.9 MG/DL (1.8-2.4) Plan Problems: (1) GI bleed Assessment & Plan: start diet GI eval for endoscopy? cannot do colon at this time given recent surgery trend h/h no heparin with dialysis HD when ready thank you Devonte Hinds Apr 04, 2019 11:44
[2019-04-04 12:00] VITALS: BP 126/58
--- NOTE | 2019-04-04 12:33 | Nephrology Progress Note ---
Assessment/Plan Plan ESRD - HD today. GIB -per GI Subjective Subjective No c/o Objective Objective Last 24 Hour Vital Signs Date Time Temp Pulse Resp B/P (MAP) Pulse Ox O2 Delivery O2 Flow Rate FiO2 04/04/19 12:00 97.2 75 20 126/58 (80) 100 04/04/19 09:00 Nasal Cannula 2.0 04/04/19 08:00 73 04/04/19 08:00 97.8 83 20 116/62 (80) 100 04/04/19 04:00 97.0 85 22 122/59 (80) 99 04/04/19 04:00 85 04/04/19 00:00 79 04/04/19 00:00 97.2 79 21 109/58 (75) 98 04/03/19 21:00 Nasal Cannula 2.0 04/03/19 20:00 97.7 80 20 114/61 (78) 97 04/03/19 20:00 83 04/03/19 19:48 90 04/03/19 16:00 71 04/03/19 16:00 96.0 71 20 138/68 (91) 99 Intake and Output 04/03/19 04/04/19 19:00 07:00 Intake Total 2840 ml 220 ml Balance 2840 ml 220 ml Intake Oral 840 ml 220 ml Hemodialysis 2000 ml Laboratory Tests 04/04/19 03:40: White Blood Count 5.2, Red Blood Count 2.79L, Hemoglobin 8.4L, Hematocrit 24.6L , Mean Corpuscular Volume 88, Mean Corpuscular Hemoglobin 30.2, Mean Corpuscular Hemoglobin Concent 34.1, Red Cell Distribution Width 14.4, Platelet Count 321, Mean Platelet Volume 4.8L, Neutrophils (%) (Auto) 74.6, Lymphocytes ( %) (Auto) 12.4L, Monocytes (%) (Auto) 10.2H, Eosinophils (%) (Auto) 1.4, Basophils (%) (Auto) 1.4, Sodium Level 136, Potassium Level 4.2, Chloride Level 100, Carbon Dioxide Level 28, Anion Gap 8, Blood Urea Nitrogen 26H, Creatinine 9.4H, Estimat Glomerular Filtration Rate 7.0, Glucose Level 112H, Calcium Level 7.8L, Phosphorus Level 5.1H, Magnesium Level 1.9 Height (Feet): 5 Height (Inches): 7.00 Weight (Pounds): 132 Objective CV RR Lungs CTA Abd SNT. BS + E No CCE. Lt. Groing graft. Bhargav Madden MD Apr 04, 2019 12:33
--- NOTE | 2019-04-04 13:24 | NUR ---
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 98.6 HR 92 RR 12 B/P 101/36 2L NC O2 SAT @ 98% H/H/7.7/23.8 PT 13.4 INR 1.3 INR 39 NA 131 IS: IV BOLUS NS X 2 LITERS ADMITTED TO MED/SURG @ 1730 MED/SURG STATUS DCP RETURN HOME
[2019-04-04 16:00] VITALS: BP 132/60
--- NOTE | 2019-04-04 17:29 | NUR ---
NURSE NOTES: Patient did not have a BM today. Tolerating lunch and dinner meals well.
--- NOTE | 2019-04-04 17:40 | NUR ---
NURSE NOTES: Notified Dr. Bradley and [facility] nurse patient refused HD today. They said they already know and will schedule HD tomorrow instead.
--- NOTE | 2019-04-04 19:05 | NUR ---
NURSE NOTES: Report received by Caitie MILLER. pt is in stable condition. Addendum: 04/05/19 at 0806 by ANN REYNOSO RN NURSE NOTES: Report received by Halima MILLER. pt is in stable condition.
--- NOTE | 2019-04-04 19:12 | NUR ---
HAND-OFF: Report given to Berto Merchant RN.
--- NOTE | 2019-04-04 19:55 | General Progress Note ---
Assessment/Plan Status: stable Assessment/Plan: Assessment/Plan Diagnosis [place] I: 58-year-old male history of diverticulosis, recent resection presents with acute GI bleeding # GIB - recent colectomy for perforated diverticulitis - Gsx consult - GI Consult is pending. Discussed with Dr. Hinds who will call GI Dr. Lucas and await GI input regarding EGD this admission - monitor cbc and vitals - transfuse prn hgb <7 or active bleeding # Iron Deficiency Anemia - iron replacement # ESRD - HD today by Nephrology # Hypomagnesemia - HD # Hypokalemia - HD # Hypophosphatemia - Monitor levels # H/O exlap from perforated diverticulosis - Dr. Hinds consulting and colonoscopy is not recommended due to recent surgery # Hypotension - PRBC and gentle IVF in setting of ESRD # Full Code Subjective ROS Limited/Unobtainable: Yes Gastrointestinal/Abdominal: Reports: tarry stools Allergies: Coded Allergies: No Known Allergies (Unverified , 03/20/18) All Systems: reviewed and negative except above Objective Last 24 Hour Vital Signs Date Time Temp Pulse Resp B/P (MAP) Pulse Ox O2 Delivery O2 Flow Rate FiO2 04/04/19 16:00 97.8 70 18 132/60 (84) 98 04/04/19 16:00 70 04/04/19 12:00 97.2 75 20 126/58 (80) 100 04/04/19 12:00 73 04/04/19 09:00 Nasal Cannula 2.0 04/04/19 08:00 73 04/04/19 08:00 97.8 83 20 116/62 (80) 100 04/04/19 04:00 97.0 85 22 122/59 (80) 99 04/04/19 04:00 85 04/04/19 00:00 79 04/04/19 00:00 97.2 79 21 109/58 (75) 98 04/03/19 21:00 Nasal Cannula 2.0 04/03/19 20:00 97.7 80 20 114/61 (78) 97 04/03/19 20:00 83 Intake and Output 04/03/19 04/04/19 18:59 06:59 Intake Total 2840 ml 220 ml Balance 2840 ml 220 ml Intake Oral 840 ml 220 ml Hemodialysis 2000 ml Laboratory Tests 04/04/19 03:40: White Blood Count 5.2, Red Blood Count 2.79L, Hemoglobin 8.4L, Hematocrit 24.6L , Mean Corpuscular Volume 88, Mean Corpuscular Hemoglobin 30.2, Mean Corpuscular Hemoglobin Concent 34.1, Red Cell Distribution Width 14.4, Platelet Count 321, Mean Platelet Volume 4.8L, Neutrophils (%) (Auto) 74.6, Lymphocytes ( %) (Auto) 12.4L, Monocytes (%) (Auto) 10.2H, Eosinophils (%) (Auto) 1.4, Basophils (%) (Auto) 1.4, Sodium Level 136, Potassium Level 4.2, Chloride Level 100, Carbon Dioxide Level 28, Anion Gap 8, Blood Urea Nitrogen 26H, Creatinine 9.4H, Estimat Glomerular Filtration Rate 7.0, Glucose Level 112H, Calcium Level 7.8L, Phosphorus Level 5.1H, Magnesium Level 1.9 Height (Feet): 5 Height (Inches): 7.00 Weight (Pounds): 132 General Appearance: WD/WN EENT: PERRL/EOMI Neck: non-tender Cardiovascular: normal rate Respiratory/Chest: lungs clear, normal breath sounds Abdomen: non tender, no organomegaly Genitourinary/Rectal: normal genital exam Edema: trace edema Neurologic: compliance analyst II-XII grossly normal Skin: normal pigmentation Melvin Davis MD Apr 04, 2019 19:55
[2019-04-04 20:00] VITALS: BP 127/65
--- NOTE | 2019-04-04 20:13 | General Progress Note ---
Assessment/Plan Status: stable Assessment/Plan: Assessment - recurrent GIB, s/p recent partial colectomy, path --> perforated diverticulitis - post d/c rectal bleed, suspect colonic, resolved - anemia - ESRD / HD Recommendations - EGD in am to r/o UGI source - po as tolerated - serial CBC - not candidate for colonoscopy due to recent surgery Thank you Aga Lucas MD Subjective Allergies: Coded Allergies: No Known Allergies (Unverified , 03/20/18) Objective Last 24 Hour Vital Signs Date Time Temp Pulse Resp B/P (MAP) Pulse Ox O2 Delivery O2 Flow Rate FiO2 04/04/19 16:00 97.8 70 18 132/60 (84) 98 04/04/19 16:00 70 04/04/19 12:00 97.2 75 20 126/58 (80) 100 04/04/19 12:00 73 04/04/19 09:00 Nasal Cannula 2.0 04/04/19 08:00 73 04/04/19 08:00 97.8 83 20 116/62 (80) 100 04/04/19 04:00 97.0 85 22 122/59 (80) 99 04/04/19 04:00 85 04/04/19 00:00 79 04/04/19 00:00 97.2 79 21 109/58 (75) 98 04/03/19 21:00 Nasal Cannula 2.0 Intake and Output 04/03/19 04/04/19 18:59 06:59 Intake Total 2840 ml 220 ml Balance 2840 ml 220 ml Intake Oral 840 ml 220 ml Hemodialysis 2000 ml Laboratory Tests 04/04/19 03:40: White Blood Count 5.2, Red Blood Count 2.79L, Hemoglobin 8.4L, Hematocrit 24.6L , Mean Corpuscular Volume 88, Mean Corpuscular Hemoglobin 30.2, Mean Corpuscular Hemoglobin Concent 34.1, Red Cell Distribution Width 14.4, Platelet Count 321, Mean Platelet Volume 4.8L, Neutrophils (%) (Auto) 74.6, Lymphocytes ( %) (Auto) 12.4L, Monocytes (%) (Auto) 10.2H, Eosinophils (%) (Auto) 1.4, Basophils (%) (Auto) 1.4, Sodium Level 136, Potassium Level 4.2, Chloride Level 100, Carbon Dioxide Level 28, Anion Gap 8, Blood Urea Nitrogen 26H, Creatinine 9.4H, Estimat Glomerular Filtration Rate 7.0, Glucose Level 112H, Calcium Level 7.8L, Phosphorus Level 5.1H, Magnesium Level 1.9 Height (Feet): 5 Height (Inches): 7.00 Weight (Pounds): 132 Aga Lucas MD Apr 04, 2019 20:13
[2019-04-04] MEDS ORDERED: Epoetin Alfa-EPBX(ESRD on dialysis)10,000 unit/ml vial SUBQ SCH (21:00)
[2019-04-04] MEDS: Tamsulosin 0.4mg cap ORAL SCH (21:48)
--- NOTE | 2019-04-04 23:30 | Consultation ---
DATE OF CONSULTATION: 04/04/2019 GASTROENTEROLOGY CONSULTATION CONSULTING PHYSICIAN: Aga Lucas M.D. REFERRING PHYSICIAN: Yaneth Almendarez M.D. CHIEF COMPLAINT: I was asked to see this patient by Dr. Yaneth Almendarez for evaluation of recurrent gastrointestinal bleeding. HISTORY OF PRESENT ILLNESS: The patient is a 58-year-old, man with a history of multiple recurrent lower gastrointestinal bleeding episodes. He has had multiple endoscopies and colonoscopies in outside hospital and even a recent hemorrhoidal banding. He came back bleeding again to our hospital recently and after evaluation, it was determined that he was having bleeding from colonic source and he had a partial colectomy. The pathology results showed perforated diverticulitis with associated hemorrhage. He had a postoperative course that was unremarkable and was sent home, but he came back shortly after with recurrent rectal bleeding, which appears now to have subsided. The patient feels well, but agrees to undergo an endoscopy to evaluate the upper gastrointestinal source of bleeding. PAST MEDICAL HISTORY: History of diverticulosis, history of diverticular bleeding and perforated diverticulitis, history of hemorrhoids, hypertension, end-stage renal disease, on dialysis. FAMILY HISTORY: Noncontributory. SOCIAL HISTORY: The patient does not smoke or drink. The patient is homeless. MEDICATIONS: See the chart list for details. REVIEW OF SYSTEMS: Otherwise negative. PHYSICAL EXAMINATION: GENERAL: A well-developed, well-nourished man, seen in his room. HEENT: Normocephalic, atraumatic. Sclerae anicteric. Oropharynx clear. NECK: Supple. CHEST: Clear to auscultation. CARDIOVASCULAR: Revealed a regular rate. ABDOMEN: Soft with a well-healing wound. EXTREMITIES: Revealed no edema. LABORATORY DATA: Noted. ASSESSMENT: This patient presents with recurrent gastrointestinal bleeding. The bleeding may have been drops at home, but it appears to have improved. Based on the postoperative course, I suspect that this maybe actually lower GI bleed perhaps from the surgical scar or diverticuli. Nonetheless, we are going to perform an endoscopy to rule out any upper gastrointestinal sources since the patient is not a candidate for colonoscopy at this time. In the meantime, I will monitor the patient's blood count and transfuse as necessary. RECOMMENDATIONS: 1. PO diet as tolerated. 2. Endoscopy tomorrow. 3. Monitor CBC. 4. Transfuse as needed. 5. Surgical followup. Thank you for asking me to participate in the care of this patient. Aga Lucas M.D. DR: KEVIN JOB#: [id number] CC: JADON
[2019-04-05] VITALS (9 sets, daily range): BP systolic 102–135; BP diastolic 54–78
[2019-04-05 04:26] LABS: HEMATOCRIT 23.2 % (42.0-52.0); HEMOGLOBIN 7.6 G/DL (14.2-18.0); MEAN CORPUSCULAR VOLUME 90 FL (80-99); PLATELET COUNT 313 K/UL (150-450); RED BLOOD COUNT 2.58 M/UL (4.70-6.10); RED CELL DISTRIBUTION WIDTH 15.1 % (11.6-14.8); WHITE BLOOD COUNT 5.3 K/UL (4.8-10.8)
[2019-04-05] MEDS: Hydromorphone 0.5mg/0.5ml inj IVP PRN (04:48)
[2019-04-05 04:59] LABS: INR 1.1 (0.9-1.1)
[2019-04-05 05:04] LABS: ANION GAP 7 mmol/L (5-15); BLOOD UREA NITROGEN 33 mg/dL (7-18); CARBON DIOXIDE 29 MMOL/L (21-32); CHLORIDE 103 MMOL/L (98-107); CREATININE 11.4 MG/DL (0.55-1.30); POTASSIUM 4.8 MMOL/L (3.5-5.1); SODIUM 138 MMOL/L (136-145)
--- NOTE | 2019-04-05 07:20 | NUR ---
HAND-OFF: Report given to Ama BLACK ANGELA.
--- NOTE | 2019-04-05 07:35 | Pre-Procedure Note/Attestation ---
Pre-Procedure Note/Attestation Complete Prior to Procedure Planned Procedure: not applicable Procedure Narrative: egd Indications for Procedure Pre-Operative Diagnosis: GIB Attestation I attest that I discussed the nature of the procedure; its benefits; risks and complications; and alternatives (and the risks and benefits of such alternatives ), prior to the procedure, with the patient (or the patient's legal veterans employment representative). I attest that, if there was a reasonable possibility of needing a blood transfusion, the patient (or the patient's legal veterans employment representative) was given the [facility] standardized written summary, pursuant to the Braulio Rehan Blood Safety Act ([place] Health and Safety Code # 1645, as amended). I attest that I re-evaluated the patient just prior to the surgery and that there has been no change in the patient's H&P, except as documented below: Aga Lucas MD Apr 05, 2019 07:35
--- NOTE | 2019-04-05 07:36 | Anethesia Preoperative Eval ---
Anesthesia Pre-op PMH/ROS General Date of Evaluation: Apr 05, 2019 Time of Evaluation: 07:33 Anesthesiologist: ben ASA Score: ASA 4 Mallampati Score Class I : Soft palate, uvula, fauces, pillars visible Class II: Soft palate, uvula, fauces visible Class III: Soft palate, base of uvula visible Class IV: Only hard plate visible Mallampati Classification: Class II Surgeon: sneha Diagnosis: gi bleed Surgical Procedure: egd Anesthesia History: none Social History: smoking - nonsmoker Family History: no anesthesia problems Allergies: Coded Allergies: No Known Allergies (Unverified , 03/20/18) Medications: see eMAR Patient NPO?: Yes Past Medical History Cardiovascular: Reports: HTN, other - chf, Pulmonary: Reports: COPD, other - pneumonia Gastrointestinal/Genitourinary: Reports: ESRD, other - gi bleed Neurologic/Psychiatric: Reports: depression/anxiety Hematology/Immune: Reports: anemia Anesthesia Pre-op Phys. Exam Physician Exam Last Vital Signs Date Time Temp Pulse Resp B/P (MAP) Pulse Ox O2 Delivery O2 Flow Rate FiO2 04/05/19 04:00 61 04/05/19 04:00 98.3 18 130/78 (95) 100 04/04/19 21:00 Nasal Cannula 2.0 Constitutional: NAD Neurologic: CN 2-12 intact Cardiovascular: RRR Respiratory: CTA Gastrointestinal: S/NT/ND Airway Exam Mallampati Score: Class II MO: limited Neck: flexible TMD: 2fb ROM: limited Teeth: missing Anesthesia Pre-op A/P Labs Hematology Test 04/05/19 03:40 White Blood Count 5.3 K/UL (4.8-10.8) Red Blood Count 2.58 M/UL (4.70-6.10) L Hemoglobin 7.6 G/DL (14.2-18.0) L Hematocrit 23.2 % (42.0-52.0) L Mean Corpuscular Volume 90 FL (80-99) Mean Corpuscular Hemoglobin 29.6 PG (27.0-31.0) Mean Corpuscular Hemoglobin Concent 32.9 G/DL (32.0-36.0) Red Cell Distribution Width 15.1 % (11.6-14.8) H Platelet Count 313 K/UL (150-450) Mean Platelet Volume 4.6 FL (6.5-10.1) L Neutrophils (%) (Auto) % (45.0-75.0) Lymphocytes (%) (Auto) % (20.0-45.0) Monocytes (%) (Auto) % (1.0-10.0) Eosinophils (%) (Auto) % (0.0-3.0) Basophils (%) (Auto) % (0.0-2.0) Coagulation Test 04/05/19 03:40 Prothrombin Time 11.8 SEC (9.30-11.50) H Prothromb Time International Ratio 1.1 (0.9-1.1) Activated Partial Thromboplast Time 33 SEC (23-33) Chemistry Test 04/05/19 03:40 Sodium Level 138 MMOL/L (136-145) Potassium Level 4.8 MMOL/L (3.5-5.1) Chloride Level 103 MMOL/L (98-107) Carbon Dioxide Level 29 MMOL/L (21-32) Anion Gap 7 mmol/L (5-15) Blood Urea Nitrogen 33 mg/dL (7-18) H Creatinine 11.4 MG/DL (0.55-1.30) H Estimat Glomerular Filtration Rate 5.6 mL/min (>60) Glucose Level 97 MG/DL (74-106) Calcium Level 8.0 MG/DL (8.5-10.1) L Risk Assessment & Plan Assessment: asa4 Plan: mac Status Change Before Surgery: No Pre-Antibiotics Drug: Dannielle Jackson MD Apr 05, 2019 07:36
[2019-04-05] MEDS ORDERED: Midazolam 2mg/2ml Inj IVP PRN (07:45)
[2019-04-05] MEDS ORDERED: DiphenhydrAMINE 50mg/ml Inj IVP PRN (07:45)
[2019-04-05] MEDS ORDERED: fentaNYL 100 mcg/2 mL IV PRN (07:45)
[2019-04-05] MEDS ORDERED: Atropine Inj 1mg/10ml Syr IV PRN (07:45)
--- NOTE | 2019-04-05 07:50 | NUR ---
NURSE NOTES: received pt from Berto BLACK Addendum: 04/05/19 at 0756 by KELLY GOMEZ RN disregard note above
--- NOTE | 2019-04-05 07:56 | NUR ---
NURSE NOTES: received pt from Berto BLACK. pt in on the bed asleep. no respiratory distress noted. kept NPO for EDG today by Dr. Lucas. consent signed by the pt. IV line is intact. skin is intact AOx4. will follow plan of care.
[2019-04-05] MEDS ORDERED: Propofol 200mg/20ml IV ONE (08:00)
[2019-04-05] MEDS ORDERED: Lidocaine 1% MPF 10mg/ml 5ml ONE (08:00)
--- NOTE | 2019-04-05 08:11 | Surgery Progress Note ---
Surgery Progress Note Subjective Additional Comments states he is doing well wants breakfast after his EGD this AM labs noted denies any BM with blood today or yesterday Objective Last 24 Hour Vital Signs Date Time Temp Pulse Resp B/P (MAP) Pulse Ox O2 Delivery O2 Flow Rate FiO2 04/05/19 04:00 61 04/05/19 04:00 98.3 65 18 130/78 (95) 100 04/05/19 00:00 98.1 68 18 135/73 (93) 99 04/05/19 00:00 66 04/04/19 21:00 Nasal Cannula 2.0 04/04/19 20:00 98.0 61 18 127/65 (85) 99 04/04/19 20:00 71 04/04/19 16:00 97.8 70 18 132/60 (84) 98 04/04/19 16:00 70 04/04/19 12:00 97.2 75 20 126/58 (80) 100 04/04/19 12:00 73 04/04/19 09:00 Nasal Cannula 2.0 I&O Intake and Output 04/04/19 04/05/19 19:00 07:00 Intake Total 220 ml Balance 220 ml Intake Oral 220 ml Dressing: dry Wound: clean Cardiovascular: RSR Respiratory: clear Abdomen: soft, present bowel sounds, non-distended Extremities: no cyanosis Laboratory Tests Test 04/05/19 03:40 White Blood Count 5.3 K/UL (4.8-10.8) Red Blood Count 2.58 M/UL (4.70-6.10) L Hemoglobin 7.6 G/DL (14.2-18.0) L Hematocrit 23.2 % (42.0-52.0) L Mean Corpuscular Volume 90 FL (80-99) Mean Corpuscular Hemoglobin 29.6 PG (27.0-31.0) Mean Corpuscular Hemoglobin Concent 32.9 G/DL (32.0-36.0) Red Cell Distribution Width 15.1 % (11.6-14.8) H Platelet Count 313 K/UL (150-450) Mean Platelet Volume 4.6 FL (6.5-10.1) L Neutrophils (%) (Auto) % (45.0-75.0) Lymphocytes (%) (Auto) % (20.0-45.0) Monocytes (%) (Auto) % (1.0-10.0) Eosinophils (%) (Auto) % (0.0-3.0) Basophils (%) (Auto) % (0.0-2.0) Prothrombin Time 11.8 SEC (9.30-11.50) H Prothromb Time International Ratio 1.1 (0.9-1.1) Activated Partial Thromboplast Time 33 SEC (23-33) Sodium Level 138 MMOL/L (136-145) Potassium Level 4.8 MMOL/L (3.5-5.1) Chloride Level 103 MMOL/L (98-107) Carbon Dioxide Level 29 MMOL/L (21-32) Anion Gap 7 mmol/L (5-15) Blood Urea Nitrogen 33 mg/dL (7-18) H Creatinine 11.4 MG/DL (0.55-1.30) H Estimat Glomerular Filtration Rate 5.6 mL/min (>60) Glucose Level 97 MG/DL (74-106) Calcium Level 8.0 MG/DL (8.5-10.1) L Plan Problems: (1) GI bleed Assessment & Plan: NPO until EGD EGD this AM as per GI. cannot do colon at this time given recent surgery trend h/h no heparin with dialysis HD when ready will follow with recs thank you Devonte Hinds Apr 05, 2019 08:11
--- NOTE | 2019-04-05 08:46 | General Progress Note ---
Assessment/Plan Status: stable Assessment/Plan: Assessment - recurrent GIB, s/p recent partial colectomy, path --> perforated diverticulitis - post d/c rectal bleed, suspect colonic, resolved - negative EGD for source of bleeding - anemia - ESRD / HD Recommendations - po as tolerated - serial CBC - not candidate for colonoscopy due to recent surgery Subjective Allergies: Coded Allergies: No Known Allergies (Unverified , 03/20/18) Subjective uneventful night seen in GI lab this am EGD PERFORMED: - 2-3 cm Hiatal hernia - solid food in stomach, suggestive of gastroparesis - visualization limited due to gastric cavity food, but no ulcer or blood seen in UGI tract Objective Last 24 Hour Vital Signs Date Time Temp Pulse Resp B/P (MAP) Pulse Ox O2 Delivery O2 Flow Rate FiO2 04/05/19 04:00 61 04/05/19 04:00 98.3 65 18 130/78 (95) 100 04/05/19 00:00 98.1 68 18 135/73 (93) 99 04/05/19 00:00 66 04/04/19 21:00 Nasal Cannula 2.0 04/04/19 20:00 98.0 61 18 127/65 (85) 99 04/04/19 20:00 71 04/04/19 16:00 97.8 70 18 132/60 (84) 98 04/04/19 16:00 70 04/04/19 12:00 97.2 75 20 126/58 (80) 100 04/04/19 12:00 73 04/04/19 09:00 Nasal Cannula 2.0 Intake and Output 04/04/19 04/05/19 19:00 07:00 Intake Total 220 ml Balance 220 ml Intake Oral 220 ml Laboratory Tests 04/05/19 03:40: White Blood Count 5.3, Red Blood Count 2.58L, Hemoglobin 7.6L, Hematocrit 23.2L , Mean Corpuscular Volume 90, Mean Corpuscular Hemoglobin 29.6, Mean Corpuscular Hemoglobin Concent 32.9, Red Cell Distribution Width 15.1H, Platelet Count 313, Mean Platelet Volume 4.6L, Neutrophils (%) (Auto) , Lymphocytes (%) (Auto) , Monocytes (%) (Auto) , Eosinophils (%) (Auto) , Basophils (%) (Auto) , Prothrombin Time 11.8H, Prothromb Time International Ratio 1.1, Activated Partial Thromboplast Time 33, Sodium Level 138, Potassium Level 4.8, Chloride Level 103, Carbon Dioxide Level 29, Anion Gap 7, Blood Urea Nitrogen 33H, Creatinine 11.4H, Estimat Glomerular Filtration Rate 5.6, Glucose Level 97, Calcium Level 8.0L Height (Feet): 5 Height (Inches): 7.00 Weight (Pounds): 133 Aga Lucas MD Apr 05, 2019 08:46
--- NOTE | 2019-04-05 09:21 | Immediate Post-Op Evaluation ---
Immediate Post-Op Evalulation Immediate Post-Op Evalulation Procedure: egd Date of Evaluation: Apr 05, 2019 Time of Evaluation: 08:50 IV Fluids: 200ml 0.9ns Blood Products: none Estimated Blood Loss: negligible Blood Pressure Systolic: 102 Blood Pressure Diastolic: 63 Pulse Rate: 84 Respiratory Rate: 18 O2 Sat by Pulse Oximetry: 100 Temperature (Fahrenheit): 97.0 Pain Score (1-10): 0 Nausea: No Vomiting: No Complications none Patient Status: awake, reacts, patent Hydration Status: adequate Drug: Dannielle Jackson MD Apr 05, 2019 09:21
--- NOTE | 2019-04-05 09:22 | 48 Hour Post Anesthesia Eval ---
Post Anesthesia Evaluation Procedure: egd Date of Evaluation: Apr 05, 2019 Time of Evaluation: 08:52 Blood Pressure Systolic: 104 0: 65 Pulse Rate: 82 Respiratory Rate: 18 Temperature (Fahrenheit): 97.0 O2 Sat by Pulse Oximetry: 100 Airway: patent Nausea: No Vomiting: No Pain Intensity: 0 Hydration Status: adequate Cardiopulmonary Status: stable Mental Status/LOC: patient returned to baseline Post-Anesthesia Complications: none Follow-up care needed: N/A Dannielle Nick MD Apr 05, 2019 09:22
[2019-04-05] MEDS: Pantoprazole Inj IVP SCH ×2 (09:58→20:53)
[2019-04-05] MEDS: Allopurinol 100mg Tab ORAL SCH (09:58)
--- NOTE | 2019-04-05 10:36 | NUR ---
Social Work This SW received a consult to assist with a home safety evaluation. This Sw met with patient who appears alert/oriented x4, making his own decisions. Patient insisting on returning to his home upon discharge (does not want SNF placement); lives with his brother, Daniel as needed, while he also has a [facility] caregiver: Shun Constanza ([phone]) who is there with him daily (4-8 hours), according to patient. Patient explains caregiver will transport upon discharge. Patient explains he is ambulatory with walker and requires assistance with ADLS, i.e dressing, bathing. This SW left a message with caregiver (awaiting call back at this time).
--- NOTE | 2019-04-05 11:15 | NUR ---
*-* INSURANCE *-* ALL CLINICALS AND REVIEWS HAVE BEEN FAXED TO: [facility] P: [phone] F: [phone]( FAX ALL CLINICALS)
--- NOTE | 2019-04-05 11:44 | NUR ---
NURSE NOTES: left a message to dr shelton regarding patients hgb level of 7.6. awaits callback.
--- NOTE | 2019-04-05 11:50 | NUR ---
NURSE NOTES: dr shelton called back and ordered to transfuse 1 PRBC now. will take note and carry out.
--- NOTE | 2019-04-05 12:46 | NUR ---
FILLING CARRIERHOME CARE ASSISTANT SI: LOWER GI BLEED T. 97.8 HR 66 RR 18 B/P 115/65 2L NC O2 SAT @ 98% H/H 7.6/23.2 IS: PROTONIX IV ZYLOPRIM PO EPOETIN SUBC MED/SURG STATUS
--- NOTE | 2019-04-05 13:15 | Procedure Note ---
DATE OF PROCEDURE: 04/05/2019 PROCEDURE: Upper gastrointestinal endoscopy. SURGEON: Aga Lucas M.D. ANESTHESIA: Please see the separate anesthesiologist notes for details. PRE-ENDOSCOPIC DIAGNOSIS: Gastrointestinal bleeding. DESCRIPTION OF PROCEDURE: The procedure, its risks, indications, alternatives, and possible complications were explained and informed consent was obtained. The patient was sedated and a diagnostic upper endoscope was introduced into oropharynx and advanced to the duodenum. It was gradually withdrawn and the mucosa examined carefully. The patient was sent to recovery in good condition. POST-ENDOSCOPIC DIAGNOSES: 1. A 2 to 3 cm hiatal hernia. 2. Significant mass of food seen in the stomach, suggestive of gastroparesis. 3. No evidence of ulcerations or blood in the upper GI tract to explain the patient's gastrointestinal bleeding. RECOMMENDATIONS: 1. Resume oral diet. 2. Monitor CBC. 3. Surgical followup. Aga Lucas M.D. DR: ABDOUL JOB#: [id number] CC: JADON
--- NOTE | 2019-04-05 13:48 | NUR ---
NURSE NOTES: blood transfusion started. VS taken and recorded. will continue monitor pt.
--- NOTE | 2019-04-05 14:36 | General Progress Note ---
Assessment/Plan Status: stable Assessment/Plan: Assessment/Plan Diagnosis [place] I: 58-year-old male history of diverticulosis, recent resection presents with acute GI bleeding # GIB - recent colectomy for perforated diverticulitis - Gsx consult - GI Consult and EGD 04/05/19 POST-ENDOSCOPIC DIAGNOSES: 1. A 2 to 3 cm hiatal hernia. 2. Significant mass of food seen in the stomach, suggestive of gastroparesis. 3. No evidence of ulcerations or blood in the upper GI tract to explain the patient's gastrointestinal bleeding. - monitor cbc and vitals - transfuse 1 PRBC today and monitor CBC in am. # Iron Deficiency Anemia - iron replacement # ESRD - HD by Nephrology # Hypomagnesemia - HD # Hypokalemia - HD # Hypophosphatemia - Monitor levels # H/O exlap from perforated diverticulosis - Dr. Hinds consulting and colonoscopy is not recommended due to recent surgery # Hypotension - PRBC today and gentle IVF in setting of ESRD # Full Code Subjective ROS Limited/Unobtainable: Yes Allergies: Coded Allergies: No Known Allergies (Unverified , 03/20/18) All Systems: reviewed and negative except above Subjective Denies abdominal pain. Objective Last 24 Hour Vital Signs Date Time Temp Pulse Resp B/P (MAP) Pulse Ox O2 Delivery O2 Flow Rate FiO2 04/05/19 12:00 73 04/05/19 12:00 98.0 67 20 122/65 (84) 100 04/05/19 09:22 82 18 100 04/05/19 09:21 84 18 100 04/05/19 09:00 97.8 66 17 115/65 100 Nasal Cannula 2 04/05/19 09:00 Nasal Cannula 2.0 04/05/19 08:50 68 18 106/63 100 Nasal Cannula 2 04/05/19 08:45 70 20 114/65 100 Nasal Cannula 3 04/05/19 08:38 97.0 86 19 102/63 100 Nasal Cannula 3 04/05/19 08:00 69 04/05/19 04:00 61 04/05/19 04:00 98.3 65 18 130/78 (95) 100 04/05/19 00:00 98.1 68 18 135/73 (93) 99 04/05/19 00:00 66 04/04/19 21:00 Nasal Cannula 2.0 04/04/19 20:00 98.0 61 18 127/65 (85) 99 04/04/19 20:00 71 04/04/19 16:00 97.8 70 18 132/60 (84) 98 04/04/19 16:00 70 Intake and Output 04/04/19 04/05/19 19:00 07:00 Intake Total 220 ml Balance 220 ml Intake Oral 220 ml Laboratory Tests 04/05/19 03:40: White Blood Count 5.3, Red Blood Count 2.58L, Hemoglobin 7.6L, Hematocrit 23.2L , Mean Corpuscular Volume 90, Mean Corpuscular Hemoglobin 29.6, Mean Corpuscular Hemoglobin Concent 32.9, Red Cell Distribution Width 15.1H, Platelet Count 313, Mean Platelet Volume 4.6L, Neutrophils (%) (Auto) , Lymphocytes (%) (Auto) , Monocytes (%) (Auto) , Eosinophils (%) (Auto) , Basophils (%) (Auto) , Prothrombin Time 11.8H, Prothromb Time International Ratio 1.1, Activated Partial Thromboplast Time 33, Sodium Level 138, Potassium Level 4.8, Chloride Level 103, Carbon Dioxide Level 29, Anion Gap 7, Blood Urea Nitrogen 33H, Creatinine 11.4H, Estimat Glomerular Filtration Rate 5.6, Glucose Level 97, Calcium Level 8.0L Height (Feet): 5 Height (Inches): 7.00 Weight (Pounds): 133 General Appearance: WD/WN EENT: PERRL/EOMI Neck: normal alignment Cardiovascular: normal rate Respiratory/Chest: lungs clear Edema: trace edema Neurologic: tipple boss II-XII grossly normal Melvin Davis MD Apr 05, 2019 14:36
--- NOTE | 2019-04-05 15:30 | NUR ---
NURSE NOTES: Blood transfusion of 1 unit PRBC done. no allergy reaction. patient is stable.
--- NOTE | 2019-04-05 16:22 | Endoscopy Procedure Note ---
Endoscopy Procedure Note General Indication for Procedure: GIB Operative Findings/Diagnosis: food, HH Specimen: none Pt Tolerated Procedure Well: Yes Estimated Blood Loss: none Anesthesia Anesthesiologist: Rex Del Rio Anesthesia: MAC Medications Medication Given: see anesthesia record Inserted Devices Implant(s) used?: No GI Core Measures 50 yrs or older w/o bx or poly: Not Applicable 10yrs. F/U recommended: Not Applicable If not recommended, why?: Aga Lucas MD Apr 05, 2019 16:22
--- NOTE | 2019-04-05 16:23 | Brief Operative Note ---
Immediate Post Operative Note Operative Note Chief Complaint: GIB Pre-op Diagnosis: GIB Procedure: egd Post-op Diagnosis: HH, Food Surgeon: sneha Anesthesiologist: claudette riley Anesthesia: MAC, moderate sedation Specimen: yes Complications: none Condition: stable Fluids: recorded Implant(s) used?: No Aga Lucas MD Apr 05, 2019 16:23
--- NOTE | 2019-04-05 17:00 | History & Physical ---
History of Present Illness General Reason for Hospitalization: Dyspnea/Respdistress Present Illness Allergies: Coded Allergies: No Known Allergies (Unverified , 03/20/18) Medication History Scheduled Allopurinol* (Allopurinol*), Unknown Dose ORAL DAILY, (Reported) Amlodipine Besylate (Norvasc), Unknown Dose ORAL DAILY, (Reported) Clonidine Hcl* (Catapres*), 0.1 MG ORAL EVERY 6 HOURS, (Reported) Folic Acid* (Folic Acid*), 1 MG ORAL DAILY, (Reported) Lisinopril* (Lisinopril*), 2.5 MG ORAL DAILY, (Reported) Omeprazole (Omeprazole), Unknown Dose ORAL DAILY, (Reported) Tamsulosin Hcl (Tamsulosin Hcl*), Unknown Dose ORAL BEDTIME, (Reported) Miscellaneous Medications Unable to Obtain Medications (Unable To Obtain Meds), (Reported) Patient History Healthcare decision maker Resuscitation status Full Code Advanced Directive on File Review of Systems Review of Symptoms General ROS: no weight loss or fever Psychological ROS: no depression or mood changes, no memory loss Ophthalmic ROS: no visual changes or eye irritation ENT ROS: no nasal congestion, hearing loss, dizziness Allergy and Immunology ROS: no allergic symptoms or urticaria Hematological and Lymphatic ROS: no swollen glands, unusual bleeding or bruising Endocrine ROS: no polyuria, polydipsia, weight changes, temperature intolerance Respiratory ROS: no cough, shortness of breath, or wheezing Cardiovascular ROS: no chest pain or dyspnea on exertion Gastrointestinal ROS: denies abdominal pain, bright red blood in stool. Musculoskeletal ROS: no myalgias or arthralgias Neurological ROS: no TIA or stroke symptoms Dermatological ROS: no new or changing skin lesions, rashes or pruritis Physical Exam Physical Exam General appearance: alert, cooperative, no distress, appears stated age Head: Normocephalic, without obvious abnormality, atraumatic Eyes: conjunctivae/corneas clear. PERRL, EOM's intact. Fundi benign Throat: Lips, mucosa, and tongue normal. Teeth and gums normal Neck: supple, symmetrical, trachea midline, no adenopathy, thyroid: not enlarged, symmetric, no tenderness/mass/nodules, no carotid bruit and no JVD Lungs: clear to auscultation bilaterally Heart: regular rate and rhythm, S1, S2 normal, no murmur, click, rub or gallop Abdomen: TTP (pt post op for perforated diverticulosis) Bowel sounds normal. No masses, no organomegaly Extremities: extremities normal, atraumatic, no cyanosis or edema Pulses: 2+ and symmetric Skin: Skin color, texture, turgor normal. No rashes or lesions Neurologic: Grossly normal Last 24 Hour Vital Signs Date Time Temp Pulse Resp B/P (MAP) Pulse Ox O2 Delivery O2 Flow Rate FiO2 04/05/19 16:00 97.7 69 19 118/54 (75) 100 04/05/19 12:00 73 04/05/19 12:00 98.0 67 20 122/65 (84) 100 04/05/19 09:22 82 18 100 04/05/19 09:21 84 18 100 04/05/19 09:00 97.8 66 17 115/65 100 Nasal Cannula 2 04/05/19 09:00 Nasal Cannula 2.0 04/05/19 08:50 68 18 106/63 100 Nasal Cannula 2 04/05/19 08:45 70 20 114/65 100 Nasal Cannula 3 04/05/19 08:38 97.0 86 19 102/63 100 Nasal Cannula 3 04/05/19 08:00 69 04/05/19 04:00 61 04/05/19 04:00 98.3 65 18 130/78 (95) 100 04/05/19 00:00 98.1 68 18 135/73 (93) 99 04/05/19 00:00 66 04/04/19 21:00 Nasal Cannula 2.0 04/04/19 20:00 98.0 61 18 127/65 (85) 99 04/04/19 20:00 71 Intake and Output 04/04/19 04/05/19 19:00 07:00 Intake Total 220 ml Balance 220 ml Intake Oral 220 ml Laboratory Tests Test 04/05/19 03:40 White Blood Count 5.3 K/UL (4.8-10.8) Red Blood Count 2.58 M/UL (4.70-6.10) L Hemoglobin 7.6 G/DL (14.2-18.0) L Hematocrit 23.2 % (42.0-52.0) L Mean Corpuscular Volume 90 FL (80-99) Mean Corpuscular Hemoglobin 29.6 PG (27.0-31.0) Mean Corpuscular Hemoglobin Concent 32.9 G/DL (32.0-36.0) Red Cell Distribution Width 15.1 % (11.6-14.8) H Platelet Count 313 K/UL (150-450) Mean Platelet Volume 4.6 FL (6.5-10.1) L Neutrophils (%) (Auto) % (45.0-75.0) Lymphocytes (%) (Auto) % (20.0-45.0) Monocytes (%) (Auto) % (1.0-10.0) Eosinophils (%) (Auto) % (0.0-3.0) Basophils (%) (Auto) % (0.0-2.0) Prothrombin Time 11.8 SEC (9.30-11.50) H Prothromb Time International Ratio 1.1 (0.9-1.1) Activated Partial Thromboplast Time 33 SEC (23-33) Sodium Level 138 MMOL/L (136-145) Potassium Level 4.8 MMOL/L (3.5-5.1) Chloride Level 103 MMOL/L (98-107) Carbon Dioxide Level 29 MMOL/L (21-32) Anion Gap 7 mmol/L (5-15) Blood Urea Nitrogen 33 mg/dL (7-18) H Creatinine 11.4 MG/DL (0.55-1.30) H Estimat Glomerular Filtration Rate 5.6 mL/min (>60) Glucose Level 97 MG/DL (74-106) Calcium Level 8.0 MG/DL (8.5-10.1) L Height (Feet): 5 Height (Inches): 7.00 Weight (Pounds): 133 Medications Current Medications Medications (Trade) Dose Ordered Sig/Letty Route PRN Reason Start Time Stop Time Status Last Admin Dose Admin Acetaminophen (Tylenol) 650 mg Q4H PRN ORAL Mild Pain (Pain Scale 1-3) 04/02/19 15:30 05/02/19 15:29 Acetaminophen (Tylenol) 650 mg Q4H PRN ORAL fever 04/02/19 15:30 05/02/19 15:29 Al Hydroxide/Mg Hydroxide (Mylanta II) 30 ml Q6H PRN ORAL dyspepsia 04/02/19 15:30 05/02/19 15:29 Allopurinol (Zyloprim) 100 mg DAILY ORAL 04/03/19 09:00 05/03/19 08:59 04/05/19 09:58 Bisacodyl (Dulcolax) 10 mg DAILYPRN PRN RECTAL Constipation 04/02/19 15:30 05/02/19 15:29 Dextrose (Dextrose 50%) 25 ml Q30M PRN IV Hypoglycemia 04/02/19 15:30 05/02/19 15:29 Dextrose (Dextrose 50%) 50 ml Q30M PRN IV Hypoglycemia 04/02/19 15:30 05/02/19 15:29 Diphenhydramine HCl (Benadryl) 25 mg Q6H PRN ORAL Itching/Pruritis 04/02/19 15:30 05/02/19 15:29 Epoetin Kimo (Epoetin Kimo(ESRD on dialysis)) 10,000 unit THU- SUBQ 04/04/19 21:00 05/04/19 20:59 04/04/19 21:49 Folic Acid (Folate) 1 mg DAILY ORAL 04/03/19 09:00 05/03/19 08:59 04/05/19 09:58 Hydralazine HCl (Apresoline) 25 mg TIDPRN PRN ORAL SBP >170, hold for HR >90 04/02/19 15:45 05/02/19 15:44 Hydromorphone HCl (Dilaudid) 0.5 mg Q6H PRN IVP severe pain 04/02/19 15:30 04/09/19 15:29 04/05/19 04:48 Lorazepam (Ativan 2mg/ml 1ml) 0.5 mg Q4H PRN IV For Anxiety 04/02/19 15:30 04/09/19 15:29 Magnesium Hydroxide (Mom) 30 ml HSPRN PRN ORAL Constipation 04/02/19 15:30 05/02/19 15:29 Metoclopramide HCl (Reglan) 10 mg Q6H PRN IVP Nausea & Vomiting 04/02/19 15:30 05/02/19 15:29 Ondansetron HCl (Zofran) 4 mg Q6H PRN IVP Nausea & Vomiting 04/02/19 15:30 05/02/19 15:29 Pantoprazole (Protonix) 40 mg Q12HR IVP 04/02/19 21:00 05/02/19 20:59 04/05/19 09:58 Polyethylene Glycol (Miralax) 17 gm DAILYPRN PRN ORAL Constipation 04/02/19 15:30 05/02/19 15:29 Prochlorperazine (Compazine) 10 mg Q6H PRN IVP Nausea & Vomiting 04/02/19 15:30 05/02/19 15:29 Tamsulosin HCl (Flomax) 0.4 mg BEDTIME ORAL 04/02/19 21:00 05/02/19 20:59 04/04/19 21:48 Temazepam (Restoril) 15 mg DAILYPRN PRN ORAL Insomnia 04/02/19 15:30 04/09/19 15:29 Assessment/Plan Status: doing well, stable Status Narrative The patient is observed to be receiving HD at this time. He is in NAD, VSS. Assessment/Plan: HD on CBC, CMP tomorrow. [facility] Hospital declaration INPATIENT level of care is warranted for this patient because patient is a 89 year old with who presents with suspicion of . I have a high level of concern because . Patient is at high risk for . Plan of care/treatment include . Patient care is expected to be greater than 2 midnights. OBSERVATION level of care is warranted for this patient. Patient is a 89 year old with who presents with . Patient will be admitted for 1 midnight, but if additional night(s) is/are necessary, patient will be converted to inpatient status for the entire hospitalization Disposition: Once the patient is stable to leave the hospital, I anticipate the patient will likely be discharged to the following environment: Estimated discharge date: I spent 70 minutes on this patient's case, and minutes was dedicated to counseling and/or care coordination. MIPS (Merit-based Incentive Payment System) Applicable CPT: 57357, 65199 CHECK ALL THAT ARE MET: Measure #5 (CHF): All ages. Prescribe KELLY/ARB upon discharge for patients with left ventricular systolic dysfunction. If not, the reason is clearly documented in the medical chart. Measure #8 (CHF): All ages. Prescribe a beta martin upon discharge for patients with left ventricular systolic dysfunction. If not, the reason is clearly documented in the medical chart. Measure #47 Advance care plan or surrogate decision maker documented in the medical record. Measure #130 The provider has documented, updated, or reviewed the patients current medication list and has documented it in the patients note. Measure #374 (All): Send report to referring provider. Measure #407(Sepsis due to MSSA bacteremia): Age 18+ Patient treated with a beta-lactam antibiotic (Nafcillin, Oxacillin or Cefazolin) as definitive therapy. MEDICAL COMPLEXITY High complexity medical decision making (need 2/3 categories) Problem - need 4 points Acute/new problem with new plan for workup (4 points, 1 max) Acute/new problem without additional workup (3 points, 1 max) Unstable chronic problem actively being managed (2 point each, 2 max) Stable chronic problem actively being managed (1 point each, 2 max) Self-limited/transient process (constipation, muscle ache, etc) (1 point each , 2 max) Data - need 4 points Reviewed labs/imaging studies (1 points, 2 max) Independent review of imaging (EKG, xrays, etc) (2 points, 2 max) Discussed case with consult/other MD/RN (2 points, 2 max) High Risk - qualify if have one of the following: Severe exacerbation of acute problem, acute mental status change, IV narcotics , monitoring drug levels (vancomycin, INR, tacrolimus etc) Lu Paula N.P. Apr 05, 2019 17:00
--- NOTE | 2019-04-05 19:11 | NUR ---
HAND-OFF: Report given to cathy herrera.
--- NOTE | 2019-04-05 19:20 | NUR ---
NURSE NOTES: pt report received from Ama BLACK ANGELA. pt appears to be in bed in stable condition. all current vital signs stable, pt is alert and oriented times 4, cardiac exercise physiologist showing NSR, no abnormalities noted. pt O2 is in place, satting at 99%, no resp abnormalities noted. bed locked and low, bed armed, call light within reach. will continue plan of care.
[2019-04-05] MEDS ORDERED: RENVELA0.8 GM ORAL (20:23)
[2019-04-05] MEDS ORDERED: HYDRALAZINE HCL50 MG ORAL (20:23)
[2019-04-05] MEDS ORDERED: FERROUS SULFAT325 MG ORAL (20:23)
[2019-04-05] MEDS: Tamsulosin 0.4mg cap ORAL SCH (20:53)
--- NOTE | 2019-04-06 03:28 | NUR ---
NURSE NOTES: Pt refused lab work at this time, he stated he would like to retry blood work later in the AM.
--- NOTE | 2019-04-06 07:04 | General Progress Note ---
Assessment/Plan Status: doing well, stable Assessment/Plan: Assessment - recurrent GIB, s/p recent partial colectomy, path --> perforated diverticulitis - post d/c rectal bleed, suspect colonic, resolved - negative EGD for source of bleeding - anemia - ESRD / HD Recommendations - po as tolerated - daily CBC - RN to document stool color - not candidate for colonoscopy due to recent surgery Subjective Allergies: Coded Allergies: No Known Allergies (Unverified , 03/20/18) Subjective uneventful night says had some dark BM yesterday - will ask RN to inspect stools and document color Objective Last 24 Hour Vital Signs Date Time Temp Pulse Resp B/P (MAP) Pulse Ox O2 Delivery O2 Flow Rate FiO2 04/06/19 04:00 72 04/06/19 00:00 83 04/05/19 21:00 Nasal Cannula 2.0 04/05/19 20:00 81 04/05/19 20:00 99.0 78 18 125/67 (86) 100 04/05/19 16:00 97.7 69 19 118/54 (75) 100 04/05/19 15:09 68 04/05/19 12:00 73 04/05/19 12:00 98.0 67 20 122/65 (84) 100 04/05/19 09:22 82 18 100 04/05/19 09:21 84 18 100 04/05/19 09:00 97.8 66 17 115/65 100 Nasal Cannula 2 04/05/19 09:00 Nasal Cannula 2.0 04/05/19 08:50 68 18 106/63 100 Nasal Cannula 2 04/05/19 08:45 70 20 114/65 100 Nasal Cannula 3 04/05/19 08:38 97.0 86 19 102/63 100 Nasal Cannula 3 04/05/19 08:00 69 Intake and Output 04/05/19 04/06/19 19:00 07:00 Intake Total 790 ml Output Total 2500 ml Balance -1710 ml Intake Oral 240 ml IV Total 300 ml Blood Product 250 ml Output Urine Total 500 ml Hemodialysis UF 2000 ml Estimated Blood Loss 0 ml # Voids 2 Height (Feet): 5 Height (Inches): 7.00 Weight (Pounds): 136 Objective Thin AA man NCAT supple CTA RRR abd soft, (+) wound no edema Aga Lucas MD Apr 06, 2019 07:04
--- NOTE | 2019-04-06 07:05 | NUR ---
HAND-OFF: Report given to Kinza MILLER. pt is in stable condition.
[2019-04-06 08:00] VITALS: BP 138/72
--- NOTE | 2019-04-06 08:00 | NUR ---
NURSE NOTES: received pt in the bed, awake, alert, vital signs stable, no co pain, no SOB, skin warm and dry to touch, intact, heplock on left AC patten, black stool, dr. Davis aware, bed in low position, call light within reach.
[2019-04-06 08:02] LABS: BASOPHILS % (AUTO) 0.7 % (0.0-2.0); HEMATOCRIT 30.2 % (42.0-52.0); HEMOGLOBIN 9.8 G/DL (14.2-18.0); LYMPHOCYTES % (AUTO) 17.8 % (20.0-45.0); MEAN CORPUSCULAR VOLUME 93 FL (80-99); MONOCYTES % (AUTO) 6.9 % (1.0-10.0); NEUTROPHILS % (AUTO) 71.5 % (45.0-75.0); PLATELET COUNT 374 K/UL (150-450); RED BLOOD COUNT 3.26 M/UL (4.70-6.10); RED CELL DISTRIBUTION WIDTH 16.1 % (11.6-14.8)
[2019-04-06] MEDS: Pantoprazole Inj IVP SCH (08:11)
[2019-04-06] MEDS: Allopurinol 100mg Tab ORAL SCH (08:11)
[2019-04-06 08:17] LABS: ANION GAP 7 mmol/L (5-15); BLOOD UREA NITROGEN 27 mg/dL (7-18); CALCIUM 8.6 MG/DL (8.5-10.1); CARBON DIOXIDE 30 MMOL/L (21-32); CHLORIDE 101 MMOL/L (98-107); CREATININE 8.9 MG/DL (0.55-1.30); POTASSIUM 4.1 MMOL/L (3.5-5.1); SODIUM 138 MMOL/L (136-145)
--- NOTE | 2019-04-06 10:06 | General Progress Note ---
Assessment/Plan Status: doing well, stable Assessment/Plan: Assessment/Plan Diagnosis Ione I: 58-year-old male history of diverticulosis, recent resection presents with acute GI bleeding # GIB - recent colectomy for perforated diverticulitis - Gsx consult appreciated - GI Consult and EGD 04/05/19 without new source of bleeding POST-ENDOSCOPIC DIAGNOSES: 1. A 2 to 3 cm hiatal hernia. 2. Significant mass of food seen in the stomach, suggestive of gastroparesis. 3. No evidence of ulcerations or blood in the upper GI tract to explain the patient's gastrointestinal bleeding. - monitor cbc and vitals - transfuse 1 PRBC 04/05 - GUAIC all stool # Iron Deficiency Anemia - iron replacement # ESRD - HD by Nephrology # Hypomagnesemia - HD # Hypokalemia - HD # Hypophosphatemia - Monitor levels # H/O exlap from perforated diverticulosis - Dr. Hinds consulting and colonoscopy is not recommended due to recent surgery # Hypotension - PRBC if Hb less than 7 and gentle IVF in setting of ESRD # Full Code Subjective ROS Limited/Unobtainable: Yes Allergies: Coded Allergies: No Known Allergies (Unverified , 03/20/18) Subjective Denies abdominal pain. Objective Last 24 Hour Vital Signs Date Time Temp Pulse Resp B/P (MAP) Pulse Ox O2 Delivery O2 Flow Rate FiO2 04/06/19 09:00 Nasal Cannula 2.0 04/06/19 08:00 98.1 80 18 138/72 (94) 99 04/06/19 08:00 85 04/06/19 04:00 72 04/06/19 00:00 83 04/05/19 21:00 Nasal Cannula 2.0 04/05/19 20:00 81 04/05/19 20:00 99.0 78 18 125/67 (86) 100 04/05/19 16:00 97.7 69 19 118/54 (75) 100 04/05/19 15:09 68 04/05/19 12:00 73 04/05/19 12:00 98.0 67 20 122/65 (84) 100 Intake and Output 04/05/19 04/06/19 19:00 07:00 Intake Total 790 ml Output Total 2500 ml Balance -1710 ml Intake Oral 240 ml IV Total 300 ml Blood Product 250 ml Output Urine Total 500 ml Hemodialysis UF 2000 ml Estimated Blood Loss 0 ml # Voids 2 Laboratory Tests 04/06/19 07:15: White Blood Count 7.0, Red Blood Count 3.26L, Hemoglobin 9.8L, Hematocrit 30.2#L , Mean Corpuscular Volume 93, Mean Corpuscular Hemoglobin 30.1, Mean Corpuscular Hemoglobin Concent 32.5, Red Cell Distribution Width 16.1H, Platelet Count 374, Mean Platelet Volume 5.1L, Neutrophils (%) (Auto) 71.5, Lymphocytes (%) (Auto) 17.8L, Monocytes (%) (Auto) 6.9, Eosinophils (%) (Auto) 3.0, Basophils (%) (Auto) 0.7, Sodium Level 138, Potassium Level 4.1, Chloride Level 101, Carbon Dioxide Level 30, Anion Gap 7, Blood Urea Nitrogen 27H, Creatinine 8.9H, Estimat Glomerular Filtration Rate 7.4, Glucose Level 90, Calcium Level 8.6 Height (Feet): 5 Height (Inches): 7.00 Weight (Pounds): 136 General Appearance: WD/WN EENT: PERRL/EOMI Neck: non-tender Cardiovascular: normal rate Respiratory/Chest: lungs clear Abdomen: non tender Neurologic: contract lead II-XII grossly normal Melvin Davis MD Apr 06, 2019 10:05
[2019-04-06 12:00] VITALS: BP 146/88
--- NOTE | 2019-04-06 14:30 | NUR ---
FOOD OPERATIONS MANAGERCOLD ROLL OPERATOR SI: LOWER GI BLEED S/P EGD T. 97.9 HR 75 RR 20 B/P 146/82 2L NC O2 SAT @ 98% IS: PROTONIX IV REGLAN DOWN GRADE TO MED/SURG MED/SURG STATUS
--- NOTE | 2019-04-06 14:40 | NUR ---
NURSE NOTES: no any distress noted, no co pain, ambulated with PT, tolerate well, continue monitoring.
--- NOTE | 2019-04-06 15:14 | NUR ---
*-* INSURANCE *-* ALL CLINICALS AND REVIEWS HAVE BEEN FAXED TO: [facility] P: [phone] F: [phone]( FAX ALL CLINICALS)
[2019-04-06] MEDS: Hydromorphone 0.5mg/0.5ml inj IVP PRN ×2 (15:43→22:16)
--- NOTE | 2019-04-06 15:47 | NUR ---
RD ASSESSMENT & RECOMMENDATIONS SEE CARE ACTIVITY FOR COMPLETE ASSESSMENT DAILY ESTIMATED NEEDS: Needs based on ESRD on HD, surgery 61kg 30-35 kcals/kg 6745-7271 total kcals 1.2-1.8 g protein/kg 73-110 g total protein fluid per MD, on HD mL/kg total fluid mLs NUTRITION DIAGNOSIS: Increased kcal and protein needs r/t renal dysfunction as evidenced by pt w/ ESRD on HD. CURRENT DIET:RENAL PO DIET RECOMMENDATIONS: RENAL, double proptein portions/ SOFT EASY CHEW TEXTURE ADDITIONAL RECOMMENDATIONS: 1) Obtain calibrated dry wt post HD-> standing preferred 2) Add Nephrovite x1 daily 3) Monitor renal fxn, lytes (last phos elevated on 04/04= 5.1) -> consider phos binders w/ meals 4) Pt is edentulous- rec soft easy chew texture
[2019-04-06 16:00] VITALS: BP 151/79
--- NOTE | 2019-04-06 17:22 | Nephrology Progress Note ---
Assessment/Plan Assessment HTN CHF GI bleed (lower) ESRD- T, Th Sa (will have HD on 04/04) Post surgical colectomy w/ steri strips in place (unsaturated): No sign of infectious process at sight of incision Plan CBC CMP HD on 04/07 Subjective Constitutional: Reports: no symptoms HEENT: Reports: no symptoms Genitourinary: Reports: no symptoms Neurologic/Psychiatric: Reports: no symptoms Subjective T, , HD (received yesterday). Reports recent black tarry stool this morning, documented and visualized by RN. Objective Objective Last 24 Hour Vital Signs Date Time Temp Pulse Resp B/P (MAP) Pulse Ox O2 Delivery O2 Flow Rate FiO2 04/06/19 16:13 97.0 04/06/19 16:00 89 04/06/19 16:00 97.0 72 20 151/79 (103) 100 04/06/19 12:00 79 04/06/19 12:00 97.9 75 20 146/88 (107) 96 04/06/19 09:00 Nasal Cannula 2.0 04/06/19 08:00 98.1 80 18 138/72 (94) 99 04/06/19 08:00 85 04/06/19 04:00 72 04/06/19 00:00 83 04/05/19 21:00 Nasal Cannula 2.0 04/05/19 20:00 81 04/05/19 20:00 99.0 78 18 125/67 (86) 100 Intake and Output 04/05/19 04/06/19 19:00 07:00 Intake Total 790 ml Output Total 2500 ml Balance -1710 ml Intake Oral 240 ml IV Total 300 ml Blood Product 250 ml Output Urine Total 500 ml Hemodialysis UF 2000 ml Estimated Blood Loss 0 ml # Voids 2 Laboratory Tests 04/06/19 07:15: White Blood Count 7.0, Red Blood Count 3.26L, Hemoglobin 9.8L, Hematocrit 30.2#L , Mean Corpuscular Volume 93, Mean Corpuscular Hemoglobin 30.1, Mean Corpuscular Hemoglobin Concent 32.5, Red Cell Distribution Width 16.1H, Platelet Count 374, Mean Platelet Volume 5.1L, Neutrophils (%) (Auto) 71.5, Lymphocytes (%) (Auto) 17.8L, Monocytes (%) (Auto) 6.9, Eosinophils (%) (Auto) 3.0, Basophils (%) (Auto) 0.7, Sodium Level 138, Potassium Level 4.1, Chloride Level 101, Carbon Dioxide Level 30, Anion Gap 7, Blood Urea Nitrogen 27H, Creatinine 8.9H, Estimat Glomerular Filtration Rate 7.4, Glucose Level 90, Calcium Level 8.6 Height (Feet): 5 Height (Inches): 7.00 Weight (Pounds): 136 General Appearance: WD/WN, no apparent distress, alert EENT: PERRL/EOMI Neck: non-tender, normal alignment Cardiovascular: normal peripheral pulses, normal rate, regular rhythm Respiratory/Chest: chest wall non-tender, lungs clear, normal breath sounds Abdomen: normal bowel sounds Extremities: normal range of motion, non-tender, normal inspection Neurologic: no motor/sensory deficits, oriented x 3, normal mood/affect Objective surgical wound incision has steri strips that are dry and site is well aligned. There is no heat to the touch, no oozing or drainage-no sign of infection Lu Paula N.P. Apr 06, 2019 17:22
--- NOTE | 2019-04-06 17:25 | Surgery Progress Note ---
Surgery Progress Note Subjective Additional Comments no acute events patient states he saw blood in stool again. unable to verify with staff h/h stable otherwise stable EGD noted Objective Last 24 Hour Vital Signs Date Time Temp Pulse Resp B/P (MAP) Pulse Ox O2 Delivery O2 Flow Rate FiO2 04/06/19 16:13 97.0 04/06/19 16:00 89 04/06/19 16:00 97.0 72 20 151/79 (103) 100 04/06/19 12:00 79 04/06/19 12:00 97.9 75 20 146/88 (107) 96 04/06/19 09:00 Nasal Cannula 2.0 04/06/19 08:00 98.1 80 18 138/72 (94) 99 04/06/19 08:00 85 04/06/19 04:00 72 04/06/19 00:00 83 04/05/19 21:00 Nasal Cannula 2.0 04/05/19 20:00 81 04/05/19 20:00 99.0 78 18 125/67 (86) 100 I&O Intake and Output 04/05/19 04/06/19 19:00 07:00 Intake Total 790 ml Output Total 2500 ml Balance -1710 ml Intake Oral 240 ml IV Total 300 ml Blood Product 250 ml Output Urine Total 500 ml Hemodialysis UF 2000 ml Estimated Blood Loss 0 ml # Voids 2 Cardiovascular: RSR Respiratory: clear Abdomen: soft, flat, non-tender, present bowel sounds Extremities: no cyanosis Laboratory Tests Test 04/06/19 07:15 White Blood Count 7.0 K/UL (4.8-10.8) Red Blood Count 3.26 M/UL (4.70-6.10) L Hemoglobin 9.8 G/DL (14.2-18.0) L Hematocrit 30.2 % (42.0-52.0) #L Mean Corpuscular Volume 93 FL (80-99) Mean Corpuscular Hemoglobin 30.1 PG (27.0-31.0) Mean Corpuscular Hemoglobin Concent 32.5 G/DL (32.0-36.0) Red Cell Distribution Width 16.1 % (11.6-14.8) H Platelet Count 374 K/UL (150-450) Mean Platelet Volume 5.1 FL (6.5-10.1) L Neutrophils (%) (Auto) 71.5 % (45.0-75.0) Lymphocytes (%) (Auto) 17.8 % (20.0-45.0) L Monocytes (%) (Auto) 6.9 % (1.0-10.0) Eosinophils (%) (Auto) 3.0 % (0.0-3.0) Basophils (%) (Auto) 0.7 % (0.0-2.0) Sodium Level 138 MMOL/L (136-145) Potassium Level 4.1 MMOL/L (3.5-5.1) Chloride Level 101 MMOL/L (98-107) Carbon Dioxide Level 30 MMOL/L (21-32) Anion Gap 7 mmol/L (5-15) Blood Urea Nitrogen 27 mg/dL (7-18) H Creatinine 8.9 MG/DL (0.55-1.30) H Estimat Glomerular Filtration Rate 7.4 mL/min (>60) Glucose Level 90 MG/DL (74-106) Calcium Level 8.6 MG/DL (8.5-10.1) Plan Problems: (1) GI bleed Assessment & Plan: no acute events h/h stable EGD noted cannot do colon at this time given recent surgery trend h/h no heparin with dialysis HD when ready please monitor and document color ad consistency of stool/ BM will follow with recs thank you Devonte Hinds Apr 06, 2019 17:25
--- NOTE | 2019-04-06 18:16 | NUR ---
NURSE NOTES: ADE on 04/07/19, called office, spoke with Gertrude.
--- NOTE | 2019-04-06 18:45 | NUR ---
NURSE NOTES: Received report from Kinza BLACK. pt a/a/ox4 laying in bed with no signs of distress at this time. IV on the Left FA heplock. pt has HD access on the left leg. RN will review orders and will carry on as indicated. - Per report Kinza BLACK already called HD center to notify that pt will need HD onsite tomorrow.
[2019-04-06] MEDS ORDERED: LORazepam Inj 2mg/ml 1ml IV PRN ×2 (19:00→19:45)
[2019-04-06] MEDS ORDERED: HydrALAZINE 25mg tab ORAL PRN ×2 (19:00→19:45)
[2019-04-06] MEDS ORDERED: Metoclopramide 10mg/2ml Inj IVP PRN ×2 (19:00→19:45)
[2019-04-06] MEDS ORDERED: Miralax 17gm pkt ORAL PRN ×2 (19:00→19:45)
[2019-04-06] MEDS ORDERED: Milk of Magnesia 30ml Ud ORAL PRN ×2 (19:00→19:45)
[2019-04-06] MEDS ORDERED: Mylanta II UD 30ml ORAL PRN ×2 (19:00→19:45)
--- NOTE | 2019-04-06 19:26 | NUR ---
NURSE NOTES: pt transferred to 3E, room 315 as ordered, condition stable, report given to REYNALDO BLACK
--- NOTE | 2019-04-06 19:43 | NUR ---
HAND-OFF: Report given to Basilia RN, pt in stable condition. - Endorsed to incoming nurse that OB needs to be collected.
[2019-04-06 20:00] VITALS: BP 147/66
--- NOTE | 2019-04-06 20:02 | NUR ---
NURSE NOTES: Received report from WAYNE Seth. Patient A&Ox4. On 2L/min nasal cannula. No signs of distress or labored breathing. IV intact, patent, and saline locked. Thrill and bruit present for left thigh AV shunt. Bed in lowest position with call light in reach.
[2019-04-06] MEDS: Tamsulosin 0.4mg cap ORAL SCH (20:38)
[2019-04-06] MEDS ORDERED: Pantoprazole Inj IVP SCH (21:00)
[2019-04-06] MEDS ORDERED: Tamsulosin 0.4mg cap ORAL SCH (21:00)
[2019-04-06] MEDS ORDERED: Epoetin Alfa-EPBX(ESRD on dialysis)10,000 unit/ml vial SUBQ SCH ×2 (21:00)
[2019-04-06] MEDS ORDERED: Hydromorphone 0.5mg/0.5ml inj IVP PRN (21:30)
--- NOTE | 2019-04-06 23:30 | NUR ---
NURSE NOTES: Patient has been refusing MRSA/VRE/CRE swabs since admission. Patient later agreed to MRSA swab but nothing more. Charge nurse aware.
[2019-04-07] VITALS (7 sets, daily range): BP systolic 118–163; BP diastolic 64–87
[2019-04-07] MEDS ORDERED: Hydromorphone 0.5mg/0.5ml inj IVP PRN (01:45)
[2019-04-07 06:02] LABS: BASOPHILS % (AUTO) 1.5 % (0.0-2.0); EOSINOPHILS % (AUTO) 4.9 % (0.0-3.0); HEMATOCRIT 25.5 % (42.0-52.0); HEMOGLOBIN 8.4 G/DL (14.2-18.0); LYMPHOCYTES % (AUTO) 13.8 % (20.0-45.0); MEAN CORPUSCULAR VOLUME 93 FL (80-99); MONOCYTES % (AUTO) 8.9 % (1.0-10.0); NEUTROPHILS % (AUTO) 70.9 % (45.0-75.0); PLATELET COUNT 357 K/UL (150-450); RED BLOOD COUNT 2.75 M/UL (4.70-6.10); RED CELL DISTRIBUTION WIDTH 16.7 % (11.6-14.8); WHITE BLOOD COUNT 6.7 K/UL (4.8-10.8)
[2019-04-07] MEDS: Hydromorphone 0.5mg/0.5ml inj IVP PRN ×2 (06:16→13:02)
[2019-04-07 06:22] LABS: ALANINE AMINOTRANSFERASE < 6 U/L (12-78); ALBUMIN 1.7 G/DL (3.4-5.0); ALBUMIN/GLOBULIN RATIO 0.4 (1.0-2.7); ALKALINE PHOSPHATASE 83 U/L (46-116); ANION GAP 7 mmol/L (5-15); ASPARTATE AMINO TRANSFERASE 17 U/L (15-37); BILIRUBIN,TOTAL 0.3 MG/DL (0.2-1.0); BLOOD UREA NITROGEN 36 mg/dL (7-18); CALCIUM 8.7 MG/DL (8.5-10.1); CARBON DIOXIDE 29 MMOL/L (21-32); CHLORIDE 100 MMOL/L (98-107); CREATININE 10.2 MG/DL (0.55-1.30); POTASSIUM 4.7 MMOL/L (3.5-5.1); SODIUM 136 MMOL/L (136-145)
--- NOTE | 2019-04-07 07:19 | NUR ---
HAND-OFF: Report given to Jasson Martinez RN (Jamie).
--- NOTE | 2019-04-07 07:57 | NUR ---
NURSE NOTES: Received pt in bed. AO x4. On 2 L NC. IV on L AC 20g intact and patent, with saline lock. AV shunt on L thigh noted. MRSA nares pending. Pt refused on VRE and CRE swabs. and Bed in the lowest and locked. Will continue to monitor
[2019-04-07] MEDS: Allopurinol 100mg Tab ORAL SCH (08:51)
[2019-04-07] MEDS ORDERED: Allopurinol 100mg Tab ORAL SCH (09:00)
--- NOTE | 2019-04-07 09:56 | General Progress Note ---
Assessment/Plan Status: doing well, stable Assessment/Plan: Assessment - recurrent GIB, s/p recent partial colectomy, path --> perforated diverticulitis - post d/c rectal bleed, suspect colonic, resolved - negative EGD for source of bleeding - anemia - ESRD / HD Recommendations - po as tolerated - daily CBC - RN to document stool color - not candidate for colonoscopy due to recent surgery Subjective Allergies: Coded Allergies: No Known Allergies (Unverified , 03/20/18) Subjective uneventful night says had some dark BM yesterday H&H fluctuations noted Objective Last 24 Hour Vital Signs Date Time Temp Pulse Resp B/P (MAP) Pulse Ox O2 Delivery O2 Flow Rate FiO2 04/07/19 09:00 Nasal Cannula 2.0 04/07/19 08:00 98.7 70 20 162/85 (110) 99 04/07/19 04:00 98.0 62 18 163/82 (109) 97 04/07/19 00:00 98.2 69 19 151/75 (100) 100 04/06/19 21:00 Nasal Cannula 2.0 04/06/19 20:00 98.3 76 18 147/66 (93) 98 04/06/19 16:13 97.0 04/06/19 16:00 89 04/06/19 16:00 97.0 72 20 151/79 (103) 100 04/06/19 12:00 79 04/06/19 12:00 97.9 75 20 146/88 (107) 96 Intake and Output 04/06/19 04/07/19 19:00 07:00 Intake Total 300 ml Balance 300 ml Intake Oral 300 ml # Voids 2 # Bowel Movements 1 1 Laboratory Tests 04/07/19 00:55: Stool Occult Blood [Pending] 04/07/19 05:45: White Blood Count 6.7, Red Blood Count 2.75L, Hemoglobin 8.4L, Hematocrit 25.5L , Mean Corpuscular Volume 93, Mean Corpuscular Hemoglobin 30.6, Mean Corpuscular Hemoglobin Concent 32.9, Red Cell Distribution Width 16.7H, Platelet Count 357, Mean Platelet Volume 4.7L, Neutrophils (%) (Auto) 70.9, Lymphocytes (%) (Auto) 13.8L, Monocytes (%) (Auto) 8.9, Eosinophils (%) (Auto) 4.9H, Basophils (%) (Auto) 1.5, Sodium Level 136, Potassium Level 4.7, Chloride Level 100, Carbon Dioxide Level 29, Anion Gap 7, Blood Urea Nitrogen 36H, Creatinine 10.2H, Estimat Glomerular Filtration Rate 6.3, Glucose Level 88, Calcium Level 8.7, Total Bilirubin 0.3, Aspartate Amino Transf (AST/SGOT) 17, Alanine Aminotransferase (ALT/SGPT) < 6L, Alkaline Phosphatase 83, Total Protein 5.8L, Albumin 1.7L, Globulin 4.1, Albumin/Globulin Ratio 0.4L Height (Feet): 5 Height (Inches): 7.00 Weight (Pounds): 137 Objective Thin AA man NCAT supple CTA RRR abd soft, (+) wound no edema Aga Lucas MD Apr 07, 2019 09:56
--- NOTE | 2019-04-07 09:56 | Nephrology Progress Note ---
Assessment/Plan Assessment HTN CHF GI bleed (lower) ESRD- T, (will have HD on 04/04) Post surgical colectomy w/ steri strips in place (unsaturated): No sign of infectious process at sight of incision Plan CBC tomorrow CMP tomorrow HD on 04/07 Subjective Constitutional: Reports: no symptoms HEENT: Reports: no symptoms Genitourinary: Reports: no symptoms Neurologic/Psychiatric: Reports: no symptoms Subjective T, , HD (received yesterday). Reports recent black tarry stool this morning, documented and visualized by RN. Objective Objective Last 24 Hour Vital Signs Date Time Temp Pulse Resp B/P (MAP) Pulse Ox O2 Delivery O2 Flow Rate FiO2 04/07/19 09:00 Nasal Cannula 2.0 04/07/19 08:00 98.7 70 20 162/85 (110) 99 04/07/19 04:00 98.0 62 18 163/82 (109) 97 04/07/19 00:00 98.2 69 19 151/75 (100) 100 04/06/19 21:00 Nasal Cannula 2.0 04/06/19 20:00 98.3 76 18 147/66 (93) 98 04/06/19 16:13 97.0 04/06/19 16:00 89 04/06/19 16:00 97.0 72 20 151/79 (103) 100 04/06/19 12:00 79 04/06/19 12:00 97.9 75 20 146/88 (107) 96 Intake and Output 04/06/19 04/07/19 19:00 07:00 Intake Total 300 ml Balance 300 ml Intake Oral 300 ml # Voids 2 # Bowel Movements 1 1 Laboratory Tests 04/07/19 00:55: Stool Occult Blood [Pending] 04/07/19 05:45: White Blood Count 6.7, Red Blood Count 2.75L, Hemoglobin 8.4L, Hematocrit 25.5L , Mean Corpuscular Volume 93, Mean Corpuscular Hemoglobin 30.6, Mean Corpuscular Hemoglobin Concent 32.9, Red Cell Distribution Width 16.7H, Platelet Count 357, Mean Platelet Volume 4.7L, Neutrophils (%) (Auto) 70.9, Lymphocytes (%) (Auto) 13.8L, Monocytes (%) (Auto) 8.9, Eosinophils (%) (Auto) 4.9H, Basophils (%) (Auto) 1.5, Sodium Level 136, Potassium Level 4.7, Chloride Level 100, Carbon Dioxide Level 29, Anion Gap 7, Blood Urea Nitrogen 36H, Creatinine 10.2H, Estimat Glomerular Filtration Rate 6.3, Glucose Level 88, Calcium Level 8.7, Total Bilirubin 0.3, Aspartate Amino Transf (AST/SGOT) 17, Alanine Aminotransferase (ALT/SGPT) < 6L, Alkaline Phosphatase 83, Total Protein 5.8L, Albumin 1.7L, Globulin 4.1, Albumin/Globulin Ratio 0.4L Height (Feet): 5 Height (Inches): 7.00 Weight (Pounds): 136 General Appearance: WD/WN, no apparent distress, alert EENT: PERRL/EOMI Neck: non-tender, normal alignment Cardiovascular: normal peripheral pulses, normal rate, regular rhythm Respiratory/Chest: lungs clear, normal breath sounds Abdomen: normal bowel sounds, non tender Extremities: normal range of motion, non-tender Neurologic: no motor/sensory deficits, alert, oriented x 3, responsive Objective The surgical wound incision to the RLQ has steri strips that are dry and site is well aligned. There is no heat to the touch, no oozing or drainage-no sign of infection Lu Paula N.P. Apr 07, 2019 09:56
[2019-04-07] MEDS ORDERED: Artificial Tears 1.4% Op Soln BOTH EYES PRN (10:45)
--- NOTE | 2019-04-07 12:22 | General Progress Note ---
Assessment/Plan Status: doing well, stable Assessment/Plan: Assessment/Plan Diagnosis [place] I: 58-year-old male history of diverticulosis, recent resection presents with acute GI bleeding # GIB - recent colectomy for perforated diverticulitis - Gsx consult appreciated - GI Consult and EGD 04/05/19 without new source of bleeding POST-ENDOSCOPIC DIAGNOSES: 1. A 2 to 3 cm hiatal hernia. 2. Significant mass of food seen in the stomach, suggestive of gastroparesis. 3. No evidence of ulcerations or blood in the upper GI tract to explain the patient's gastrointestinal bleeding. - monitor cbc and vitals - transfuse 1 PRBC 04/05 - Hb decreased from 9.6 to 8.4 today and per RN at night he had melena - GUAIC all stool ordered # Iron Deficiency Anemia - iron replacement # ESRD - HD by Nephrology # Hypomagnesemia - HD # Hypokalemia - HD # Hypophosphatemia - Monitor levels # H/O exlap from perforated diverticulosis - Dr. Hinds consulting and colonoscopy is not recommended due to recent surgery - AWAIT input regarding decrease in the Hb today and reported melena per RN # Hypotension - PRBC if Hb less than 7 and gentle IVF in setting of ESRD # Full Code Subjective Allergies: Coded Allergies: No Known Allergies (Unverified , 03/20/18) All Systems: reviewed and negative except above Subjective Denies abdominal pain. Objective Last 24 Hour Vital Signs Date Time Temp Pulse Resp B/P (MAP) Pulse Ox O2 Delivery O2 Flow Rate FiO2 04/07/19 12:00 98.2 79 21 147/78 (101) 96 04/07/19 09:00 Nasal Cannula 2.0 04/07/19 08:00 98.7 70 20 162/85 (110) 99 04/07/19 04:00 98.0 62 18 163/82 (109) 97 04/07/19 00:00 98.2 69 19 151/75 (100) 100 04/06/19 21:00 Nasal Cannula 2.0 04/06/19 20:00 98.3 76 18 147/66 (93) 98 04/06/19 16:13 97.0 04/06/19 16:00 89 04/06/19 16:00 97.0 72 20 151/79 (103) 100 Intake and Output 04/06/19 04/07/19 19:00 07:00 Intake Total 300 ml Balance 300 ml Intake Oral 300 ml # Voids 2 # Bowel Movements 1 1 Laboratory Tests 04/07/19 00:55: Stool Occult Blood [Pending] 04/07/19 05:45: White Blood Count 6.7, Red Blood Count 2.75L, Hemoglobin 8.4L, Hematocrit 25.5L , Mean Corpuscular Volume 93, Mean Corpuscular Hemoglobin 30.6, Mean Corpuscular Hemoglobin Concent 32.9, Red Cell Distribution Width 16.7H, Platelet Count 357, Mean Platelet Volume 4.7L, Neutrophils (%) (Auto) 70.9, Lymphocytes (%) (Auto) 13.8L, Monocytes (%) (Auto) 8.9, Eosinophils (%) (Auto) 4.9H, Basophils (%) (Auto) 1.5, Sodium Level 136, Potassium Level 4.7, Chloride Level 100, Carbon Dioxide Level 29, Anion Gap 7, Blood Urea Nitrogen 36H, Creatinine 10.2H, Estimat Glomerular Filtration Rate 6.3, Glucose Level 88, Calcium Level 8.7, Total Bilirubin 0.3, Aspartate Amino Transf (AST/SGOT) 17, Alanine Aminotransferase (ALT/SGPT) < 6L, Alkaline Phosphatase 83, Total Protein 5.8L, Albumin 1.7L, Globulin 4.1, Albumin/Globulin Ratio 0.4L Height (Feet): 5 Height (Inches): 7.00 Weight (Pounds): 137 General Appearance: WD/WN EENT: PERRL/EOMI Neck: non-tender Cardiovascular: normal rate Respiratory/Chest: lungs clear Abdomen: non tender Edema: trace edema 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
--- NOTE | 2019-04-07 14:33 | Surgery Progress Note ---
Surgery Progress Note Subjective Additional Comments states he wants to go home soon no bright red blood with BM but I personally saw his BM today as nurses saved it for me and it was melena. dark black. I did a GABRIEL at bedside and noted only dark stool but no gross blood. Objective Last 24 Hour Vital Signs Date Time Temp Pulse Resp B/P (MAP) Pulse Ox O2 Delivery O2 Flow Rate FiO2 04/07/19 12:00 98.2 79 21 147/78 (101) 96 04/07/19 09:00 Nasal Cannula 2.0 04/07/19 08:00 98.7 70 20 162/85 (110) 99 04/07/19 04:00 98.0 62 18 163/82 (109) 97 04/07/19 00:00 98.2 69 19 151/75 (100) 100 04/06/19 21:00 Nasal Cannula 2.0 04/06/19 20:00 98.3 76 18 147/66 (93) 98 04/06/19 16:13 97.0 04/06/19 16:00 89 04/06/19 16:00 97.0 72 20 151/79 (103) 100 I&O Intake and Output 04/06/19 04/07/19 19:00 07:00 Intake Total 300 ml Balance 300 ml Intake Oral 300 ml # Voids 2 # Bowel Movements 1 1 Cardiovascular: RSR Respiratory: clear Abdomen: soft, flat, non-tender, present bowel sounds Extremities: no edema, no tenderness, no cyanosis Laboratory Tests Test 04/07/19 00:55 04/07/19 05:45 Stool Occult Blood Positive (NEGATIVE) White Blood Count 6.7 K/UL (4.8-10.8) Red Blood Count 2.75 M/UL (4.70-6.10) L Hemoglobin 8.4 G/DL (14.2-18.0) L Hematocrit 25.5 % (42.0-52.0) L Mean Corpuscular Volume 93 FL (80-99) Mean Corpuscular Hemoglobin 30.6 PG (27.0-31.0) Mean Corpuscular Hemoglobin Concent 32.9 G/DL (32.0-36.0) Red Cell Distribution Width 16.7 % (11.6-14.8) H Platelet Count 357 K/UL (150-450) Mean Platelet Volume 4.7 FL (6.5-10.1) L Neutrophils (%) (Auto) 70.9 % (45.0-75.0) Lymphocytes (%) (Auto) 13.8 % (20.0-45.0) L Monocytes (%) (Auto) 8.9 % (1.0-10.0) Eosinophils (%) (Auto) 4.9 % (0.0-3.0) H Basophils (%) (Auto) 1.5 % (0.0-2.0) Sodium Level 136 MMOL/L (136-145) Potassium Level 4.7 MMOL/L (3.5-5.1) Chloride Level 100 MMOL/L (98-107) Carbon Dioxide Level 29 MMOL/L (21-32) Anion Gap 7 mmol/L (5-15) Blood Urea Nitrogen 36 mg/dL (7-18) H Creatinine 10.2 MG/DL (0.55-1.30) H Estimat Glomerular Filtration Rate 6.3 mL/min (>60) Glucose Level 88 MG/DL (74-106) Calcium Level 8.7 MG/DL (8.5-10.1) Total Bilirubin 0.3 MG/DL (0.2-1.0) Aspartate Amino Transf (AST/SGOT) 17 U/L (15-37) Alanine Aminotransferase (ALT/SGPT) < 6 U/L (12-78) L Alkaline Phosphatase 83 U/L (46-116) Total Protein 5.8 G/DL (6.4-8.2) L Albumin 1.7 G/DL (3.4-5.0) L Globulin 4.1 g/dL Albumin/Globulin Ratio 0.4 (1.0-2.7) L Plan Problems: (1) GI bleed Assessment & Plan: no acute events h/h stable EGD noted cannot do colon at this time given recent surgery trend h/h no heparin with dialysis HD when ready please monitor and document color ad consistency of stool/ BM states he wants to go home soon no bright red blood with BM but I personally saw his BM today as nurses saved it for me and it was melena. dark black. I did a GABRIEL at bedside and noted only dark stool but no gross blood. prior patient has bright red blood and clots in stool. s/p surgery he now only has melena. etiology of the two bleeding unlikely to be the same he has not had bright red stool or clots that had been noted since surgery. EDG negative during surgery entire small bowel was evaluated and no overt etiology noted there. possible lumenal? can consider capsule endoscopy? outpatient maybe? will trend labs to ensure stable first will follow with recs thank you Devonte Hinds Apr 07, 2019 14:33
--- NOTE | 2019-04-07 14:49 | NUR ---
*-* INSURANCE *-* UPDATED CLINICALS HAVE BEEN FAXED TO: [facility] P: [phone] F: [phone]( FAX ALL CLINICALS)
--- NOTE | 2019-04-07 15:14 | NUR ---
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 98.7 HR 70 RR 20 B/P 162/85 2L NC O2 SAT @ 98% H/H 8.4/25.5 IS: ZYLOPRIM PO FLOMAX PO SURGICAL CONSULT MED/SURG STATUS
--- NOTE | 2019-04-07 19:30 | NUR ---
NURSE NOTES: Patient received in bed, asleep, no acute distress at this time. S/P dialysis. Call light in reach, will continue plan of care.
--- NOTE | 2019-04-07 20:00 | NUR ---
HAND-OFF: Report given to WAYNE Arora.
[2019-04-07] MEDS: Tamsulosin 0.4mg cap ORAL SCH (20:48)
--- NOTE | 2019-04-07 21:00 | NUR ---
NURSE NOTES: Patient refused 2100 medication flomax, stating "If it's a pill, I don't want it. Leave me alone." Attempted to educate patient importance of medication, but patient continued sleeping, ignored RN.
[2019-04-08] MEDS: Hydromorphone 0.5mg/0.5ml inj IVP PRN ×2 (00:18→06:25)
[2019-04-08 04:00] VITALS: BP 152/83
[2019-04-08 06:58] LABS: BASOPHILS % (AUTO) 1.2 % (0.0-2.0); EOSINOPHILS % (AUTO) 4.9 % (0.0-3.0); HEMATOCRIT 27.3 % (42.0-52.0); HEMOGLOBIN 8.8 G/DL (14.2-18.0); LYMPHOCYTES % (AUTO) 16.1 % (20.0-45.0); MEAN CORPUSCULAR VOLUME 92 FL (80-99); MONOCYTES % (AUTO) 8.7 % (1.0-10.0); NEUTROPHILS % (AUTO) 69.1 % (45.0-75.0); PLATELET COUNT 426 K/UL (150-450); RED BLOOD COUNT 2.96 M/UL (4.70-6.10); RED CELL DISTRIBUTION WIDTH 15.7 % (11.6-14.8)
[2019-04-08 06:59] LABS: ANION GAP 7 mmol/L (5-15); BLOOD UREA NITROGEN 28 mg/dL (7-18); CALCIUM 8.9 MG/DL (8.5-10.1); CARBON DIOXIDE 29 MMOL/L (21-32); CHLORIDE 99 MMOL/L (98-107); CREATININE 8.8 MG/DL (0.55-1.30); POTASSIUM 4.4 MMOL/L (3.5-5.1); SODIUM 135 MMOL/L (136-145)
--- NOTE | 2019-04-08 07:15 | NUR ---
NURSE NOTES: Report received from Ulysses BLACK. Patient is in bed, awake, alert, oriented, and able to make needs known. Patient denies pain at this time. Patient is c/o nausea with vomiting; will address as appropriate. IV site is asymptomatic, patent, and intact. Bed is in lowest position with side rails up x2 and brakes are engaged. Patient refused bed alarm. Encouraged patient to use call light when in need of assistance, pt verbalized understanding. Will continue to monitor.
--- NOTE | 2019-04-08 07:49 | NUR ---
HAND-OFF: Report given to Carri BLACK.
[2019-04-08] MEDS: Allopurinol 100mg Tab ORAL SCH (08:32)
[2019-04-08 08:41] VITALS: BP 145/78
--- NOTE | 2019-04-08 10:54 | Discharge Instructions ---
Discharge Instructions Discharge Instructions Diet: renal (80g protein, 2GM) Resume Normal Activity?: Yes Activity: resume normal activities For Surgical Patients May shower: Yes For Congestive Heart Failure Reminder Report to your physician any weight gain of 5 pounds or more in one week. Melvin Davis MD Apr 08, 2019 10:54
--- NOTE | 2019-04-08 11:02 | Discharge Summary ---
Discharge Summary Hospital Course Date of Admission Apr 02, 2019 at 14:46 Date of Discharge APR 08 Admitting Diagnosis Lower Gastrointestional Bleed HPI Manny Godfrey is a 58 year old male who was admitted on Apr 02, 2019 at 14: 46 for Lower Gastrointestinal Bleed Consultations GI Dr. Lucas Surgery Dr. Lizet Mohr Procedures EGD 2-3 cm hiatal hernia No evidence of GI bleed Hospital Course 58-year-old, man with a history of multiple recurrent lower gastrointestinal bleeding episodes. He has had multiple endoscopies and colonoscopies in outside hospital and even a recent hemorrhoidal banding. He came back bleeding again to our hospital recently and after evaluation, it was determined that he was having bleeding from colonic source and he had a partial colectomy by Dr. Hinds. The pathology results showed perforated diverticulitis with associated hemorrhage. He had a postoperative course that was unremarkable and was sent home, but he came back shortly after with recurrent rectal bleeding, which appears now to have subsided. GI and Surgery consultations were obtained. Hb trended down to7.4 and 1 PRBC was given. EGD completed and no source of bleeding was noted. His Hb is now stable, he is ambulatory and there is no source of bleeding that was found. Per discussion with Dr. Hinds the patient possibly had a diverticular bleed that is now resolved. His melena is not associated with active GI bleed and the patient is eager to be discharged home. He is medically stable and not actively bleeding. His Hb is 8.8 today. Recommend: Outpatient follow up Consider capsule endoscopy per insurance approval if persistent anemia is noted. Discharge Medications Continued Medications: Allopurinol* (Allopurinol*) 100 Mg Tablet Unknown Dose ORAL DAILY, TAB Amlodipine Besylate (Norvasc) 2.5 Mg Tablet Unknown Dose ORAL DAILY, TAB Clonidine Hcl* (Catapres*) 0.1 Mg Tablet Unknown Dose ORAL, TAB Ferrous Sulfate* (Ferrous Sulfate*) 325 Mg Tablet Unknown Dose ORAL TID, #30 TAB 0 Refills Folic Acid* (Folic Acid*) 1 Mg Tablet 1 MG ORAL DAILY, TAB Hydralazine Hcl* (Hydralazine Hcl*) 50 Mg Tablet 50 MG ORAL TID, TAB Lisinopril* (Lisinopril*) 2.5 Mg Tablet 2.5 MG ORAL DAILY, TAB 0 Refills Omeprazole (Omeprazole) 10 Mg Capsule. Unknown Dose ORAL DAILY, #30 CAP 0 Refills Sevelamer Carbonate* (Renvela*) 0.8 Gm Powd.pack Unknown Dose ORAL 3 PER MEAL, PACK Tamsulosin Hcl (Tamsulosin Hcl*) 0.4 Mg Cap.er.24h Unknown Dose ORAL BEDTIME, CAP Discharge Condition Upon Discharge: stable Discharge Disposition Patient was discharged to Home Discharge Diagnoses: (1) End-stage renal disease (2) GI bleed (3) HTN (hypertension) (4) Status post colectomy (5) Anemia in chronic kidney disease Discharge Instructions Discharge Instructions Activity: resume normal activities For Surgical Patients May shower: Yes Melvin Davis MD Apr 08, 2019 11:02
--- NOTE | 2019-04-08 11:45 | NUR ---
NURSE NOTES: Primary MD is at the bedside. Discharge order noted. Instructed patient regarding discharge orders, including continuity of home medication regimen and as well as new prescribed medicine by primary MD. Patient verbalized understanding. IV line is removed, asymptomatic, no hematoma and/or bleeding noted. Belongings checked and given to the patient, including cellphone. Patient will be picked up by brother. Patient is transferred to the [facility] via wheelchair accompanied by ADMISSIONS OFFICER. In stable condition.
--- NOTE | 2019-04-08 11:53 | Nephrology Progress Note ---
Assessment/Plan Assessment HTN CHF GI bleed (lower) ESRD- T, Sa (received HD yesterday--will continue to go to dialysis center. Post surgical colectomy w/ steri strips in place (unsaturated): No sign of infectious process at sight of incision Plan Patient cleared for discharge by Nephrology, GALINA Quiroga. Can continue hemodialysis outpatient. Subjective Constitutional: Reports: no symptoms HEENT: Reports: no symptoms Genitourinary: Reports: no symptoms Neurologic/Psychiatric: Reports: no symptoms Subjective T, , HD (received yesterday). Reports recent black tarry stool this morning, documented and visualized by RN. Objective Objective Last 24 Hour Vital Signs Date Time Temp Pulse Resp B/P (MAP) Pulse Ox O2 Delivery O2 Flow Rate FiO2 04/08/19 08:41 97.8 85 20 145/78 (100) 100 04/08/19 08:40 Nasal Cannula 2.0 04/08/19 06:55 97.5 04/08/19 04:00 97.5 69 18 152/83 (106) 100 04/07/19 23:47 98.7 70 18 157/77 (103) 100 04/07/19 21:00 Nasal Cannula 2.0 04/07/19 20:00 98.4 98 18 118/64 (82) 100 04/07/19 16:00 97.5 78 20 153/87 (109) 97 04/07/19 13:00 Nasal Cannula 2.0 04/07/19 12:00 98.2 79 21 147/78 (101) 96 Intake and Output 04/07/19 04/08/19 19:00 07:00 Intake Total 960 ml Output Total 2000 ml Balance 960 ml -2000 ml Intake Oral 960 ml Hemodialysis UF 2000 ml # Voids 2 4 # Bowel Movements 1 Laboratory Tests 04/08/19 04:45: White Blood Count 7.0, Red Blood Count 2.96L, Hemoglobin 8.8L, Hematocrit 27.3L , Mean Corpuscular Volume 92, Mean Corpuscular Hemoglobin 29.9, Mean Corpuscular Hemoglobin Concent 32.4, Red Cell Distribution Width 15.7H, Platelet Count 426, Mean Platelet Volume 4.7L, Neutrophils (%) (Auto) 69.1, Lymphocytes (%) (Auto) 16.1L, Monocytes (%) (Auto) 8.7, Eosinophils (%) (Auto) 4.9H, Basophils (%) (Auto) 1.2, Sodium Level 135L, Potassium Level 4.4, Chloride Level 99, Carbon Dioxide Level 29, Anion Gap 7, Blood Urea Nitrogen 28H , Creatinine 8.8H, Estimat Glomerular Filtration Rate 7.5, Glucose Level 79, Calcium Level 8.9 Height (Feet): 5 Height (Inches): 7.00 Weight (Pounds): 137 General Appearance: WD/WN, no apparent distress, alert EENT: PERRL/EOMI Neck: non-tender, normal alignment, supple Cardiovascular: normal peripheral pulses, normal rate, regular rhythm Respiratory/Chest: lungs clear, normal breath sounds, no respiratory distress Abdomen: normal bowel sounds, non tender Extremities: normal range of motion, non-tender Neurologic: no motor/sensory deficits, alert, oriented x 3 Objective The surgical wound incision to the RLQ has steri strips that are dry and site is well aligned. There is no heat to the touch, no oozing or drainage-no sign of infection Lu Paula N.P. Apr 08, 2019 11:53
--- NOTE | 2019-04-08 21:14 | General Progress Note ---
Assessment/Plan Status: doing well, stable Assessment/Plan: Assessment - recurrent GIB, s/p recent partial colectomy, path --> perforated diverticulitis - post d/c rectal bleed, suspect colonic, resolved - negative EGD for source of bleeding - anemia - ESRD / HD Recommendations - po as tolerated - daily CBC - RN to document stool color - not candidate for colonoscopy due to recent surgery Subjective Allergies: Coded Allergies: No Known Allergies (Unverified , 03/20/18) Subjective uneventful night says had some dark BM yesterday H&H fluctuations noted Objective Last 24 Hour Vital Signs Date Time Temp Pulse Resp B/P (MAP) Pulse Ox O2 Delivery O2 Flow Rate FiO2 04/08/19 08:41 97.8 85 20 145/78 (100) 100 04/08/19 08:40 Nasal Cannula 2.0 04/08/19 06:55 97.5 04/08/19 04:00 97.5 69 18 152/83 (106) 100 04/07/19 23:47 98.7 70 18 157/77 (103) 100 Intake and Output 04/07/19 04/08/19 19:00 07:00 Intake Total 960 ml Output Total 2000 ml Balance 960 ml -2000 ml Intake Oral 960 ml Hemodialysis UF 2000 ml # Voids 2 4 # Bowel Movements 1 Laboratory Tests 04/08/19 04:45: White Blood Count 7.0, Red Blood Count 2.96L, Hemoglobin 8.8L, Hematocrit 27.3L , Mean Corpuscular Volume 92, Mean Corpuscular Hemoglobin 29.9, Mean Corpuscular Hemoglobin Concent 32.4, Red Cell Distribution Width 15.7H, Platelet Count 426, Mean Platelet Volume 4.7L, Neutrophils (%) (Auto) 69.1, Lymphocytes (%) (Auto) 16.1L, Monocytes (%) (Auto) 8.7, Eosinophils (%) (Auto) 4.9H, Basophils (%) (Auto) 1.2, Sodium Level 135L, Potassium Level 4.4, Chloride Level 99, Carbon Dioxide Level 29, Anion Gap 7, Blood Urea Nitrogen 28H , Creatinine 8.8H, Estimat Glomerular Filtration Rate 7.5, Glucose Level 79, Calcium Level 8.9 Height (Feet): 5 Height (Inches): 7.00 Weight (Pounds): 137 Objective Thin AA man NCAT supple CTA RRR abd soft, (+) wound no edema Aga Lucas MD Apr 08, 2019 21:14
== END 2019-04-08 11:45 | disposition home or self-care (01) | DRG 253 ==
LOC: EMR 13:30 → 2W 14:46 → EDBEDREQ 16:06 → 2E 04-03 07:10 → 2W 04-03 08:00 → 3E 04-06 18:31
PROC: 30233N1 Transfusion of Nonautologous Red Blood Cells into Peripheral Vein, Percutaneous Approach (ICD-10-PCS; 2019-04-02)
PROC: 0DJ08ZZ Inspection of Upper Intestinal Tract, Via Natural or Artificial Opening Endoscopic (ICD-10-PCS; principal; 2019-04-05 08:24)
PROC: 5A1D70Z Performance of Urinary Filtration, Intermittent, Less than 6 Hours Per Day (ICD-10-PCS; 2019-04-07)
DX: K92.2 Gastrointestinal hemorrhage, unspecified (principal); D50.9 Iron deficiency anemia, unspecified; N18.6 End stage renal disease; Z99.2 Dependence on renal dialysis; I12.0 Hypertensive chronic kidney disease with stage 5 chronic kidney disease or end stage renal disease; K31.84 Gastroparesis; K57.90 Diverticulosis of intestine, part unspecified, without perforation or abscess without bleeding; Z90.49 Acquired absence of other specified parts of digestive tract; E83.39 Other disorders of phosphorus metabolism; I95.9 Hypotension, unspecified; E83.42 Hypomagnesemia; D63.1 Anemia in chronic kidney disease; K44.9 Diaphragmatic hernia without obstruction or gangrene; Z59.0 Homelessness
CPT/HCPCS: 36415; 71045; 80048; 80053; 82270; 82962; 83735; 84100; 85007; 85025; 85610; 85730; 86850; 86900; 86901; 86920; 87081; 93005; 94003; 94150; 96360; 99285; J2405

== ENCOUNTER 2020-06-23 18:40 | Emergency (ER) | payer OTHER ==
[~2020-06-23] VITALS: Ht 170.2 cm; Wt 63.5 kg
[~2020-06-23 18:40] MED LIST changes: +FERROUS SULFAT325 MG ORAL; +HYDRALAZINE HCL50 MG ORAL; +RENVELA0.8 GM ORAL
[2020-06-23 18:49] VITALS: BP 122/65
--- NOTE | 2020-06-23 18:49 | NUR ---
ED Nurse Note:pt. arabella MORGAN from home with SOB, hx of COPD, no fever ,pt is A/Ox4 ambulatory, had dialysis today
--- NOTE | 2020-06-23 19:15 | NUR ---
ED Nurse Note: Report received from CANDY BLACK. Patient awake and alert on bed
--- NOTE | 2020-06-23 19:36 | NUR ---
ED Nurse Note: JULIETA guided insertion done by BISMARK at right AC. Blood sent to lab
--- NOTE | 2020-06-23 19:39 | Diagnostic Imaging Report ---
EXAM: XR Chest, 1 View CLINICAL HISTORY: SOB TECHNIQUE: Frontal view of the chest. COMPARISON: Chest x-ray 04/02/2019 FINDINGS: Lungs: Unchanged pulmonary venous congestion and trace interstitial edema. Pleural space: Trace left pleural effusion. Heart: Cardiomegaly. Bones/joints: Unremarkable. IMPRESSION: 1. Unchanged pulmonary venous congestion and trace interstitial edema. 2. Cardiomegaly. 3. Trace left pleural effusion.
[2020-06-23 19:52] LABS: BASOPHILS % (AUTO) 1.7 % (0.0-2.0); EOSINOPHILS % (AUTO) 2.8 % (0.0-3.0); HEMATOCRIT 36.8 % (42.0-52.0); HEMOGLOBIN 11.7 G/DL (14.2-18.0); LYMPHOCYTES % (AUTO) 16.4 % (20.0-45.0); MEAN CORPUSCULAR VOLUME 95 FL (80-99); MONOCYTES % (AUTO) 13.5 % (1.0-10.0); NEUTROPHILS % (AUTO) 65.7 % (45.0-75.0); PLATELET COUNT 527 K/UL (150-450); RED BLOOD COUNT 3.89 M/UL (4.70-6.10); RED CELL DISTRIBUTION WIDTH 16.2 % (11.6-14.8); WHITE BLOOD COUNT 6.3 K/UL (4.8-10.8)
[2020-06-23 20:00] LABS: ANION GAP 8 mmol/L (5-15); BLOOD UREA NITROGEN 16 mg/dL (7-18); CALCIUM 9.2 MG/DL (8.5-10.1); CARBON DIOXIDE 35 MMOL/L (21-32); CHLORIDE 92 MMOL/L (98-107); CREATININE 6.1 MG/DL (0.55-1.30); SODIUM 135 MMOL/L (136-145)
[2020-06-23 20:06] LABS: ASPARTATE AMINO TRANSFERASE 17 U/L (15-37); BILIRUBIN,TOTAL 0.4 MG/DL (0.2-1.0)
--- NOTE | 2020-06-23 20:06 | Emergency Room Report ---
History of Present Illness General Chief Complaint: Dyspnea/Respdistress Present Illness HPI 59-year-old male with history of end-stage renal disease on dialysis Thursday here with chest pain. Patient says that he underwent dialysis earlier today and was able to complete the entire appointment without difficulty. The patient then went home and says that about 2 hours after the dialysis appointments completed he began to have crushing substernal chest pain. [place] some subjective shortness of breath. Pain is crushing nature, located in the substernal region, does not otherwise radiate. Has felt nauseous and has vomited one time. No abdominal pain. No fevers, chills, palpitations, back pain, abdominal pain, diarrhea, dysuria. Patient still makes urine and urinates about once per day. 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 COVID-19 Screening: Negative COVID-19 COVID-19 Testing Source: 1 week ago Nursing Documentation-PMH Hx Cardiac Problems: Yes - heart failure Hx Hypertension: Yes - low Hgb Hx COPD: Yes Hx Cancer: No Hx Gastrointestinal Problems: Yes - renal failure Hx Dialysis: Yes - //Thu Hx Neurological Problems: No Review of Systems All Other Systems: negative except mentioned in HPI Physical Exam Vital Signs Date Time Temp Pulse Resp B/P (MAP) Pulse Ox O2 Delivery O2 Flow Rate FiO2 06/23/20 18:37 98.2 85 14 122/65 (84) 100 Room Air Sp02 EP Interpretation: reviewed, normal General Appearance: no apparent distress, alert, non-toxic Head: normocephalic, atraumatic Eyes: bilateral eye normal inspection, bilateral eye PERRL ENT: hearing grossly normal, normal pharynx, no angioedema, normal voice Neck: full range of motion, supple/symm/no masses Respiratory: chest non-tender, lungs clear, normal breath sounds, speaking full sentences Cardiovascular #1: regular rate, rhythm, no edema, other - Left lower extremity dialysis fistula in place with palpable thrill. No surrounding erythema or induration or active bleeding Cardiovascular #2: 2+ carotid (R), 2+ carotid (L), 2+ radial (R), 2+ radial (L), 2+ dorsalis pedis (R), 2+ dorsalis pedis (L) Gastrointestinal: normal bowel sounds, non tender, soft, non-distended, no guarding, no rebound Rectal: deferred Genitourinary: normal inspection, no CVA tenderness Musculoskeletal: back normal, normal range of motion, calf tenderness, gait/station normal, non-tender Neurologic: alert, motor strength/tone normal, sensory intact, responsive, speech normal Psychiatric: judgement/insight normal, memory normal, mood/affect normal, no suicidal/homicidal ideation Lymphatic: no adenopathy Medical Decision Making Diagnostic Impression: Primary Impression: Chest pain Additional Impressions: Abnormal EKG Vomiting CHF (congestive heart failure) ER Course CXR: IMPRESSION: 1. Unchanged pulmonary venous congestion and trace interstitial edema. 2. Cardiomegaly. 3. Trace left pleural effusion. EKG: NSR, T wave inversions in leads V1, V2, V3 new from previous EKG approximately 1 year ago., intervals WNL. No ectopy Rhythm strip: patient monitored for arrhythmias - no malignant dysrhythmias, runs of PVCs, nor pauses noted 59-year-old male here with chest pain. Patient is a dialysis patient undergoes dialysis Thursday, , Thursday and had his full dialysis earlier today. Patient was hemodynamically stable and neurovascular intact in the emergency department. He was given an aspirin on arrival. CBC, CMP largely unremarkable. Potassium 3.0. EKG showed new T wave inversions in V1 through V3 which were new compared to an EKG performed here approximately 1 year ago. Patient vomited once in the emergency department was given Zofran with resolution of his nausea. He was in no acute distress. I spoke with Dr. Raman at [facility] who accepted the transfer. Last Vital Signs Date Time Temp Pulse Resp B/P (MAP) Pulse Ox O2 Delivery O2 Flow Rate FiO2 06/23/20 18:49 98.2 89 14 122/65 100 Room Air Referrals: [facility],REFERRING (PCP) Brennen Valentin M.D. Jun 23, 2020 20:06
[2020-06-23 20:07] LABS: ALANINE AMINOTRANSFERASE 11 U/L (12-78); ALBUMIN 3.1 G/DL (3.4-5.0); ALKALINE PHOSPHATASE 99 U/L (46-116)
[2020-06-23] MEDS ORDERED: Aspirin Baby 81mg ORAL ONE (20:15)
--- NOTE | 2020-06-23 20:25 | NUR ---
[facility]Room#121-B Accepting is Call report to [phone] Transport-Stephanie will call back with info.
--- NOTE | 2020-06-23 20:52 | NUR ---
Stephanie called with frtansportation information: [id number].
--- NOTE | 2020-06-23 22:38 | NUR ---
ED Nurse Note: Report given to YAMEL BLACK at [facility]
--- NOTE | 2020-06-23 22:39 | NUR ---
ER DISCHARGE NOTE: Patient is picked up by JAT[facility]ER going to [facility] via BLS. Bedside report and packet given to ambulance personnel. Patient has IV access on right AC g20. pt took all belongings. patient transported safely to ambulance [facility].
[2020-06-23 22:42] VITALS: BP 135/87
--- NOTE | 2020-06-27 04:06 | Cardiology Report ---
APPROVED REPORT EKG Measurement Heart [id number] <Conclusion> Normal sinus rhythm Biatrial enlargement Left ventricular hypertrophy T wave abnormality, consider anterior ischemia Prolonged QT Abnormal ECG
== END 2020-06-23 22:46 | disposition other institution (70) ==
LOC: EDBD 18:40 → EDBEDREQ 19:19 → EMR 19:27
DX: R07.9 Chest pain, unspecified (principal); R94.31 Abnormal electrocardiogram [ECG] [EKG]; R11.10 Vomiting, unspecified; I51.7 Cardiomegaly; J90 Pleural effusion, not elsewhere classified; Z99.2 Dependence on renal dialysis; J44.9 Chronic obstructive pulmonary disease, unspecified; I13.2 Hypertensive heart and chronic kidney disease with heart failure and with stage 5 chronic kidney disease, or end stage renal disease; N18.6 End stage renal disease; I50.9 Heart failure, unspecified
CPT/HCPCS: 36415; 71045; 80053; 83690; 83880; 84484; 85025; 93005; 96374; J2405; J7040; U0002; Z7502; 99284